=== PATIENT | male | born 1940 | race Caucasian/White ===

== ENCOUNTER 2017-01-09 14:13 | Emergency (ER) | payer OTHER, MEDICAID ==
--- NOTE | 2017-01-09 14:23 | ED Physician Chart ---
Chief Complaint/HPI - Patient Information Date Seen:: 01/09/17 Time Seen:: 14:18 Chief Complaint:: behavioral issues History of Present Illness:: pt has been acting out at [facility]. difficult for staff. outbursts . he is refusing meds and difficult to handle. pt also feels weak lately but denies any fever or uri sx or specific pain. pt here for geripsych evaluation. Allergies:: Allergies Allergy/AdvReac Type Severity Reaction Status Date / Time No Known Allergies Allergy Verified 01/10/16 19:44 Historian:: Patient Review of Systems - Review of Systems General/Constitutional: No fever, No chills, No weight loss, No weakness, No diaphoresis, No edema, No loss of appetite Skin: No skin lesions, No rash, No bruising Head: No headache, No light-headedness Eyes: No loss of vision, No pain, No diplopia ENT: No earache, No nasal drainage, No sore throat, No tinnitus Neck: No neck pain, No swelling, No thyromegaly, No stiffness, No mass noted Cardio Vascular: No chest pain, No palpitations, No PND, No orthopnea, No edema Pulmonary: No SOB, No cough, No sputum, No wheezing GI: No nausea, No vomiting, No diarrhea, No pain, No melena, No hematochezia, No constipation, No hematemesis G/U: No dysuria, No frequency, No hematuria Musculoskeletal: No bone or joint pain, No back pain, No muscle pain Endocrine: No polyuria, No polydipsia Psychiatric: Prior psych history, No depression, No anxiety, No suicidal ideation, Other (aggressive behavior) Hematopoietic: No bruising, No lymphadenopathy Allergic/Immuno: No urticaria, No angioedema Neurological: No syncope, No focal symptoms, No weakness, No paresthesia, No headache, No seizure, No dizziness, No confusion, No vertigo, Other (parkinson tremor) Past Medical History - Past Medical History Past Medical History: Dementia, Other (parkinsons dz,) Social History: Care Facility Psychiatricy History: Dementia, Other Medication: Reviewed Family Medical History - Family Member family History Unknown: Yes Ethnicity: Unknown Living Status: Unknown Hx Family Cancer: (unknown) Hx Family Coronary Artery Disease: (unknown) Hx Family Congestive Heart Failure: (unknown) Hx Family Hypertension: (unknown) Hx Family Stroke: (unknown) Hx Family Diabetes: (unknown) Hx Family Seizures: (unknown) Hx Family Dementia: (unknown) Hx Family AIDS: (unknown) Hx Family COPD: (unknown) Hx Family Hepatitis: (unknown) Hx Family Psychiatric Problems: (unknown) Hx Family Tuberculosis: (unknown) Physical Exam - Physical Examination General/Constitutional: Awake, Well-developed, well-nourished, Alert, No distress, GCS 15, Non-toxic appearing, Ambulatory Other Gen/Cons comments:: thin male alert and in nad. wn/wh. mod ok historian. parkinson tremor Head: Atraumatic Eyes: Lids, conjuctiva normal, PERRL, EOMI Skin: Nl inspection, No rash, No skin lesions, No ecchymosis, Well hydrated, No lymphadenopathy ENMT: External ears, nose nl, Nasal exam nl, Lips, teeth, gums nl Neck: Nontender, Full ROM w/o pain, No JVD, No nuchal rigidity, No bruit, No mass, No stridor Respiratory: Nl effort/Exclusion, Clear to Auscultation, No Wheeze/Rhonchi/Rales Cardio Vascular: RRR, No murmur, gallop, rubs, NL S1 S2 GI: No tenderness/rebounding/guarding, No organomegaly, No hernia, Normal BS's, Nondistended, No mass/bruits, No McBurney tenderness : No CVA tenderness Extremities: No tenderness or effusion, Full ROM, normal strength in all extremities, No edema, Normal digits & nails Neuro/Psych: Alert/oriented, DTR's symmetric, Normal sensory exam, Normal motor strength, Judgement/insight normal, Mood normal, Normal gait, No focal deficits Misc: normal gait, Normal back, No paraspinal tenderness Labs/Radiology/EKG Results - Lab Results Results: Laboratory Tests 01/09/17 01/09/17 14:26 14:26 WBC 6.7 RBC 4.04 Hgb 13.1 Hct 38.9 L MCV 96.3 MCH 32.5 H MCHC Differential 33.8 RDW 12.9 Plt Count 300 MPV 7.5 Neutrophils % 70.3 Lymphocytes % 21.1 Monocytes % 6.9 Eosinophils % 0.6 Basophils % 1.1 Sodium 138 Potassium 3.7 Chloride 105 Carbon Dioxide 30.7 Anion Gap 6.0 L BUN 24 Creatinine 0.9 Est GFR ( Amer) TNP Est GFR (Non-Af Amer) TNP BUN/Creatinine Ratio 26.7 Glucose 134 H Calcium 9.0 Total Bilirubin 0.6 AST 23 ALT 13 Alkaline Phosphatase 46 Total Protein 6.6 Albumin 3.9 L Globulin 2.7 Albumin/Globulin Ratio 1.4 Triglycerides 127 Cholesterol 150 LDL Cholesterol Direct 87 HDL Cholesterol 60 Salicylates < 25.0 L Acetaminophen < 10.0 L Ethyl Alcohol < 10 - EKG Interpretations EKG Time:: 15:55 Rate & Rhythm: nsr 64. st/t waves wnl ED Septic Shock - . Is Septic Shock (SBP<90, OR Lactate>4 mmol\L) present?: No Reassessment (Disposition) - Reassessment Reassessment:: 3;30p pt is medically clear for geripsych x i cannot see ecg has been completed...notified Fátima WHALEN Reassessment Condition:: Unchanged - Diagnosis Diagnosis:: 1 difficult behavior 2 medically cleared for geripsych admit - Patient Disposition Admitted to:: [facility] Condition at Disposition:: Unchanged
[2017-01-09 14:34] LABS: % BASOPHILS 1.1 % (0.0-2.0); % EOSINOPHILS 0.6 % (0.0-5.0); % LYMPHOCYTES 21.1 % (20.0-50.0); % MONOCYTES 6.9 % (2.0-10.0); % NEUTROPHILS 70.3 % (40.0-80.0); HEMATOCRIT 38.9 % (39.0-49.0); HEMOGLOBIN 13.1 gm/dL (12.6-17.4); MEAN CELL VOLUME 96.3 fl (80-99); MEAN CORPUSCULAR HEMOGLOBIN 32.5 pg (27.0-31.0); MEAN CORPUSCULAR HGB CONC 33.8 pg (28.0-36.0); MEAN PLATELET VOLUME 7.5 fl; NEUTROPHILE ABSOLUTE 4.7 Th/cmm (1.8-8.0); PLATELET COUNT 300 Th/cmm (150-400); RED BLOOD COUNT 4.04 Mil/cmm (3.80-5.80); RED CELL DISTRIBUTION WIDTH 12.9 % (11.5-20.0); WHITE BLOOD COUNT 6.7 Th/cmm (4.8-10.8)
[2017-01-09 14:48] LABS: ACETAMINOPHEN < 10.0 ug/mL (10.0-30.0); ALB/GLOB RATIO 1.4 (1.0-1.8); ALKALINE PHOSPHATASE 46 U/L (34-104); BILIRUBIN,TOTAL 0.6 mg/dL (0.3-1.0); BUN - UREA NITROGEN 24 mg/dL (7-25); BUN/CREATININE RATIO 26.7; CARBON DIOXIDE 30.7 mEq/L (21.0-31.0); CHLORIDE 105 mEq/L (98-107); CHOLESTEROL 150 mg/dL (<200); CREATININE - SERUM 0.9 mg/dL (0.7-1.3); GLUCOSE 134 mg/dL (70-105); POTASSIUM SERUM 3.7 mEq/L (3.5-5.1); SGOT 23 U/L (13-39); SGPT/ALT 13 U/L (7-52); SODIUM SERUM 138 mEq/L (136-145); TRIGLYCERIDES 127 mg/dL (<150)
[2017-01-09 19:46] LABS: URINE BILIRUBIN NEGATIVE (NEGATIVE); URINE COLOR YELLOW; URINE GLUCOSE (UA) NEGATIVE (NEGATIVE); URINE KETONE NEGATIVE (NEGATIVE)
[2017-01-09 19:47] LABS: URINE BLOOD NEGATIVE (NEGATIVE); URINE PH 7.5; URINE PROTEIN NEGATIVE (NEGATIVE); URINE UROBILINOGEN 0.2 E.U./dL (0.2 - 1.0)
[2017-01-09 19:48] LABS: AMPHETAMINE URINE NEGATIVE (NEGATIVE); BARBITURATES URINE NEGATIVE (NEGATIVE); METHADONE URINE NEGATIVE (NEGATIVE)
[2017-01-10 02:52] LABS: URINE BACTERIA NONE SEEN /hpf (NONE SEEN); URINE EPITHELIAL CELLS NONE SEEN /lpf (FEW); URINE RBC NONE SEEN /hpf (0-5); URINE WBC NONE SEEN /hpf (0-5)
== END 2017-01-09 21:55 ==
LOC: ER 14:13
DX: R46.89 Other symptoms and signs involving appearance and behavior (principal)
CPT/HCPCS: 36415-UA; 80053-TC; 80061-TC; 80307; 80320-TC; 80329-TC; 81001-TC; 84443-TC; 85025-TC; 86592-TC; 93005

== ENCOUNTER 2017-02-05 18:58 | Emergency (ER) | payer OTHER, MEDICAID ==
[2017-02-05 19:26] LABS: % BASOPHILS 1.2 % (0.0-2.0); % EOSINOPHILS 0.4 % (0.0-5.0); % LYMPHOCYTES 15.5 % (20.0-50.0); % MONOCYTES 9.1 % (2.0-10.0); % NEUTROPHILS 73.8 % (40.0-80.0); HEMATOCRIT 39.3 % (39.0-49.0); HEMOGLOBIN 13.3 gm/dL (12.6-17.4); MEAN CELL VOLUME 96.2 fl (80-99); MEAN CORPUSCULAR HEMOGLOBIN 32.6 pg (27.0-31.0); MEAN CORPUSCULAR HGB CONC 33.9 pg (28.0-36.0); MEAN PLATELET VOLUME 7.6 fl; NEUTROPHILE ABSOLUTE 5.7 Th/cmm (1.8-8.0); PLATELET COUNT 279 Th/cmm (150-400); RED BLOOD COUNT 4.08 Mil/cmm (3.80-5.80); RED CELL DISTRIBUTION WIDTH 12.8 % (11.5-20.0); WHITE BLOOD COUNT 7.7 Th/cmm (4.8-10.8)
--- NOTE | 2017-02-05 19:36 | ED Physician Chart ---
Chief Complaint/HPI - Patient Information Date Seen:: 02/05/17 Time Seen:: 19:25 Chief Complaint:: MENTAL DISORDER History of Present Illness:: THIS IS A 76 YO CONFUSED CHRONICALLY ILL MALE WHO WAS SENT FROM THE SENIOR LIVING FOR EVALUATION AND TREATMENT. Allergies:: Allergies Allergy/AdvReac Type Severity Reaction Status Date / Time No Known Allergies Allergy Verified 01/09/17 14:23 Vitals:: Vital Signs - 8 hr 02/05/17 19:22 Temp 98.6 F HR 65 RR 17 BP 129/66 O2 Sat % 97 Historian:: Patient, Medical Records Review:: Nurse's Note Reviewed, Old Chart Reviewed, Transfer documents Reviewed Review of Systems - Review of Systems General/Constitutional: Other (THIS PATIENT IS TOO CONFUSED TO GIVE A REVIEW OF SYSTEMS) Past Medical History - Past Medical History Obtainable: Yes Past Medical History: HTN, Dyslipidemia, Dementia Family History: None Social History: Non Smoker, No Alcohol, No Drug Use, Care Facility Surgical History: None Psychiatricy History: Depression, Schizophrenia, Bipolar Medication: Reviewed Family Medical History - Family Member family History Unknown: Yes Ethnicity: Unknown Living Status: Unknown Hx Family Cancer: (unknown) Hx Family Coronary Artery Disease: (unknown) Hx Family Congestive Heart Failure: (unknown) Hx Family Hypertension: (unknown) Hx Family Stroke: (unknown) Hx Family Diabetes: (unknown) Hx Family Seizures: (unknown) Hx Family Dementia: (unknown) Hx Family AIDS: (unknown) Hx Family COPD: (unknown) Hx Family Hepatitis: (unknown) Hx Family Psychiatric Problems: (unknown) Hx Family Tuberculosis: (unknown) Physical Exam - Physical Examination General/Constitutional: Awake, Well-developed, well-nourished, Alert, No distress, GCS 15, Non-toxic appearing, Ambulatory Other Gen/Cons comments:: AWAKE BUT CONFUSED Head: Atraumatic Eyes: Lids, conjuctiva normal, PERRL, EOMI Skin: Nl inspection, No rash, No skin lesions, No ecchymosis, Well hydrated, No lymphadenopathy ENMT: External ears, nose nl, Nasal exam nl, Lips, teeth, gums nl Neck: Nontender, Full ROM w/o pain, No JVD, No nuchal rigidity, No bruit, No mass, No stridor Respiratory: Nl effort/Exclusion, Clear to Auscultation, No Wheeze/Rhonchi/Rales Cardio Vascular: RRR, No murmur, gallop, rubs, NL S1 S2 GI: No tenderness/rebounding/guarding, No organomegaly, No hernia, Normal BS's, Nondistended, No mass/bruits, No McBurney tenderness : No CVA tenderness Extremities: No tenderness or effusion, Full ROM, normal strength in all extremities, No edema, Normal digits & nails Neuro/Psych: Alert/oriented, DTR's symmetric, Normal sensory exam, Normal motor strength, Judgement/insight normal, Mood normal, Normal gait, No focal deficits Misc: normal gait, Normal back, No paraspinal tenderness Labs/Radiology/EKG Results - Lab Results Results: Laboratory Tests 02/05/17 19:19 WBC 7.7 RBC 4.08 Hgb 13.3 Hct 39.3 MCV 96.2 MCH 32.6 H MCHC Differential 33.9 RDW 12.8 Plt Count 279 MPV 7.6 Neutrophils % 73.8 Lymphocytes % 15.5 L Monocytes % 9.1 Eosinophils % 0.4 Basophils % 1.2 - EKG Interpretations EKG Time:: 19:31 Rate & Rhythm: RATE =68, SINUS [place]: LEFT AXIS Assessment - Assessment General Assessment: PSYCHOSIS ED Septic Shock - . Is Septic Shock (SBP<90, OR Lactate>4 mmol\L) present?: No - <6hrs of presentation: Vital Signs: Vital Signs - 8 hr 02/05/17 19:22 Temp 98.6 F HR 65 RR 17 BP 129/66 O2 Sat % 97 ED Discharge Plan - Patient Disposition Instructions: Psychosis
[2017-02-05 19:40] LABS: INR 1.07 (0.5-1.4); PROTHROMBIN TIME (TEST) 11.1 SECONDS (9.5-11.5)
[2017-02-05 19:45] LABS: ALKALINE PHOSPHATASE 43 U/L (34-104); ANION GAP 7.9 (7.0-16.0); BILIRUBIN,TOTAL 0.8 mg/dL (0.3-1.0); BUN - UREA NITROGEN 22 mg/dL (7-25); BUN/CREATININE RATIO 24.4; CALCIUM SERUM 9.5 mg/dL (8.6-10.3); CARBON DIOXIDE 26.6 mEq/L (21.0-31.0); CHLORIDE 107 mEq/L (98-107); CREATININE - SERUM 0.9 mg/dL (0.7-1.3); GLUCOSE 144 mg/dL (70-105); POTASSIUM SERUM 3.5 mEq/L (3.5-5.1); SGOT 29 U/L (13-39); SGPT/ALT 17 U/L (7-52); SODIUM SERUM 138 mEq/L (136-145)
[2017-02-05 19:46] LABS: CHOLESTEROL 158 mg/dL (<200); TRIGLYCERIDES 88 mg/dL (<150)
--- NOTE | 2017-02-06 08:20 | Diagnostic Imaging Report ---
CHEST X-RAY: AP view INDICATION: Shortness of breath COMPARISON: None FINDINGS: There is elevation of the right hemidiaphragm There is no focal consolidation or pleural effusions . There is a 1.3 cm round density projecting along the right lower lung zone. Atherosclerotic vascular disease is noted. Heart size is normal. Degenerative changes of the spine are noted. IMPRESSION: No focal consolidation identified. 1.3 cm round density projecting along the right lower lung zone probably representing a calcification. This may represent a granuloma or may be secondary to right fourth rib costochondral junction. Correlation with old exams would also be helpful. Alternatively short-term follow-up CT chest would provide for detail and assessment.
== END 2017-02-05 23:04 ==
LOC: ER 18:58
DX: F29 Unspecified psychosis not due to a substance or known physiological condition (principal); I10 Essential (primary) hypertension; E78.5 Hyperlipidemia, unspecified; F20.9 Schizophrenia, unspecified; F31.9 Bipolar disorder, unspecified
CPT/HCPCS: 36415-UA; 71010-TC; 80053-TC; 80061-TC; 84443-TC; 84484-TC; 85025-TC; 85610-TC; 85730-TC; 86592-TC; 93005

== ENCOUNTER 2017-03-14 14:26 | Inpatient (IN) | payer MEDICARE, MEDICAID ==
--- NOTE | 2017-03-14 14:34 | ED Physician Chart ---
ED Chief Complaint/HPI - Patient Information Date Seen:: 03/14/17 Time Seen:: 14:30 Chief Complaint:: agitation History of Present Illness:: onset x one day of hostile behavior, combativeness, and agitation; no report of LOC, ALOC, AMS, H/As, neck pain, C/P, SOB, Abd. Pain, A/N/V/D/C, fever, chills, SIs, hallucinations, or urinary s/s Allergies:: Allergies Allergy/AdvReac Type Severity Reaction Status Date / Time No Known Allergies Allergy Verified 01/09/17 14:23 Historian:: Patient, EMS Review:: Nurse's Note Reviewed, Old Chart Reviewed, EMS run form Reviewed, Transfer documents Reviewed ED Review of Systems - Review of Systems General/Constitutional: No fever, No chills, No weight loss, Weakness, No diaphoresis, No edema, No loss of appetite Skin: No skin lesions, No rash, No bruising Head: No headache, No light-headedness Eyes: No loss of vision, No pain, No diplopia ENT: No earache, No nasal drainage, No sore throat, No tinnitus Neck: No neck pain, No swelling, No thyromegaly, No stiffness, No mass noted Cardio Vascular: No chest pain, No palpitations, No PND, No orthopnea, No edema Pulmonary: No SOB, No cough, No sputum, No wheezing GI: No nausea, No vomiting, No diarrhea, No pain, No melena, No hematochezia, No constipation, No hematemesis G/U: No dysuria, No frequency, No hematuria Musculoskeletal: No bone or joint pain, No back pain, No muscle pain Endocrine: No polyuria, No polydipsia Psychiatric: Prior psych history, Depression, Anxiety, No suicidal ideation, No homicidal ideation, No auditory hallucination, No visual hallucination Hematopoietic: No bruising, No lymphadenopathy Allergic/Immuno: No urticaria, No angioedema Neurological: No syncope, No focal symptoms, Weakness, No paresthesia, Headache , No seizure, Dizziness, Confusion, Vertigo ED Past Medical History - Past Medical History Obtainable: Yes Past Medical History: HTN, Dyslipidemia (Anemia; BPH), Dementia Family History: Diabetes Melitus, HTN Social History: Non Smoker, No Alcohol, No Drug Use, Single, Care Facility Surgical History: None Psychiatricy History: Depression, Schizophrenia, Bipolar, Dementia Medication: Reviewed Family Medical History - Family Member family History Unknown: Yes Ethnicity: Unknown Living Status: Unknown Hx Family Cancer: (unknown) Hx Family Coronary Artery Disease: (unknown) Hx Family Congestive Heart Failure: (unknown) Hx Family Hypertension: (unknown) Hx Family Stroke: (unknown) Hx Family Diabetes: (unknown) Hx Family Seizures: (unknown) Hx Family Dementia: (unknown) Hx Family AIDS: (unknown) Hx Family COPD: (unknown) Hx Family Hepatitis: (unknown) Hx Family Psychiatric Problems: (unknown) Hx Family Tuberculosis: (unknown) ED Physical Exam - Physical Examination General/Constitutional: Awake, Well-developed, well-nourished, Alert, No distress, GCS 15, Non-toxic appearing, Ambulatory Head: Atraumatic Eyes: Lids, conjuctiva normal, PERRL, EOMI Skin: Nl inspection, No rash, No skin lesions, No ecchymosis, Well hydrated, No lymphadenopathy ENMT: External ears, nose nl, Nasal exam nl, Lips, teeth, gums nl Neck: Nontender, Full ROM w/o pain, No JVD, No nuchal rigidity, No bruit, No mass, No stridor Respiratory: Nl effort/Exclusion, Clear to Auscultation, No Wheeze/Rhonchi/Rales Cardio Vascular: RRR, No murmur, gallop, rubs, NL S1 S2 GI: No tenderness/rebounding/guarding, No organomegaly, No hernia, Normal BS's, Nondistended, No mass/bruits, No McBurney tenderness : No CVA tenderness Extremities: No tenderness or effusion, Full ROM, normal strength in all extremities, No edema, Normal digits & nails Neuro/Psych: DTR's symmetric, Normal sensory exam, Normal motor strength, Judgement/insight normal, Mood normal, Normal gait, No focal deficits Other Neuro/Psych comments:: + Psychomotor Agitation; Confused and Disoriented; no SIs Misc: normal gait, Normal back, No paraspinal tenderness ED Labs/Radiology/EKG Results - Lab Results Comments:: K+: 3.4 - EKG Interpretations EKG Time:: 14:45 Rate & Rhythm: 87; NSR Comments:: LVH; non-specific st-t changes ED Septic Shock - . Is Septic Shock (SBP<90, OR Lactate>4 mmol\L) present?: No ED Reassessment (Disposition) - Reassessment Reassessment Condition:: Improved - Diagnosis Diagnosis:: Agitation; Hypokalemia; Psychomotor Agitation - Aftercare/Follow up Instructions Aftercare/Follow-Up Instructions:: Counseled pt regarding lab results/diagnosis & need follow up, Counseled pt & family regarding lab results/diagnosis & need follow up - Patient Disposition Discharge/Transfer:: Acute Care w/in this hosp Admitted to:: [facility] Condition at Disposition:: Stable, Improved
[2017-03-14 14:57] LABS: % BASOPHILS 1.1 % (0.0-2.0); % EOSINOPHILS 0.7 % (0.0-5.0); % LYMPHOCYTES 24.2 % (20.0-50.0); % MONOCYTES 7.4 % (2.0-10.0); % NEUTROPHILS 66.6 % (40.0-80.0); HEMATOCRIT 43.1 % (41.0-60); HEMOGLOBIN 14.3 gm/dL (12-16); MEAN CELL VOLUME 96.9 fl (80-99); MEAN CORPUSCULAR HEMOGLOBIN 32.1 pg (27.0-31.0); MEAN CORPUSCULAR HGB CONC 33.1 pg (28.0-36.0); MEAN PLATELET VOLUME 7.7 fl; PLATELET COUNT 308 Th/cmm (150-400); RED BLOOD COUNT 4.45 Mil/cmm (3.80-5.80); RED CELL DISTRIBUTION WIDTH 12.4 % (11.5-20.0)
[2017-03-14 15:07] LABS: WHITE BLOOD COUNT 5.9 Th/cmm (4.8-10.8)
[2017-03-14 15:29] LABS: URINE BILIRUBIN NEGATIVE (NEGATIVE); URINE BLOOD NEGATIVE (NEGATIVE); URINE GLUCOSE (UA) NEGATIVE (NEGATIVE); URINE KETONE NEGATIVE (NEGATIVE); URINE PROTEIN NEGATIVE (NEGATIVE); URINE UROBILINOGEN 0.2 E.U./dL (0.2 - 1.0)
[2017-03-14 15:40] LABS: AMPHETAMINE URINE NEGATIVE (NEGATIVE); BARBITURATES URINE NEGATIVE (NEGATIVE); METHADONE URINE NEGATIVE (NEGATIVE)
[2017-03-14 15:41] LABS: URINE COLOR YELLOW
[2017-03-14 15:41] LABS: ALB/GLOB RATIO 1.8 (1.0-1.8); ALKALINE PHOSPHATASE 49 U/L (34-104); ANION GAP 8.8 (7.0-16.0); BILIRUBIN,TOTAL 0.7 mg/dL (0.3-1.0); BUN - UREA NITROGEN 19 mg/dL (7-25); BUN/CREATININE RATIO 23.8; CALCIUM SERUM 9.6 mg/dL (8.6-10.3); CARBON DIOXIDE 30.6 mEq/L (21.0-31.0); CHLORIDE 100 mEq/L (98-107); CHOLESTEROL 175 mg/dL (<200); CREATININE - SERUM 0.8 mg/dL (0.7-1.3); GLUCOSE 96 mg/dL (70-105); POTASSIUM SERUM 3.4 mEq/L (3.5-5.1); SGOT 25 U/L (13-39); SGPT/ALT 17 U/L (7-52); SODIUM SERUM 136 mEq/L (136-145); TRIGLYCERIDES 76 mg/dL (<150)
[2017-03-14 15:42] LABS: URINE BACTERIA NONE SEEN /hpf (NONE SEEN); URINE EPITHELIAL CELLS NONE SEEN /lpf (FEW); URINE RBC NONE SEEN /hpf (0-5); URINE WBC NONE SEEN /hpf (0-5)
[2017-03-14 15:46] LABS: ACETAMINOPHEN < 10.0 ug/mL (10.0-30.0)
[2017-03-14] MEDS ORDERED: Potassium Chloride 20 mEq ER Tab PO ONE (15:58)
[2017-03-14] MEDS ORDERED: Potassium Chloride Elixir 20 mEq /15 mL UDC ONE (16:00)
[2017-03-14] MEDS ORDERED: Potassium Chloride Elixir 20 mEq /15 mL UDC PO ONE (16:01)
[2017-03-14] MEDS ORDERED: Magnesium Hydroxide (MOM) 30 mL UDC PO PRN (17:55)
[2017-03-14] MEDS ORDERED: Maalox 30 mL Cup PO PRN (17:55)
[2017-03-15] MEDS: Multivitamin Tab PO SCH (08:40)
--- NOTE | 2017-03-15 16:26 | Psychosocial Evaluation ---
DATE OF SERVICE: 03/15/2017 PSYCHIATRIC INITIAL EVALUATION MENTAL STATUS EXAM AGE: 76. SEX: Male. PHYSICIAN: Dr. Arita. CHIEF COMPLAINT: Suicidal ideation. HISTORY OF PRESENT ILLNESS: The patient is a 76-year-old male who I evaluated in the [facility] and transferred into the hospital because the patient "suicidal." The patient said that he has been tired of living and he wants to end his life and to kill himself. The patient added that he has been feeling hopeless and helpless. Also, has been frustrated with his physical inabilities and the fact that he has been not able to live at his home. The patient also has been having poor appetite and he lost unknown amount of weight. He also has been slightly suspicious and paranoid and gets angry outbursts. PAST PSYCHIATRIC HISTORY: The patient has history of multiple psychiatric hospitalizations for treatment of his schizoaffective disorder. PAST MEDICAL HISTORY: The patient has no major medical problems. SOCIAL HISTORY: The patient is , but currently he lives in [facility]. The patient does not drink alcohol or use any street drugs or smoke cigarettes. No legal issues and no history of abuse. ALLERGIES: No known allergies. MENTAL STATUS EXAMINATION: The patient appears his stated age. Anxious. Flat affect. In a depressed mood. Seems to be underweight. Thought processes are mainly goal directed. The patient denies auditory or visual hallucinations, but he seems to be suspicious and slightly paranoid. The patient denies homicidal ideations, but admits to suicidal ideations. The patient is alert and oriented to time, place, person, and situation. Intact immediate, recent and remote memories. Fair insight and fair judgment. He seems to be of average intelligence based on his verbal ability. ASSESSMENT: Schizoaffective disorder, bipolar type, depressed episodes. TREATMENT PLAN: We will start the patient on Remeron. We will start individual as well as milieu psychotherapy. Also, we will provide supportive therapy for the patient. ESTIMATED LENGTH OF STAY: 5-7 days. THE PATIENT'S STRENGTHS AND WEAKNESSES: The patient's strength is not clear at this time. Weakness is ineffective coping. AFTER DISCHARGE PLAN: Outpatient treatment and followup will continue as an outpatient. CRITERIA FOR DISCHARGE: The patient will not be suicidal and will stabilize psychotropic medications and will establish outpatient treatment plans. The patient will be discharged to [facility] when medically stable. JOB# [id number]
--- NOTE | 2017-03-15 22:26 | History & Physical ---
ADMIT DATE: HISTORY OF PRESENT ILLNESS: The patient is a 76-year-old male with long history of degenerative joint disease, dementia, ____ admitted to [facility] under Dr. Arita's service for evaluation and treatment. The patient is a poor historian. No fever, no chills, no cough, no shortness of breath, no dysuria, no hematuria. PAST MEDICAL HISTORY: Significant for degenerative joint disease, dementia. PAST SURGICAL HISTORY: No recent surgery. ALLERGIES: None. MEDICATIONS: Follow admission reconciliation. SOCIAL HISTORY: No smoking, no alcohol, no drug. FAMILY HISTORY: Noncontributory. REVIEW OF SYSTEMS: RENAL SYSTEM: No history of chronic renal disorder. CARDIOVASCULAR SYSTEM: No coronary artery disease. ENDOCRINE SYSTEM: No diabetes or thyroid problem. GASTROINTESTINAL SYSTEM: No upper or lower gastrointestinal bleed. NEUROLOGICAL: He has history of dementia. MUSCULOSKELETAL SYSTEM: No history of degenerative joint disease. PHYSICAL EXAMINATION: GENERAL: He is awake, not coherent. VITAL SIGNS: Temperature 97.8, heart rate 59, blood pressure 148/68. HEENT: Normocephalic. Pupils reactive to light and accommodation. Sclerae clear. NECK: Supple. Negative for lymphadenopathy, JVD or bruit. CHEST: Bilateral normal. No rhonchi or wheezing. HEART: S1, S2 normal. No murmur or gallop. ABDOMEN: Soft. Bowel sounds positive. EXTREMITIES: No edema. BACK: Normal. SKIN: Significant for superficial abrasion over the face. NEUROLOGIC: He is awake, alert, not fully oriented. No focal motor or sensory deficits. LABORATORY DATA: White blood cells 5.9, hemoglobin 14.3, hematocrit 43.1, platelets 308,000. Sodium 136, potassium 3.4, BUN 19, creatinine 0.8. ASSESSMENT: 1. Hypertension. 2. Degenerative joint disease. 3. ____ skin abrasion of the face. 4. Dementia. PLAN: The patient admitted to the hospital under Dr. Arita's service. Medical problems to be addressed during this hospitalization is psychosis. Medical problems to be addressed after discharge, hypertension, degenerative joint disease. The patient is medically stable activity. Thank you Dr. Arita for asking me to see your patient. [facility]# [id number]
[2017-03-16] MEDS: Multivitamin Tab PO SCH (09:30)
--- NOTE | 2017-03-16 17:38 | Internal Medicine Prog Note ---
Internal Medicine Subjective - Subjective Patient seen and examined:: with staff (HE IS DOING WELL.TAKING MEDICATION.) Patient is:: awake, non-verbal, in bed Per staff patient has:: no adverse event Internal Medicine Objective - Results Result Diagrams: 03/14/17 14:40 03/14/17 14:40 Recent Labs: Laboratory Last Values WBC 5.9 Th/cmm (4.8-10.8) D 03/14/17 14:40 RBC 4.45 Mil/cmm (3.80-5.80) 03/14/17 14:40 Hgb 14.3 gm/dL (12-16) 03/14/17 14:40 Hct 43.1 % (41.0-60) 03/14/17 14:40 MCV 96.9 fl (80-99) 03/14/17 14:40 MCH 32.1 pg (27.0-31.0) H 03/14/17 14:40 MCHC Differential 33.1 pg (28.0-36.0) 03/14/17 14:40 RDW 12.4 % (11.5-20.0) 03/14/17 14:40 Plt Count 308 Th/cmm (150-400) 03/14/17 14:40 MPV 7.7 fl 03/14/17 14:40 Neutrophils % 66.6 % (40.0-80.0) 03/14/17 14:40 Lymphocytes % 24.2 % (20.0-50.0) 03/14/17 14:40 Monocytes % 7.4 % (2.0-10.0) 03/14/17 14:40 Eosinophils % 0.7 % (0.0-5.0) 03/14/17 14:40 Basophils % 1.1 % (0.0-2.0) 03/14/17 14:40 Sodium 136 mEq/L (136-145) 03/14/17 14:40 Potassium 3.4 mEq/L (3.5-5.1) L 03/14/17 14:40 Chloride 100 mEq/L (98-107) 03/14/17 14:40 Carbon Dioxide 30.6 mEq/L (21.0-31.0) 03/14/17 14:40 Anion Gap 8.8 (7.0-16.0) 03/14/17 14:40 BUN 19 mg/dL (7-25) 03/14/17 14:40 Creatinine 0.8 mg/dL (0.7-1.3) 03/14/17 14:40 Est GFR ( Amer) TNP 03/14/17 14:40 Est GFR (Non-Af Amer) TNP 03/14/17 14:40 BUN/Creatinine Ratio 23.8 03/14/17 14:40 Glucose 96 mg/dL (70-105) 03/14/17 14:40 Calcium 9.6 mg/dL (8.6-10.3) 03/14/17 14:40 Total Bilirubin 0.7 mg/dL (0.3-1.0) 03/14/17 14:40 AST 25 U/L (13-39) 03/14/17 14:40 ALT 17 U/L (7-52) 03/14/17 14:40 Alkaline Phosphatase 49 U/L (34-104) 03/14/17 14:40 Total Protein 7.0 gm/dL (6.0-8.3) 03/14/17 14:40 Albumin 4.5 gm/dL (4.2-5.5) 03/14/17 14:40 Globulin 2.5 gm/dL 03/14/17 14:40 Albumin/Globulin Ratio 1.8 (1.0-1.8) 03/14/17 14:40 Triglycerides 76 mg/dL (<150) 03/14/17 14:40 Cholesterol 175 mg/dL (<200) 03/14/17 14:40 LDL Cholesterol Direct 94 mg/dL (75-193) 03/14/17 14:40 HDL Cholesterol 72 mg/dL (23-92) 03/14/17 14:40 TSH 1.54 uIU/ml (0.34-5.60) 03/14/17 14:40 Urine Source CLEAN C 03/14/17 14:35 Urine Color YELLOW 03/14/17 14:35 Urine Clarity CLEAR (CLEAR) 03/14/17 14:35 Urine pH 6.0 (4.6 - 8.0) 03/14/17 14:35 Ur Specific [place] <= 1.005 (1.005-1.030) 03/14/17 14:35 Urine Protein NEGATIVE mg/dL (NEGATIVE) 03/14/17 14:35 Urine Glucose (UA) NEGATIVE mg/dL (NEGATIVE) 03/14/17 14:35 Urine Ketones NEGATIVE mg/dL (NEGATIVE) 03/14/17 14:35 Urine Blood NEGATIVE (NEGATIVE) 03/14/17 14:35 Urine Nitrate NEGATIVE (NEGATIVE) 03/14/17 14:35 Urine Bilirubin NEGATIVE (NEGATIVE) 03/14/17 14:35 Urine Urobilinogen 0.2 E.U./dL (0.2 - 1.0) 03/14/17 14:35 Ur Leukocyte Esterase NEGATIVE (NEGATIVE) 03/14/17 14:35 Urine RBC NONE SEEN /hpf (0-5) 03/14/17 14:35 Urine WBC NONE SEEN /hpf (0-5) 03/14/17 14:35 Ur Epithelial Cells NONE SEEN /lpf (FEW) 03/14/17 14:35 Urine Bacteria NONE SEEN /hpf (NONE SEEN) 03/14/17 14:35 Salicylates < 25.0 mg/L (30.0-100.0) L 03/14/17 14:40 Urine Opiates Screen NEGATIVE (NEGATIVE) 03/14/17 14:35 Urine Methadone Screen NEGATIVE (NEGATIVE) 03/14/17 14:35 Acetaminophen < 10.0 ug/mL (10.0-30.0) L 03/14/17 14:40 Ur Barbiturates Screen NEGATIVE (NEGATIVE) 03/14/17 14:35 Ur Tricyclics Screen NEGATIVE (NEGATIVE) 03/14/17 14:35 Ur Phencyclidine Scrn NEGATIVE (NEGATIVE) 03/14/17 14:35 Amphetamines Screen NEGATIVE (NEGATIVE) 03/14/17 14:35 U Methamphetamines Scrn NEGATIVE (NEGATIVE) 03/14/17 14:35 U Benzodiazepines Scrn POSITIVE (NEGATIVE) H 03/14/17 14:35 U Cocaine Metab Screen NEGATIVE (NEGATIVE) 03/14/17 14:35 U Cannabinoids Screen NEGATIVE (NEGATIVE) 03/14/17 14:35 Ethyl Alcohol < 10 mg/dL (0-10) 03/14/17 14:40 - Physical Exam Vitals and I&O: Vital Signs Temp 98.2 F 03/16/17 15:27 Pulse 69 03/16/17 15:27 Resp 20 03/16/17 15:27 BP 156/87 03/16/17 15:27 Pulse Ox 98 03/16/17 15:27 Intake & Output 03/15/17 03/16/17 03/16/17 18:59 06:59 18:59 Intake Total 900 120 Balance 900 120 Intake: Oral 900 120 Other: # Voids 3 3 # Bowel Movements 1 Active Medications: Current Medications Acetaminophen (Tylenol) 650 mg PO Q4HR PRN PRN Reason: Mild Pain / Temp above 100 Stop: 05/13/17 17:54 Al Hydrox/Mg Hydrox/Simethicone (Maalox) 30 ml PO Q4HR PRN PRN Reason: GI DISTRESS Stop: 05/13/17 17:54 Amlodipine Besylate (Norvasc) 10 mg PO DAILY BINTA Stop: 05/15/17 20:59 Lorazepam (Ativan) 1 mg PO Q6HR PRN; Protocol PRN Reason: Anxiety Stop: 05/13/17 17:53 Last Admin: 03/16/17 15:39 Dose: 1 mg Magnesium Hydroxide (Milk Of Magnesia) 30 ml PO HS PRN PRN Reason: Constipation Mirtazapine (Remeron) 7.5 mg PO HS BINTA PRN Reason: Protocol Stop: 05/14/17 20:59 Last Admin: 03/15/17 21:09 Dose: 7.5 mg Multivitamins/Vitamin C (Theragran) 1 tab PO DAILY BINTA Stop: 05/14/17 08:59 Last Admin: 03/16/17 09:30 Dose: 1 tab Zolpidem Tartrate (Ambien) 5 mg PO HS PRN PRN Reason: Insomnia Stop: 05/13/17 17:54 Last Admin: 03/15/17 21:09 Dose: 5 mg General: demented HEENT: NC/AT, PERRLA, EOMI, anicteric sclerae, throat clear Neck: Supple, No JVD, No thyromegaly, +2 carotid pulse wo bruit, No LAD Lungs: CTAB Cardiovascular: Normal S1, Normal S2, without murmur Abdomen: non-tender, non-distended Extremities: clear Neurological: no change Internal Medicine Assmt/Plan - Assessment Assessment: 1.DJD. 2.DEMENTIA. - Plan Plan: CONTINUE ON CURRENT MEDICATION AND DIET.
--- NOTE | 2017-03-16 21:07 | Progress Notes ---
DATE: 03/16/2017 SUBJECTIVE: Chart reviewed and the patient interviewed. Also discussed the patient's condition with the staff and reviewed records and labs. The patient is anxious, and he seems to be more agitated today. The patient also is staying by himself in his room tapping with his both fists into his thighs. The patient also is still anxious and seems to be suspicious and paranoid. Also, is still rambling and his thought processes are somehow disorganized. The patient also is still depressed and still talking about his desire to end his life. Also, his appetite is still poor. ASSESSMENT: The patient is still depressed and suicidal and today seems to be slightly psychotic. TREATMENT PLAN: Continue to monitor his behavior and his condition closely. Also, continue Remeron 7.5 mg at bedtime and we will continue to follow up closely. [facility]# [id number]
[2017-03-17] MEDS: Multivitamin Tab PO SCH ×2 (09:08→09:17)
--- NOTE | 2017-03-17 14:53 | Internal Medicine Prog Note ---
Internal Medicine Subjective - Subjective Service Date: 03/17/17 Patient seen and examined:: with staff Patient is:: awake, non-verbal, in bed Per staff patient has:: no adverse event Internal Medicine Objective - Results Result Diagrams: 03/14/17 14:40 03/14/17 14:40 Recent Labs: Laboratory Last Values WBC 5.9 Th/cmm (4.8-10.8) D 03/14/17 14:40 RBC 4.45 Mil/cmm (3.80-5.80) 03/14/17 14:40 Hgb 14.3 gm/dL (12-16) 03/14/17 14:40 Hct 43.1 % (41.0-60) 03/14/17 14:40 MCV 96.9 fl (80-99) 03/14/17 14:40 MCH 32.1 pg (27.0-31.0) H 03/14/17 14:40 MCHC Differential 33.1 pg (28.0-36.0) 03/14/17 14:40 RDW 12.4 % (11.5-20.0) 03/14/17 14:40 Plt Count 308 Th/cmm (150-400) 03/14/17 14:40 MPV 7.7 fl 03/14/17 14:40 Neutrophils % 66.6 % (40.0-80.0) 03/14/17 14:40 Lymphocytes % 24.2 % (20.0-50.0) 03/14/17 14:40 Monocytes % 7.4 % (2.0-10.0) 03/14/17 14:40 Eosinophils % 0.7 % (0.0-5.0) 03/14/17 14:40 Basophils % 1.1 % (0.0-2.0) 03/14/17 14:40 Sodium 136 mEq/L (136-145) 03/14/17 14:40 Potassium 3.4 mEq/L (3.5-5.1) L 03/14/17 14:40 Chloride 100 mEq/L (98-107) 03/14/17 14:40 Carbon Dioxide 30.6 mEq/L (21.0-31.0) 03/14/17 14:40 Anion Gap 8.8 (7.0-16.0) 03/14/17 14:40 BUN 19 mg/dL (7-25) 03/14/17 14:40 Creatinine 0.8 mg/dL (0.7-1.3) 03/14/17 14:40 Est GFR ( Amer) TNP 03/14/17 14:40 Est GFR (Non-Af Amer) TNP 03/14/17 14:40 BUN/Creatinine Ratio 23.8 03/14/17 14:40 Glucose 96 mg/dL (70-105) 03/14/17 14:40 Calcium 9.6 mg/dL (8.6-10.3) 03/14/17 14:40 Total Bilirubin 0.7 mg/dL (0.3-1.0) 03/14/17 14:40 AST 25 U/L (13-39) 03/14/17 14:40 ALT 17 U/L (7-52) 03/14/17 14:40 Alkaline Phosphatase 49 U/L (34-104) 03/14/17 14:40 Total Protein 7.0 gm/dL (6.0-8.3) 03/14/17 14:40 Albumin 4.5 gm/dL (4.2-5.5) 03/14/17 14:40 Globulin 2.5 gm/dL 03/14/17 14:40 Albumin/Globulin Ratio 1.8 (1.0-1.8) 03/14/17 14:40 Triglycerides 76 mg/dL (<150) 03/14/17 14:40 Cholesterol 175 mg/dL (<200) 03/14/17 14:40 LDL Cholesterol Direct 94 mg/dL (75-193) 03/14/17 14:40 HDL Cholesterol 72 mg/dL (23-92) 03/14/17 14:40 TSH 1.54 uIU/ml (0.34-5.60) 03/14/17 14:40 Urine Source CLEAN C 03/14/17 14:35 Urine Color YELLOW 03/14/17 14:35 Urine Clarity CLEAR (CLEAR) 03/14/17 14:35 Urine pH 6.0 (4.6 - 8.0) 03/14/17 14:35 Ur Specific [place] <= 1.005 (1.005-1.030) 03/14/17 14:35 Urine Protein NEGATIVE mg/dL (NEGATIVE) 03/14/17 14:35 Urine Glucose (UA) NEGATIVE mg/dL (NEGATIVE) 03/14/17 14:35 Urine Ketones NEGATIVE mg/dL (NEGATIVE) 03/14/17 14:35 Urine Blood NEGATIVE (NEGATIVE) 03/14/17 14:35 Urine Nitrate NEGATIVE (NEGATIVE) 03/14/17 14:35 Urine Bilirubin NEGATIVE (NEGATIVE) 03/14/17 14:35 Urine Urobilinogen 0.2 E.U./dL (0.2 - 1.0) 03/14/17 14:35 Ur Leukocyte Esterase NEGATIVE (NEGATIVE) 03/14/17 14:35 Urine RBC NONE SEEN /hpf (0-5) 03/14/17 14:35 Urine WBC NONE SEEN /hpf (0-5) 03/14/17 14:35 Ur Epithelial Cells NONE SEEN /lpf (FEW) 03/14/17 14:35 Urine Bacteria NONE SEEN /hpf (NONE SEEN) 03/14/17 14:35 Salicylates < 25.0 mg/L (30.0-100.0) L 03/14/17 14:40 Urine Opiates Screen NEGATIVE (NEGATIVE) 03/14/17 14:35 Urine Methadone Screen NEGATIVE (NEGATIVE) 03/14/17 14:35 Acetaminophen < 10.0 ug/mL (10.0-30.0) L 03/14/17 14:40 Ur Barbiturates Screen NEGATIVE (NEGATIVE) 03/14/17 14:35 Ur Tricyclics Screen NEGATIVE (NEGATIVE) 03/14/17 14:35 Ur Phencyclidine Scrn NEGATIVE (NEGATIVE) 03/14/17 14:35 Amphetamines Screen NEGATIVE (NEGATIVE) 03/14/17 14:35 U Methamphetamines Scrn NEGATIVE (NEGATIVE) 03/14/17 14:35 U Benzodiazepines Scrn POSITIVE (NEGATIVE) H 03/14/17 14:35 U Cocaine Metab Screen NEGATIVE (NEGATIVE) 03/14/17 14:35 U Cannabinoids Screen NEGATIVE (NEGATIVE) 03/14/17 14:35 Ethyl Alcohol < 10 mg/dL (0-10) 03/14/17 14:40 RPR NONREACTIVE (NONREACTIVE) 03/14/17 14:40 - Physical Exam Vitals and I&O: Vital Signs Temp 97.8 F 03/17/17 06:42 Pulse 91 03/17/17 09:19 Resp 19 03/17/17 08:00 BP 130/81 03/17/17 09:19 Pulse Ox 96 03/17/17 06:42 Intake & Output 03/16/17 03/17/17 03/17/17 18:59 06:59 18:59 Intake Total 720 120 Balance 720 120 Intake: Oral 720 120 Other: # Voids 2 3 Active Medications: Current Medications Acetaminophen (Tylenol) 650 mg PO Q4HR PRN PRN Reason: Mild Pain / Temp above 100 Stop: 05/13/17 17:54 Al Hydrox/Mg Hydrox/Simethicone (Maalox) 30 ml PO Q4HR PRN PRN Reason: GI DISTRESS Stop: 05/13/17 17:54 Amlodipine Besylate (Norvasc) 10 mg PO DAILY BINTA Stop: 05/15/17 20:59 Last Admin: 03/17/17 09:19 Dose: 10 mg Lorazepam (Ativan) 1 mg PO Q6HR PRN; Protocol PRN Reason: Anxiety Stop: 05/13/17 17:53 Last Admin: 03/17/17 09:17 Dose: 1 mg Magnesium Hydroxide (Milk Of Magnesia) 30 ml PO HS PRN PRN Reason: Constipation Mirtazapine (Remeron) 7.5 mg PO HS BINTA PRN Reason: Protocol Stop: 05/14/17 20:59 Last Admin: 03/16/17 20:56 Dose: 7.5 mg Multivitamins/Vitamin C (Theragran) 1 tab PO DAILY BINTA Stop: 05/14/17 08:59 Last Admin: 03/17/17 09:17 Dose: 1 tab Zolpidem Tartrate (Ambien) 5 mg PO HS PRN PRN Reason: Insomnia Stop: 05/13/17 17:54 Last Admin: 03/15/17 21:09 Dose: 5 mg General: demented HEENT: NC/AT, PERRLA, EOMI, anicteric sclerae, throat clear Neck: Supple, No JVD, No thyromegaly, +2 carotid pulse wo bruit, No LAD Lungs: CTAB Cardiovascular: Normal S1, Normal S2, without murmur Abdomen: non-tender, non-distended Extremities: clear Neurological: no change Internal Medicine Assmt/Plan - Assessment Assessment: 1.DJD. 2.DEMENTIA. - Plan Plan: CONTINUE ON CURRENT MEDICATION AND DIET.
--- NOTE | 2017-03-17 21:22 | Progress Notes ---
DATE: 03/17/2017 SUBJECTIVE: Chart reviewed and the patient interviewed. Also discussed the patient's condition with the staff and reviewed records and labs. The patient is still severely angry and in irritable mood. The patient also is uncooperative and is disheveled with foul odor. Refusing to take shower and when I asked him to take a shower, "I took one yesterday." He also is still angry and he is still having mood swings and easily agitated and easily irritable. ASSESSMENT: The patient is still depressed and in irritable mood. TREATMENT PLAN: We will continue monitoring his behavior and his condition closely. Also, continue to work on his poor hygiene as well as his ineffective coping. [facility]# [id number]
[2017-03-18] MEDS: Multivitamin Tab PO SCH (08:53)
--- NOTE | 2017-03-18 18:15 | Progress Notes ---
DATE: 03/18/2017 SUBJECTIVE: Chart reviewed and the patient interviewed. Also discussed the patient's condition with the staff and reviewed records and labs. The patient is still extremely angry and is still severely agitated. The patient also is suspicious and is paranoid. The patient also has difficulty following staff directions and still has periods of anger and irritability. The patient also is uncooperative with the staff and he is resisting care. He refused to take bath or shower. He always gives staff hard time in order to follow his basic ADLs and needs. He is disheveled with foul odor. ASSESSMENT: The patient is still psychotic and is still in irritable mood. TREATMENT PLAN: We will continue monitoring his behavior and his condition closely. Also, we will add Seroquel at a dose of 12.5 mg twice a day. Also, continue to work on his ineffective coping and his irritable mood as well as his severe mood swings. [facility]OB# [id number]
--- NOTE | 2017-03-18 19:22 | Internal Medicine Prog Note ---
Internal Medicine Subjective - Subjective Service Date: 03/18/17 Patient seen and examined:: with staff Patient is:: awake, non-verbal, in bed Per staff patient has:: no adverse event Internal Medicine Objective - Results Result Diagrams: 03/14/17 14:40 03/14/17 14:40 Recent Labs: Laboratory Last Values WBC 5.9 Th/cmm (4.8-10.8) D 03/14/17 14:40 RBC 4.45 Mil/cmm (3.80-5.80) 03/14/17 14:40 Hgb 14.3 gm/dL (12-16) 03/14/17 14:40 Hct 43.1 % (41.0-60) 03/14/17 14:40 MCV 96.9 fl (80-99) 03/14/17 14:40 MCH 32.1 pg (27.0-31.0) H 03/14/17 14:40 MCHC Differential 33.1 pg (28.0-36.0) 03/14/17 14:40 RDW 12.4 % (11.5-20.0) 03/14/17 14:40 Plt Count 308 Th/cmm (150-400) 03/14/17 14:40 MPV 7.7 fl 03/14/17 14:40 Neutrophils % 66.6 % (40.0-80.0) 03/14/17 14:40 Lymphocytes % 24.2 % (20.0-50.0) 03/14/17 14:40 Monocytes % 7.4 % (2.0-10.0) 03/14/17 14:40 Eosinophils % 0.7 % (0.0-5.0) 03/14/17 14:40 Basophils % 1.1 % (0.0-2.0) 03/14/17 14:40 Sodium 136 mEq/L (136-145) 03/14/17 14:40 Potassium 3.4 mEq/L (3.5-5.1) L 03/14/17 14:40 Chloride 100 mEq/L (98-107) 03/14/17 14:40 Carbon Dioxide 30.6 mEq/L (21.0-31.0) 03/14/17 14:40 Anion Gap 8.8 (7.0-16.0) 03/14/17 14:40 BUN 19 mg/dL (7-25) 03/14/17 14:40 Creatinine 0.8 mg/dL (0.7-1.3) 03/14/17 14:40 Est GFR ( Amer) TNP 03/14/17 14:40 Est GFR (Non-Af Amer) TNP 03/14/17 14:40 BUN/Creatinine Ratio 23.8 03/14/17 14:40 Glucose 96 mg/dL (70-105) 03/14/17 14:40 Calcium 9.6 mg/dL (8.6-10.3) 03/14/17 14:40 Total Bilirubin 0.7 mg/dL (0.3-1.0) 03/14/17 14:40 AST 25 U/L (13-39) 03/14/17 14:40 ALT 17 U/L (7-52) 03/14/17 14:40 Alkaline Phosphatase 49 U/L (34-104) 03/14/17 14:40 Total Protein 7.0 gm/dL (6.0-8.3) 03/14/17 14:40 Albumin 4.5 gm/dL (4.2-5.5) 03/14/17 14:40 Globulin 2.5 gm/dL 03/14/17 14:40 Albumin/Globulin Ratio 1.8 (1.0-1.8) 03/14/17 14:40 Triglycerides 76 mg/dL (<150) 03/14/17 14:40 Cholesterol 175 mg/dL (<200) 03/14/17 14:40 LDL Cholesterol Direct 94 mg/dL (75-193) 03/14/17 14:40 HDL Cholesterol 72 mg/dL (23-92) 03/14/17 14:40 TSH 1.54 uIU/ml (0.34-5.60) 03/14/17 14:40 Urine Source CLEAN C 03/14/17 14:35 Urine Color YELLOW 03/14/17 14:35 Urine Clarity CLEAR (CLEAR) 03/14/17 14:35 Urine pH 6.0 (4.6 - 8.0) 03/14/17 14:35 Ur Specific [place] <= 1.005 (1.005-1.030) 03/14/17 14:35 Urine Protein NEGATIVE mg/dL (NEGATIVE) 03/14/17 14:35 Urine Glucose (UA) NEGATIVE mg/dL (NEGATIVE) 03/14/17 14:35 Urine Ketones NEGATIVE mg/dL (NEGATIVE) 03/14/17 14:35 Urine Blood NEGATIVE (NEGATIVE) 03/14/17 14:35 Urine Nitrate NEGATIVE (NEGATIVE) 03/14/17 14:35 Urine Bilirubin NEGATIVE (NEGATIVE) 03/14/17 14:35 Urine Urobilinogen 0.2 E.U./dL (0.2 - 1.0) 03/14/17 14:35 Ur Leukocyte Esterase NEGATIVE (NEGATIVE) 03/14/17 14:35 Urine RBC NONE SEEN /hpf (0-5) 03/14/17 14:35 Urine WBC NONE SEEN /hpf (0-5) 03/14/17 14:35 Ur Epithelial Cells NONE SEEN /lpf (FEW) 03/14/17 14:35 Urine Bacteria NONE SEEN /hpf (NONE SEEN) 03/14/17 14:35 Salicylates < 25.0 mg/L (30.0-100.0) L 03/14/17 14:40 Urine Opiates Screen NEGATIVE (NEGATIVE) 03/14/17 14:35 Urine Methadone Screen NEGATIVE (NEGATIVE) 03/14/17 14:35 Acetaminophen < 10.0 ug/mL (10.0-30.0) L 03/14/17 14:40 Ur Barbiturates Screen NEGATIVE (NEGATIVE) 03/14/17 14:35 Ur Tricyclics Screen NEGATIVE (NEGATIVE) 03/14/17 14:35 Ur Phencyclidine Scrn NEGATIVE (NEGATIVE) 03/14/17 14:35 Amphetamines Screen NEGATIVE (NEGATIVE) 03/14/17 14:35 U Methamphetamines Scrn NEGATIVE (NEGATIVE) 03/14/17 14:35 U Benzodiazepines Scrn POSITIVE (NEGATIVE) H 03/14/17 14:35 U Cocaine Metab Screen NEGATIVE (NEGATIVE) 03/14/17 14:35 U Cannabinoids Screen NEGATIVE (NEGATIVE) 03/14/17 14:35 Ethyl Alcohol < 10 mg/dL (0-10) 03/14/17 14:40 RPR NONREACTIVE (NONREACTIVE) 03/14/17 14:40 - Physical Exam Vitals and I&O: Vital Signs Temp 97 F 03/18/17 14:00 Pulse 70 03/18/17 14:00 Resp 18 03/18/17 14:00 BP 115/68 03/18/17 14:00 Pulse Ox 96 03/18/17 14:00 Intake & Output 03/18/17 03/18/17 03/19/17 06:59 18:59 06:59 Intake Total 1800 Balance 1800 Weight (lbs) 58.967 kg Intake: Oral 1800 Other: # Voids 3 4 # Bowel Movements 0 1 Active Medications: Current Medications Acetaminophen (Tylenol) 650 mg PO Q4HR PRN PRN Reason: Mild Pain / Temp above 100 Stop: 05/13/17 17:54 Al Hydrox/Mg Hydrox/Simethicone (Maalox) 30 ml PO Q4HR PRN PRN Reason: GI DISTRESS Stop: 05/13/17 17:54 Amlodipine Besylate (Norvasc) 10 mg PO DAILY BINTA Stop: 05/15/17 20:59 Last Admin: 03/18/17 16:22 Dose: Not Given Lorazepam (Ativan) 1 mg PO Q6HR PRN; Protocol PRN Reason: Anxiety Stop: 05/13/17 17:53 Last Admin: 03/17/17 09:17 Dose: 1 mg Magnesium Hydroxide (Milk Of Magnesia) 30 ml PO HS PRN PRN Reason: Constipation Mirtazapine (Remeron) 7.5 mg PO HS BINTA PRN Reason: Protocol Stop: 05/14/17 20:59 Last Admin: 03/17/17 20:59 Dose: 7.5 mg Multivitamins/Vitamin C (Theragran) 1 tab PO DAILY BINTA Stop: 05/14/17 08:59 Last Admin: 03/18/17 08:53 Dose: 1 tab Quetiapine Fumarate (Seroquel) 12.5 mg PO BID BINTA PRN Reason: Protocol Stop: 05/17/17 16:59 Last Admin: 03/18/17 17:06 Dose: 12.5 mg Zolpidem Tartrate (Ambien) 5 mg PO HS PRN PRN Reason: Insomnia Stop: 05/13/17 17:54 Last Admin: 03/15/17 21:09 Dose: 5 mg General: demented HEENT: NC/AT, PERRLA, EOMI, anicteric sclerae, throat clear Neck: Supple, No JVD, No thyromegaly, +2 carotid pulse wo bruit, No LAD Lungs: CTAB Cardiovascular: Normal S1, Normal S2, without murmur Abdomen: non-tender, non-distended Extremities: clear Neurological: no change Internal Medicine Assmt/Plan - Assessment Assessment: 1.DJD. 2.DEMENTIA. - Plan Plan: CONTINUE ON CURRENT MEDICATION AND DIET.
[2017-03-19] MEDS: Multivitamin Tab PO SCH ×2 (09:14→09:16)
--- NOTE | 2017-03-19 21:01 | Progress Notes ---
DATE: 03/19/2017 SUBJECTIVE: The patient was seen, chart reviewed, and discussed with staff. The patient is currently in the hospital, apparently suicidal, leaving, wanted to kill himself, feeling hopeless, helpless, frustrated, and poor appetite. The patient states that he wants to leave. He has no idea why he is here. He states he wants to leave immediately. He remains suspicious, paranoid, and internally preoccupied. Staff noting he requires a lot of prompting and redirection. Dr. Arita has been seeing the patient over the past few days and is noting continued symptoms, impulsivity, and agitation. Medications were noted. Given recent dose increases of medications, we will continue for now. The patient is not safe for a lower level of care at this time. JOB# [id number]
--- NOTE | 2017-03-19 22:02 | Internal Medicine Prog Note ---
Internal Medicine Subjective - Subjective Service Date: 03/19/17 Patient seen and examined:: without staff Patient is:: awake, non-verbal, in bed Per staff patient has:: no adverse event Internal Medicine Objective - Results Result Diagrams: 03/14/17 14:40 03/14/17 14:40 Recent Labs: Laboratory Last Values WBC 5.9 Th/cmm (4.8-10.8) D 03/14/17 14:40 RBC 4.45 Mil/cmm (3.80-5.80) 03/14/17 14:40 Hgb 14.3 gm/dL (12-16) 03/14/17 14:40 Hct 43.1 % (41.0-60) 03/14/17 14:40 MCV 96.9 fl (80-99) 03/14/17 14:40 MCH 32.1 pg (27.0-31.0) H 03/14/17 14:40 MCHC Differential 33.1 pg (28.0-36.0) 03/14/17 14:40 RDW 12.4 % (11.5-20.0) 03/14/17 14:40 Plt Count 308 Th/cmm (150-400) 03/14/17 14:40 MPV 7.7 fl 03/14/17 14:40 Neutrophils % 66.6 % (40.0-80.0) 03/14/17 14:40 Lymphocytes % 24.2 % (20.0-50.0) 03/14/17 14:40 Monocytes % 7.4 % (2.0-10.0) 03/14/17 14:40 Eosinophils % 0.7 % (0.0-5.0) 03/14/17 14:40 Basophils % 1.1 % (0.0-2.0) 03/14/17 14:40 Sodium 136 mEq/L (136-145) 03/14/17 14:40 Potassium 3.4 mEq/L (3.5-5.1) L 03/14/17 14:40 Chloride 100 mEq/L (98-107) 03/14/17 14:40 Carbon Dioxide 30.6 mEq/L (21.0-31.0) 03/14/17 14:40 Anion Gap 8.8 (7.0-16.0) 03/14/17 14:40 BUN 19 mg/dL (7-25) 03/14/17 14:40 Creatinine 0.8 mg/dL (0.7-1.3) 03/14/17 14:40 Est GFR ( Amer) TNP 03/14/17 14:40 Est GFR (Non-Af Amer) TNP 03/14/17 14:40 BUN/Creatinine Ratio 23.8 03/14/17 14:40 Glucose 96 mg/dL (70-105) 03/14/17 14:40 Calcium 9.6 mg/dL (8.6-10.3) 03/14/17 14:40 Total Bilirubin 0.7 mg/dL (0.3-1.0) 03/14/17 14:40 AST 25 U/L (13-39) 03/14/17 14:40 ALT 17 U/L (7-52) 03/14/17 14:40 Alkaline Phosphatase 49 U/L (34-104) 03/14/17 14:40 Total Protein 7.0 gm/dL (6.0-8.3) 03/14/17 14:40 Albumin 4.5 gm/dL (4.2-5.5) 03/14/17 14:40 Globulin 2.5 gm/dL 03/14/17 14:40 Albumin/Globulin Ratio 1.8 (1.0-1.8) 03/14/17 14:40 Triglycerides 76 mg/dL (<150) 03/14/17 14:40 Cholesterol 175 mg/dL (<200) 03/14/17 14:40 LDL Cholesterol Direct 94 mg/dL (75-193) 03/14/17 14:40 HDL Cholesterol 72 mg/dL (23-92) 03/14/17 14:40 TSH 1.54 uIU/ml (0.34-5.60) 03/14/17 14:40 Urine Source CLEAN C 03/14/17 14:35 Urine Color YELLOW 03/14/17 14:35 Urine Clarity CLEAR (CLEAR) 03/14/17 14:35 Urine pH 6.0 (4.6 - 8.0) 03/14/17 14:35 Ur Specific [place] <= 1.005 (1.005-1.030) 03/14/17 14:35 Urine Protein NEGATIVE mg/dL (NEGATIVE) 03/14/17 14:35 Urine Glucose (UA) NEGATIVE mg/dL (NEGATIVE) 03/14/17 14:35 Urine Ketones NEGATIVE mg/dL (NEGATIVE) 03/14/17 14:35 Urine Blood NEGATIVE (NEGATIVE) 03/14/17 14:35 Urine Nitrate NEGATIVE (NEGATIVE) 03/14/17 14:35 Urine Bilirubin NEGATIVE (NEGATIVE) 03/14/17 14:35 Urine Urobilinogen 0.2 E.U./dL (0.2 - 1.0) 03/14/17 14:35 Ur Leukocyte Esterase NEGATIVE (NEGATIVE) 03/14/17 14:35 Urine RBC NONE SEEN /hpf (0-5) 03/14/17 14:35 Urine WBC NONE SEEN /hpf (0-5) 03/14/17 14:35 Ur Epithelial Cells NONE SEEN /lpf (FEW) 03/14/17 14:35 Urine Bacteria NONE SEEN /hpf (NONE SEEN) 03/14/17 14:35 Salicylates < 25.0 mg/L (30.0-100.0) L 03/14/17 14:40 Urine Opiates Screen NEGATIVE (NEGATIVE) 03/14/17 14:35 Urine Methadone Screen NEGATIVE (NEGATIVE) 03/14/17 14:35 Acetaminophen < 10.0 ug/mL (10.0-30.0) L 03/14/17 14:40 Ur Barbiturates Screen NEGATIVE (NEGATIVE) 03/14/17 14:35 Ur Tricyclics Screen NEGATIVE (NEGATIVE) 03/14/17 14:35 Ur Phencyclidine Scrn NEGATIVE (NEGATIVE) 03/14/17 14:35 Amphetamines Screen NEGATIVE (NEGATIVE) 03/14/17 14:35 U Methamphetamines Scrn NEGATIVE (NEGATIVE) 03/14/17 14:35 U Benzodiazepines Scrn POSITIVE (NEGATIVE) H 03/14/17 14:35 U Cocaine Metab Screen NEGATIVE (NEGATIVE) 03/14/17 14:35 U Cannabinoids Screen NEGATIVE (NEGATIVE) 03/14/17 14:35 Ethyl Alcohol < 10 mg/dL (0-10) 03/14/17 14:40 RPR NONREACTIVE (NONREACTIVE) 03/14/17 14:40 - Physical Exam Vitals and I&O: Vital Signs Temp 98.3 F 03/19/17 20:39 Pulse 62 03/19/17 20:39 Resp 20 03/19/17 20:39 BP 99/46 03/19/17 20:39 Pulse Ox 94 03/19/17 20:39 Intake & Output 03/19/17 03/19/17 03/20/17 06:59 18:59 06:59 Intake Total 240 950 240 Balance 240 950 240 Weight (lbs) 58.967 kg Intake: Oral 240 950 240 Other: # Voids 3 4 1 # Bowel Movements 0 1 Active Medications: Current Medications Acetaminophen (Tylenol) 650 mg PO Q4HR PRN PRN Reason: Mild Pain / Temp above 100 Stop: 05/13/17 17:54 Al Hydrox/Mg Hydrox/Simethicone (Maalox) 30 ml PO Q4HR PRN PRN Reason: GI DISTRESS Stop: 05/13/17 17:54 Amlodipine Besylate (Norvasc) 10 mg PO DAILY BINTA Stop: 05/15/17 20:59 Last Admin: 03/19/17 09:14 Dose: Not Given Lorazepam (Ativan) 1 mg PO Q6HR PRN; Protocol PRN Reason: Anxiety Stop: 05/13/17 17:53 Last Admin: 03/19/17 05:18 Dose: 1 mg Magnesium Hydroxide (Milk Of Magnesia) 30 ml PO HS PRN PRN Reason: Constipation Mirtazapine (Remeron) 7.5 mg PO HS BINTA PRN Reason: Protocol Stop: 05/14/17 20:59 Last Admin: 03/19/17 20:40 Dose: 7.5 mg Multivitamins/Vitamin C (Theragran) 1 tab PO DAILY BINTA Stop: 05/14/17 08:59 Last Admin: 03/19/17 09:16 Dose: Not Given Quetiapine Fumarate (Seroquel) 12.5 mg PO BID BINTA PRN Reason: Protocol Stop: 05/17/17 16:59 Last Admin: 03/19/17 16:40 Dose: 12.5 mg Zolpidem Tartrate (Ambien) 5 mg PO HS PRN PRN Reason: Insomnia Stop: 05/13/17 17:54 Last Admin: 03/19/17 20:41 Dose: 5 mg General: demented HEENT: NC/AT, PERRLA, EOMI, anicteric sclerae, throat clear Neck: Supple, No JVD, No thyromegaly, +2 carotid pulse wo bruit, No LAD Lungs: CTAB Cardiovascular: Normal S1, Normal S2, without murmur Abdomen: non-tender, non-distended Extremities: clear Neurological: no change Internal Medicine Assmt/Plan - Assessment Assessment: 1.DJD. 2.DEMENTIA. - Plan Plan: CONTINUE ON CURRENT MEDICATION AND DIET. Nutritional Asmnt/Malnutr-PDOC - Dietary Evaluation Malnutrition Findings (Please click <Entered> for more info): Nutritional Asmnt/Malnutrition Start: 03/19/17 18: 07 Text: Status: Complete Freq: Document 03/19/17 18:07 GSUN (Rec: 03/19/17 18:15 [email or web address]) Nutritional Asmnt/Malnutrition Patient General Information Nutritional Screening Moderate Risk Screening Diagnosis Schizoaffective disorder, bipolar type, depressed episodes Pertinent Medical Hx/Surgical Hx DJD, dementia, HTN Subjective Information 76 year old male from SNF. Spoek to pt sitting in chair in rec room. Pt was pleasant. Pt reported UBW 190lb 10 years ago, gradually lost weight over the years to CBW around 120lb. Accompanied pt back to room and obtained CBW 120.1lb with shoes included. Teeth intact, no difficulties. Avg PO intake 100% of meals since adm, meeting nutritinoal needs . Briefly discussed weight gain goals, pt agreeable to plan. Current Diet Order/ Nutrition Support [facility] soft chopped, DAGOBERTO Pertinent Medications Maalox, MOM, Remeron, Theragran, Seroquel Pertinent Labs Reviewed. Nutritional Hx/Data Height 1.68 m Height (Calculated Centimeters) 167.6 Current Weight (lbs) 54.476 kg Weight (Calculated Kilograms) 54.5 Weight (Calculated Grams) 80463.4 [place] Body Weight 142 Recent Weight Change No Weight Status Approriate GI Symptoms Usual diet at home [place] Subacute: mech soft, DAGOBERTO Skin Integrity/Comment: Perez 18. Skin intact. Current %PO Good (75-100%) Estimated Nutritional Goals Calories/Kcals/Kg IBW 142lb/64.5kg Kcals Calculated 1613-1935kcal (25-30kcal/kg) Protein Calculated 65-77g (1-1.2g/kg) Fluid: ml 1613-1935ml (1ml/kcal) Nutritional Problem 1. Problem Problem No nutritinoal problem at this time. Intervention/Recommendation Comments 1. Continue with current diet order. Avg PO intake is adequate to promtoe weight gain. 2. Obtained CBW 120.1lb with shoes included via bedscale calibrated. 3. Briefly discussed weight gain goals, pt agreeable to plan. Expected Outcomes/Goals Expected Outcomes/Goals 1. PO intake to meet at least 100% of estimated nutritinoal needs.
--- NOTE | 2017-03-20 11:19 | Internal Medicine Prog Note ---
Internal Medicine Subjective - Subjective Service Date: 03/20/17 Patient seen and examined:: without staff Patient is:: awake, non-verbal, in bed Per staff patient has:: no adverse event Internal Medicine Objective - Results Result Diagrams: 03/14/17 14:40 03/14/17 14:40 Recent Labs: Laboratory Last Values WBC 5.9 Th/cmm (4.8-10.8) D 03/14/17 14:40 RBC 4.45 Mil/cmm (3.80-5.80) 03/14/17 14:40 Hgb 14.3 gm/dL (12-16) 03/14/17 14:40 Hct 43.1 % (41.0-60) 03/14/17 14:40 MCV 96.9 fl (80-99) 03/14/17 14:40 MCH 32.1 pg (27.0-31.0) H 03/14/17 14:40 MCHC Differential 33.1 pg (28.0-36.0) 03/14/17 14:40 RDW 12.4 % (11.5-20.0) 03/14/17 14:40 Plt Count 308 Th/cmm (150-400) 03/14/17 14:40 MPV 7.7 fl 03/14/17 14:40 Neutrophils % 66.6 % (40.0-80.0) 03/14/17 14:40 Lymphocytes % 24.2 % (20.0-50.0) 03/14/17 14:40 Monocytes % 7.4 % (2.0-10.0) 03/14/17 14:40 Eosinophils % 0.7 % (0.0-5.0) 03/14/17 14:40 Basophils % 1.1 % (0.0-2.0) 03/14/17 14:40 Sodium 136 mEq/L (136-145) 03/14/17 14:40 Potassium 3.4 mEq/L (3.5-5.1) L 03/14/17 14:40 Chloride 100 mEq/L (98-107) 03/14/17 14:40 Carbon Dioxide 30.6 mEq/L (21.0-31.0) 03/14/17 14:40 Anion Gap 8.8 (7.0-16.0) 03/14/17 14:40 BUN 19 mg/dL (7-25) 03/14/17 14:40 Creatinine 0.8 mg/dL (0.7-1.3) 03/14/17 14:40 Est GFR ( Amer) TNP 03/14/17 14:40 Est GFR (Non-Af Amer) TNP 03/14/17 14:40 BUN/Creatinine Ratio 23.8 03/14/17 14:40 Glucose 96 mg/dL (70-105) 03/14/17 14:40 Calcium 9.6 mg/dL (8.6-10.3) 03/14/17 14:40 Total Bilirubin 0.7 mg/dL (0.3-1.0) 03/14/17 14:40 AST 25 U/L (13-39) 03/14/17 14:40 ALT 17 U/L (7-52) 03/14/17 14:40 Alkaline Phosphatase 49 U/L (34-104) 03/14/17 14:40 Total Protein 7.0 gm/dL (6.0-8.3) 03/14/17 14:40 Albumin 4.5 gm/dL (4.2-5.5) 03/14/17 14:40 Globulin 2.5 gm/dL 03/14/17 14:40 Albumin/Globulin Ratio 1.8 (1.0-1.8) 03/14/17 14:40 Triglycerides 76 mg/dL (<150) 03/14/17 14:40 Cholesterol 175 mg/dL (<200) 03/14/17 14:40 LDL Cholesterol Direct 94 mg/dL (75-193) 03/14/17 14:40 HDL Cholesterol 72 mg/dL (23-92) 03/14/17 14:40 TSH 1.54 uIU/ml (0.34-5.60) 03/14/17 14:40 Urine Source CLEAN C 03/14/17 14:35 Urine Color YELLOW 03/14/17 14:35 Urine Clarity CLEAR (CLEAR) 03/14/17 14:35 Urine pH 6.0 (4.6 - 8.0) 03/14/17 14:35 Ur Specific [place] <= 1.005 (1.005-1.030) 03/14/17 14:35 Urine Protein NEGATIVE mg/dL (NEGATIVE) 03/14/17 14:35 Urine Glucose (UA) NEGATIVE mg/dL (NEGATIVE) 03/14/17 14:35 Urine Ketones NEGATIVE mg/dL (NEGATIVE) 03/14/17 14:35 Urine Blood NEGATIVE (NEGATIVE) 03/14/17 14:35 Urine Nitrate NEGATIVE (NEGATIVE) 03/14/17 14:35 Urine Bilirubin NEGATIVE (NEGATIVE) 03/14/17 14:35 Urine Urobilinogen 0.2 E.U./dL (0.2 - 1.0) 03/14/17 14:35 Ur Leukocyte Esterase NEGATIVE (NEGATIVE) 03/14/17 14:35 Urine RBC NONE SEEN /hpf (0-5) 03/14/17 14:35 Urine WBC NONE SEEN /hpf (0-5) 03/14/17 14:35 Ur Epithelial Cells NONE SEEN /lpf (FEW) 03/14/17 14:35 Urine Bacteria NONE SEEN /hpf (NONE SEEN) 03/14/17 14:35 Salicylates < 25.0 mg/L (30.0-100.0) L 03/14/17 14:40 Urine Opiates Screen NEGATIVE (NEGATIVE) 03/14/17 14:35 Urine Methadone Screen NEGATIVE (NEGATIVE) 03/14/17 14:35 Acetaminophen < 10.0 ug/mL (10.0-30.0) L 03/14/17 14:40 Ur Barbiturates Screen NEGATIVE (NEGATIVE) 03/14/17 14:35 Ur Tricyclics Screen NEGATIVE (NEGATIVE) 03/14/17 14:35 Ur Phencyclidine Scrn NEGATIVE (NEGATIVE) 03/14/17 14:35 Amphetamines Screen NEGATIVE (NEGATIVE) 03/14/17 14:35 U Methamphetamines Scrn NEGATIVE (NEGATIVE) 03/14/17 14:35 U Benzodiazepines Scrn POSITIVE (NEGATIVE) H 03/14/17 14:35 U Cocaine Metab Screen NEGATIVE (NEGATIVE) 03/14/17 14:35 U Cannabinoids Screen NEGATIVE (NEGATIVE) 03/14/17 14:35 Ethyl Alcohol < 10 mg/dL (0-10) 03/14/17 14:40 RPR NONREACTIVE (NONREACTIVE) 03/14/17 14:40 - Physical Exam Vitals and I&O: Vital Signs Temp 98.1 F 03/20/17 06:17 Pulse 68 03/20/17 06:17 Resp 19 03/20/17 06:17 BP 146/86 03/20/17 06:17 Pulse Ox 97 03/20/17 06:17 Intake & Output 03/19/17 03/20/17 03/20/17 18:59 06:59 18:59 Intake Total 950 360 Balance 950 360 Intake: Oral 950 360 Other: # Voids 4 1 # Bowel Movements 1 0 Active Medications: Current Medications Acetaminophen (Tylenol) 650 mg PO Q4HR PRN PRN Reason: Mild Pain / Temp above 100 Stop: 05/13/17 17:54 Al Hydrox/Mg Hydrox/Simethicone (Maalox) 30 ml PO Q4HR PRN PRN Reason: GI DISTRESS Stop: 05/13/17 17:54 Amlodipine Besylate (Norvasc) 10 mg PO DAILY BINTA Stop: 05/15/17 20:59 Last Admin: 03/19/17 09:14 Dose: Not Given Lorazepam (Ativan) 1 mg PO Q6HR PRN; Protocol PRN Reason: Anxiety Stop: 05/13/17 17:53 Last Admin: 03/20/17 09:37 Dose: 1 mg Magnesium Hydroxide (Milk Of Magnesia) 30 ml PO HS PRN PRN Reason: Constipation Mirtazapine (Remeron) 7.5 mg PO HS BINTA PRN Reason: Protocol Stop: 05/14/17 20:59 Last Admin: 03/19/17 20:40 Dose: 7.5 mg Multivitamins/Vitamin C (Theragran) 1 tab PO DAILY BINTA Stop: 05/14/17 08:59 Last Admin: 03/19/17 09:16 Dose: Not Given Quetiapine Fumarate (Seroquel) 12.5 mg PO BID BINTA PRN Reason: Protocol Stop: 05/17/17 16:59 Last Admin: 03/19/17 16:40 Dose: 12.5 mg Zolpidem Tartrate (Ambien) 5 mg PO HS PRN PRN Reason: Insomnia Stop: 05/13/17 17:54 Last Admin: 03/19/17 20:41 Dose: 5 mg General: demented HEENT: NC/AT, PERRLA, EOMI, anicteric sclerae, throat clear Neck: Supple, No JVD, No thyromegaly, +2 carotid pulse wo bruit, No LAD Lungs: CTAB Cardiovascular: Normal S1, Normal S2, without murmur Abdomen: non-tender, non-distended Extremities: clear Neurological: no change Internal Medicine Assmt/Plan - Assessment Assessment: 1.DJD. 2.DEMENTIA. - Plan Plan: CONTINUE ON CURRENT MEDICATION AND DIET. Nutritional Asmnt/Malnutr-PDOC - Dietary Evaluation Malnutrition Findings (Please click <Entered> for more info): Nutritional Asmnt/Malnutrition Start: 03/19/17 18: 07 Text: Status: Complete Freq: Document 03/19/17 18:07 GSUN (Rec: 03/19/17 18:15 [email or web address]) Nutritional Asmnt/Malnutrition Patient General Information Nutritional Screening Moderate Risk Screening Diagnosis Schizoaffective disorder, bipolar type, depressed episodes Pertinent Medical Hx/Surgical Hx DJD, dementia, HTN Subjective Information 76 year old male from SNF. Spoek to pt sitting in chair in rec room. Pt was pleasant. Pt reported UBW 190lb 10 years ago, gradually lost weight over the years to CBW around 120lb. Accompanied pt back to room and obtained CBW 120.1lb with shoes included. Teeth intact, no difficulties. Avg PO intake 100% of meals since adm, meeting nutritinoal needs . Briefly discussed weight gain goals, pt agreeable to plan. Current Diet Order/ Nutrition Support [facility] soft chopped, DAGOBERTO Pertinent Medications Maalox, MOM, Remeron, Theragran, Seroquel Pertinent Labs Reviewed. Nutritional Hx/Data Height 1.68 m Height (Calculated Centimeters) 167.6 Current Weight (lbs) 54.476 kg Weight (Calculated Kilograms) 54.5 Weight (Calculated Grams) 72206.4 [place] Body Weight 142 Recent Weight Change No Weight Status Approriate GI Symptoms Usual diet at home [place] Subacute: mech soft, DAGOBERTO Skin Integrity/Comment: Perez 18. Skin intact. Current %PO Good (75-100%) Estimated Nutritional Goals Calories/Kcals/Kg IBW 142lb/64.5kg Kcals Calculated 1613-1935kcal (25-30kcal/kg) Protein Calculated 65-77g (1-1.2g/kg) Fluid: ml 1613-1935ml (1ml/kcal) Nutritional Problem 1. Problem Problem No nutritinoal problem at this time. Intervention/Recommendation Comments 1. Continue with current diet order. Avg PO intake is adequate to promtoe weight gain. 2. Obtained CBW 120.1lb with shoes included via bedscale calibrated. 3. Briefly discussed weight gain goals, pt agreeable to plan. Expected Outcomes/Goals Expected Outcomes/Goals 1. PO intake to meet at least 100% of estimated nutritinoal needs.
[2017-03-20] MEDS: Multivitamin Tab PO SCH (16:32)
--- NOTE | 2017-03-20 20:27 | Progress Notes ---
DATE: 03/20/2017 SUBJECTIVE: The patient was seen, chart reviewed, and discussed with staff. The patient is currently in the hospital, apparently was quite suicidal hopeless, helpless, and despairing. The patient remains depressed, internally preoccupied, requiring prompting and redirection and noting to have continued symptoms, impulsivity, agitation, appearing withdrawn, not really talking to me, isolative, still with symptoms. Medications were reviewed. Labs were reviewed. No side effects noted. ASSESSMENT: The patient remains symptomatic, still depressed, continued safety concerns. PLAN: We will continue to monitor, increase Remeron to 15 mg at bedtime. The patient is not safe for a lower level of care. [facility]# [id number]
[2017-03-21] MEDS: Multivitamin Tab PO SCH (09:21)
--- NOTE | 2017-03-21 20:33 | Internal Medicine Prog Note ---
Internal Medicine Subjective - Subjective Service Date: 03/21/17 Patient seen and examined:: without staff Patient is:: awake, non-verbal, in bed Per staff patient has:: no adverse event Internal Medicine Objective - Results Result Diagrams: 03/14/17 14:40 03/14/17 14:40 Recent Labs: Laboratory Last Values WBC 5.9 Th/cmm (4.8-10.8) D 03/14/17 14:40 RBC 4.45 Mil/cmm (3.80-5.80) 03/14/17 14:40 Hgb 14.3 gm/dL (12-16) 03/14/17 14:40 Hct 43.1 % (41.0-60) 03/14/17 14:40 MCV 96.9 fl (80-99) 03/14/17 14:40 MCH 32.1 pg (27.0-31.0) H 03/14/17 14:40 MCHC Differential 33.1 pg (28.0-36.0) 03/14/17 14:40 RDW 12.4 % (11.5-20.0) 03/14/17 14:40 Plt Count 308 Th/cmm (150-400) 03/14/17 14:40 MPV 7.7 fl 03/14/17 14:40 Neutrophils % 66.6 % (40.0-80.0) 03/14/17 14:40 Lymphocytes % 24.2 % (20.0-50.0) 03/14/17 14:40 Monocytes % 7.4 % (2.0-10.0) 03/14/17 14:40 Eosinophils % 0.7 % (0.0-5.0) 03/14/17 14:40 Basophils % 1.1 % (0.0-2.0) 03/14/17 14:40 Sodium 136 mEq/L (136-145) 03/14/17 14:40 Potassium 3.4 mEq/L (3.5-5.1) L 03/14/17 14:40 Chloride 100 mEq/L (98-107) 03/14/17 14:40 Carbon Dioxide 30.6 mEq/L (21.0-31.0) 03/14/17 14:40 Anion Gap 8.8 (7.0-16.0) 03/14/17 14:40 BUN 19 mg/dL (7-25) 03/14/17 14:40 Creatinine 0.8 mg/dL (0.7-1.3) 03/14/17 14:40 Est GFR ( Amer) TNP 03/14/17 14:40 Est GFR (Non-Af Amer) TNP 03/14/17 14:40 BUN/Creatinine Ratio 23.8 03/14/17 14:40 Glucose 96 mg/dL (70-105) 03/14/17 14:40 Calcium 9.6 mg/dL (8.6-10.3) 03/14/17 14:40 Total Bilirubin 0.7 mg/dL (0.3-1.0) 03/14/17 14:40 AST 25 U/L (13-39) 03/14/17 14:40 ALT 17 U/L (7-52) 03/14/17 14:40 Alkaline Phosphatase 49 U/L (34-104) 03/14/17 14:40 Total Protein 7.0 gm/dL (6.0-8.3) 03/14/17 14:40 Albumin 4.5 gm/dL (4.2-5.5) 03/14/17 14:40 Globulin 2.5 gm/dL 03/14/17 14:40 Albumin/Globulin Ratio 1.8 (1.0-1.8) 03/14/17 14:40 Triglycerides 76 mg/dL (<150) 03/14/17 14:40 Cholesterol 175 mg/dL (<200) 03/14/17 14:40 LDL Cholesterol Direct 94 mg/dL (75-193) 03/14/17 14:40 HDL Cholesterol 72 mg/dL (23-92) 03/14/17 14:40 TSH 1.54 uIU/ml (0.34-5.60) 03/14/17 14:40 Urine Source CLEAN C 03/14/17 14:35 Urine Color YELLOW 03/14/17 14:35 Urine Clarity CLEAR (CLEAR) 03/14/17 14:35 Urine pH 6.0 (4.6 - 8.0) 03/14/17 14:35 Ur Specific [place] <= 1.005 (1.005-1.030) 03/14/17 14:35 Urine Protein NEGATIVE mg/dL (NEGATIVE) 03/14/17 14:35 Urine Glucose (UA) NEGATIVE mg/dL (NEGATIVE) 03/14/17 14:35 Urine Ketones NEGATIVE mg/dL (NEGATIVE) 03/14/17 14:35 Urine Blood NEGATIVE (NEGATIVE) 03/14/17 14:35 Urine Nitrate NEGATIVE (NEGATIVE) 03/14/17 14:35 Urine Bilirubin NEGATIVE (NEGATIVE) 03/14/17 14:35 Urine Urobilinogen 0.2 E.U./dL (0.2 - 1.0) 03/14/17 14:35 Ur Leukocyte Esterase NEGATIVE (NEGATIVE) 03/14/17 14:35 Urine RBC NONE SEEN /hpf (0-5) 03/14/17 14:35 Urine WBC NONE SEEN /hpf (0-5) 03/14/17 14:35 Ur Epithelial Cells NONE SEEN /lpf (FEW) 03/14/17 14:35 Urine Bacteria NONE SEEN /hpf (NONE SEEN) 03/14/17 14:35 Salicylates < 25.0 mg/L (30.0-100.0) L 03/14/17 14:40 Urine Opiates Screen NEGATIVE (NEGATIVE) 03/14/17 14:35 Urine Methadone Screen NEGATIVE (NEGATIVE) 03/14/17 14:35 Acetaminophen < 10.0 ug/mL (10.0-30.0) L 03/14/17 14:40 Ur Barbiturates Screen NEGATIVE (NEGATIVE) 03/14/17 14:35 Ur Tricyclics Screen NEGATIVE (NEGATIVE) 03/14/17 14:35 Ur Phencyclidine Scrn NEGATIVE (NEGATIVE) 03/14/17 14:35 Amphetamines Screen NEGATIVE (NEGATIVE) 03/14/17 14:35 U Methamphetamines Scrn NEGATIVE (NEGATIVE) 03/14/17 14:35 U Benzodiazepines Scrn POSITIVE (NEGATIVE) H 03/14/17 14:35 U Cocaine Metab Screen NEGATIVE (NEGATIVE) 03/14/17 14:35 U Cannabinoids Screen NEGATIVE (NEGATIVE) 03/14/17 14:35 Ethyl Alcohol < 10 mg/dL (0-10) 03/14/17 14:40 RPR NONREACTIVE (NONREACTIVE) 03/14/17 14:40 - Physical Exam Vitals and I&O: Vital Signs Temp 97.7 F 03/21/17 20:00 Pulse 62 03/21/17 20:00 Resp 20 03/21/17 20:00 BP 117/58 03/21/17 20:00 Pulse Ox 97 03/21/17 20:00 Intake & Output 03/21/17 03/21/17 03/22/17 06:59 18:59 06:59 Intake Total 240 1200 Balance 240 1200 Weight (lbs) 58.967 kg Intake: Oral 240 1200 Other: # Voids 3 4 # Bowel Movements 0 0 Active Medications: Current Medications Acetaminophen (Tylenol) 650 mg PO Q4HR PRN PRN Reason: Mild Pain / Temp above 100 Stop: 05/13/17 17:54 Al Hydrox/Mg Hydrox/Simethicone (Maalox) 30 ml PO Q4HR PRN PRN Reason: GI DISTRESS Stop: 05/13/17 17:54 Amlodipine Besylate (Norvasc) 10 mg PO DAILY BINTA Stop: 05/15/17 20:59 Last Admin: 03/21/17 09:20 Dose: 10 mg Lorazepam (Ativan) 1 mg PO Q6HR PRN; Protocol PRN Reason: Anxiety Stop: 05/13/17 17:53 Last Admin: 03/21/17 18:06 Dose: 1 mg Magnesium Hydroxide (Milk Of Magnesia) 30 ml PO HS PRN PRN Reason: Constipation Mirtazapine (Remeron) 15 mg PO HS BINTA PRN Reason: Protocol Stop: 05/19/17 16:09 Last Admin: 03/20/17 20:15 Dose: 15 mg Multivitamins/Vitamin C (Theragran) 1 tab PO DAILY BINTA Stop: 05/14/17 08:59 Last Admin: 03/21/17 09:21 Dose: 1 tab Quetiapine Fumarate (Seroquel) 12.5 mg PO BID BINTA PRN Reason: Protocol Stop: 05/17/17 16:59 Last Admin: 03/21/17 17:24 Dose: 12.5 mg Zolpidem Tartrate (Ambien) 5 mg PO HS PRN PRN Reason: Insomnia Stop: 05/13/17 17:54 Last Admin: 03/20/17 20:15 Dose: 5 mg General: demented HEENT: NC/AT, PERRLA, EOMI, anicteric sclerae, throat clear Neck: Supple, No JVD, No thyromegaly, +2 carotid pulse wo bruit, No LAD Lungs: CTAB Cardiovascular: Normal S1, Normal S2, without murmur Abdomen: non-tender, non-distended Extremities: clear Neurological: no change Internal Medicine Assmt/Plan - Assessment Assessment: 1.DJD. 2.DEMENTIA. - Plan Plan: CONTINUE ON CURRENT MEDICATION AND DIET. Nutritional Asmnt/Malnutr-PDOC - Dietary Evaluation Malnutrition Findings (Please click <Entered> for more info): Nutritional Asmnt/Malnutrition Start: 03/19/17 18: 07 Text: Status: Complete Freq: Document 03/19/17 18:07 GSUN (Rec: 03/19/17 18:15 [email or web address] [email or web address]) Nutritional Asmnt/Malnutrition Patient General Information Nutritional Screening Moderate Risk Screening Diagnosis Schizoaffective disorder, bipolar type, depressed episodes Pertinent Medical Hx/Surgical Hx DJD, dementia, HTN Subjective Information 76 year old male from SNF. Spoek to pt sitting in chair in rec room. Pt was pleasant. Pt reported UBW 190lb 10 years ago, gradually lost weight over the years to CBW around 120lb. Accompanied pt back to room and obtained CBW 120.1lb with shoes included. Teeth intact, no difficulties. Avg PO intake 100% of meals since adm, meeting nutritinoal needs . Briefly discussed weight gain goals, pt agreeable to plan. Current Diet Order/ Nutrition Support [facility] soft chopped, DAGOBERTO Pertinent Medications Maalox, MOM, Remeron, Theragran, Seroquel Pertinent Labs Reviewed. Nutritional Hx/Data Height 1.68 m Height (Calculated Centimeters) 167.6 Current Weight (lbs) 54.476 kg Weight (Calculated Kilograms) 54.5 Weight (Calculated Grams) 62749.4 [place] Body Weight 142 Recent Weight Change No Weight Status Approriate GI Symptoms Usual diet at home [place] [facility]: mech soft, DAGOBERTO Skin Integrity/Comment: Perez 18. Skin intact. Current %PO Good (75-100%) Estimated Nutritional Goals Calories/Kcals/Kg IBW 142lb/64.5kg Kcals Calculated 1613-1935kcal (25-30kcal/kg) Protein Calculated 65-77g (1-1.2g/kg) Fluid: ml 1613-1935ml (1ml/kcal) Nutritional Problem 1. Problem Problem No nutritinoal problem at this time. Intervention/Recommendation Comments 1. Continue with current diet order. Avg PO intake is adequate to promtoe weight gain. 2. Obtained CBW 120.1lb with shoes included via bedscale calibrated. 3. Briefly discussed weight gain goals, pt agreeable to plan. Expected Outcomes/Goals Expected Outcomes/Goals 1. PO intake to meet at least 100% of estimated nutritinoal needs.
--- NOTE | 2017-03-22 02:58 | Progress Notes ---
DATE: 03/21/2017 SUBJECTIVE: Chart reviewed and the patient interviewed. Also discussed the patient's condition with the staff and reviewed records and labs. The patient continued to be confused and agitated. The patient also is still having episodes of yelling and screaming and talking to himself. Also, still talking about his desire to end his life and to kill himself with no specific plan. Also, personal hygiene is still poor and he is still disheveled . The patient needs lots of redirections. Otherwise, the patient is compliant with taking his medications with no side effects of medications. ASSESSMENT: The patient is still psychotic and still suicidal. TREATMENT PLAN: Continue monitoring his behavior and his condition closely. Also, continue adjusting psychotropic medications and working on discharge plans. JOB# [id number]
[2017-03-22] MEDS: Multivitamin Tab PO SCH (08:14)
[2017-03-22] MEDS ORDERED: Haloperidol Lactate 5 mg/mL 1mL Vial ONE (11:20)
[2017-03-22] MEDS ORDERED: Haloperidol Lactate 5 mg/mL 1mL Vial IM ONE (11:21)
--- NOTE | 2017-03-22 16:09 | Internal Medicine Prog Note ---
Internal Medicine Subjective - Subjective Service Date: 03/22/17 Patient seen and examined:: without staff Patient is:: awake, non-verbal, in bed Per staff patient has:: no adverse event Internal Medicine Objective - Results Result Diagrams: 03/14/17 14:40 03/14/17 14:40 Recent Labs: Laboratory Last Values WBC 5.9 Th/cmm (4.8-10.8) D 03/14/17 14:40 RBC 4.45 Mil/cmm (3.80-5.80) 03/14/17 14:40 Hgb 14.3 gm/dL (12-16) 03/14/17 14:40 Hct 43.1 % (41.0-60) 03/14/17 14:40 MCV 96.9 fl (80-99) 03/14/17 14:40 MCH 32.1 pg (27.0-31.0) H 03/14/17 14:40 MCHC Differential 33.1 pg (28.0-36.0) 03/14/17 14:40 RDW 12.4 % (11.5-20.0) 03/14/17 14:40 Plt Count 308 Th/cmm (150-400) 03/14/17 14:40 MPV 7.7 fl 03/14/17 14:40 Neutrophils % 66.6 % (40.0-80.0) 03/14/17 14:40 Lymphocytes % 24.2 % (20.0-50.0) 03/14/17 14:40 Monocytes % 7.4 % (2.0-10.0) 03/14/17 14:40 Eosinophils % 0.7 % (0.0-5.0) 03/14/17 14:40 Basophils % 1.1 % (0.0-2.0) 03/14/17 14:40 Sodium 136 mEq/L (136-145) 03/14/17 14:40 Potassium 3.4 mEq/L (3.5-5.1) L 03/14/17 14:40 Chloride 100 mEq/L (98-107) 03/14/17 14:40 Carbon Dioxide 30.6 mEq/L (21.0-31.0) 03/14/17 14:40 Anion Gap 8.8 (7.0-16.0) 03/14/17 14:40 BUN 19 mg/dL (7-25) 03/14/17 14:40 Creatinine 0.8 mg/dL (0.7-1.3) 03/14/17 14:40 Est GFR ( Amer) TNP 03/14/17 14:40 Est GFR (Non-Af Amer) TNP 03/14/17 14:40 BUN/Creatinine Ratio 23.8 03/14/17 14:40 Glucose 96 mg/dL (70-105) 03/14/17 14:40 Calcium 9.6 mg/dL (8.6-10.3) 03/14/17 14:40 Total Bilirubin 0.7 mg/dL (0.3-1.0) 03/14/17 14:40 AST 25 U/L (13-39) 03/14/17 14:40 ALT 17 U/L (7-52) 03/14/17 14:40 Alkaline Phosphatase 49 U/L (34-104) 03/14/17 14:40 Total Protein 7.0 gm/dL (6.0-8.3) 03/14/17 14:40 Albumin 4.5 gm/dL (4.2-5.5) 03/14/17 14:40 Globulin 2.5 gm/dL 03/14/17 14:40 Albumin/Globulin Ratio 1.8 (1.0-1.8) 03/14/17 14:40 Triglycerides 76 mg/dL (<150) 03/14/17 14:40 Cholesterol 175 mg/dL (<200) 03/14/17 14:40 LDL Cholesterol Direct 94 mg/dL (75-193) 03/14/17 14:40 HDL Cholesterol 72 mg/dL (23-92) 03/14/17 14:40 TSH 1.54 uIU/ml (0.34-5.60) 03/14/17 14:40 Urine Source CLEAN C 03/14/17 14:35 Urine Color YELLOW 03/14/17 14:35 Urine Clarity CLEAR (CLEAR) 03/14/17 14:35 Urine pH 6.0 (4.6 - 8.0) 03/14/17 14:35 Ur Specific [place] <= 1.005 (1.005-1.030) 03/14/17 14:35 Urine Protein NEGATIVE mg/dL (NEGATIVE) 03/14/17 14:35 Urine Glucose (UA) NEGATIVE mg/dL (NEGATIVE) 03/14/17 14:35 Urine Ketones NEGATIVE mg/dL (NEGATIVE) 03/14/17 14:35 Urine Blood NEGATIVE (NEGATIVE) 03/14/17 14:35 Urine Nitrate NEGATIVE (NEGATIVE) 03/14/17 14:35 Urine Bilirubin NEGATIVE (NEGATIVE) 03/14/17 14:35 Urine Urobilinogen 0.2 E.U./dL (0.2 - 1.0) 03/14/17 14:35 Ur Leukocyte Esterase NEGATIVE (NEGATIVE) 03/14/17 14:35 Urine RBC NONE SEEN /hpf (0-5) 03/14/17 14:35 Urine WBC NONE SEEN /hpf (0-5) 03/14/17 14:35 Ur Epithelial Cells NONE SEEN /lpf (FEW) 03/14/17 14:35 Urine Bacteria NONE SEEN /hpf (NONE SEEN) 03/14/17 14:35 Salicylates < 25.0 mg/L (30.0-100.0) L 03/14/17 14:40 Urine Opiates Screen NEGATIVE (NEGATIVE) 03/14/17 14:35 Urine Methadone Screen NEGATIVE (NEGATIVE) 03/14/17 14:35 Acetaminophen < 10.0 ug/mL (10.0-30.0) L 03/14/17 14:40 Ur Barbiturates Screen NEGATIVE (NEGATIVE) 03/14/17 14:35 Ur Tricyclics Screen NEGATIVE (NEGATIVE) 03/14/17 14:35 Ur Phencyclidine Scrn NEGATIVE (NEGATIVE) 03/14/17 14:35 Amphetamines Screen NEGATIVE (NEGATIVE) 03/14/17 14:35 U Methamphetamines Scrn NEGATIVE (NEGATIVE) 03/14/17 14:35 U Benzodiazepines Scrn POSITIVE (NEGATIVE) H 03/14/17 14:35 U Cocaine Metab Screen NEGATIVE (NEGATIVE) 03/14/17 14:35 U Cannabinoids Screen NEGATIVE (NEGATIVE) 03/14/17 14:35 Ethyl Alcohol < 10 mg/dL (0-10) 03/14/17 14:40 RPR NONREACTIVE (NONREACTIVE) 03/14/17 14:40 - Physical Exam Vitals and I&O: Vital Signs Temp 98.3 F 03/22/17 06:29 Pulse 63 03/22/17 08:14 Resp 20 03/22/17 08:00 BP 126/72 03/22/17 08:14 Pulse Ox 96 03/22/17 06:29 Intake & Output 03/21/17 03/22/17 03/22/17 18:59 06:59 18:59 Intake Total 1320 Balance 1320 Intake: Oral 1320 Other: # Voids 3 # Bowel Movements 0 Active Medications: Current Medications Acetaminophen (Tylenol) 650 mg PO Q4HR PRN PRN Reason: Mild Pain / Temp above 100 Stop: 05/13/17 17:54 Al Hydrox/Mg Hydrox/Simethicone (Maalox) 30 ml PO Q4HR PRN PRN Reason: GI DISTRESS Stop: 05/13/17 17:54 Amlodipine Besylate (Norvasc) 10 mg PO DAILY BINTA Stop: 05/15/17 20:59 Last Admin: 03/22/17 08:14 Dose: 10 mg Lorazepam (Ativan) 1 mg PO Q6HR PRN; Protocol PRN Reason: Anxiety Stop: 05/13/17 17:53 Last Admin: 03/22/17 09:49 Dose: 1 mg Magnesium Hydroxide (Milk Of Magnesia) 30 ml PO HS PRN PRN Reason: Constipation Mirtazapine (Remeron) 15 mg PO HS BINTA PRN Reason: Protocol Stop: 05/19/17 16:09 Last Admin: 03/21/17 20:36 Dose: 15 mg Multivitamins/Vitamin C (Theragran) 1 tab PO DAILY BINTA Stop: 05/14/17 08:59 Last Admin: 03/22/17 08:14 Dose: 1 tab Quetiapine Fumarate (Seroquel) 25 mg PO BID BINTA PRN Reason: Protocol Stop: 05/17/17 08:59 Last Admin: 03/22/17 11:22 Dose: Not Given Zolpidem Tartrate (Ambien) 5 mg PO HS PRN PRN Reason: Insomnia Stop: 05/13/17 17:54 Last Admin: 03/21/17 22:15 Dose: 5 mg General: demented HEENT: NC/AT, PERRLA, EOMI, anicteric sclerae, throat clear Neck: Supple, No JVD, No thyromegaly, +2 carotid pulse wo bruit, No LAD Lungs: CTAB Cardiovascular: Normal S1, Normal S2, without murmur Abdomen: non-tender, non-distended Extremities: clear Neurological: no change Internal Medicine Assmt/Plan - Assessment Assessment: 1.DJD. 2.DEMENTIA. - Plan Plan: CONTINUE ON CURRENT MEDICATION AND DIET. Nutritional Asmnt/Malnutr-PDOC - Dietary Evaluation Malnutrition Findings (Please click <Entered> for more info): Nutritional Asmnt/Malnutrition Start: 03/19/17 18: 07 Text: Status: Complete Freq: Document 03/19/17 18:07 GSUN (Rec: 03/19/17 18:15 [email or web address] [email or web address]) Nutritional Asmnt/Malnutrition Patient General Information Nutritional Screening Moderate Risk Screening Diagnosis Schizoaffective disorder, bipolar type, depressed episodes Pertinent Medical Hx/Surgical Hx DJD, dementia, HTN Subjective Information 76 year old male from SNF. Spoek to pt sitting in chair in rec room. Pt was pleasant. Pt reported UBW 190lb 10 years ago, gradually lost weight over the years to CBW around 120lb. Accompanied pt back to room and obtained CBW 120.1lb with shoes included. Teeth intact, no difficulties. Avg PO intake 100% of meals since adm, meeting nutritinoal needs . Briefly discussed weight gain goals, pt agreeable to plan. Current Diet Order/ Nutrition Support [facility] soft chopped, DAGOBERTO Pertinent Medications Maalox, MOM, Remeron, Theragran, Seroquel Pertinent Labs Reviewed. Nutritional Hx/Data Height 1.68 m Height (Calculated Centimeters) 167.6 Current Weight (lbs) 54.476 kg Weight (Calculated Kilograms) 54.5 Weight (Calculated Grams) 46973.4 [place] Body Weight 142 Recent Weight Change No Weight Status Approriate GI Symptoms Usual diet at home [place] [facility]: mech soft, DAGOBERTO Skin Integrity/Comment: Perez 18. Skin intact. Current %PO Good (75-100%) Estimated Nutritional Goals Calories/Kcals/Kg IBW 142lb/64.5kg Kcals Calculated 1613-1935kcal (25-30kcal/kg) Protein Calculated 65-77g (1-1.2g/kg) Fluid: ml 1613-1935ml (1ml/kcal) Nutritional Problem 1. Problem Problem No nutritinoal problem at this time. Intervention/Recommendation Comments 1. Continue with current diet order. Avg PO intake is adequate to promtoe weight gain. 2. Obtained CBW 120.1lb with shoes included via bedscale calibrated. 3. Briefly discussed weight gain goals, pt agreeable to plan. Expected Outcomes/Goals Expected Outcomes/Goals 1. PO intake to meet at least 100% of estimated nutritinoal needs.
--- NOTE | 2017-03-23 00:44 | Progress Notes ---
DATE: 03/22/2017 SUBJECTIVE: Chart reviewed and the patient interviewed. Also discussed the patient's condition with the staff and reviewed records and labs. The patient is still agitated and he is still in angry and in irritable mood. The patient also is still having severe mood swings and he still has severe paranoia and irritability. He also is still suspicious and paranoid. Also, appetite is poor. On the other hand, personal hygiene is slightly improved. ASSESSMENT: The patient is still paranoid and is still in angry mood and is still depressed. TREATMENT PLAN: We will continue monitoring his behavior and his condition closely. Also, continue to work on his ineffective coping and continue to follow up. JOB# [id number]
[2017-03-23] MEDS: Multivitamin Tab PO SCH ×2 (08:54→09:00)
--- NOTE | 2017-03-23 13:50 | Discharge Summary ---
DATE OF DISCHARGE: 03/23/2017 FINAL DIAGNOSIS/PRIMARY DIAGNOSIS: Schizoaffective disorder, bipolar type, depressed episodes. REASON FOR HOSPITALIZATION: The patient was admitted to the hospital because of increased depression and irritability and the patient was having thoughts of suicide and wanted to kill himself. HOSPITAL COURSE: The patient continued to be in a depressed mood and anxious. The patient also was feeling hopeless and helpless. The patient also was easily agitated and refusing to bathe or shower. The patient started on Remeron and the dose adjusted to 15 mg at bedtime. Also, because of his agitation, the patient was given Seroquel dose of 12.5 mg twice a day and that increased to 25 mg twice a day. Gradually, the patient's affect was brighter. The patient was less agitated and less irritable. Also, was easier to redirect him. The patient was not suicidal or homicidal, and the patient was discharged from the hospital. Physical exam of the patient showed no major medical issues and the patient had no major medical problems while in the hospital. Blood workup was basically within normal. AFTER-DISCHARGE PLANS: The patient will return to [facility] with plans to follow him up there. JOB# [id number]
== END 2017-03-23 13:30 | disposition home or self-care (01) | DRG 885 ==
LOC: ER 14:26 → GERO 16:30
PROVIDERS: ADMIT Psychiatry & Neurology Psychiatry; ATTEND Psychiatry & Neurology Psychiatry
DX: F25.0 Schizoaffective disorder, bipolar type (principal); F03.90 Unspecified dementia, unspecified severity, without behavioral disturbance, psychotic disturbance, mood disturbance, and anxiety; I10 Essential (primary) hypertension; E78.5 Hyperlipidemia, unspecified; N40.0 Benign prostatic hyperplasia without lower urinary tract symptoms; E87.6 Hypokalemia; M19.90 Unspecified osteoarthritis, unspecified site; S00.81XA Abrasion of other part of head, initial encounter; F32.9 Major depressive disorder, single episode, unspecified; Z83.3 Family history of diabetes mellitus; Z82.49 Family history of ischemic heart disease and other diseases of the circulatory system
CPT/HCPCS: 36415-UA; 80053-TC; 80061-TC; 80307; 80320-TC; 80329-TC; 81001-TC; 84443-TC; 85025-TC; 86592-TC; 90899; 93005; G0410; J1200; J1630; J2060; Z7610

== ENCOUNTER 2017-08-16 12:55 | Inpatient (IN) | payer MEDICARE, MEDICAID ==
[2017-08-16 13:22] LABS: URINE MICROSCOPIC INDICATED? YES; URINE SOURCE CLEAN C
[2017-08-16 13:29] LABS: % BASOPHILS 0.4 % (0.0-2.0); % EOSINOPHILS 1.9 % (0.0-5.0); % LYMPHOCYTES 21.9 % (20.0-50.0); % NEUTROPHILS 66.8 % (40.0-80.0); EOSINOPHILE ABSOLUTE 0.1 Th/cmm (0.1-0.4); HEMATOCRIT 40.8 % (41.0-60); HEMOGLOBIN 13.3 gm/dL (12-16); LYMPHOCYTE ABSOLUTE 1.6 Th/cmm (1.5-3.0); MEAN CELL VOLUME 98.6 fl (80-99); MEAN CORPUSCULAR HEMOGLOBIN 32.1 pg (27.0-31.0); MEAN CORPUSCULAR HGB CONC 32.5 pg (28.0-36.0); MEAN PLATELET VOLUME 7.5 fl; MONOCYTE ABSOLUTE 0.7 Th/cmm (0.3-1.0); NEUTROPHILE ABSOLUTE 4.9 Th/cmm (1.8-8.0); PLATELET COUNT 365 Th/cmm (150-400); RED BLOOD COUNT 4.14 Mil/cmm (3.80-5.80); RED CELL DISTRIBUTION WIDTH 12.6 % (11.5-20.0)
[2017-08-16 13:31] LABS: URINE BILIRUBIN NEGATIVE (NEGATIVE); URINE BLOOD NEGATIVE (NEGATIVE); URINE GLUCOSE (UA) NEGATIVE (NEGATIVE); URINE KETONE NEGATIVE (NEGATIVE); URINE LEUKOCYTE ESTERASE NEGATIVE (NEGATIVE); URINE NITRATE NEGATIVE (NEGATIVE); URINE PROTEIN NEGATIVE (NEGATIVE); URINE UROBILINOGEN 0.2 E.U./dL (0.2 - 1.0)
[2017-08-16 13:31] LABS: WHITE BLOOD COUNT 7.3 Th/cmm (4.8-10.8)
--- NOTE | 2017-08-16 13:31 | ED Physician Chart ---
ED Chief Complaint/HPI - Patient Information Date Seen:: 08/16/17 Time Seen:: 12:40 Chief Complaint:: Agitation History of Present Illness:: onset x 3 days of agitation and aggressive/hostile behavior; no report of SIs, trauma, H/As, neck pain, C/P, SOB, Abd. Pain, A/N/V/D/C, fever, chills, or urinary s/s Allergies:: Allergies Allergy/AdvReac Type Severity Reaction Status Date / Time No Known Allergies Allergy Verified 01/09/17 14:23 Historian:: Patient, EMS Review:: Nurse's Note Reviewed, Old Chart Reviewed, EMS run form Reviewed ED Review of Systems - Review of Systems General/Constitutional: No fever, No chills, No weight loss, No weakness, No diaphoresis, No edema, No loss of appetite Skin: No skin lesions, No rash, No bruising Head: No headache, No light-headedness Eyes: No loss of vision, No pain, No diplopia ENT: No earache, No nasal drainage, No sore throat, No tinnitus Neck: No neck pain, No swelling, No thyromegaly, No stiffness, No mass noted Cardio Vascular: No chest pain, No palpitations, No PND, No orthopnea, No edema Pulmonary: No SOB, No cough, No sputum, No wheezing GI: No nausea, No vomiting, No diarrhea, No pain, No melena, No hematochezia, No constipation, No hematemesis G/U: No dysuria, No frequency, No hematuria, No nacturia Musculoskeletal: No bone or joint pain, No back pain, No muscle pain Endocrine: No polyuria, No polydipsia Psychiatric: Prior psych history, Depression, Anxiety, No suicidal ideation, No homicidal ideation, Auditory hallucination, No visual hallucination Hematopoietic: No bruising, No lymphadenopathy Allergic/Immuno: No urticaria, No angioedema Neurological: No syncope, No focal symptoms, No weakness, No paresthesia, No headache, No seizure, No dizziness, Confusion, No vertigo ED Past Medical History - Past Medical History Obtainable: Yes Past Medical History: HTN, PUD/GERD, Arthritis, Dementia, Other (Parkinson's Disease) Family History: Diabetes Melitus, HTN Social History: Non Smoker, No Alcohol, No Drug Use, Single, Care Facility Surgical History: None Psychiatricy History: Depression, Schizophrenia, Bipolar, Dementia Medication: Reviewed Family Medical History - Family Member Mother History Unknown: Yes Ethnicity: Non- Living Status: family History Unknown: Yes Ethnicity: Unknown Living Status: Unknown Hx Family Cancer: (unknown) Hx Family Coronary Artery Disease: (unknown) Hx Family Congestive Heart Failure: (unknown) Hx Family Hypertension: (unknown) Hx Family Stroke: (unknown) Hx Family Diabetes: (unknown) Hx Family Seizures: (unknown) Hx Family Dementia: (unknown) Hx Family AIDS: (unknown) Hx Family COPD: (unknown) Hx Family Hepatitis: (unknown) Hx Family Psychiatric Problems: (unknown) Hx Family Tuberculosis: (unknown) ED Physical Exam - Physical Examination General/Constitutional: Awake, Well-developed, well-nourished, Alert, No distress, GCS 15, Non-toxic appearing, Ambulatory Head: Atraumatic Eyes: Lids, conjuctiva normal, PERRL, EOMI Skin: Nl inspection, No rash, No skin lesions, No ecchymosis, Well hydrated, No lymphadenopathy ENMT: External ears, nose nl, TM canals nl, Nasal exam nl, Lips, teeth, gums nl , Oropharynx nl, Tonsils nl Neck: Nontender, Full ROM w/o pain, No JVD, No nuchal rigidity, No bruit, No mass, No stridor Respiratory: Nl effort/Exclusion, Clear to Auscultation, No Wheeze/Rhonchi/Rales Cardio Vascular: RRR, No murmur, gallop, rubs, NL S1 S2, Carotid/Femoral/Distal pulses equal bilaterally GI: No tenderness/rebounding/guarding, No organomegaly, No hernia, Normal BS's, Nondistended, No mass/bruits, No McBurney tenderness : No CVA tenderness Extremities: No tenderness or effusion, Full ROM, normal strength in all extremities, No edema, Normal digits & nails Neuro/Psych: Alert/oriented, DTR's symmetric, Normal sensory exam, Normal motor strength, Mood normal, Normal gait, No focal deficits Other Neuro/Psych comments:: + Psychomotor Agitation; Mood/Affect: Labile; no SIs; Poor Judgement Misc: Normal back, No paraspinal tenderness ED Labs/Radiology/EKG Results - EKG Interpretations EKG Time:: 13:01 Rate & Rhythm: 81; NSR Comments:: non-specific st-t changes ED Septic Shock - . Is Septic Shock (SBP<90, OR Lactate>4 mmol\L) present?: No ED Reassessment (Disposition) - Reassessment Reassessment Condition:: Improved - Diagnosis Diagnosis:: Agitation; Depression; Psychosis; Bipolar Disorder - Aftercare/Follow up Instructions Aftercare/Follow-Up Instructions:: Counseled pt regarding lab results/diagnosis & need follow up, Counseled pt & family regarding lab results/diagnosis & need follow up - Patient Disposition Discharge/Transfer:: Acute Care w/in this hosp Accepting Physician:: Dr. Avery Time Called:: 1330 Time Responded:: 13:30 Admitted to:: [facility] Spoke to:: Dr. Avery Admitting Medical Physician:: Dr. Avery Admitting Psych Physician:: Dr. Arita Condition at Disposition:: Stable, Improved
[2017-08-16 13:39] LABS: URINE CLARITY CLEAR (CLEAR); URINE COLOR YELLOW
[2017-08-16 13:39] LABS: ACETAMINOPHEN < 10.0 ug/mL (10.0-30.0); ALB/GLOB RATIO 1.3 (1.0-1.8); ALBUMIN 4.2 gm/dL (4.2-5.5); ALKALINE PHOSPHATASE 54 U/L (34-104); ANION GAP 9.2 (7.0-16.0); BILIRUBIN,TOTAL 0.4 mg/dL (0.3-1.0); BUN - UREA NITROGEN 26 mg/dL (7-25); CALCIUM SERUM 9.7 mg/dL (8.6-10.3); CARBON DIOXIDE 28.9 mEq/L (21.0-31.0); CHLORIDE 100 mEq/L (98-107); CHOLESTEROL 193 mg/dL (<200); CREATININE - SERUM 0.8 mg/dL (0.7-1.3); GLUCOSE 114 mg/dL (70-105); HDL -HIGH DENSITY LIPOPROTEIN 75 mg/dL (23-92); POTASSIUM SERUM 4.1 mEq/L (3.5-5.1); SGOT 29 U/L (13-39); SGPT/ALT 24 U/L (7-52); SODIUM SERUM 134 mEq/L (136-145); TOTAL PROTEIN,SERUM 7.4 gm/dL (6.0-8.3); TRIGLYCERIDES 57 mg/dL (<150)
[2017-08-16 13:40] LABS: URINE BACTERIA RARE /hpf (NONE SEEN); URINE EPITHELIAL CELLS RARE /lpf (FEW); URINE RBC NONE SEEN /hpf (0-5); URINE WBC 0-2 /hpf (0-5)
[2017-08-16 13:50] LABS: SALICYLATES (ASPIRIN) < 25.0 mg/L (30.0-100.0)
[2017-08-16 14:35] LABS: AMPHETAMINE URINE NEGATIVE (NEGATIVE); BARBITURATES URINE NEGATIVE (NEGATIVE); BENZODIAZEPINES QUAL URINE NEGATIVE (NEGATIVE); CANNABINOID THC NEGATIVE (NEGATIVE); COCAINE METABOLITE QUAL URINE NEGATIVE (NEGATIVE); METHADONE URINE NEGATIVE (NEGATIVE); METHAMPHETAMINES QUAL URINE NEGATIVE (NEGATIVE); OPIATES (MORPHINE) QUAL. URINE NEGATIVE (NEGATIVE); PHENCYCLIDINE (PCP) URINE NEGATIVE (NEGATIVE); TRICYCLICS (TCA) QUAL. URINE POSITIVE (NEGATIVE)
[2017-08-16] MEDS ORDERED: Maalox 30 mL Cup PO PRN (14:47)
[2017-08-16] MEDS ORDERED: Magnesium Hydroxide (MOM) 30 mL UDC PO PRN (14:47)
[2017-08-16 16:49] LABS: A1C % 5.5 % (4.0-6.0)
--- NOTE | 2017-08-17 08:46 | Psychosocial Evaluation ---
DATE OF SERVICE: 08/16/2017 AGE: 77. SEX: Male. PHYSICIAN: Dr. Arita. CHIEF COMPLAINT: Aggressive behavior. HISTORY OF PRESENT ILLNESS: The patient is a 77-year-old male who is well known to me from treatment for years for schizoaffective disorder. The patient has been living in [facility] and he became agitated and has been disruptive. Also, has been sexually inappropriate and has been trying to hit staff for helping him and sexually inappropriate and approaches female and masturbating in public. He also has been at times confused and angry. Chart reviewed and the patient interviewed and discussed the patient's condition with the staff and reviewed records and labs. The patient has been extremely irritable and agitated. Also, has been in angry mood. Also, has been doing the same thing on the unit and masturbating and asking a female staff inappropriate questions. He also asking the staff that he is going to rent a place in order to bring his to live with him and this is in the hospital and he thinks that the hospital had place and rooms for rent. He also has been confused. PAST PSYCHIATRIC HISTORY: The patient has history of multiple psychiatric hospitalizations for treatment of schizoaffective disorder. PAST MEDICAL HISTORY: The patient has no major medical problems at this time. CHEMICAL DEPENDENCY HISTORY: The patient denies. FAMILY PSYCHIATRIC AND CHEMICAL DEPENDENCY HISTORY: The patient denies SOCIAL HISTORY: The patient is , but he is from his at this time because of living in a nursing facility. He denies alcohol or street drug use. No legal issues or abuse issues. ALLERGIES: No known allergies. MENTAL STATUS EXAMINATION: The patient appears slightly older than stated age. Anxious. Sad affect. Irritable moods. Demanding. Thought processes are circumstantial with flight of ideas. The patient denies auditory or visual hallucinations, but actively responding to stimuli. The patient denies any thoughts of suicide or homicide. The patient is alert and oriented to time, place, person and situation. Impaired immediate memory, but intact, recent and remote memories. Poor insight and he does not think he needs to be in the hospital. Poor judgment and he is masturbating in public and hitting others. Seems to be of average intelligence based on his verbal ability. ASSESSMENT: PRIMARY DIAGNOSIS: Schizoaffective disorder, bipolar type, severe, with psychotic features. TREATMENT PLAN: We will continue to monitor his behavior and his condition closely. We will start individual as well as milieu psychotherapy. We will increase Seroquel and adjust the dose. ESTIMATED LENGTH OF STAY: 5-7 days. THE PATIENT'S STRENGTHS AND WEAKNESSES: The patient's strengths is not clear at this time. Weaknesses is ineffective coping. AFTER DISCHARGE PLAN: Outpatient treatment and followup will continue as an outpatient. The patient also will need placement and most probably the patient will go to [place] after his discharge. CRITERIA FOR DISCHARGE: The patient will not be psychotic or suicidal and will stabilize psychotropic medications and will establish outpatient treatment plans. JOB# [id number]
[2017-08-17] MEDS: Multivitamin Tab PO SCH (09:08)
--- NOTE | 2017-08-17 13:21 | History and Physical ---
History of Present Illness - HPI Chief Complaint: onset x 3 days of agitation and aggressive/hostile behavior HPI: This is a 77 year old male who has a 3 day history of aggressive behavior towards nursing staff patient is now admitted to the geropsych unit. Vital Signs: Last Vital Signs Temp 98.4 F 08/17/17 06:19 Pulse 69 08/17/17 09:07 Resp 20 08/17/17 06:19 BP 148/77 08/17/17 09:07 Pulse Ox 97 08/17/17 06:19 Past Medical History Other History: HTN, PUD/GERD, Arthritis, Dementia, Other (Parkinson's Disease) Family Medical History - Family Member Mother History Unknown: Yes Ethnicity: Non- Living Status: family History Unknown: Yes Ethnicity: Unknown Living Status: Unknown Hx Family Cancer: (unknown) Hx Family Coronary Artery Disease: (unknown) Hx Family Congestive Heart Failure: (unknown) Hx Family Hypertension: (unknown) Hx Family Stroke: (unknown) Hx Family Diabetes: (unknown) Hx Family Seizures: (unknown) Hx Family Dementia: (unknown) Hx Family AIDS: (unknown) Hx Family COPD: (unknown) Hx Family Hepatitis: (unknown) Hx Family Psychiatric Problems: (unknown) Hx Family Tuberculosis: (unknown) Social History Smoke: No Alcohol: None Drugs: None Lives: [facility] - Medications Home Medications: Home Medication Medication Instructions Recorded Type Lorazepam [Ativan] 1 mg PO Q6HR PRN #0 tab 01/27/16 Rx Acetaminophen [Tylenol] 650 mg PO Q4HR PRN tab 03/23/17 Rx Al Hyd/Mg Hyd/Simethicone [Maalox] 30 ml PO Q4HR PRN [facility] 03/23/17 Rx Magnesium Hydroxide [Milk of 30 ml PO HS PRN [facility] 03/23/17 Rx Magnesia] Mirtazapine [Remeron] 15 mg PO HS tab 03/23/17 Rx Multivitamin [Theragran] 1 tab PO DAILY tab 03/23/17 Rx QUEtiapine Fumarate [SEROquel] 25 mg PO BID tab 03/23/17 Rx Zolpidem Tartrate [Ambien] 5 mg PO HS PRN tab 03/23/17 Rx amLODIPine Besylate [Norvasc*] 10 mg PO DAILY tab 03/23/17 Rx Docusate Sodium [Colace] 100 mg PO BID 08/16/17 History - Allergies Allergies/Adverse Reactions: Allergies Allergy/AdvReac Type Severity Reaction Status Date / Time No Known Allergies Allergy Verified 01/09/17 14:23 Review of Systems - Review of Systems Constitutional: Report: No Significant Eyes: Report: No Significant ENT: Report: No Significant Respiratory: Report: No Significant Cardiovascular: Report: No Significant Gastrointestinal: Report: No Significant Musculoskeletal: Report: No Significant Skin: Report: No Significant Neurological: Report: No Significant Physical Exam - Physical Exam HEENT: Report: Ears Nose Throat within normal limits Neck: Report: Within normal limits Cardiovascular Systems: Report: +s1/s2 noted, Regular, Rate and Rhythm Respiratory: Report: Breath Sounds are within normal limits Back: Report: Inspection of back is within normal limits. Extremities: Report: Non-tender to palpation. Skin: Report: Color of skin is within normal limits Neuro/Psych: Report: Mood affect is within normal limits - Assessment Assessment: HTN PUD/GERD Arthritis Dementia Parkinson's Disease - Plan Plan: CONTINUE CURRENT ORDERS
[2017-08-18] MEDS: Multivitamin Tab PO SCH (09:41)
--- NOTE | 2017-08-18 18:30 | Progress Notes ---
DATE: 08/18/2017 SUBJECTIVE: The patient was seen in his room, lying in the bed. The patient appears to be irritated and guarded. Otherwise, appears to be in no acute distress. OBJECTIVE: VITAL SIGNS: Temperature 97, heart rate 72, blood pressure ____/73, respirations 20, and 95% on room air. HEENT: Head is atraumatic and normocephalic. Eyes: Bilateral conjunctivae are clear. Bilateral pupils equal, round, and reactive. NECK: Supple. No JVD. CARDIOVASCULAR: S1 and S2, without murmur. PULMONARY: Clear to auscultation. GASTROINTESTINAL: Soft and nontender without guarding. Positive bowel sounds. MUSCULOSKELETAL: No clubbing. No cyanosis noted. ASSESSMENT: 1. Schizoaffective disorder. 2. Osteoarthritis. 3. Hypertension. 4. Insomnia. 5. Gastroesophageal reflux disease. PLAN: We will continue to give the patient inpatient Psychiatric Unit. We will follow with the psychiatrist to monitor the patient's condition and behavior. Treatment plans were discussed with the patient's nurse. Treatment plans were discussed with Dr. Avery. JOB# [id number]
--- NOTE | 2017-08-18 21:43 | Progress Notes ---
DATE: The patient was seen and evaluated. The patient's chart reviewed. This is Dr. Harper covering for Dr. Arita. IDENTIFYING DATA: This is a 77-year-old male with a history of schizoaffective disorder, was brought in here from [facility], who had become extremely agitated and very disruptive. Today on [id number] evaluation, the patient has demonstrated very poor impulse control, very disorganized, does not know exactly where he is, disengaged in the interview and avoidance. ASSESSMENT AND PLAN: A 77-year-old male, who continues to be very psychologic and terminal, distraught. We will continue with primary psychiatrist's treatment plan and goals, which include mirtazapine 15 mg p.o. at bedtime and quetiapine at 50 mg p.o. b.i.d. to target the patient's residual disorganized and impulsive behaviors that results in aggressive behavior towards others. [facility]# [id number]
--- NOTE | 2017-08-19 08:50 | General Progress Note ---
Subjective - Review of Systems Events since last encounter: patient is irritable confused Objective - Results Result Diagrams: 08/16/17 13:15 08/16/17 13:15 Recent Labs: Laboratory Last Values WBC 7.3 Th/cmm (4.8-10.8) D 08/16/17 13:15 RBC 4.14 Mil/cmm (3.80-5.80) 08/16/17 13:15 Hgb 13.3 gm/dL (12-16) 08/16/17 13:15 Hct 40.8 % (41.0-60) L 08/16/17 13:15 MCV 98.6 fl (80-99) 08/16/17 13:15 MCH 32.1 pg (27.0-31.0) H 08/16/17 13:15 MCHC Differential 32.5 pg (28.0-36.0) 08/16/17 13:15 RDW 12.6 % (11.5-20.0) 08/16/17 13:15 Plt Count 365 Th/cmm (150-400) 08/16/17 13:15 MPV 7.5 fl 08/16/17 13:15 Neutrophils % 66.8 % (40.0-80.0) 08/16/17 13:15 Lymphocytes % 21.9 % (20.0-50.0) 08/16/17 13:15 Monocytes % 9.0 % (2.0-10.0) 08/16/17 13:15 Eosinophils % 1.9 % (0.0-5.0) 08/16/17 13:15 Basophils % 0.4 % (0.0-2.0) 08/16/17 13:15 Sodium 134 mEq/L (136-145) L 08/16/17 13:15 Potassium 4.1 mEq/L (3.5-5.1) 08/16/17 13:15 Chloride 100 mEq/L (98-107) 08/16/17 13:15 Carbon Dioxide 28.9 mEq/L (21.0-31.0) 08/16/17 13:15 Anion Gap 9.2 (7.0-16.0) 08/16/17 13:15 BUN 26 mg/dL (7-25) H 08/16/17 13:15 Creatinine 0.8 mg/dL (0.7-1.3) 08/16/17 13:15 Est GFR ( Amer) TNP 08/16/17 13:15 Est GFR (Non-Af Amer) TNP 08/16/17 13:15 BUN/Creatinine Ratio 32.5 08/16/17 13:15 Glucose 114 mg/dL (70-105) H 08/16/17 13:15 Hemoglobin A1c % 5.5 % (4.0-6.0) 08/16/17 13:15 Calcium 9.7 mg/dL (8.6-10.3) 08/16/17 13:15 Total Bilirubin 0.4 mg/dL (0.3-1.0) 08/16/17 13:15 AST 29 U/L (13-39) 08/16/17 13:15 ALT 24 U/L (7-52) 08/16/17 13:15 Alkaline Phosphatase 54 U/L (34-104) 08/16/17 13:15 Total Protein 7.4 gm/dL (6.0-8.3) 08/16/17 13:15 Albumin 4.2 gm/dL (4.2-5.5) 08/16/17 13:15 Globulin 3.2 gm/dL 08/16/17 13:15 Albumin/Globulin Ratio 1.3 (1.0-1.8) 08/16/17 13:15 Triglycerides 57 mg/dL (<150) 08/16/17 13:15 Cholesterol 193 mg/dL (<200) 08/16/17 13:15 LDL Cholesterol Direct 109 mg/dL (75-193) 08/16/17 13:15 HDL Cholesterol 75 mg/dL (23-92) 08/16/17 13:15 TSH 2.40 uIU/ml (0.34-5.60) 08/16/17 13:15 Urine Source CLEAN C 08/16/17 13:05 Urine Color YELLOW 08/16/17 13:05 Urine Clarity CLEAR (CLEAR) 08/16/17 13:05 Urine pH 7.0 (4.6 - 8.0) 08/16/17 13:05 Ur Specific [place] 1.015 (1.005-1.030) 08/16/17 13:05 Urine Protein NEGATIVE mg/dL (NEGATIVE) 08/16/17 13:05 Urine Glucose (UA) NEGATIVE mg/dL (NEGATIVE) 08/16/17 13:05 Urine Ketones NEGATIVE mg/dL (NEGATIVE) 08/16/17 13:05 Urine Blood NEGATIVE (NEGATIVE) 08/16/17 13:05 Urine Nitrate NEGATIVE (NEGATIVE) 08/16/17 13:05 Urine Bilirubin NEGATIVE (NEGATIVE) 08/16/17 13:05 Urine Urobilinogen 0.2 E.U./dL (0.2 - 1.0) 08/16/17 13:05 Ur Leukocyte Esterase NEGATIVE (NEGATIVE) 08/16/17 13:05 Urine RBC NONE SEEN /hpf (0-5) 08/16/17 13:05 Urine WBC 0-2 /hpf (0-5) 08/16/17 13:05 Ur Epithelial Cells RARE /lpf (FEW) 08/16/17 13:05 Urine Bacteria RARE /hpf (NONE SEEN) 08/16/17 13:05 Salicylates < 25.0 mg/L (30.0-100.0) L 08/16/17 13:15 Urine Opiates Screen NEGATIVE (NEGATIVE) 08/16/17 13:05 Urine Methadone Screen NEGATIVE (NEGATIVE) 08/16/17 13:05 Acetaminophen < 10.0 ug/mL (10.0-30.0) L 08/16/17 13:15 Ur Barbiturates Screen NEGATIVE (NEGATIVE) 08/16/17 13:05 Ur Tricyclics Screen POSITIVE (NEGATIVE) H 08/16/17 13:05 Ur Phencyclidine Scrn NEGATIVE (NEGATIVE) 08/16/17 13:05 Amphetamines Screen NEGATIVE (NEGATIVE) 08/16/17 13:05 U Methamphetamines Scrn NEGATIVE (NEGATIVE) 08/16/17 13:05 U Benzodiazepines Scrn NEGATIVE (NEGATIVE) 08/16/17 13:05 U Cocaine Metab Screen NEGATIVE (NEGATIVE) 08/16/17 13:05 U Cannabinoids Screen NEGATIVE (NEGATIVE) 08/16/17 13:05 Ethyl Alcohol < 10 mg/dL (0-10) 08/16/17 13:15 RPR NONREACTIVE (NONREACTIVE) 08/16/17 13:15 - Physical Exam Vitals and I&O: Vital Signs Temp 98.7 F 08/18/17 16:57 Pulse 78 08/18/17 16:57 Resp 20 08/18/17 16:57 BP 116/61 08/18/17 16:57 Pulse Ox 98 08/18/17 16:57 Intake & Output 08/18/17 08/19/17 08/19/17 18:59 06:59 18:59 Intake Total 1200 Balance 1200 Intake: Oral 1200 Other: # Voids 3 # Bowel Movements 1 Active Medications: Current Medications Acetaminophen (Tylenol) 650 mg PO Q4HR PRN PRN Reason: Mild Pain / Temp above 100 Stop: 10/15/17 14:46 Al Hydrox/Mg Hydrox/Simethicone (Maalox) 30 ml PO Q4HR PRN PRN Reason: GI DISTRESS Stop: 10/15/17 14:46 Amlodipine Besylate (Norvasc) 10 mg PO DAILY BINTA Stop: 10/16/17 08:59 Last Admin: 08/18/17 09:41 Dose: 10 mg Lorazepam (Ativan) 1 mg PO Q6HR PRN; Protocol PRN Reason: Anxiety Stop: 10/15/17 14:42 Last Admin: 08/19/17 02:28 Dose: 1 mg Magnesium Hydroxide (Milk Of Magnesia) 30 ml PO HS PRN PRN Reason: Constipation Stop: 10/15/17 14:46 Mirtazapine (Remeron) 15 mg PO HS BINTA PRN Reason: Protocol Stop: 10/15/17 20:59 Last Admin: 08/18/17 21:12 Dose: 15 mg Multivitamins/Vitamin C (Theragran) 1 tab PO DAILY BINTA Stop: 10/16/17 08:59 Last Admin: 08/18/17 09:41 Dose: 1 tab Quetiapine Fumarate (Seroquel) 50 mg PO BID BINTA PRN Reason: Protocol Stop: 10/16/17 06:59 Last Admin: 08/18/17 16:54 Dose: 50 mg Zolpidem Tartrate (Ambien) 5 mg PO HS PRN PRN Reason: Insomnia Stop: 10/15/17 14:42 Last Admin: 08/18/17 21:12 Dose: 5 mg
[2017-08-19] MEDS: Multivitamin Tab PO SCH (09:37)
--- NOTE | 2017-08-19 19:52 | Progress Notes ---
DATE: SUBJECTIVE: The patient was seen and evaluated. The patient's chart reviewed. This is Dr. Harper covering for Dr. Arita. Overnight nursing staff reported that the patient continues to be observed to be talking to himself as he paces in the hallway at times, easily agitated when upon approach. Today on [id number] evaluation, the patient is in his room. Upon approach observed to be easily irritable and avoidant in regards to the interview. When attempting to validate his emotions, he becomes more irritable to the point who are you. When attempted to discuss and the psychiatrist becomes more agitated. MENTAL STATUS EXAMINATION: Disorganized, distraught, overwhelmed, derailed thought processes. ASSESSMENT AND PLAN: A 77-year-old male who is experiencing behavior disturbances from dementia and psychosis. We will continue with the current medication regimen mirtazapine 15 at bedtime, Seroquel 50 p.o. b.i.d. to target the patient's residual voices and aggressive behavior. JOB# [id number]
[2017-08-20] MEDS: Multivitamin Tab PO SCH (08:36)
--- NOTE | 2017-08-20 12:42 | Internal Medicine Prog Note ---
Internal Medicine Subjective - Subjective Service Date: 08/20/17 Patient seen and examined:: with staff Patient is:: awake Per staff patient has:: tolerating meds Internal Medicine Objective - Results Result Diagrams: 08/16/17 13:15 08/16/17 13:15 Recent Labs: Laboratory Last Values WBC 7.3 Th/cmm (4.8-10.8) D 08/16/17 13:15 RBC 4.14 Mil/cmm (3.80-5.80) 08/16/17 13:15 Hgb 13.3 gm/dL (12-16) 08/16/17 13:15 Hct 40.8 % (41.0-60) L 08/16/17 13:15 MCV 98.6 fl (80-99) 08/16/17 13:15 MCH 32.1 pg (27.0-31.0) H 08/16/17 13:15 MCHC Differential 32.5 pg (28.0-36.0) 08/16/17 13:15 RDW 12.6 % (11.5-20.0) 08/16/17 13:15 Plt Count 365 Th/cmm (150-400) 08/16/17 13:15 MPV 7.5 fl 08/16/17 13:15 Neutrophils % 66.8 % (40.0-80.0) 08/16/17 13:15 Lymphocytes % 21.9 % (20.0-50.0) 08/16/17 13:15 Monocytes % 9.0 % (2.0-10.0) 08/16/17 13:15 Eosinophils % 1.9 % (0.0-5.0) 08/16/17 13:15 Basophils % 0.4 % (0.0-2.0) 08/16/17 13:15 Sodium 134 mEq/L (136-145) L 08/16/17 13:15 Potassium 4.1 mEq/L (3.5-5.1) 08/16/17 13:15 Chloride 100 mEq/L (98-107) 08/16/17 13:15 Carbon Dioxide 28.9 mEq/L (21.0-31.0) 08/16/17 13:15 Anion Gap 9.2 (7.0-16.0) 08/16/17 13:15 BUN 26 mg/dL (7-25) H 08/16/17 13:15 Creatinine 0.8 mg/dL (0.7-1.3) 08/16/17 13:15 Est GFR ( Amer) TNP 08/16/17 13:15 Est GFR (Non-Af Amer) TNP 08/16/17 13:15 BUN/Creatinine Ratio 32.5 08/16/17 13:15 Glucose 114 mg/dL (70-105) H 08/16/17 13:15 Hemoglobin A1c % 5.5 % (4.0-6.0) 08/16/17 13:15 Calcium 9.7 mg/dL (8.6-10.3) 08/16/17 13:15 Total Bilirubin 0.4 mg/dL (0.3-1.0) 08/16/17 13:15 AST 29 U/L (13-39) 08/16/17 13:15 ALT 24 U/L (7-52) 08/16/17 13:15 Alkaline Phosphatase 54 U/L (34-104) 08/16/17 13:15 Total Protein 7.4 gm/dL (6.0-8.3) 08/16/17 13:15 Albumin 4.2 gm/dL (4.2-5.5) 08/16/17 13:15 Globulin 3.2 gm/dL 08/16/17 13:15 Albumin/Globulin Ratio 1.3 (1.0-1.8) 08/16/17 13:15 Triglycerides 57 mg/dL (<150) 08/16/17 13:15 Cholesterol 193 mg/dL (<200) 08/16/17 13:15 LDL Cholesterol Direct 109 mg/dL (75-193) 08/16/17 13:15 HDL Cholesterol 75 mg/dL (23-92) 08/16/17 13:15 TSH 2.40 uIU/ml (0.34-5.60) 08/16/17 13:15 Urine Source CLEAN C 08/16/17 13:05 Urine Color YELLOW 08/16/17 13:05 Urine Clarity CLEAR (CLEAR) 08/16/17 13:05 Urine pH 7.0 (4.6 - 8.0) 08/16/17 13:05 Ur Specific [place] 1.015 (1.005-1.030) 08/16/17 13:05 Urine Protein NEGATIVE mg/dL (NEGATIVE) 08/16/17 13:05 Urine Glucose (UA) NEGATIVE mg/dL (NEGATIVE) 08/16/17 13:05 Urine Ketones NEGATIVE mg/dL (NEGATIVE) 08/16/17 13:05 Urine Blood NEGATIVE (NEGATIVE) 08/16/17 13:05 Urine Nitrate NEGATIVE (NEGATIVE) 08/16/17 13:05 Urine Bilirubin NEGATIVE (NEGATIVE) 08/16/17 13:05 Urine Urobilinogen 0.2 E.U./dL (0.2 - 1.0) 08/16/17 13:05 Ur Leukocyte Esterase NEGATIVE (NEGATIVE) 08/16/17 13:05 Urine RBC NONE SEEN /hpf (0-5) 08/16/17 13:05 Urine WBC 0-2 /hpf (0-5) 08/16/17 13:05 Ur Epithelial Cells RARE /lpf (FEW) 08/16/17 13:05 Urine Bacteria RARE /hpf (NONE SEEN) 08/16/17 13:05 Salicylates < 25.0 mg/L (30.0-100.0) L 08/16/17 13:15 Urine Opiates Screen NEGATIVE (NEGATIVE) 08/16/17 13:05 Urine Methadone Screen NEGATIVE (NEGATIVE) 08/16/17 13:05 Acetaminophen < 10.0 ug/mL (10.0-30.0) L 08/16/17 13:15 Ur Barbiturates Screen NEGATIVE (NEGATIVE) 08/16/17 13:05 Ur Tricyclics Screen POSITIVE (NEGATIVE) H 08/16/17 13:05 Ur Phencyclidine Scrn NEGATIVE (NEGATIVE) 08/16/17 13:05 Amphetamines Screen NEGATIVE (NEGATIVE) 08/16/17 13:05 U Methamphetamines Scrn NEGATIVE (NEGATIVE) 08/16/17 13:05 U Benzodiazepines Scrn NEGATIVE (NEGATIVE) 08/16/17 13:05 U Cocaine Metab Screen NEGATIVE (NEGATIVE) 08/16/17 13:05 U Cannabinoids Screen NEGATIVE (NEGATIVE) 08/16/17 13:05 Ethyl Alcohol < 10 mg/dL (0-10) 08/16/17 13:15 RPR NONREACTIVE (NONREACTIVE) 08/16/17 13:15 - Physical Exam Vitals and I&O: Vital Signs Temp 97.1 F 08/19/17 18:46 Pulse 75 08/20/17 08:37 Resp 18 08/19/17 18:46 BP 146/73 08/20/17 08:37 Pulse Ox 96 08/19/17 18:46 Active Medications: Current Medications Acetaminophen (Tylenol) 650 mg PO Q4HR PRN PRN Reason: Mild Pain / Temp above 100 Stop: 10/15/17 14:46 Al Hydrox/Mg Hydrox/Simethicone (Maalox) 30 ml PO Q4HR PRN PRN Reason: GI DISTRESS Stop: 10/15/17 14:46 Amlodipine Besylate (Norvasc) 10 mg PO DAILY BINTA Stop: 10/16/17 08:59 Last Admin: 08/20/17 08:37 Dose: 10 mg Lorazepam (Ativan) 1 mg PO Q6HR PRN; Protocol PRN Reason: Anxiety Stop: 10/15/17 14:42 Last Admin: 08/20/17 08:36 Dose: 1 mg Magnesium Hydroxide (Milk Of Magnesia) 30 ml PO HS PRN PRN Reason: Constipation Stop: 10/15/17 14:46 Mirtazapine (Remeron) 15 mg PO HS BINTA PRN Reason: Protocol Stop: 10/15/17 20:59 Last Admin: 08/19/17 21:03 Dose: 15 mg Multivitamins/Vitamin C (Theragran) 1 tab PO DAILY BINTA Stop: 10/16/17 08:59 Last Admin: 08/20/17 08:36 Dose: 1 tab Quetiapine Fumarate (Seroquel) 50 mg PO BID BINTA PRN Reason: Protocol Stop: 10/16/17 06:59 Last Admin: 08/20/17 08:36 Dose: 50 mg Zolpidem Tartrate (Ambien) 5 mg PO HS PRN PRN Reason: Insomnia Stop: 10/15/17 14:42 Last Admin: 08/19/17 21:03 Dose: 5 mg General: alert HEENT: NC/AT Neck: Supple Lungs: CTAB Cardiovascular: RRR, Normal S1, Normal S2, without murmur Abdomen: soft, non-tender, positive bowel sound Internal Medicine Assmt/Plan - Assessment Assessment: HTN PUD/GERD Arthritis Dementia Parkinson's Disease - Plan Plan: CONTINUE CURRENT ORDERS
--- NOTE | 2017-08-20 23:30 | Progress Notes ---
DATE: 08/20/[address] Arita. Case was discussed with staff of the patient and reviewed records. This is a 77-year-old male who was admitted on 08/16/2017 because of agitation, irritability with poor impulse control, disorganized, unable to participate in meaningful conversation or make safe plan for self-care. He is compliant with the medication with no side effects, no sedation, no nausea, no extrapyramidal symptoms. He is on Remeron 15 mg at bedtime as well as Seroquel 50 mg twice a day and the patient is in a wheelchair. He talks to himself, unpredictable, impulsive, needing redirection. Seroquel dose was increased on 08/17/2017 to 50 mg twice a day and we will give more time for the medication to adjust because of his age and will continue outpatient group therapy, milieu therapy, adjust the medication as needed. JOB# [id number]
[2017-08-21] MEDS: Multivitamin Tab PO SCH (08:14)
--- NOTE | 2017-08-21 15:15 | Internal Medicine Prog Note ---
Internal Medicine Subjective - Subjective Service Date: 08/21/17 Patient is:: awake Per staff patient has:: tolerating meds Internal Medicine Objective - Results Result Diagrams: 08/16/17 13:15 08/16/17 13:15 Recent Labs: Laboratory Last Values WBC 7.3 Th/cmm (4.8-10.8) D 08/16/17 13:15 RBC 4.14 Mil/cmm (3.80-5.80) 08/16/17 13:15 Hgb 13.3 gm/dL (12-16) 08/16/17 13:15 Hct 40.8 % (41.0-60) L 08/16/17 13:15 MCV 98.6 fl (80-99) 08/16/17 13:15 MCH 32.1 pg (27.0-31.0) H 08/16/17 13:15 MCHC Differential 32.5 pg (28.0-36.0) 08/16/17 13:15 RDW 12.6 % (11.5-20.0) 08/16/17 13:15 Plt Count 365 Th/cmm (150-400) 08/16/17 13:15 MPV 7.5 fl 08/16/17 13:15 Neutrophils % 66.8 % (40.0-80.0) 08/16/17 13:15 Lymphocytes % 21.9 % (20.0-50.0) 08/16/17 13:15 Monocytes % 9.0 % (2.0-10.0) 08/16/17 13:15 Eosinophils % 1.9 % (0.0-5.0) 08/16/17 13:15 Basophils % 0.4 % (0.0-2.0) 08/16/17 13:15 Sodium 134 mEq/L (136-145) L 08/16/17 13:15 Potassium 4.1 mEq/L (3.5-5.1) 08/16/17 13:15 Chloride 100 mEq/L (98-107) 08/16/17 13:15 Carbon Dioxide 28.9 mEq/L (21.0-31.0) 08/16/17 13:15 Anion Gap 9.2 (7.0-16.0) 08/16/17 13:15 BUN 26 mg/dL (7-25) H 08/16/17 13:15 Creatinine 0.8 mg/dL (0.7-1.3) 08/16/17 13:15 Est GFR ( Amer) TNP 08/16/17 13:15 Est GFR (Non-Af Amer) TNP 08/16/17 13:15 BUN/Creatinine Ratio 32.5 08/16/17 13:15 Glucose 114 mg/dL (70-105) H 08/16/17 13:15 Hemoglobin A1c % 5.5 % (4.0-6.0) 08/16/17 13:15 Calcium 9.7 mg/dL (8.6-10.3) 08/16/17 13:15 Total Bilirubin 0.4 mg/dL (0.3-1.0) 08/16/17 13:15 AST 29 U/L (13-39) 08/16/17 13:15 ALT 24 U/L (7-52) 08/16/17 13:15 Alkaline Phosphatase 54 U/L (34-104) 08/16/17 13:15 Total Protein 7.4 gm/dL (6.0-8.3) 08/16/17 13:15 Albumin 4.2 gm/dL (4.2-5.5) 08/16/17 13:15 Globulin 3.2 gm/dL 08/16/17 13:15 Albumin/Globulin Ratio 1.3 (1.0-1.8) 08/16/17 13:15 Triglycerides 57 mg/dL (<150) 08/16/17 13:15 Cholesterol 193 mg/dL (<200) 08/16/17 13:15 LDL Cholesterol Direct 109 mg/dL (75-193) 08/16/17 13:15 HDL Cholesterol 75 mg/dL (23-92) 08/16/17 13:15 TSH 2.40 uIU/ml (0.34-5.60) 08/16/17 13:15 Urine Source CLEAN C 08/16/17 13:05 Urine Color YELLOW 08/16/17 13:05 Urine Clarity CLEAR (CLEAR) 08/16/17 13:05 Urine pH 7.0 (4.6 - 8.0) 08/16/17 13:05 Ur Specific [place] 1.015 (1.005-1.030) 08/16/17 13:05 Urine Protein NEGATIVE mg/dL (NEGATIVE) 08/16/17 13:05 Urine Glucose (UA) NEGATIVE mg/dL (NEGATIVE) 08/16/17 13:05 Urine Ketones NEGATIVE mg/dL (NEGATIVE) 08/16/17 13:05 Urine Blood NEGATIVE (NEGATIVE) 08/16/17 13:05 Urine Nitrate NEGATIVE (NEGATIVE) 08/16/17 13:05 Urine Bilirubin NEGATIVE (NEGATIVE) 08/16/17 13:05 Urine Urobilinogen 0.2 E.U./dL (0.2 - 1.0) 08/16/17 13:05 Ur Leukocyte Esterase NEGATIVE (NEGATIVE) 08/16/17 13:05 Urine RBC NONE SEEN /hpf (0-5) 08/16/17 13:05 Urine WBC 0-2 /hpf (0-5) 08/16/17 13:05 Ur Epithelial Cells RARE /lpf (FEW) 08/16/17 13:05 Urine Bacteria RARE /hpf (NONE SEEN) 08/16/17 13:05 Salicylates < 25.0 mg/L (30.0-100.0) L 08/16/17 13:15 Urine Opiates Screen NEGATIVE (NEGATIVE) 08/16/17 13:05 Urine Methadone Screen NEGATIVE (NEGATIVE) 08/16/17 13:05 Acetaminophen < 10.0 ug/mL (10.0-30.0) L 08/16/17 13:15 Ur Barbiturates Screen NEGATIVE (NEGATIVE) 08/16/17 13:05 Ur Tricyclics Screen POSITIVE (NEGATIVE) H 08/16/17 13:05 Ur Phencyclidine Scrn NEGATIVE (NEGATIVE) 08/16/17 13:05 Amphetamines Screen NEGATIVE (NEGATIVE) 08/16/17 13:05 U Methamphetamines Scrn NEGATIVE (NEGATIVE) 08/16/17 13:05 U Benzodiazepines Scrn NEGATIVE (NEGATIVE) 08/16/17 13:05 U Cocaine Metab Screen NEGATIVE (NEGATIVE) 08/16/17 13:05 U Cannabinoids Screen NEGATIVE (NEGATIVE) 08/16/17 13:05 Ethyl Alcohol < 10 mg/dL (0-10) 08/16/17 13:15 RPR NONREACTIVE (NONREACTIVE) 08/16/17 13:15 - Physical Exam Vitals and I&O: Vital Signs Temp 0 F 08/21/17 06:54 Pulse 99 08/21/17 08:14 Resp 20 08/20/17 20:34 BP 153/71 08/21/17 08:14 Pulse Ox 97 08/20/17 20:34 Intake & Output 08/20/17 08/21/17 08/21/17 18:59 06:59 18:59 Intake Total 850 240 Balance 850 240 Intake: Oral 850 240 Other: # Voids 4 3 # Bowel Movements 1 0 Active Medications: Current Medications Acetaminophen (Tylenol) 650 mg PO Q4HR PRN PRN Reason: Mild Pain / Temp above 100 Stop: 10/15/17 14:46 Al Hydrox/Mg Hydrox/Simethicone (Maalox) 30 ml PO Q4HR PRN PRN Reason: GI DISTRESS Stop: 10/15/17 14:46 Amlodipine Besylate (Norvasc) 10 mg PO DAILY BINTA Stop: 10/16/17 08:59 Last Admin: 08/21/17 08:14 Dose: 10 mg Benztropine Mesylate (Cogentin) 0.5 mg PO BID PRN PRN Reason: eps Stop: 10/20/17 16:59 Lorazepam (Ativan) 1 mg PO Q6HR PRN; Protocol PRN Reason: Anxiety Stop: 10/15/17 14:42 Last Admin: 08/21/17 08:14 Dose: 1 mg Magnesium Hydroxide (Milk Of Magnesia) 30 ml PO HS PRN PRN Reason: Constipation Stop: 10/15/17 14:46 Mirtazapine (Remeron) 15 mg PO HS BINTA PRN Reason: Protocol Stop: 10/15/17 20:59 Last Admin: 08/20/17 21:06 Dose: 15 mg Multivitamins/Vitamin C (Theragran) 1 tab PO DAILY BINTA Stop: 10/16/17 08:59 Last Admin: 08/21/17 08:14 Dose: 1 tab Quetiapine Fumarate (Seroquel) 50 mg PO BID BINTA PRN Reason: Protocol Stop: 10/16/17 06:59 Last Admin: 08/21/17 08:14 Dose: 50 mg Zolpidem Tartrate (Ambien) 5 mg PO HS PRN PRN Reason: Insomnia Stop: 10/15/17 14:42 Last Admin: 08/20/17 21:06 Dose: 5 mg General: alert HEENT: NC/AT Neck: Supple Lungs: CTAB Cardiovascular: RRR, Normal S1, Normal S2, without murmur Abdomen: soft, non-tender, positive bowel sound Internal Medicine Assmt/Plan - Assessment Assessment: HTN PUD/GERD Arthritis Dementia Parkinson's Disease - Plan Plan: CONTINUE CURRENT ORDERS
--- NOTE | 2017-08-21 22:06 | Progress Notes ---
DATE: 08/21/2017 Case was discussed with staff of patient, reviewed records. The patient continues to be talking to himself. Continues to be unpredictable, impulsive, needing redirection. Continues to have poor insight. He has been having EPS and I added Cogentin 0.5 mg twice a day. He is on Seroquel 50 mg twice a day. We will continue to work with the patient in group therapy, milieu therapy, adjust medication as needed. JOB# [id number]
[2017-08-22] MEDS: Multivitamin Tab PO SCH (09:05)
--- NOTE | 2017-08-22 14:00 | Internal Medicine Prog Note ---
Internal Medicine Subjective - Subjective Service Date: 08/22/17 Patient is:: awake Per staff patient has:: tolerating meds Internal Medicine Objective - Results Result Diagrams: 08/16/17 13:15 08/16/17 13:15 Recent Labs: Laboratory Last Values WBC 7.3 Th/cmm (4.8-10.8) D 08/16/17 13:15 RBC 4.14 Mil/cmm (3.80-5.80) 08/16/17 13:15 Hgb 13.3 gm/dL (12-16) 08/16/17 13:15 Hct 40.8 % (41.0-60) L 08/16/17 13:15 MCV 98.6 fl (80-99) 08/16/17 13:15 MCH 32.1 pg (27.0-31.0) H 08/16/17 13:15 MCHC Differential 32.5 pg (28.0-36.0) 08/16/17 13:15 RDW 12.6 % (11.5-20.0) 08/16/17 13:15 Plt Count 365 Th/cmm (150-400) 08/16/17 13:15 MPV 7.5 fl 08/16/17 13:15 Neutrophils % 66.8 % (40.0-80.0) 08/16/17 13:15 Lymphocytes % 21.9 % (20.0-50.0) 08/16/17 13:15 Monocytes % 9.0 % (2.0-10.0) 08/16/17 13:15 Eosinophils % 1.9 % (0.0-5.0) 08/16/17 13:15 Basophils % 0.4 % (0.0-2.0) 08/16/17 13:15 Sodium 134 mEq/L (136-145) L 08/16/17 13:15 Potassium 4.1 mEq/L (3.5-5.1) 08/16/17 13:15 Chloride 100 mEq/L (98-107) 08/16/17 13:15 Carbon Dioxide 28.9 mEq/L (21.0-31.0) 08/16/17 13:15 Anion Gap 9.2 (7.0-16.0) 08/16/17 13:15 BUN 26 mg/dL (7-25) H 08/16/17 13:15 Creatinine 0.8 mg/dL (0.7-1.3) 08/16/17 13:15 Est GFR ( Amer) TNP 08/16/17 13:15 Est GFR (Non-Af Amer) TNP 08/16/17 13:15 BUN/Creatinine Ratio 32.5 08/16/17 13:15 Glucose 114 mg/dL (70-105) H 08/16/17 13:15 Hemoglobin A1c % 5.5 % (4.0-6.0) 08/16/17 13:15 Calcium 9.7 mg/dL (8.6-10.3) 08/16/17 13:15 Total Bilirubin 0.4 mg/dL (0.3-1.0) 08/16/17 13:15 AST 29 U/L (13-39) 08/16/17 13:15 ALT 24 U/L (7-52) 08/16/17 13:15 Alkaline Phosphatase 54 U/L (34-104) 08/16/17 13:15 Total Protein 7.4 gm/dL (6.0-8.3) 08/16/17 13:15 Albumin 4.2 gm/dL (4.2-5.5) 08/16/17 13:15 Globulin 3.2 gm/dL 08/16/17 13:15 Albumin/Globulin Ratio 1.3 (1.0-1.8) 08/16/17 13:15 Triglycerides 57 mg/dL (<150) 08/16/17 13:15 Cholesterol 193 mg/dL (<200) 08/16/17 13:15 LDL Cholesterol Direct 109 mg/dL (75-193) 08/16/17 13:15 HDL Cholesterol 75 mg/dL (23-92) 08/16/17 13:15 TSH 2.40 uIU/ml (0.34-5.60) 08/16/17 13:15 Urine Source CLEAN C 08/16/17 13:05 Urine Color YELLOW 08/16/17 13:05 Urine Clarity CLEAR (CLEAR) 08/16/17 13:05 Urine pH 7.0 (4.6 - 8.0) 08/16/17 13:05 Ur Specific [place] 1.015 (1.005-1.030) 08/16/17 13:05 Urine Protein NEGATIVE mg/dL (NEGATIVE) 08/16/17 13:05 Urine Glucose (UA) NEGATIVE mg/dL (NEGATIVE) 08/16/17 13:05 Urine Ketones NEGATIVE mg/dL (NEGATIVE) 08/16/17 13:05 Urine Blood NEGATIVE (NEGATIVE) 08/16/17 13:05 Urine Nitrate NEGATIVE (NEGATIVE) 08/16/17 13:05 Urine Bilirubin NEGATIVE (NEGATIVE) 08/16/17 13:05 Urine Urobilinogen 0.2 E.U./dL (0.2 - 1.0) 08/16/17 13:05 Ur Leukocyte Esterase NEGATIVE (NEGATIVE) 08/16/17 13:05 Urine RBC NONE SEEN /hpf (0-5) 08/16/17 13:05 Urine WBC 0-2 /hpf (0-5) 08/16/17 13:05 Ur Epithelial Cells RARE /lpf (FEW) 08/16/17 13:05 Urine Bacteria RARE /hpf (NONE SEEN) 08/16/17 13:05 Salicylates < 25.0 mg/L (30.0-100.0) L 08/16/17 13:15 Urine Opiates Screen NEGATIVE (NEGATIVE) 08/16/17 13:05 Urine Methadone Screen NEGATIVE (NEGATIVE) 08/16/17 13:05 Acetaminophen < 10.0 ug/mL (10.0-30.0) L 08/16/17 13:15 Ur Barbiturates Screen NEGATIVE (NEGATIVE) 08/16/17 13:05 Ur Tricyclics Screen POSITIVE (NEGATIVE) H 08/16/17 13:05 Ur Phencyclidine Scrn NEGATIVE (NEGATIVE) 08/16/17 13:05 Amphetamines Screen NEGATIVE (NEGATIVE) 08/16/17 13:05 U Methamphetamines Scrn NEGATIVE (NEGATIVE) 08/16/17 13:05 U Benzodiazepines Scrn NEGATIVE (NEGATIVE) 08/16/17 13:05 U Cocaine Metab Screen NEGATIVE (NEGATIVE) 08/16/17 13:05 U Cannabinoids Screen NEGATIVE (NEGATIVE) 08/16/17 13:05 Ethyl Alcohol < 10 mg/dL (0-10) 08/16/17 13:15 RPR NONREACTIVE (NONREACTIVE) 08/16/17 13:15 - Physical Exam Vitals and I&O: Vital Signs Temp 97.6 F 08/22/17 06:26 Pulse 84 08/22/17 09:05 Resp 19 08/22/17 06:26 BP 140/77 08/22/17 09:05 Pulse Ox 98 08/22/17 06:26 Intake & Output 08/21/17 08/22/17 08/22/17 18:59 06:59 18:59 Intake Total 940 Balance 940 Intake: Oral 940 Other: # Voids 1 # Bowel Movements 0 Active Medications: Current Medications Acetaminophen (Tylenol) 650 mg PO Q4HR PRN PRN Reason: Mild Pain / Temp above 100 Stop: 10/15/17 14:46 Al Hydrox/Mg Hydrox/Simethicone (Maalox) 30 ml PO Q4HR PRN PRN Reason: GI DISTRESS Stop: 10/15/17 14:46 Amlodipine Besylate (Norvasc) 10 mg PO DAILY BINTA Stop: 10/16/17 08:59 Last Admin: 08/22/17 09:05 Dose: 10 mg Benztropine Mesylate (Cogentin) 0.5 mg PO BID PRN PRN Reason: eps Stop: 10/20/17 16:59 Last Admin: 08/21/17 16:12 Dose: 0.5 mg Lorazepam (Ativan) 1 mg PO Q6HR PRN; Protocol PRN Reason: Anxiety Stop: 10/15/17 14:42 Last Admin: 08/22/17 09:05 Dose: 1 mg Magnesium Hydroxide (Milk Of Magnesia) 30 ml PO HS PRN PRN Reason: Constipation Stop: 10/15/17 14:46 Mirtazapine (Remeron) 15 mg PO HS BINTA PRN Reason: Protocol Stop: 10/15/17 20:59 Last Admin: 08/21/17 20:23 Dose: 15 mg Multivitamins/Vitamin C (Theragran) 1 tab PO DAILY BINTA Stop: 10/16/17 08:59 Last Admin: 08/22/17 09:05 Dose: 1 tab Quetiapine Fumarate (Seroquel) 100 mg PO BID BINTA PRN Reason: Protocol Stop: 10/21/17 08:59 Zolpidem Tartrate (Ambien) 5 mg PO HS PRN PRN Reason: Insomnia Stop: 10/15/17 14:42 Last Admin: 08/21/17 20:24 Dose: 5 mg General: alert HEENT: NC/AT Neck: Supple Lungs: CTAB Cardiovascular: RRR, Normal S1, Normal S2, without murmur Abdomen: soft, non-tender, positive bowel sound Internal Medicine Assmt/Plan - Assessment Assessment: HTN PUD/GERD Arthritis Dementia Parkinson's Disease - Plan Plan: CONTINUE CURRENT ORDERS
--- NOTE | 2017-08-22 22:01 | Progress Notes ---
DATE: 08/22/2017 SUBJECTIVE: Chart reviewed and the patient interviewed. Also, discussed the patient's condition with the staff and reviewed records and labs. The patient is still anxious and is still in irritable mood. The patient also is still confused and delusional. He also had episodes of agitation, but Ativan has been helping to calm him down. Otherwise, the patient is compliant with taking his medications with no side effect of medications. ASSESSMENT: The patient is still psychotic, but seems to be showing some improvement and compliant with medications. TREATMENT PLAN: Continue monitoring his behavior and his medications closely. Also, working on discharge plans. It seemed that the patient will not be able to return to the same place where he came from and [facility] JOB# [id number]
[2017-08-23] MEDS: Multivitamin Tab PO SCH (08:11)
--- NOTE | 2017-08-23 10:55 | Discharge Summary ---
DATE OF DISCHARGE: 08/23/2017 DATE OF ADMISSION: 08/16/2017 DATE OF DISCHARGE: 08/23/2017 PATIENT'S AGE: 77. SEX: Male. PHYSICIAN: Brenna Arita M.D., M.P.H. FINAL DIAGNOSES: PRIMARY DIAGNOSES: Schizoaffective disorder, bipolar type, severe, with psychotic features. REASON FOR HOSPITALIZATION: The patient was admitted to the hospital from the [facility] because of increased agitation and paranoia and uncooperative with the staff. He also was resisting care and also was sexually inappropriate with female staff there. HOSPITAL COURSE: The patient continued to be agitated and in irritable mood. The patient also was paranoid and suspicious. He also was still resisting care and at times was having sexual inappropriate behavior. Gradually, the patient's affect was brighter. The patient was not as agitated. Also it was easier to redirect him. Placement was an issue because [place] did not want the patient back, but they want him to go to [place] which is assisted facility. The patient was discharged there. PHYSICAL EXAMINATION OF THE PATIENT: Shows no major medical problems. Labs was basically within normal. AFTER DISCHARGE PLANS: The patient discharged from the hospital and went to [facility]. Outpatient treatment and followup will continue in [place]. EXPECTED OUTCOME AFTER DISCHARGE: Fair if the patient continues to take his psychotropic medications and follow up with discharge plans. [facility]# [id number]
--- NOTE | 2017-08-23 18:57 | Internal Medicine Prog Note ---
Internal Medicine Subjective - Subjective Patient is:: awake Per staff patient has:: tolerating meds Internal Medicine Objective - Results Result Diagrams: 08/16/17 13:15 08/16/17 13:15 Recent Labs: Laboratory Last Values WBC 7.3 Th/cmm (4.8-10.8) D 08/16/17 13:15 RBC 4.14 Mil/cmm (3.80-5.80) 08/16/17 13:15 Hgb 13.3 gm/dL (12-16) 08/16/17 13:15 Hct 40.8 % (41.0-60) L 08/16/17 13:15 MCV 98.6 fl (80-99) 08/16/17 13:15 MCH 32.1 pg (27.0-31.0) H 08/16/17 13:15 MCHC Differential 32.5 pg (28.0-36.0) 08/16/17 13:15 RDW 12.6 % (11.5-20.0) 08/16/17 13:15 Plt Count 365 Th/cmm (150-400) 08/16/17 13:15 MPV 7.5 fl 08/16/17 13:15 Neutrophils % 66.8 % (40.0-80.0) 08/16/17 13:15 Lymphocytes % 21.9 % (20.0-50.0) 08/16/17 13:15 Monocytes % 9.0 % (2.0-10.0) 08/16/17 13:15 Eosinophils % 1.9 % (0.0-5.0) 08/16/17 13:15 Basophils % 0.4 % (0.0-2.0) 08/16/17 13:15 Sodium 134 mEq/L (136-145) L 08/16/17 13:15 Potassium 4.1 mEq/L (3.5-5.1) 08/16/17 13:15 Chloride 100 mEq/L (98-107) 08/16/17 13:15 Carbon Dioxide 28.9 mEq/L (21.0-31.0) 08/16/17 13:15 Anion Gap 9.2 (7.0-16.0) 08/16/17 13:15 BUN 26 mg/dL (7-25) H 08/16/17 13:15 Creatinine 0.8 mg/dL (0.7-1.3) 08/16/17 13:15 Est GFR ( Amer) TNP 08/16/17 13:15 Est GFR (Non-Af Amer) TNP 08/16/17 13:15 BUN/Creatinine Ratio 32.5 08/16/17 13:15 Glucose 114 mg/dL (70-105) H 08/16/17 13:15 Hemoglobin A1c % 5.5 % (4.0-6.0) 08/16/17 13:15 Calcium 9.7 mg/dL (8.6-10.3) 08/16/17 13:15 Total Bilirubin 0.4 mg/dL (0.3-1.0) 08/16/17 13:15 AST 29 U/L (13-39) 08/16/17 13:15 ALT 24 U/L (7-52) 08/16/17 13:15 Alkaline Phosphatase 54 U/L (34-104) 08/16/17 13:15 Total Protein 7.4 gm/dL (6.0-8.3) 08/16/17 13:15 Albumin 4.2 gm/dL (4.2-5.5) 08/16/17 13:15 Globulin 3.2 gm/dL 08/16/17 13:15 Albumin/Globulin Ratio 1.3 (1.0-1.8) 08/16/17 13:15 Triglycerides 57 mg/dL (<150) 08/16/17 13:15 Cholesterol 193 mg/dL (<200) 08/16/17 13:15 LDL Cholesterol Direct 109 mg/dL (75-193) 08/16/17 13:15 HDL Cholesterol 75 mg/dL (23-92) 08/16/17 13:15 TSH 2.40 uIU/ml (0.34-5.60) 08/16/17 13:15 Urine Source CLEAN C 08/16/17 13:05 Urine Color YELLOW 08/16/17 13:05 Urine Clarity CLEAR (CLEAR) 08/16/17 13:05 Urine pH 7.0 (4.6 - 8.0) 08/16/17 13:05 Ur Specific [place] 1.015 (1.005-1.030) 08/16/17 13:05 Urine Protein NEGATIVE mg/dL (NEGATIVE) 08/16/17 13:05 Urine Glucose (UA) NEGATIVE mg/dL (NEGATIVE) 08/16/17 13:05 Urine Ketones NEGATIVE mg/dL (NEGATIVE) 08/16/17 13:05 Urine Blood NEGATIVE (NEGATIVE) 08/16/17 13:05 Urine Nitrate NEGATIVE (NEGATIVE) 08/16/17 13:05 Urine Bilirubin NEGATIVE (NEGATIVE) 08/16/17 13:05 Urine Urobilinogen 0.2 E.U./dL (0.2 - 1.0) 08/16/17 13:05 Ur Leukocyte Esterase NEGATIVE (NEGATIVE) 08/16/17 13:05 Urine RBC NONE SEEN /hpf (0-5) 08/16/17 13:05 Urine WBC 0-2 /hpf (0-5) 08/16/17 13:05 Ur Epithelial Cells RARE /lpf (FEW) 08/16/17 13:05 Urine Bacteria RARE /hpf (NONE SEEN) 08/16/17 13:05 Salicylates < 25.0 mg/L (30.0-100.0) L 08/16/17 13:15 Urine Opiates Screen NEGATIVE (NEGATIVE) 08/16/17 13:05 Urine Methadone Screen NEGATIVE (NEGATIVE) 08/16/17 13:05 Acetaminophen < 10.0 ug/mL (10.0-30.0) L 08/16/17 13:15 Ur Barbiturates Screen NEGATIVE (NEGATIVE) 08/16/17 13:05 Ur Tricyclics Screen POSITIVE (NEGATIVE) H 08/16/17 13:05 Ur Phencyclidine Scrn NEGATIVE (NEGATIVE) 08/16/17 13:05 Amphetamines Screen NEGATIVE (NEGATIVE) 08/16/17 13:05 U Methamphetamines Scrn NEGATIVE (NEGATIVE) 08/16/17 13:05 U Benzodiazepines Scrn NEGATIVE (NEGATIVE) 08/16/17 13:05 U Cocaine Metab Screen NEGATIVE (NEGATIVE) 08/16/17 13:05 U Cannabinoids Screen NEGATIVE (NEGATIVE) 08/16/17 13:05 Ethyl Alcohol < 10 mg/dL (0-10) 08/16/17 13:15 RPR NONREACTIVE (NONREACTIVE) 08/16/17 13:15 - Physical Exam Vitals and I&O: Vital Signs Temp 97.6 F 08/23/17 15:20 Pulse 88 08/23/17 15:20 Resp 18 08/23/17 15:20 BP 154/64 08/23/17 15:20 Pulse Ox 97 08/23/17 15:20 Intake & Output 08/22/17 08/23/17 08/23/17 18:59 06:59 18:59 Intake Total 700 120 700 Balance 700 120 700 Intake: Oral 700 120 700 Other: # Voids 3 3 3 # Bowel Movements 1 1 1 Active Medications: Current Medications Acetaminophen (Tylenol) 650 mg PO Q4HR PRN PRN Reason: Mild Pain / Temp above 100 Stop: 10/15/17 14:46 Al Hydrox/Mg Hydrox/Simethicone (Maalox) 30 ml PO Q4HR PRN PRN Reason: GI DISTRESS Stop: 10/15/17 14:46 Amlodipine Besylate (Norvasc) 10 mg PO DAILY BINTA Stop: 10/16/17 08:59 Last Admin: 08/23/17 08:12 Dose: 10 mg Benztropine Mesylate (Cogentin) 0.5 mg PO BID PRN PRN Reason: eps Stop: 10/20/17 16:59 Last Admin: 08/21/17 16:12 Dose: 0.5 mg Lorazepam (Ativan) 1 mg PO Q6HR PRN; Protocol PRN Reason: Anxiety Stop: 10/15/17 14:42 Last Admin: 08/22/17 20:42 Dose: 1 mg Magnesium Hydroxide (Milk Of Magnesia) 30 ml PO HS PRN PRN Reason: Constipation Stop: 10/15/17 14:46 Mirtazapine (Remeron) 15 mg PO HS BINTA PRN Reason: Protocol Stop: 10/15/17 20:59 Last Admin: 08/22/17 20:43 Dose: 15 mg Multivitamins/Vitamin C (Theragran) 1 tab PO DAILY BINTA Stop: 10/16/17 08:59 Last Admin: 08/23/17 08:11 Dose: 1 tab Quetiapine Fumarate (Seroquel) 100 mg PO BID BINTA PRN Reason: Protocol Stop: 10/21/17 08:59 Last Admin: 08/23/17 17:20 Dose: 100 mg Zolpidem Tartrate (Ambien) 5 mg PO HS PRN PRN Reason: Insomnia Stop: 10/15/17 14:42 Last Admin: 08/22/17 20:42 Dose: 5 mg General: alert HEENT: NC/AT Neck: Supple Lungs: CTAB Cardiovascular: RRR, Normal S1, Normal S2, without murmur Abdomen: soft, non-tender, positive bowel sound Nutritional Asmnt/Malnutr-PDOC - Dietary Evaluation Malnutrition Findings (Please click <Entered> for more info): Nutritional Asmnt/Malnutrition Start: 08/22/17 15: 07 Text: Status: Complete Freq: Document 08/22/17 15:07 VANNA (Rec: 08/22/17 15:20 [id number] Nutritional Asmnt/Malnutrition Patient General Information Nutritional Screening Moderate Risk Diagnosis bipolar disorder, agitation Pertinent Medical Hx/Surgical Hx HTN, PUD/GERD, arthritis, dementia, parkinson disease Subjective Information Per records, PO intake 25-100% , avg 50%, 0% x 3 on 08/21. Spoke with RN, RN reported pt usually eats well, refused meal yesterday d/t mental status. Pt got better today. RN stated will report any nutrition related problem. Current Diet Order/ Nutrition Support [facility] soft ground DAGOBERTO Pertinent Medications remeron, theragran, seroquel Pertinent Labs 08/16 Na 134, K 4.1, Cl 100, BUN 26, Cr 0.8, Glucose 114, A1c 5.5 Nutritional Hx/Data Height 1.68 m Height (Calculated Centimeters) 167.6 Current Weight (lbs) 54.431 kg Weight (Calculated Kilograms) 54.4 Weight (Calculated Grams) 65616.1 [place] Body Weight 142 Body Mass Index (BMI) 19.3 GI Symptoms GI Symptoms None Last BM 08/20 Difficult in: None Skin Integrity/Comment: intact Estimated Nutritional Goals BEE in Kcals: Using Current wt Calories/Kcals/Kg 25-30 Kcals Calculated 8571-6051 Protein: Using Current wt Protein g/k-1.2 Protein Calculated 55-66 Fluid: ml 1375-1650ml (1ml/kcal) Nutritional Problem No current Nutrition Prob Problem N/A Malnutrition Alert Protein-Calorie Malnutrition N/A Is there a minimum of two criteria No selected? Query Text:Check all the applicable criteria. A minimum of two criteria are recommended for diagnosis of either severe or non-severe malnutrition. Intervention/Recommendation Comments 1. Continue with current diet as ordered. Assist with meals as needed. 2. Monitor PO intake, wt, labs and skin integrity 3. F/U as low risk in 7 days, 3/7 Expected Outcomes/Goals Expected Outcomes/Goals 1. PO intake to meet at least 75% of nutritional needs. 2. Wt stability, skin to remain intact, labs to approach WNL.
[2017-08-24] MEDS: Multivitamin Tab PO SCH (08:29)
--- NOTE | 2017-08-24 22:21 | Progress Notes ---
DATE: 08/24/2017 Case was discussed with staff of the patient and reviewed records. The patient apparently was discharged yesterday by Dr. Arita; however, apparently no place was willing to take him. He is still here. He is doing well, sleeping well and eating well. No suicidal ideation, no homicidal ideation, no paranoia. Still, however, placement is an issue for him now. We will continue the patient in group therapy, milieu therapy and adjust medications as needed. JOB# [id number]
== END 2017-08-24 14:30 | DRG 885 ==
LOC: ER 12:55 → GERO2 13:41 → GERO 08-17 13:52
PROVIDERS: ADMIT Psychiatry & Neurology Psychiatry; ATTEND Psychiatry & Neurology Psychiatry
DX: F25.0 Schizoaffective disorder, bipolar type (principal); F02.81 Dementia in other diseases classified elsewhere, unspecified severity, with behavioral disturbance; G20 Parkinson's disease; F29 Unspecified psychosis not due to a substance or known physiological condition; I10 Essential (primary) hypertension; Z66 Do not resuscitate; K27.9 Peptic ulcer, site unspecified, unspecified as acute or chronic, without hemorrhage or perforation; K21.9 Gastro-esophageal reflux disease without esophagitis; M19.90 Unspecified osteoarthritis, unspecified site; Z83.3 Family history of diabetes mellitus; Z82.49 Family history of ischemic heart disease and other diseases of the circulatory system
CPT/HCPCS: 36415-UA; 80053-TC; 80061-TC; 80307; 80320-TC; 80329-TC; 81001-TC; 83036-90; 84443-TC; 85025-TC; 86592-TC; 90899; 93005; G0410; Z7610

== ENCOUNTER 2018-02-15 11:34 | Inpatient (IN) | payer MEDICARE, MEDICAID ==
[2018-02-15 12:17] LABS: % BASOPHILS 0.7 % (0.0-2.0); % EOSINOPHILS 2.7 % (0.0-5.0); % LYMPHOCYTES 18.9 % (20.0-50.0); % MONOCYTES 9.4 % (2.0-10.0); % NEUTROPHILS 68.3 % (40.0-80.0); EOSINOPHILE ABSOLUTE 0.2 Th/cmm (0.1-0.4); HEMATOCRIT 38.5 % (41.0-60); HEMOGLOBIN 12.8 gm/dL (12-16); LYMPHOCYTE ABSOLUTE 1.2 Th/cmm (1.5-3.0); MEAN CELL VOLUME 95.2 fl (80-99); MEAN CORPUSCULAR HEMOGLOBIN 31.7 pg (27.0-31.0); MEAN CORPUSCULAR HGB CONC 33.3 pg (28.0-36.0); MEAN PLATELET VOLUME 7.1 fl; MONOCYTE ABSOLUTE 0.6 Th/cmm (0.3-1.0); NEUTROPHILE ABSOLUTE 4.6 Th/cmm (1.8-8.0); PLATELET COUNT 309 Th/cmm (150-400); RED BLOOD COUNT 4.05 Mil/cmm (3.80-5.80); RED CELL DISTRIBUTION WIDTH 12.5 % (11.5-20.0); WHITE BLOOD COUNT 6.6 Th/cmm (4.8-10.8)
[2018-02-15 12:34] LABS: ALB/GLOB RATIO 1.6 (1.0-1.8); ALBUMIN 4.2 gm/dL (4.2-5.5); ALKALINE PHOSPHATASE 55 U/L (34-104); ANION GAP 11.3 (7.0-16.0); BILIRUBIN,TOTAL 0.3 mg/dL (0.3-1.0); BUN - UREA NITROGEN 20 mg/dL (7-25); CALCIUM SERUM 9.4 mg/dL (8.6-10.3); CARBON DIOXIDE 25.7 mEq/L (21.0-31.0); CHLORIDE 102 mEq/L (98-107); CREATININE - SERUM 0.9 mg/dL (0.7-1.3); GLUCOSE 135 mg/dL (70-105); PHOSPHOROUS 3.3 mg/dL (2.5-5.0); SGOT 24 U/L (13-39); SGPT/ALT 18 U/L (7-52); SODIUM SERUM 135 mEq/L (136-145); TOTAL PROTEIN,SERUM 6.9 gm/dL (6.0-8.3)
[2018-02-15 13:31] LABS: URINE SOURCE CLEAN C
[2018-02-15 13:33] LABS: URINE BILIRUBIN NEGATIVE (NEGATIVE); URINE BLOOD NEGATIVE (NEGATIVE); URINE GLUCOSE (UA) NEGATIVE (NEGATIVE); URINE KETONE NEGATIVE (NEGATIVE); URINE LEUKOCYTE ESTERASE NEGATIVE (NEGATIVE); URINE NITRATE NEGATIVE (NEGATIVE); URINE PH 6.5 (4.6 - 8.0); URINE PROTEIN NEGATIVE (NEGATIVE); URINE UROBILINOGEN 0.2 E.U./dL (0.2 - 1.0)
[2018-02-15 13:37] LABS: URINE CLARITY CLEAR (CLEAR); URINE COLOR YELLOW; URINE MICROSCOPIC INDICATED? NO
[2018-02-15 14:02] LABS: AMPHETAMINE URINE NEGATIVE (NEGATIVE); BARBITURATES URINE NEGATIVE (NEGATIVE); COCAINE METABOLITE QUAL URINE NEGATIVE (NEGATIVE); METHAMPHETAMINES QUAL URINE NEGATIVE (NEGATIVE); PHENCYCLIDINE (PCP) URINE NEGATIVE (NEGATIVE)
[2018-02-15 14:03] LABS: BENZODIAZEPINES QUAL URINE NEGATIVE (NEGATIVE); CANNABINOID THC NEGATIVE (NEGATIVE); METHADONE URINE NEGATIVE (NEGATIVE); OPIATES (MORPHINE) QUAL. URINE NEGATIVE (NEGATIVE); TRICYCLICS (TCA) QUAL. URINE POSITIVE (NEGATIVE)
--- NOTE | 2018-02-15 14:34 | ED Physician Chart ---
ED Chief Complaint/HPI - Patient Information Date Seen:: 02/15/18 Time Seen:: 11:51 Chief Complaint:: agitation and restlessness History of Present Illness:: agitation and restlessness Allergies:: Allergies Allergy/AdvReac Type Severity Reaction Status Date / Time No Known Allergies Allergy Verified 01/09/17 14:23 Vitals:: Vital Signs - 8 hr 02/15/18 11:51 Temp 98.7 F HR 98 RR 16 BP 135/73 O2 Sat % 95 Historian:: Medical Records Review:: Nurse's Note Reviewed, Transfer documents Reviewed ED Review of Systems - Review of Systems General/Constitutional: No fever, No chills, No weight loss, No weakness, No diaphoresis, No edema, No loss of appetite Skin: No skin lesions, No rash, No bruising Head: No headache, No light-headedness Eyes: No loss of vision, No pain, No diplopia ENT: No earache, No nasal drainage, No sore throat, No tinnitus Neck: No neck pain, No swelling, No thyromegaly, No stiffness, No mass noted Cardio Vascular: No chest pain, No palpitations, No PND, No orthopnea, No edema Pulmonary: No SOB, No cough, No sputum, No wheezing GI: No nausea, No vomiting, No diarrhea, No pain, No melena, No hematochezia, No constipation, No hematemesis G/U: No dysuria, No frequency, No hematuria Musculoskeletal: No bone or joint pain, No back pain, No muscle pain Endocrine: No polyuria, No polydipsia Psychiatric: Prior psych history, Depression, No suicidal ideation, No homicidal ideation, Other (agitation) Hematopoietic: No bruising, No lymphadenopathy Allergic/Immuno: No urticaria, No angioedema Neurological: No syncope, No focal symptoms, No weakness, No paresthesia, No headache, No seizure, No dizziness, No confusion, No vertigo ED Past Medical History - Past Medical History Obtainable: No Past Medical History: Dyslipidemia, Dementia Psychiatricy History: Depression, Schizophrenia, Bipolar, Dementia Family Medical History - Family Member Mother History Unknown: Yes Ethnicity: Non- Living Status: family History Unknown: Yes Ethnicity: Unknown Living Status: Unknown Hx Family Cancer: (unknown) Hx Family Coronary Artery Disease: (unknown) Hx Family Congestive Heart Failure: (unknown) Hx Family Hypertension: (unknown) Hx Family Stroke: (unknown) Hx Family Diabetes: (unknown) Hx Family Seizures: (unknown) Hx Family Dementia: (unknown) Hx Family AIDS: (unknown) Hx Family COPD: (unknown) Hx Family Hepatitis: (unknown) Hx Family Psychiatric Problems: (unknown) Hx Family Tuberculosis: (unknown) ED Physical Exam - Physical Examination General/Constitutional: Awake, Well-developed, well-nourished, Alert, No distress, Ambulatory Head: Atraumatic Eyes: Lids, conjuctiva normal, PERRL, EOMI Skin: Nl inspection, No skin lesions, No ecchymosis, Well hydrated, No lymphadenopathy Other Skin comments:: bilateral forearms and legs with a macular rash consistent with contact dermatitis (not itchy according to the patient). Neck: Nontender, Full ROM w/o pain, No JVD, No nuchal rigidity, No bruit, No mass, No stridor Other Neck comments:: kyphosis Respiratory: Nl effort/Exclusion, Clear to Auscultation, No Wheeze/Rhonchi/Rales Cardio Vascular: RRR, No murmur, gallop, rubs, NL S1 S2 GI: No tenderness/rebounding/guarding, No organomegaly, No hernia, Normal BS's, Nondistended, No mass/bruits, No McBurney tenderness : No CVA tenderness Extremities: No tenderness or effusion, Full ROM, normal strength in all extremities, No edema, Normal digits & nails Neuro/Psych: Mood normal Misc: Normal back, No paraspinal tenderness ED Labs/Radiology/EKG Results - Lab Results Results: Laboratory Tests 02/15/18 02/15/18 02/15/18 12:08 12:08 13:29 WBC 6.6 RBC 4.05 Hgb 12.8 Hct 38.5 L MCV 95.2 MCH 31.7 H MCHC Differential 33.3 RDW 12.5 Plt Count 309 MPV 7.1 Neutrophils % 68.3 Lymphocytes % 18.9 L Monocytes % 9.4 Eosinophils % 2.7 Basophils % 0.7 Sodium 135 L Potassium 4.0 Chloride 102 Carbon Dioxide 25.7 Anion Gap 11.3 BUN 20 Creatinine 0.9 Est GFR ( Amer) TNP Est GFR (Non-Af Amer) TNP BUN/Creatinine Ratio 22.2 Glucose 135 H Calcium 9.4 Phosphorus 3.3 Magnesium 2.0 Total Bilirubin 0.3 AST 24 ALT 18 Alkaline Phosphatase 55 Total Protein 6.9 Albumin 4.2 Globulin 2.7 Albumin/Globulin Ratio 1.6 Urine Source CLEAN C Urine Color YELLOW Urine Clarity CLEAR Urine pH 6.5 Ur Specific [place] <= 1.005 Urine Protein NEGATIVE Urine Glucose (UA) NEGATIVE Urine Ketones NEGATIVE Urine Blood NEGATIVE Urine Nitrate NEGATIVE Urine Bilirubin NEGATIVE Urine Urobilinogen 0.2 Ur Leukocyte Esterase NEGATIVE Urine Opiates Screen Urine Methadone Screen Ur Barbiturates Screen Ur Tricyclics Screen Ur Phencyclidine Scrn Amphetamines Screen U Methamphetamines Scrn U Benzodiazepines Scrn U Cocaine Metab Screen U Cannabinoids Screen 02/15/18 13:29 WBC RBC Hgb Hct MCV MCH MCHC Differential RDW Plt Count MPV Neutrophils % Lymphocytes % Monocytes % Eosinophils % Basophils % Sodium Potassium Chloride Carbon Dioxide Anion Gap BUN Creatinine Est GFR ( Amer) Est GFR (Non-Af Amer) BUN/Creatinine Ratio Glucose Calcium Phosphorus Magnesium Total Bilirubin AST ALT Alkaline Phosphatase Total Protein Albumin Globulin Albumin/Globulin Ratio Urine Source Urine Color Urine Clarity Urine pH Ur Specific [place] Urine Protein Urine Glucose (UA) Urine Ketones Urine Blood Urine Nitrate Urine Bilirubin Urine Urobilinogen Ur Leukocyte Esterase Urine Opiates Screen NEGATIVE Urine Methadone Screen NEGATIVE Ur Barbiturates Screen NEGATIVE Ur Tricyclics Screen POSITIVE H Ur Phencyclidine Scrn NEGATIVE Amphetamines Screen NEGATIVE U Methamphetamines Scrn NEGATIVE U Benzodiazepines Scrn NEGATIVE U Cocaine Metab Screen NEGATIVE U Cannabinoids Screen NEGATIVE ED Assessment - Assessment General Assessment: patient resting comfortably. has eaten lunch. ED Septic Shock - . Is Septic Shock (SBP<90, OR Lactate>4 mmol\L) present?: No - <6hrs of presentation: Vital Signs: Vital Signs - 8 hr 02/15/18 11:51 Temp 98.7 F HR 98 RR 16 BP 135/73 O2 Sat % 95 ED Reassessment (Disposition) - Reassessment Reassessment Condition:: Improved - Diagnosis Diagnosis:: Agitation and restlessness Dementia without behavioral disturbance Paranoid Personality Disorder Bipolar Major depressive disorder Schizophrenia Major Depressive Disorder Parkinson's GERD Hyperlipidemia Benign Prostatic Hyperplasia Gastroesophageal reflux - Patient Disposition Discharge/Transfer:: Acute Care w/in this hosp Admitted to:: [facility] Condition at Disposition:: Stable, Improved
[2018-02-15 14:57] VITALS: BP 129/78
[2018-02-15] MEDS ORDERED: Maalox 30 mL Cup PO PRN (14:57)
[2018-02-15] MEDS ORDERED: Magnesium Hydroxide (MOM) 30 mL UDC PO PRN (14:57)
[2018-02-16] MEDS: Multivitamin Tab PO SCH (08:41)
--- NOTE | 2018-02-16 18:52 | History & Physical ---
ADMIT DATE: 02/16/2018 DATE OF SERVICE: 02/16/2018 CHIEF COMPLAINT: Agitation. HISTORY OF PRESENT ILLNESS: A 77-year-old male, longterm resident, admitted to the Geripsych Unit due to agitation. PAST MEDICAL HISTORY: Dyslipidemia, dementia, schizophrenia. FAMILY HISTORY: Noncontributory. SOCIAL HISTORY: The patient is a longterm resident ____ nursing care. REVIEW OF SYSTEMS: Unable to obtain, the patient is confused. PHYSICAL EXAMINATION: GENERAL: Elderly male, awake, alert with confusion. VITAL SIGNS: Temperature 97.5, heart rate ____, blood pressure ____, O2 95%. HEENT: Head normocephalic, atraumatic. NECK: Supple, no mass. LUNGS: Clear bilaterally. ABDOMEN: Soft, nontender. LABORATORY DATA: WBC 6.6, H and H 12.8 and 38.5, platelet of 309. Sodium 135, potassium 4.0, chloride 102, BUN 20, creatinine 0.9. ASSESSMENT: Hyponatremia, dementia, and agitation. PLAN: Fall precautions will be initiated. The patient to continue longterm medications. We will continue to follow this patient. JOB# [id number]
--- NOTE | 2018-02-16 20:24 | Psychiatric Evaluation ---
DATE OF SERVICE: 02/16/2018 JUSTIFICATION FOR HOSPITALIZATION: The patient is currently in the hospital due to agitation and restlessness. CHIEF COMPLAINT: "I don't know why I am here." HISTORY OF PRESENT ILLNESS: A 77-year-old male, states he is here because he is on vacation. Noted history of dementia. 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 Denying overt depression. PAST PSYCHIATRIC HISTORY: Admissions in the hospital in the past. FAMILY HISTORY: Noncontributory. SOCIAL HISTORY: Living in [facility]. States he lives in both and that he was born in [facility] and that he lives with his . He has been for 10 years and that he lives with his 2 children. Denying any drugs, alcohol or tobacco. MEDICATIONS: Noted. MENTAL STATUS EXAMINATION: Stated age, unkempt, fair eye contact. Mood "okay." Affect flat. Thought processes were confused. No overt SI or HI. The patient delusional, believing he is a professional gambler. Insight and judgment diminished. PROVISIONAL DIAGNOSES: Dementia with behaviors; psychosis, unspecified. Under medical please see full H and P. ESTIMATED LENGTH OF STAY: 5-6 days. ASSESSMENT: The patient delusional, psychotic, bizarre and agitated and not safe for a lower level of care. PLAN: We will continue to monitor, continue Aricept, titrate dosing of antipsychotic medications. CONDITIONS FOR DISCHARGE: Improved mood, improved affect, cessation of any SI, better control of his delusions and agitation. JOB# [id number]
--- NOTE | 2018-02-17 08:24 | Progress Notes ---
DATE: 02/17/2018 SUBJECTIVE: The patient in the hospital, confused, delusional, states he works and needs to get back to work. Some yelling noted mostly isolative, withdrawn, not really following directions, somewhat resistive to care. Slept for about 4-5 hours. 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 ASSESSMENT: The patient is confused, coming in because of aggressive behaviors, increased agitation, remains impulsive, unpredictable, believes he needs to get back to work. PLAN: We will continue to monitor. Continue Seroquel, Aricept, and Remeron. JOB# [id number]
[2018-02-17] MEDS: Multivitamin Tab PO SCH (08:45)
--- NOTE | 2018-02-17 13:12 | General Progress Note ---
Subjective - Review of Systems Events since last encounter: patient is insolative withdrawn confused denies pain Objective - Results Result Diagrams: 02/15/18 12:08 02/15/18 12:08 Recent Labs: Laboratory Last Values WBC 6.6 Th/cmm (4.8-10.8) 02/15/18 12:08 RBC 4.05 Mil/cmm (3.80-5.80) 02/15/18 12:08 Hgb 12.8 gm/dL (12-16) 02/15/18 12:08 Hct 38.5 % (41.0-60) L 02/15/18 12:08 MCV 95.2 fl (80-99) 02/15/18 12:08 MCH 31.7 pg (27.0-31.0) H 02/15/18 12:08 MCHC Differential 33.3 pg (28.0-36.0) 02/15/18 12:08 RDW 12.5 % (11.5-20.0) 02/15/18 12:08 Plt Count 309 Th/cmm (150-400) 02/15/18 12:08 MPV 7.1 fl 02/15/18 12:08 Neutrophils % 68.3 % (40.0-80.0) 02/15/18 12:08 Lymphocytes % 18.9 % (20.0-50.0) L 02/15/18 12:08 Monocytes % 9.4 % (2.0-10.0) 02/15/18 12:08 Eosinophils % 2.7 % (0.0-5.0) 02/15/18 12:08 Basophils % 0.7 % (0.0-2.0) 02/15/18 12:08 Sodium 135 mEq/L (136-145) L 02/15/18 12:08 Potassium 4.0 mEq/L (3.5-5.1) 02/15/18 12:08 Chloride 102 mEq/L (98-107) 02/15/18 12:08 Carbon Dioxide 25.7 mEq/L (21.0-31.0) 02/15/18 12:08 Anion Gap 11.3 (7.0-16.0) 02/15/18 12:08 BUN 20 mg/dL (7-25) 02/15/18 12:08 Creatinine 0.9 mg/dL (0.7-1.3) 02/15/18 12:08 Est GFR ( Amer) TNP 02/15/18 12:08 Est GFR (Non-Af Amer) TNP 02/15/18 12:08 BUN/Creatinine Ratio 22.2 02/15/18 12:08 Glucose 135 mg/dL (70-105) H 02/15/18 12:08 Calcium 9.4 mg/dL (8.6-10.3) 02/15/18 12:08 Phosphorus 3.3 mg/dL (2.5-5.0) 02/15/18 12:08 Magnesium 2.0 mg/dL (1.9-2.7) 02/15/18 12:08 Total Bilirubin 0.3 mg/dL (0.3-1.0) 02/15/18 12:08 AST 24 U/L (13-39) 02/15/18 12:08 ALT 18 U/L (7-52) 02/15/18 12:08 Alkaline Phosphatase 55 U/L (34-104) 02/15/18 12:08 Total Protein 6.9 gm/dL (6.0-8.3) 02/15/18 12:08 Albumin 4.2 gm/dL (4.2-5.5) 02/15/18 12:08 Globulin 2.7 gm/dL 02/15/18 12:08 Albumin/Globulin Ratio 1.6 (1.0-1.8) 02/15/18 12:08 Urine Source CLEAN C 02/15/18 13:29 Urine Color YELLOW 02/15/18 13:29 Urine Clarity CLEAR (CLEAR) 02/15/18 13:29 Urine pH 6.5 (4.6 - 8.0) 02/15/18 13:29 Ur Specific [place] <= 1.005 (1.005-1.030) 02/15/18 13:29 Urine Protein NEGATIVE mg/dL (NEGATIVE) 02/15/18 13:29 Urine Glucose (UA) NEGATIVE mg/dL (NEGATIVE) 02/15/18 13:29 Urine Ketones NEGATIVE mg/dL (NEGATIVE) 02/15/18 13:29 Urine Blood NEGATIVE (NEGATIVE) 02/15/18 13:29 Urine Nitrate NEGATIVE (NEGATIVE) 02/15/18 13:29 Urine Bilirubin NEGATIVE (NEGATIVE) 02/15/18 13:29 Urine Urobilinogen 0.2 E.U./dL (0.2 - 1.0) 02/15/18 13:29 Ur Leukocyte Esterase NEGATIVE (NEGATIVE) 02/15/18 13:29 Urine Opiates Screen NEGATIVE (NEGATIVE) 02/15/18 13:29 Urine Methadone Screen NEGATIVE (NEGATIVE) 02/15/18 13:29 Ur Barbiturates Screen NEGATIVE (NEGATIVE) 02/15/18 13:29 Ur Tricyclics Screen POSITIVE (NEGATIVE) H 02/15/18 13:29 Ur Phencyclidine Scrn NEGATIVE (NEGATIVE) 02/15/18 13:29 Amphetamines Screen NEGATIVE (NEGATIVE) 02/15/18 13:29 U Methamphetamines Scrn NEGATIVE (NEGATIVE) 02/15/18 13:29 U Benzodiazepines Scrn NEGATIVE (NEGATIVE) 02/15/18 13:29 U Cocaine Metab Screen NEGATIVE (NEGATIVE) 02/15/18 13:29 U Cannabinoids Screen NEGATIVE (NEGATIVE) 02/15/18 13:29 - Physical Exam Vitals and I&O: Vital Signs Temp 97.7 F 02/17/18 04:30 Pulse 80 02/17/18 08:45 Resp 19 02/17/18 04:30 BP 133/95 02/17/18 08:45 Pulse Ox 94 02/17/18 04:30 Intake & Output 02/16/18 02/17/18 02/17/18 18:59 06:59 18:59 Intake Total 1800 480 Balance 1800 480 Intake: Oral 1800 480 Other: # Voids 4 2 # Bowel Movements 0 Active Medications: Current Medications Acetaminophen (Tylenol) 650 mg PO Q4HR PRN PRN Reason: Mild Pain / Temp above 100 Stop: 04/16/18 14:56 Al Hydrox/Mg Hydrox/Simethicone (Maalox) 30 ml PO Q4HR PRN PRN Reason: GI DISTRESS Stop: 04/16/18 14:56 Amlodipine Besylate (Norvasc) 10 mg PO DAILY [facility] Stop: 04/17/18 08:59 Last Admin: 02/17/18 08:45 Dose: 10 mg Benztropine Mesylate (Cogentin) 0.5 mg PO BID PRN PRN Reason: eps Stop: 04/16/18 19:17 Docusate Sodium (Colace) 100 mg PO BID [facility] Stop: 04/17/18 08:59 Last Admin: 02/17/18 08:45 Dose: 100 mg Donepezil HCl (Aricept) 10 mg PO DAILY [facility] Stop: 04/17/18 08:59 Last Admin: 02/17/18 08:45 Dose: 10 mg Lorazepam (Ativan) 0.5 mg PO Q4HR PRN; Protocol PRN Reason: Agitation Stop: 03/17/18 14:56 Magnesium Hydroxide (Milk Of Magnesia) 30 ml PO HS PRN PRN Reason: Constipation Mirtazapine (Remeron) 15 mg PO HS [facility]; Protocol Stop: 04/16/18 20:59 Last Admin: 02/16/18 20:19 Dose: 15 mg Multivitamins/Vitamin C (Theragran) 1 tab PO DAILY [facility] Stop: 04/17/18 08:59 Last Admin: 02/17/18 08:45 Dose: 1 tab Quetiapine Fumarate (Seroquel) 100 mg PO BID [facility]; Protocol Stop: 04/17/18 08:59 Last Admin: 02/17/18 08:45 Dose: 100 mg Zolpidem Tartrate (Ambien) 5 mg PO HS PRN PRN Reason: Insomnia Stop: 04/16/18 14:56 General: No acute distress HEENT: Atraumatic Neck: Supple Cardiovascular: Regular rate, Normal S1, Normal S2 Lungs: Clear to auscultation Assessment/Plan - Plan Plan: as per psych
[2018-02-18] MEDS: Multivitamin Tab PO SCH (08:34)
--- NOTE | 2018-02-18 16:45 | Internal Medicine Prog Note ---
Internal Medicine Objective - Results Result Diagrams: 02/15/18 12:08 02/15/18 12:08 Recent Labs: Laboratory Last Values WBC 6.6 Th/cmm (4.8-10.8) 02/15/18 12:08 RBC 4.05 Mil/cmm (3.80-5.80) 02/15/18 12:08 Hgb 12.8 gm/dL (12-16) 02/15/18 12:08 Hct 38.5 % (41.0-60) L 02/15/18 12:08 MCV 95.2 fl (80-99) 02/15/18 12:08 MCH 31.7 pg (27.0-31.0) H 02/15/18 12:08 MCHC Differential 33.3 pg (28.0-36.0) 02/15/18 12:08 RDW 12.5 % (11.5-20.0) 02/15/18 12:08 Plt Count 309 Th/cmm (150-400) 02/15/18 12:08 MPV 7.1 fl 02/15/18 12:08 Neutrophils % 68.3 % (40.0-80.0) 02/15/18 12:08 Lymphocytes % 18.9 % (20.0-50.0) L 02/15/18 12:08 Monocytes % 9.4 % (2.0-10.0) 02/15/18 12:08 Eosinophils % 2.7 % (0.0-5.0) 02/15/18 12:08 Basophils % 0.7 % (0.0-2.0) 02/15/18 12:08 Sodium 135 mEq/L (136-145) L 02/15/18 12:08 Potassium 4.0 mEq/L (3.5-5.1) 02/15/18 12:08 Chloride 102 mEq/L (98-107) 02/15/18 12:08 Carbon Dioxide 25.7 mEq/L (21.0-31.0) 02/15/18 12:08 Anion Gap 11.3 (7.0-16.0) 02/15/18 12:08 BUN 20 mg/dL (7-25) 02/15/18 12:08 Creatinine 0.9 mg/dL (0.7-1.3) 02/15/18 12:08 Est GFR ( Amer) TNP 02/15/18 12:08 Est GFR (Non-Af Amer) TNP 02/15/18 12:08 BUN/Creatinine Ratio 22.2 02/15/18 12:08 Glucose 135 mg/dL (70-105) H 02/15/18 12:08 Calcium 9.4 mg/dL (8.6-10.3) 02/15/18 12:08 Phosphorus 3.3 mg/dL (2.5-5.0) 02/15/18 12:08 Magnesium 2.0 mg/dL (1.9-2.7) 02/15/18 12:08 Total Bilirubin 0.3 mg/dL (0.3-1.0) 02/15/18 12:08 AST 24 U/L (13-39) 02/15/18 12:08 ALT 18 U/L (7-52) 02/15/18 12:08 Alkaline Phosphatase 55 U/L (34-104) 02/15/18 12:08 Total Protein 6.9 gm/dL (6.0-8.3) 02/15/18 12:08 Albumin 4.2 gm/dL (4.2-5.5) 02/15/18 12:08 Globulin 2.7 gm/dL 02/15/18 12:08 Albumin/Globulin Ratio 1.6 (1.0-1.8) 02/15/18 12:08 Urine Source CLEAN C 02/15/18 13:29 Urine Color YELLOW 02/15/18 13:29 Urine Clarity CLEAR (CLEAR) 02/15/18 13:29 Urine pH 6.5 (4.6 - 8.0) 02/15/18 13:29 Ur Specific [place] <= 1.005 (1.005-1.030) 02/15/18 13:29 Urine Protein NEGATIVE mg/dL (NEGATIVE) 02/15/18 13:29 Urine Glucose (UA) NEGATIVE mg/dL (NEGATIVE) 02/15/18 13:29 Urine Ketones NEGATIVE mg/dL (NEGATIVE) 02/15/18 13:29 Urine Blood NEGATIVE (NEGATIVE) 02/15/18 13:29 Urine Nitrate NEGATIVE (NEGATIVE) 02/15/18 13:29 Urine Bilirubin NEGATIVE (NEGATIVE) 02/15/18 13:29 Urine Urobilinogen 0.2 E.U./dL (0.2 - 1.0) 02/15/18 13:29 Ur Leukocyte Esterase NEGATIVE (NEGATIVE) 02/15/18 13:29 Urine Opiates Screen NEGATIVE (NEGATIVE) 02/15/18 13:29 Urine Methadone Screen NEGATIVE (NEGATIVE) 02/15/18 13:29 Ur Barbiturates Screen NEGATIVE (NEGATIVE) 02/15/18 13:29 Ur Tricyclics Screen POSITIVE (NEGATIVE) H 02/15/18 13:29 Ur Phencyclidine Scrn NEGATIVE (NEGATIVE) 02/15/18 13:29 Amphetamines Screen NEGATIVE (NEGATIVE) 02/15/18 13:29 U Methamphetamines Scrn NEGATIVE (NEGATIVE) 02/15/18 13:29 U Benzodiazepines Scrn NEGATIVE (NEGATIVE) 02/15/18 13:29 U Cocaine Metab Screen NEGATIVE (NEGATIVE) 02/15/18 13:29 U Cannabinoids Screen NEGATIVE (NEGATIVE) 02/15/18 13:29 - Physical Exam Vitals and I&O: Vital Signs Temp 97.5 F 02/18/18 14:03 Pulse 83 02/18/18 14:03 Resp 18 02/18/18 14:03 BP 134/73 02/18/18 14:03 Pulse Ox 96 02/18/18 14:03 Intake & Output 02/17/18 02/18/18 02/18/18 18:59 06:59 18:59 Intake Total 1600 480 Balance 1600 480 Intake: Oral 1600 480 Other: # Voids 4 2 # Bowel Movements 1 Active Medications: Current Medications Acetaminophen (Tylenol) 650 mg PO Q4HR PRN PRN Reason: Mild Pain / Temp above 100 Stop: 04/16/18 14:56 Al Hydrox/Mg Hydrox/Simethicone (Maalox) 30 ml PO Q4HR PRN PRN Reason: GI DISTRESS Stop: 04/16/18 14:56 Amlodipine Besylate (Norvasc) 10 mg PO DAILY [facility] Stop: 04/17/18 08:59 Last Admin: 02/18/18 08:34 Dose: Not Given Benztropine Mesylate (Cogentin) 0.5 mg PO BID PRN PRN Reason: eps Stop: 04/16/18 19:17 Docusate Sodium (Colace) 100 mg PO BID [facility] Stop: 04/17/18 08:59 Last Admin: 02/18/18 16:22 Dose: Not Given Donepezil HCl (Aricept) 10 mg PO DAILY [facility] Stop: 04/17/18 08:59 Last Admin: 02/18/18 08:34 Dose: 10 mg Lorazepam (Ativan) 0.5 mg PO Q4HR PRN; Protocol PRN Reason: Agitation Stop: 03/17/18 14:56 Magnesium Hydroxide (Milk Of Magnesia) 30 ml PO HS PRN PRN Reason: Constipation Mirtazapine (Remeron) 15 mg PO HS [facility]; Protocol Stop: 04/16/18 20:59 Last Admin: 02/17/18 20:58 Dose: 15 mg Multivitamins/Vitamin C (Theragran) 1 tab PO DAILY [facility] Stop: 04/17/18 08:59 Last Admin: 02/18/18 08:34 Dose: 1 tab Quetiapine Fumarate (Seroquel) 100 mg PO BID [facility]; Protocol Stop: 04/17/18 08:59 Last Admin: 02/18/18 16:23 Dose: 100 mg Zolpidem Tartrate (Ambien) 5 mg PO HS PRN PRN Reason: Insomnia Stop: 04/16/18 14:56 Internal Medicine Assmt/Plan - Plan Plan: as per psych
[2018-02-19] MEDS: Multivitamin Tab PO SCH (09:29)
--- NOTE | 2018-02-19 23:59 | Progress Notes ---
DATE: 02/18/2018 SUBJECTIVE: Chart reviewed and the patient interviewed. Also discussed the patient's condition with the staff and reviewed records and labs. The patient is still extremely agitated and angry. The patient also is easily irritable. Also, is still upset, was being in the hospital and also talking about his not visiting him. The patient also is still slightly confused and forgetful. Otherwise, the patient is compliant with taking his medications with no side effects of medications. ASSESSMENT: The patient is still agitated and psychotic. TREATMENT PLAN: Continue to monitor behavior and condition and continue to work on behavioral modification and adjusting psychotropic medications. JOB# [id number]
[2018-02-20] MEDS: Multivitamin Tab PO SCH (09:41)
--- NOTE | 2018-02-20 21:16 | General Progress Note ---
Subjective - Review of Systems Service Date: 02/20/18 Subjective: awake comfortable cooperative Objective - Results Result Diagrams: 02/15/18 12:08 02/15/18 12:08 Recent Labs: Laboratory Last Values WBC 6.6 Th/cmm (4.8-10.8) 02/15/18 12:08 RBC 4.05 Mil/cmm (3.80-5.80) 02/15/18 12:08 Hgb 12.8 gm/dL (12-16) 02/15/18 12:08 Hct 38.5 % (41.0-60) L 02/15/18 12:08 MCV 95.2 fl (80-99) 02/15/18 12:08 MCH 31.7 pg (27.0-31.0) H 02/15/18 12:08 MCHC Differential 33.3 pg (28.0-36.0) 02/15/18 12:08 RDW 12.5 % (11.5-20.0) 02/15/18 12:08 Plt Count 309 Th/cmm (150-400) 02/15/18 12:08 MPV 7.1 fl 02/15/18 12:08 Neutrophils % 68.3 % (40.0-80.0) 02/15/18 12:08 Lymphocytes % 18.9 % (20.0-50.0) L 02/15/18 12:08 Monocytes % 9.4 % (2.0-10.0) 02/15/18 12:08 Eosinophils % 2.7 % (0.0-5.0) 02/15/18 12:08 Basophils % 0.7 % (0.0-2.0) 02/15/18 12:08 Sodium 135 mEq/L (136-145) L 02/15/18 12:08 Potassium 4.0 mEq/L (3.5-5.1) 02/15/18 12:08 Chloride 102 mEq/L (98-107) 02/15/18 12:08 Carbon Dioxide 25.7 mEq/L (21.0-31.0) 02/15/18 12:08 Anion Gap 11.3 (7.0-16.0) 02/15/18 12:08 BUN 20 mg/dL (7-25) 02/15/18 12:08 Creatinine 0.9 mg/dL (0.7-1.3) 02/15/18 12:08 Est GFR ( Amer) TNP 02/15/18 12:08 Est GFR (Non-Af Amer) TNP 02/15/18 12:08 BUN/Creatinine Ratio 22.2 02/15/18 12:08 Glucose 135 mg/dL (70-105) H 02/15/18 12:08 Calcium 9.4 mg/dL (8.6-10.3) 02/15/18 12:08 Phosphorus 3.3 mg/dL (2.5-5.0) 02/15/18 12:08 Magnesium 2.0 mg/dL (1.9-2.7) 02/15/18 12:08 Total Bilirubin 0.3 mg/dL (0.3-1.0) 02/15/18 12:08 AST 24 U/L (13-39) 02/15/18 12:08 ALT 18 U/L (7-52) 02/15/18 12:08 Alkaline Phosphatase 55 U/L (34-104) 02/15/18 12:08 Total Protein 6.9 gm/dL (6.0-8.3) 02/15/18 12:08 Albumin 4.2 gm/dL (4.2-5.5) 02/15/18 12:08 Globulin 2.7 gm/dL 02/15/18 12:08 Albumin/Globulin Ratio 1.6 (1.0-1.8) 02/15/18 12:08 Urine Source CLEAN C 02/15/18 13:29 Urine Color YELLOW 02/15/18 13:29 Urine Clarity CLEAR (CLEAR) 02/15/18 13:29 Urine pH 6.5 (4.6 - 8.0) 02/15/18 13:29 Ur Specific [place] <= 1.005 (1.005-1.030) 02/15/18 13:29 Urine Protein NEGATIVE mg/dL (NEGATIVE) 02/15/18 13:29 Urine Glucose (UA) NEGATIVE mg/dL (NEGATIVE) 02/15/18 13:29 Urine Ketones NEGATIVE mg/dL (NEGATIVE) 02/15/18 13:29 Urine Blood NEGATIVE (NEGATIVE) 02/15/18 13:29 Urine Nitrate NEGATIVE (NEGATIVE) 02/15/18 13:29 Urine Bilirubin NEGATIVE (NEGATIVE) 02/15/18 13:29 Urine Urobilinogen 0.2 E.U./dL (0.2 - 1.0) 02/15/18 13:29 Ur Leukocyte Esterase NEGATIVE (NEGATIVE) 02/15/18 13:29 Urine Opiates Screen NEGATIVE (NEGATIVE) 02/15/18 13:29 Urine Methadone Screen NEGATIVE (NEGATIVE) 02/15/18 13:29 Ur Barbiturates Screen NEGATIVE (NEGATIVE) 02/15/18 13:29 Ur Tricyclics Screen POSITIVE (NEGATIVE) H 02/15/18 13:29 Ur Phencyclidine Scrn NEGATIVE (NEGATIVE) 02/15/18 13:29 Amphetamines Screen NEGATIVE (NEGATIVE) 02/15/18 13:29 U Methamphetamines Scrn NEGATIVE (NEGATIVE) 02/15/18 13:29 U Benzodiazepines Scrn NEGATIVE (NEGATIVE) 02/15/18 13:29 U Cocaine Metab Screen NEGATIVE (NEGATIVE) 02/15/18 13:29 U Cannabinoids Screen NEGATIVE (NEGATIVE) 02/15/18 13:29 - Physical Exam Vitals and I&O: Vital Signs Temp 98.2 F 02/20/18 16:43 Pulse 80 02/20/18 16:43 Resp 20 02/20/18 16:43 BP 131/79 02/20/18 16:43 Pulse Ox 98 02/20/18 16:43 Intake & Output 02/20/18 02/20/18 02/21/18 06:59 18:59 06:59 Intake Total 240 Balance 240 Intake: Oral 240 Other: # Voids 2 Active Medications: Current Medications Acetaminophen (Tylenol) 650 mg PO Q4HR PRN PRN Reason: Mild Pain / Temp above 100 Stop: 04/16/18 14:56 Al Hydrox/Mg Hydrox/Simethicone (Maalox) 30 ml PO Q4HR PRN PRN Reason: GI DISTRESS Stop: 04/16/18 14:56 Amlodipine Besylate (Norvasc) 10 mg PO DAILY [facility] Stop: 04/17/18 08:59 Last Admin: 02/20/18 09:41 Dose: 10 mg Benztropine Mesylate (Cogentin) 0.5 mg PO BID PRN PRN Reason: eps Stop: 04/16/18 19:17 Docusate Sodium (Colace) 100 mg PO BID [facility] Stop: 04/17/18 08:59 Last Admin: 02/20/18 09:41 Dose: Not Given Donepezil HCl (Aricept) 10 mg PO DAILY [facility] Stop: 04/17/18 08:59 Last Admin: 02/20/18 09:42 Dose: 10 mg Lorazepam (Ativan) 0.5 mg PO Q4HR PRN; Protocol PRN Reason: Agitation Stop: 03/17/18 14:56 Last Admin: 02/19/18 09:29 Dose: 0.5 mg Magnesium Hydroxide (Milk Of Magnesia) 30 ml PO HS PRN PRN Reason: Constipation Mirtazapine (Remeron) 15 mg PO HS [facility]; Protocol Stop: 04/16/18 20:59 Last Admin: 02/20/18 21:09 Dose: 15 mg Multivitamins/Vitamin C (Theragran) 1 tab PO DAILY [facility] Stop: 04/17/18 08:59 Last Admin: 02/20/18 09:41 Dose: 1 tab Quetiapine Fumarate (Seroquel) 100 mg PO BID [facility]; Protocol Stop: 04/17/18 08:59 Last Admin: 02/20/18 16:34 Dose: 100 mg Zolpidem Tartrate (Ambien) 5 mg PO HS PRN PRN Reason: Insomnia Stop: 04/16/18 14:56 Last Admin: 02/18/18 22:25 Dose: 5 mg General: No acute distress HEENT: Atraumatic Neck: Supple Cardiovascular: Regular rate, Normal S1, Normal S2 Lungs: Clear to auscultation Assessment/Plan - Plan Plan: as per psych
--- NOTE | 2018-02-20 23:46 | Progress Notes ---
DATE: 02/20/2018 SUBJECTIVE: The patient in the hospital, agitated, restless, not knowing why he is here, believes he is on medication. Noted to be somewhat demented, confused, disoriented, oriented to name and place. Some episodes of confusion, disorientation, noted to be calmer, seems to be calming down. Dr. Arita seeing the patient over the last couple of days, noted to be easily irritable, upset, ruminative on , forgetful. Medications were noted. ASSESSMENT: The patient is still agitated, unruly, upset at times, confused. PLAN: We will continue to monitor and adjust and titrate medications. Medications were reviewed including dosages and frequencies. [facility]# [id number]
[2018-02-21] MEDS: Multivitamin Tab PO SCH (08:50)
--- NOTE | 2018-02-21 11:14 | General Progress Note ---
Subjective - Review of Systems Events since last encounter: in no distress awake alert Subjective: awake comfortable cooperative Objective - Results Result Diagrams: 02/15/18 12:08 02/15/18 12:08 Recent Labs: Laboratory Last Values WBC 6.6 Th/cmm (4.8-10.8) 02/15/18 12:08 RBC 4.05 Mil/cmm (3.80-5.80) 02/15/18 12:08 Hgb 12.8 gm/dL (12-16) 02/15/18 12:08 Hct 38.5 % (41.0-60) L 02/15/18 12:08 MCV 95.2 fl (80-99) 02/15/18 12:08 MCH 31.7 pg (27.0-31.0) H 02/15/18 12:08 MCHC Differential 33.3 pg (28.0-36.0) 02/15/18 12:08 RDW 12.5 % (11.5-20.0) 02/15/18 12:08 Plt Count 309 Th/cmm (150-400) 02/15/18 12:08 MPV 7.1 fl 02/15/18 12:08 Neutrophils % 68.3 % (40.0-80.0) 02/15/18 12:08 Lymphocytes % 18.9 % (20.0-50.0) L 02/15/18 12:08 Monocytes % 9.4 % (2.0-10.0) 02/15/18 12:08 Eosinophils % 2.7 % (0.0-5.0) 02/15/18 12:08 Basophils % 0.7 % (0.0-2.0) 02/15/18 12:08 Sodium 135 mEq/L (136-145) L 02/15/18 12:08 Potassium 4.0 mEq/L (3.5-5.1) 02/15/18 12:08 Chloride 102 mEq/L (98-107) 02/15/18 12:08 Carbon Dioxide 25.7 mEq/L (21.0-31.0) 02/15/18 12:08 Anion Gap 11.3 (7.0-16.0) 02/15/18 12:08 BUN 20 mg/dL (7-25) 02/15/18 12:08 Creatinine 0.9 mg/dL (0.7-1.3) 02/15/18 12:08 Est GFR ( Amer) TNP 02/15/18 12:08 Est GFR (Non-Af Amer) TNP 02/15/18 12:08 BUN/Creatinine Ratio 22.2 02/15/18 12:08 Glucose 135 mg/dL (70-105) H 02/15/18 12:08 Calcium 9.4 mg/dL (8.6-10.3) 02/15/18 12:08 Phosphorus 3.3 mg/dL (2.5-5.0) 02/15/18 12:08 Magnesium 2.0 mg/dL (1.9-2.7) 02/15/18 12:08 Total Bilirubin 0.3 mg/dL (0.3-1.0) 02/15/18 12:08 AST 24 U/L (13-39) 02/15/18 12:08 ALT 18 U/L (7-52) 02/15/18 12:08 Alkaline Phosphatase 55 U/L (34-104) 02/15/18 12:08 Total Protein 6.9 gm/dL (6.0-8.3) 02/15/18 12:08 Albumin 4.2 gm/dL (4.2-5.5) 02/15/18 12:08 Globulin 2.7 gm/dL 02/15/18 12:08 Albumin/Globulin Ratio 1.6 (1.0-1.8) 02/15/18 12:08 Urine Source CLEAN C 02/15/18 13:29 Urine Color YELLOW 02/15/18 13:29 Urine Clarity CLEAR (CLEAR) 02/15/18 13:29 Urine pH 6.5 (4.6 - 8.0) 02/15/18 13:29 Ur Specific [place] <= 1.005 (1.005-1.030) 02/15/18 13:29 Urine Protein NEGATIVE mg/dL (NEGATIVE) 02/15/18 13:29 Urine Glucose (UA) NEGATIVE mg/dL (NEGATIVE) 02/15/18 13:29 Urine Ketones NEGATIVE mg/dL (NEGATIVE) 02/15/18 13:29 Urine Blood NEGATIVE (NEGATIVE) 02/15/18 13:29 Urine Nitrate NEGATIVE (NEGATIVE) 02/15/18 13:29 Urine Bilirubin NEGATIVE (NEGATIVE) 02/15/18 13:29 Urine Urobilinogen 0.2 E.U./dL (0.2 - 1.0) 02/15/18 13:29 Ur Leukocyte Esterase NEGATIVE (NEGATIVE) 02/15/18 13:29 Urine Opiates Screen NEGATIVE (NEGATIVE) 02/15/18 13:29 Urine Methadone Screen NEGATIVE (NEGATIVE) 02/15/18 13:29 Ur Barbiturates Screen NEGATIVE (NEGATIVE) 02/15/18 13:29 Ur Tricyclics Screen POSITIVE (NEGATIVE) H 02/15/18 13:29 Ur Phencyclidine Scrn NEGATIVE (NEGATIVE) 02/15/18 13:29 Amphetamines Screen NEGATIVE (NEGATIVE) 02/15/18 13:29 U Methamphetamines Scrn NEGATIVE (NEGATIVE) 02/15/18 13:29 U Benzodiazepines Scrn NEGATIVE (NEGATIVE) 02/15/18 13:29 U Cocaine Metab Screen NEGATIVE (NEGATIVE) 02/15/18 13:29 U Cannabinoids Screen NEGATIVE (NEGATIVE) 02/15/18 13:29 - Physical Exam Vitals and I&O: Vital Signs Temp 98.2 F 02/20/18 16:43 Pulse 67 02/21/18 08:50 Resp 20 02/20/18 16:43 BP 151/81 02/21/18 08:50 Pulse Ox 98 02/20/18 16:43 Active Medications: Current Medications Acetaminophen (Tylenol) 650 mg PO Q4HR PRN PRN Reason: Mild Pain / Temp above 100 Stop: 04/16/18 14:56 Al Hydrox/Mg Hydrox/Simethicone (Maalox) 30 ml PO Q4HR PRN PRN Reason: GI DISTRESS Stop: 04/16/18 14:56 Amlodipine Besylate (Norvasc) 10 mg PO DAILY BINTA Stop: 04/17/18 08:59 Last Admin: 02/21/18 08:50 Dose: 10 mg Benztropine Mesylate (Cogentin) 0.5 mg PO BID PRN PRN Reason: eps Stop: 04/16/18 19:17 Docusate Sodium (Colace) 100 mg PO BID BINTA Stop: 04/17/18 08:59 Last Admin: 02/21/18 08:49 Dose: Not Given Donepezil HCl (Aricept) 10 mg PO DAILY BINTA Stop: 04/17/18 08:59 Last Admin: 02/21/18 08:50 Dose: 10 mg Lorazepam (Ativan) 0.5 mg PO Q4HR PRN; Protocol PRN Reason: Agitation Stop: 03/17/18 14:56 Last Admin: 02/19/18 09:29 Dose: 0.5 mg Magnesium Hydroxide (Milk Of Magnesia) 30 ml PO HS PRN PRN Reason: Constipation Mirtazapine (Remeron) 15 mg PO HS BINTA; Protocol Stop: 04/16/18 20:59 Last Admin: 02/20/18 21:09 Dose: 15 mg Multivitamins/Vitamin C (Theragran) 1 tab PO DAILY BINTA Stop: 04/17/18 08:59 Last Admin: 02/21/18 08:50 Dose: 1 tab Quetiapine Fumarate (Seroquel) 100 mg PO BID [facility]; Protocol Stop: 04/17/18 08:59 Last Admin: 02/21/18 08:50 Dose: 100 mg Zolpidem Tartrate (Ambien) 5 mg PO HS PRN PRN Reason: Insomnia Stop: 04/16/18 14:56 Last Admin: 02/18/18 22:25 Dose: 5 mg General: No acute distress HEENT: Atraumatic Neck: Supple Cardiovascular: Regular rate, Normal S1, Normal S2 Lungs: Clear to auscultation Assessment/Plan - Plan Plan: as per psych
--- NOTE | 2018-02-21 23:17 | Progress Notes ---
DATE: 02/21/2018 SUBJECTIVE: A 77-year-old male with history of dementia, yelling, screaming, very upset, trying to kick his roommate out of the room, staff getting involved, trying to calm him down, remains impulsive, unpredictable. He knows his name. He knows where he is, but he really does not know why he is here. Slept for about 7-8 hours, still remains unruly, angry, upset. Medications were noted. ASSESSMENT: The patient is unruly, upset, confused, agitated this morning. Staff trying to calm him down. PLAN: We will continue to monitor. The patient may need emergency medications. [facility]# [id number]
[2018-02-22] MEDS: Multivitamin Tab PO SCH (08:33)
--- NOTE | 2018-02-22 12:07 | Internal Medicine Prog Note ---
Internal Medicine Subjective - Subjective Service Date: 02/22/18 Patient seen and examined:: with staff Patient is:: awake Per staff patient has:: tolerating meds Internal Medicine Objective - Results Result Diagrams: 02/15/18 12:08 02/15/18 12:08 Recent Labs: Laboratory Last Values WBC 6.6 Th/cmm (4.8-10.8) 02/15/18 12:08 RBC 4.05 Mil/cmm (3.80-5.80) 02/15/18 12:08 Hgb 12.8 gm/dL (12-16) 02/15/18 12:08 Hct 38.5 % (41.0-60) L 02/15/18 12:08 MCV 95.2 fl (80-99) 02/15/18 12:08 MCH 31.7 pg (27.0-31.0) H 02/15/18 12:08 MCHC Differential 33.3 pg (28.0-36.0) 02/15/18 12:08 RDW 12.5 % (11.5-20.0) 02/15/18 12:08 Plt Count 309 Th/cmm (150-400) 02/15/18 12:08 MPV 7.1 fl 02/15/18 12:08 Neutrophils % 68.3 % (40.0-80.0) 02/15/18 12:08 Lymphocytes % 18.9 % (20.0-50.0) L 02/15/18 12:08 Monocytes % 9.4 % (2.0-10.0) 02/15/18 12:08 Eosinophils % 2.7 % (0.0-5.0) 02/15/18 12:08 Basophils % 0.7 % (0.0-2.0) 02/15/18 12:08 Sodium 135 mEq/L (136-145) L 02/15/18 12:08 Potassium 4.0 mEq/L (3.5-5.1) 02/15/18 12:08 Chloride 102 mEq/L (98-107) 02/15/18 12:08 Carbon Dioxide 25.7 mEq/L (21.0-31.0) 02/15/18 12:08 Anion Gap 11.3 (7.0-16.0) 02/15/18 12:08 BUN 20 mg/dL (7-25) 02/15/18 12:08 Creatinine 0.9 mg/dL (0.7-1.3) 02/15/18 12:08 Est GFR ( Amer) TNP 02/15/18 12:08 Est GFR (Non-Af Amer) TNP 02/15/18 12:08 BUN/Creatinine Ratio 22.2 02/15/18 12:08 Glucose 135 mg/dL (70-105) H 02/15/18 12:08 Calcium 9.4 mg/dL (8.6-10.3) 02/15/18 12:08 Phosphorus 3.3 mg/dL (2.5-5.0) 02/15/18 12:08 Magnesium 2.0 mg/dL (1.9-2.7) 02/15/18 12:08 Total Bilirubin 0.3 mg/dL (0.3-1.0) 02/15/18 12:08 AST 24 U/L (13-39) 02/15/18 12:08 ALT 18 U/L (7-52) 02/15/18 12:08 Alkaline Phosphatase 55 U/L (34-104) 02/15/18 12:08 Total Protein 6.9 gm/dL (6.0-8.3) 02/15/18 12:08 Albumin 4.2 gm/dL (4.2-5.5) 02/15/18 12:08 Globulin 2.7 gm/dL 02/15/18 12:08 Albumin/Globulin Ratio 1.6 (1.0-1.8) 02/15/18 12:08 Urine Source CLEAN C 02/15/18 13:29 Urine Color YELLOW 02/15/18 13:29 Urine Clarity CLEAR (CLEAR) 02/15/18 13:29 Urine pH 6.5 (4.6 - 8.0) 02/15/18 13:29 Ur Specific [place] <= 1.005 (1.005-1.030) 02/15/18 13:29 Urine Protein NEGATIVE mg/dL (NEGATIVE) 02/15/18 13:29 Urine Glucose (UA) NEGATIVE mg/dL (NEGATIVE) 02/15/18 13:29 Urine Ketones NEGATIVE mg/dL (NEGATIVE) 02/15/18 13:29 Urine Blood NEGATIVE (NEGATIVE) 02/15/18 13:29 Urine Nitrate NEGATIVE (NEGATIVE) 02/15/18 13:29 Urine Bilirubin NEGATIVE (NEGATIVE) 02/15/18 13:29 Urine Urobilinogen 0.2 E.U./dL (0.2 - 1.0) 02/15/18 13:29 Ur Leukocyte Esterase NEGATIVE (NEGATIVE) 02/15/18 13:29 Urine Opiates Screen NEGATIVE (NEGATIVE) 02/15/18 13:29 Urine Methadone Screen NEGATIVE (NEGATIVE) 02/15/18 13:29 Ur Barbiturates Screen NEGATIVE (NEGATIVE) 02/15/18 13:29 Ur Tricyclics Screen POSITIVE (NEGATIVE) H 02/15/18 13:29 Ur Phencyclidine Scrn NEGATIVE (NEGATIVE) 02/15/18 13:29 Amphetamines Screen NEGATIVE (NEGATIVE) 02/15/18 13:29 U Methamphetamines Scrn NEGATIVE (NEGATIVE) 02/15/18 13:29 U Benzodiazepines Scrn NEGATIVE (NEGATIVE) 02/15/18 13:29 U Cocaine Metab Screen NEGATIVE (NEGATIVE) 02/15/18 13:29 U Cannabinoids Screen NEGATIVE (NEGATIVE) 02/15/18 13:29 - Physical Exam Vitals and I&O: Vital Signs Temp 98.6 F 02/22/18 04:21 Pulse 77 02/22/18 08:32 Resp 19 02/22/18 04:21 BP 145/78 02/22/18 08:32 Pulse Ox 94 02/22/18 04:21 Intake & Output 02/21/18 02/22/18 02/22/18 18:59 06:59 18:59 Intake Total 489 Balance 489 Intake: Oral 489 Other: # Voids 1 2 # Bowel Movements 1 Active Medications: Current Medications Acetaminophen (Tylenol) 650 mg PO Q4HR PRN PRN Reason: Mild Pain / Temp above 100 Stop: 04/16/18 14:56 Al Hydrox/Mg Hydrox/Simethicone (Maalox) 30 ml PO Q4HR PRN PRN Reason: GI DISTRESS Stop: 04/16/18 14:56 Amlodipine Besylate (Norvasc) 10 mg PO DAILY [facility] Stop: 04/17/18 08:59 Last Admin: 02/22/18 08:32 Dose: 10 mg Benztropine Mesylate (Cogentin) 0.5 mg PO BID PRN PRN Reason: eps Stop: 10/23/18 19:17 Docusate Sodium (Colace) 100 mg PO BID [facility] Stop: 04/17/18 08:59 Last Admin: 02/22/18 08:42 Dose: Not Given Donepezil HCl (Aricept) 10 mg PO DAILY [facility] Stop: 04/17/18 08:59 Last Admin: 02/22/18 08:33 Dose: 10 mg Lorazepam (Ativan) 0.5 mg PO Q4HR PRN; Protocol PRN Reason: Agitation Stop: 03/17/18 14:56 Last Admin: 02/22/18 08:39 Dose: 0.5 mg Magnesium Hydroxide (Milk Of Magnesia) 30 ml PO HS PRN PRN Reason: Constipation Mirtazapine (Remeron) 15 mg PO HS [facility]; Protocol Stop: 04/16/18 20:59 Last Admin: 02/21/18 21:33 Dose: 15 mg Multivitamins/Vitamin C (Theragran) 1 tab PO DAILY [facility] Stop: 04/17/18 08:59 Last Admin: 02/22/18 08:33 Dose: 1 tab Quetiapine Fumarate (Seroquel) 100 mg PO BID [facility]; Protocol Stop: 04/17/18 08:59 Last Admin: 02/22/18 08:31 Dose: 100 mg Zolpidem Tartrate (Ambien) 5 mg PO HS PRN PRN Reason: Insomnia Stop: 04/16/18 14:56 Last Admin: 02/18/18 22:25 Dose: 5 mg General: alert HEENT: NC/AT, PERRLA Neck: Supple Lungs: CTAB Cardiovascular: RRR, Normal S1, Normal S2, without murmur Abdomen: soft, non-tender, non-distended, positive bowel sound Neurological: alert Internal Medicine Assmt/Plan - Assessment Assessment: hyponatremia dementia agitation - Plan Plan: cpm Nutritional Asmnt/Malnutr-PDOC - Dietary Evaluation Malnutrition Findings (Please click <Entered> for more info): Nutritional Asmnt/Malnutrition Start: 02/21/18 15: 40 Text: Status: Active Freq: Protocol: Document 02/21/18 15:40 LCREINAG (Rec: 02/21/18 15:43 [email or web address]) Nutritional Asmnt/Malnutrition Patient General Information Nutritional Screening Low Risk Diagnosis agitation Pertinent Medical Hx/Surgical Hx dyslipidemia, dementia, schizophrenia Subjective Information Per EMR, PO intake 100% of meals. Current Diet Order/ Nutrition Support regular Pertinent Medications colace, remeron, theragran, seroquel Pertinent Labs 02/15 Na 135, glucose 135 Nutritional Hx/Data Height 5 ft Height (Calculated Centimeters) 152.4 Current Weight (lbs) 118 lb Weight (Calculated Kilograms) 53.5 Weight (Calculated Grams) 90401.9 [place] Body Weight 106 Body Mass Index (BMI) 23.0 Weight Status Approriate GI Symptoms GI Symptoms None Difficult in: None Skin Integrity/Comment: GENERALIZED DERMATITIS Current %PO Good (75-100%) Estimated Nutritional Goals BEE in Kcals: Using Current wt Calories/Kcals/Kg 25-30 Kcals Calculated 0801-3722 Protein: Using Current wt Protein g/k Protein Calculated 54 Fluid: ml 1350-1620ml (1ml/kcal) Nutritional Problem No current Nutrition Prob Problem N/A
--- NOTE | 2018-02-22 23:10 | Progress Notes ---
DATE: 02/22/2018 SUBJECTIVE: The patient slept for about 7 hours last night, woke up screaming, very upset, demanding to leave, saying that the President's is coming to visit him. 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 Lives with family. MEDICATIONS: Noted. ASSESSMENT: The patient remains delusional, symptomatic, still impulsive and unpredictable, acting out behaviors. PLAN: We will continue to monitor given ongoing symptoms, he is not safe for discharge. We will titrate and adjust medications. JOB# [id number]
[2018-02-23] MEDS: Multivitamin Tab PO SCH (08:19)
--- NOTE | 2018-02-23 19:18 | Progress Notes ---
DATE: 02/23/2018 SUBJECTIVE: The patient was seen yesterday, remains unruly, trying to leave the unit, requiring a higher level of redirection. The patient believing the President's is coming to see him and that he is a professional bowler. The patient believes he is leaving today, has nowhere to go, believes he has 39 billion dollars own at the facility, noted to be suspicious, bizarre, confused, delusional, destructive. The patient is taking medications. ASSESSMENT: The patient unruly delusional, grandiose. PLAN: We will continue to monitor. We will be increasing his dose of Seroquel today to target ongoing psychosis and delusional symptoms. We will continue to monitor and follow up. Medications were noted. JOB# [id number]
--- NOTE | 2018-02-23 20:49 | Progress Notes ---
DATE: 02/23/2018 SUBJECTIVE: The patient was seen by the dining area. The patient appears to be guarded with episodes of agitation and behavioral outbursts. Otherwise, the patient appears to be in no acute distress. OBJECTIVE: VITAL SIGNS: Temperature 97.7, heart rate 70, blood pressure 130/73, respirations 19, 98% on room air. HEENT: Head is atraumatic and normocephalic. Eyes: Bilateral conjunctivae are clear. Bilateral pupils are equally round and reactive. NECK: Supple. No JVD. CARDIOVASCULAR: S1 and S2 without murmur. PULMONARY: Clear to auscultation. GASTROINTESTINAL: Soft and nontender without guarding. Positive bowel sounds. MUSCULOSKELETAL: No clubbing. No cyanosis noted. ASSESSMENT: 1. Dementia. 2. Osteoarthritis. 3. Hypertension. PLAN: We will keep the patient inpatient psychiatric unit. We will follow up with psychiatrist to monitor the patient's condition and behavior. Treatment plans were discussed with the patient's nurse. Treatment plans were discussed with Dr. Avery. JOB# [id number]
--- NOTE | 2018-02-24 09:23 | General Progress Note ---
Subjective - Review of Systems Events since last encounter: patient is awake but guarded denies pain Subjective: awake comfortable cooperative Objective - Results Result Diagrams: 02/15/18 12:08 02/15/18 12:08 Recent Labs: Laboratory Last Values WBC 6.6 Th/cmm (4.8-10.8) 02/15/18 12:08 RBC 4.05 Mil/cmm (3.80-5.80) 02/15/18 12:08 Hgb 12.8 gm/dL (12-16) 02/15/18 12:08 Hct 38.5 % (41.0-60) L 02/15/18 12:08 MCV 95.2 fl (80-99) 02/15/18 12:08 MCH 31.7 pg (27.0-31.0) H 02/15/18 12:08 MCHC Differential 33.3 pg (28.0-36.0) 02/15/18 12:08 RDW 12.5 % (11.5-20.0) 02/15/18 12:08 Plt Count 309 Th/cmm (150-400) 02/15/18 12:08 MPV 7.1 fl 02/15/18 12:08 Neutrophils % 68.3 % (40.0-80.0) 02/15/18 12:08 Lymphocytes % 18.9 % (20.0-50.0) L 02/15/18 12:08 Monocytes % 9.4 % (2.0-10.0) 02/15/18 12:08 Eosinophils % 2.7 % (0.0-5.0) 02/15/18 12:08 Basophils % 0.7 % (0.0-2.0) 02/15/18 12:08 Sodium 135 mEq/L (136-145) L 02/15/18 12:08 Potassium 4.0 mEq/L (3.5-5.1) 02/15/18 12:08 Chloride 102 mEq/L (98-107) 02/15/18 12:08 Carbon Dioxide 25.7 mEq/L (21.0-31.0) 02/15/18 12:08 Anion Gap 11.3 (7.0-16.0) 02/15/18 12:08 BUN 20 mg/dL (7-25) 02/15/18 12:08 Creatinine 0.9 mg/dL (0.7-1.3) 02/15/18 12:08 Est GFR ( Amer) TNP 02/15/18 12:08 Est GFR (Non-Af Amer) TNP 02/15/18 12:08 BUN/Creatinine Ratio 22.2 02/15/18 12:08 Glucose 135 mg/dL (70-105) H 02/15/18 12:08 Calcium 9.4 mg/dL (8.6-10.3) 02/15/18 12:08 Phosphorus 3.3 mg/dL (2.5-5.0) 02/15/18 12:08 Magnesium 2.0 mg/dL (1.9-2.7) 02/15/18 12:08 Total Bilirubin 0.3 mg/dL (0.3-1.0) 02/15/18 12:08 AST 24 U/L (13-39) 02/15/18 12:08 ALT 18 U/L (7-52) 02/15/18 12:08 Alkaline Phosphatase 55 U/L (34-104) 02/15/18 12:08 Total Protein 6.9 gm/dL (6.0-8.3) 02/15/18 12:08 Albumin 4.2 gm/dL (4.2-5.5) 02/15/18 12:08 Globulin 2.7 gm/dL 02/15/18 12:08 Albumin/Globulin Ratio 1.6 (1.0-1.8) 02/15/18 12:08 Urine Source CLEAN C 02/15/18 13:29 Urine Color YELLOW 02/15/18 13:29 Urine Clarity CLEAR (CLEAR) 02/15/18 13:29 Urine pH 6.5 (4.6 - 8.0) 02/15/18 13:29 Ur Specific [place] <= 1.005 (1.005-1.030) 02/15/18 13:29 Urine Protein NEGATIVE mg/dL (NEGATIVE) 02/15/18 13:29 Urine Glucose (UA) NEGATIVE mg/dL (NEGATIVE) 02/15/18 13:29 Urine Ketones NEGATIVE mg/dL (NEGATIVE) 02/15/18 13:29 Urine Blood NEGATIVE (NEGATIVE) 02/15/18 13:29 Urine Nitrate NEGATIVE (NEGATIVE) 02/15/18 13:29 Urine Bilirubin NEGATIVE (NEGATIVE) 02/15/18 13:29 Urine Urobilinogen 0.2 E.U./dL (0.2 - 1.0) 02/15/18 13:29 Ur Leukocyte Esterase NEGATIVE (NEGATIVE) 02/15/18 13:29 Urine Opiates Screen NEGATIVE (NEGATIVE) 02/15/18 13:29 Urine Methadone Screen NEGATIVE (NEGATIVE) 02/15/18 13:29 Ur Barbiturates Screen NEGATIVE (NEGATIVE) 02/15/18 13:29 Ur Tricyclics Screen POSITIVE (NEGATIVE) H 02/15/18 13:29 Ur Phencyclidine Scrn NEGATIVE (NEGATIVE) 02/15/18 13:29 Amphetamines Screen NEGATIVE (NEGATIVE) 02/15/18 13:29 U Methamphetamines Scrn NEGATIVE (NEGATIVE) 02/15/18 13:29 U Benzodiazepines Scrn NEGATIVE (NEGATIVE) 02/15/18 13:29 U Cocaine Metab Screen NEGATIVE (NEGATIVE) 02/15/18 13:29 U Cannabinoids Screen NEGATIVE (NEGATIVE) 02/15/18 13:29 - Physical Exam Vitals and I&O: Vital Signs Temp 97.9 F 02/24/18 06:53 Pulse 64 02/24/18 06:53 Resp 19 02/24/18 06:53 BP 137/75 02/24/18 06:53 Pulse Ox 97 02/24/18 06:53 Intake & Output 02/23/18 02/24/18 02/24/18 18:59 06:59 18:59 Intake Total 500 Balance 500 Intake: Oral 500 Other: # Voids 6 # Bowel Movements 0 Active Medications: Current Medications Acetaminophen (Tylenol) 650 mg PO Q4HR PRN PRN Reason: Mild Pain / Temp above 100 Stop: 04/16/18 14:56 Al Hydrox/Mg Hydrox/Simethicone (Maalox) 30 ml PO Q4HR PRN PRN Reason: GI DISTRESS Stop: 04/16/18 14:56 Amlodipine Besylate (Norvasc) 10 mg PO DAILY [facility] Stop: 04/17/18 08:59 Last Admin: 02/23/18 08:18 Dose: 10 mg Benztropine Mesylate (Cogentin) 0.5 mg PO BID PRN PRN Reason: eps Stop: 04/16/18 19:17 Docusate Sodium (Colace) 100 mg PO BID [facility] Stop: 04/17/18 08:59 Last Admin: 02/23/18 16:18 Dose: 100 mg Donepezil HCl (Aricept) 10 mg PO DAILY [facility] Stop: 04/17/18 08:59 Last Admin: 02/23/18 08:19 Dose: 10 mg Lorazepam (Ativan) 0.5 mg PO Q4HR PRN; Protocol PRN Reason: Agitation Stop: 03/17/18 14:56 Last Admin: 02/23/18 21:36 Dose: 0.5 mg Magnesium Hydroxide (Milk Of Magnesia) 30 ml PO HS PRN PRN Reason: Constipation Mirtazapine (Remeron) 15 mg PO HS [facility]; Protocol Stop: 04/16/18 20:59 Last Admin: 02/23/18 20:56 Dose: 15 mg Multivitamins/Vitamin C (Theragran) 1 tab PO DAILY [facility] Stop: 04/17/18 08:59 Last Admin: 02/23/18 08:19 Dose: 1 tab Quetiapine Fumarate 100 mg/ (Quetiapine Fumarate 25 mg) 125 mg PO BID [facility] Stop: 04/24/18 08:59 Last Admin: 02/23/18 16:18 Dose: 125 mg Zolpidem Tartrate (Ambien) 5 mg PO HS PRN PRN Reason: Insomnia Stop: 04/16/18 14:56 Last Admin: 02/18/18 22:25 Dose: 5 mg General: No acute distress HEENT: Atraumatic Neck: Supple Cardiovascular: Regular rate, Normal S1, Normal S2 Lungs: Clear to auscultation Assessment/Plan - Problem List Patient Problems: All Active Problems Dementia (Acute) F03.90 Hypertension (Acute) I10 - Plan Plan: as per psych Nutritional Asmnt/Malnutr-PDOC - Dietary Evaluation Malnutrition Findings (Please click <Entered> for more info): Nutritional Asmnt/Malnutrition Start: 02/21/18 15: 40 Text: Status: Complete Freq: Protocol: Document 02/21/18 15:40 LCREINAG (Rec: 02/21/18 15:43 LCREINAG [email or web address]) Nutritional Asmnt/Malnutrition Patient General Information Nutritional Screening Low Risk Diagnosis agitation Pertinent Medical Hx/Surgical Hx dyslipidemia, dementia, schizophrenia Subjective Information Pt seen eating in the hallway, alert and confused. Per EMR, PO intake 100% of meals. Current Diet Order/ Nutrition Support regular Pertinent Medications colace, remeron, theragran, seroquel Pertinent Labs 02/15 Na 135, glucose 135 Nutritional Hx/Data Height 1.52 m Height (Calculated Centimeters) 152.4 Current Weight (lbs) 53.524 kg Weight (Calculated Kilograms) 53.5 Weight (Calculated Grams) 14356.9 [place] Body Weight 106 Body Mass Index (BMI) 23.0 Weight Status Approriate GI Symptoms GI Symptoms None Difficult in: None Skin Integrity/Comment: GENERALIZED DERMATITIS Current %PO Good (75-100%) Estimated Nutritional Goals BEE in Kcals: Using Current wt Calories/Kcals/Kg 25-30 Kcals Calculated 5780-2511 Protein: Using Current wt Protein g/k Protein Calculated 54 Fluid: ml 1350-1620ml (1ml/kcal) Nutritional Problem No current Nutrition Prob Problem N/A Intervention/Recommendation Comments 1. Continue with current diet as ordered. Monitor glucose level. Recommend checking A1c level. 2. Monitor PO intake, wt, labs and skin integrity 3. F/U as low risk in 7 days, 03/01 Expected Outcomes/Goals Expected Outcomes/Goals 1. PO intake to meet at least 75% of nutritional needs. 2. Wt stability, skin to remain intact, labs to approach WNL.
[2018-02-24] MEDS: Multivitamin Tab PO SCH (09:32)
--- NOTE | 2018-02-24 19:46 | Progress Notes ---
DATE: 02/24/2018 SUBJECTIVE: The patient in the hospital, remains confused, disoriented, unable to care for his basic needs. The patient is still convinced he could leave, convinced he can take care of himself, still talking about being a professional bowler. The patient demanding to leave the hospital. He has nowhere to go and ____ very forgetful, poorly oriented. Medications were noted. ASSESSMENT: The patient sometimes trying to leave the unit, confused, forgetful, delusional. PLAN: We will continue to monitor, titrate and adjust medications. Given patient's ongoing symptoms, he is not safe for discharge at this time. JOB# [id number]
[2018-02-25] MEDS: Multivitamin Tab PO SCH (09:08)
--- NOTE | 2018-02-25 10:22 | General Progress Note ---
Subjective - Review of Systems Events since last encounter: patient is confused delusional , denies discomfort Subjective: awake comfortable cooperative Objective - Results Result Diagrams: 02/15/18 12:08 02/15/18 12:08 Recent Labs: Laboratory Last Values WBC 6.6 Th/cmm (4.8-10.8) 02/15/18 12:08 RBC 4.05 Mil/cmm (3.80-5.80) 02/15/18 12:08 Hgb 12.8 gm/dL (12-16) 02/15/18 12:08 Hct 38.5 % (41.0-60) L 02/15/18 12:08 MCV 95.2 fl (80-99) 02/15/18 12:08 MCH 31.7 pg (27.0-31.0) H 02/15/18 12:08 MCHC Differential 33.3 pg (28.0-36.0) 02/15/18 12:08 RDW 12.5 % (11.5-20.0) 02/15/18 12:08 Plt Count 309 Th/cmm (150-400) 02/15/18 12:08 MPV 7.1 fl 02/15/18 12:08 Neutrophils % 68.3 % (40.0-80.0) 02/15/18 12:08 Lymphocytes % 18.9 % (20.0-50.0) L 02/15/18 12:08 Monocytes % 9.4 % (2.0-10.0) 02/15/18 12:08 Eosinophils % 2.7 % (0.0-5.0) 02/15/18 12:08 Basophils % 0.7 % (0.0-2.0) 02/15/18 12:08 Sodium 135 mEq/L (136-145) L 02/15/18 12:08 Potassium 4.0 mEq/L (3.5-5.1) 02/15/18 12:08 Chloride 102 mEq/L (98-107) 02/15/18 12:08 Carbon Dioxide 25.7 mEq/L (21.0-31.0) 02/15/18 12:08 Anion Gap 11.3 (7.0-16.0) 02/15/18 12:08 BUN 20 mg/dL (7-25) 02/15/18 12:08 Creatinine 0.9 mg/dL (0.7-1.3) 02/15/18 12:08 Est GFR ( Amer) TNP 02/15/18 12:08 Est GFR (Non-Af Amer) TNP 02/15/18 12:08 BUN/Creatinine Ratio 22.2 02/15/18 12:08 Glucose 135 mg/dL (70-105) H 02/15/18 12:08 Calcium 9.4 mg/dL (8.6-10.3) 02/15/18 12:08 Phosphorus 3.3 mg/dL (2.5-5.0) 02/15/18 12:08 Magnesium 2.0 mg/dL (1.9-2.7) 02/15/18 12:08 Total Bilirubin 0.3 mg/dL (0.3-1.0) 02/15/18 12:08 AST 24 U/L (13-39) 02/15/18 12:08 ALT 18 U/L (7-52) 02/15/18 12:08 Alkaline Phosphatase 55 U/L (34-104) 02/15/18 12:08 Total Protein 6.9 gm/dL (6.0-8.3) 02/15/18 12:08 Albumin 4.2 gm/dL (4.2-5.5) 02/15/18 12:08 Globulin 2.7 gm/dL 02/15/18 12:08 Albumin/Globulin Ratio 1.6 (1.0-1.8) 02/15/18 12:08 Urine Source CLEAN C 02/15/18 13:29 Urine Color YELLOW 02/15/18 13:29 Urine Clarity CLEAR (CLEAR) 02/15/18 13:29 Urine pH 6.5 (4.6 - 8.0) 02/15/18 13:29 Ur Specific [place] <= 1.005 (1.005-1.030) 02/15/18 13:29 Urine Protein NEGATIVE mg/dL (NEGATIVE) 02/15/18 13:29 Urine Glucose (UA) NEGATIVE mg/dL (NEGATIVE) 02/15/18 13:29 Urine Ketones NEGATIVE mg/dL (NEGATIVE) 02/15/18 13:29 Urine Blood NEGATIVE (NEGATIVE) 02/15/18 13:29 Urine Nitrate NEGATIVE (NEGATIVE) 02/15/18 13:29 Urine Bilirubin NEGATIVE (NEGATIVE) 02/15/18 13:29 Urine Urobilinogen 0.2 E.U./dL (0.2 - 1.0) 02/15/18 13:29 Ur Leukocyte Esterase NEGATIVE (NEGATIVE) 02/15/18 13:29 Urine Opiates Screen NEGATIVE (NEGATIVE) 02/15/18 13:29 Urine Methadone Screen NEGATIVE (NEGATIVE) 02/15/18 13:29 Ur Barbiturates Screen NEGATIVE (NEGATIVE) 02/15/18 13:29 Ur Tricyclics Screen POSITIVE (NEGATIVE) H 02/15/18 13:29 Ur Phencyclidine Scrn NEGATIVE (NEGATIVE) 02/15/18 13:29 Amphetamines Screen NEGATIVE (NEGATIVE) 02/15/18 13:29 U Methamphetamines Scrn NEGATIVE (NEGATIVE) 02/15/18 13:29 U Benzodiazepines Scrn NEGATIVE (NEGATIVE) 02/15/18 13:29 U Cocaine Metab Screen NEGATIVE (NEGATIVE) 02/15/18 13:29 U Cannabinoids Screen NEGATIVE (NEGATIVE) 02/15/18 13:29 - Physical Exam Vitals and I&O: Vital Signs Temp 98.1 F 02/25/18 05:52 Pulse 66 02/25/18 09:09 Resp 18 02/25/18 05:52 BP 130/73 02/25/18 09:09 Pulse Ox 96 02/25/18 05:52 Intake & Output 02/24/18 02/25/18 02/25/18 18:59 06:59 18:59 Intake Total 1600 240 Balance 1600 240 Intake: Oral 1600 240 Other: # Voids 4 2 # Bowel Movements 0 Active Medications: Current Medications Acetaminophen (Tylenol) 650 mg PO Q4HR PRN PRN Reason: Mild Pain / Temp above 100 Stop: 04/16/18 14:56 Al Hydrox/Mg Hydrox/Simethicone (Maalox) 30 ml PO Q4HR PRN PRN Reason: GI DISTRESS Stop: 04/16/18 14:56 Amlodipine Besylate (Norvasc) 10 mg PO DAILY [facility] Stop: 04/17/18 08:59 Last Admin: 02/25/18 09:09 Dose: 10 mg Benztropine Mesylate (Cogentin) 0.5 mg PO BID PRN PRN Reason: eps Stop: 04/16/18 19:17 Docusate Sodium (Colace) 100 mg PO BID [facility] Stop: 04/17/18 08:59 Last Admin: 02/25/18 09:08 Dose: 100 mg Donepezil HCl (Aricept) 10 mg PO DAILY [facility] Stop: 04/17/18 08:59 Last Admin: 02/25/18 09:08 Dose: 10 mg Lorazepam (Ativan) 0.5 mg PO Q4HR PRN; Protocol PRN Reason: Agitation Stop: 03/17/18 14:56 Last Admin: 02/23/18 21:36 Dose: 0.5 mg Magnesium Hydroxide (Milk Of Magnesia) 30 ml PO HS PRN PRN Reason: Constipation Mirtazapine (Remeron) 15 mg PO HS [facility]; Protocol Stop: 04/16/18 20:59 Last Admin: 02/24/18 20:49 Dose: 15 mg Multivitamins/Vitamin C (Theragran) 1 tab PO DAILY [facility] Stop: 04/17/18 08:59 Last Admin: 02/25/18 09:08 Dose: 1 tab Quetiapine Fumarate 100 mg/ (Quetiapine Fumarate 25 mg) 125 mg PO BID [facility] Stop: 04/24/18 08:59 Last Admin: 02/25/18 09:08 Dose: 125 mg Zolpidem Tartrate (Ambien) 5 mg PO HS PRN PRN Reason: Insomnia Stop: 04/16/18 14:56 Last Admin: 02/18/18 22:25 Dose: 5 mg General: No acute distress HEENT: Atraumatic Neck: Supple Cardiovascular: Regular rate, Normal S1, Normal S2 Lungs: Clear to auscultation Assessment/Plan - Problem List Patient Problems: All Active Problems Dementia (Acute) F03.90 Hypertension (Acute) I10 - Plan Plan: as per psych Nutritional Asmnt/Malnutr-PDOC - Dietary Evaluation Malnutrition Findings (Please click <Entered> for more info): Nutritional Asmnt/Malnutrition Start: 02/21/18 15: 40 Text: Status: Complete Freq: Protocol: Document 02/21/18 15:40 LCHENG (Rec: 02/21/18 15:43 [email or web address] [id number]) Nutritional Asmnt/Malnutrition Patient General Information Nutritional Screening Low Risk Diagnosis agitation Pertinent Medical Hx/Surgical Hx dyslipidemia, dementia, schizophrenia Subjective Information Pt seen eating in the hallway, alert and confused. Per EMR, PO intake 100% of meals. Current Diet Order/ Nutrition Support regular Pertinent Medications colace, remeron, theragran, seroquel Pertinent Labs 02/15 Na 135, glucose 135 Nutritional Hx/Data Height 1.52 m Height (Calculated Centimeters) 152.4 Current Weight (lbs) 53.524 kg Weight (Calculated Kilograms) 53.5 Weight (Calculated Grams) 59842.9 [place] Body Weight 106 Body Mass Index (BMI) 23.0 Weight Status Approriate GI Symptoms GI Symptoms None Difficult in: None Skin Integrity/Comment: GENERALIZED DERMATITIS Current %PO Good (75-100%) Estimated Nutritional Goals BEE in Kcals: Using Current wt Calories/Kcals/Kg 25-30 Kcals Calculated 8335-2728 Protein: Using Current wt Protein g/k Protein Calculated 54 Fluid: ml 1350-1620ml (1ml/kcal) Nutritional Problem No current Nutrition Prob Problem N/A Intervention/Recommendation Comments 1. Continue with current diet as ordered. Monitor glucose level. Recommend checking A1c level. 2. Monitor PO intake, wt, labs and skin integrity 3. F/U as low risk in 7 days, 03/01 Expected Outcomes/Goals Expected Outcomes/Goals 1. PO intake to meet at least 75% of nutritional needs. 2. Wt stability, skin to remain intact, labs to approach WNL.
--- NOTE | 2018-02-25 18:25 | Progress Notes ---
DATE: 02/25/2018 SUBJECTIVE: The patient in the hospital, confused, agitated at times, impulsive, unpredictable, delusional. 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 Noted to be irritable at times, getting into fights with roommates, some agitative behaviors, trying to kick the roommate out of the room at times. The patient not wanting help, labile, irritable, confused, delusional, and grandiose. ASSESSMENT: The patient remains symptomatic, ongoing psychotic symptoms, unruly at times. PLAN: We will continue to monitor, titrate and adjust medications. JOB# [id number]
[2018-02-26] MEDS: Multivitamin Tab PO SCH (09:44)
--- NOTE | 2018-02-26 17:00 | Progress Notes ---
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 The patient waiting for a ride to come pick him up, delusional, believing he has a "high position," very confused, sometimes does not want to take medications and at times, takes the medications, fully oriented, ongoing psychotic symptoms. ASSESSMENT: The patient remains psychotic, still highly delusional, ongoing behavioral disturbances, at times agitated, unruly, trying to leave. PLAN: We will continue to monitor. I will increase his dosing of the Seroquel. Given his ongoing symptoms, he is not safe for discharge. JOB# [id number]
[2018-02-27] MEDS: Multivitamin Tab PO SCH (08:18)
--- NOTE | 2018-02-27 15:32 | General Progress Note ---
Subjective - Review of Systems Events since last encounter: patient psychotic delusional Subjective: awake comfortable cooperative Objective - Results Result Diagrams: 02/15/18 12:08 02/15/18 12:08 Recent Labs: Laboratory Last Values WBC 6.6 Th/cmm (4.8-10.8) 02/15/18 12:08 RBC 4.05 Mil/cmm (3.80-5.80) 02/15/18 12:08 Hgb 12.8 gm/dL (12-16) 02/15/18 12:08 Hct 38.5 % (41.0-60) L 02/15/18 12:08 MCV 95.2 fl (80-99) 02/15/18 12:08 MCH 31.7 pg (27.0-31.0) H 02/15/18 12:08 MCHC Differential 33.3 pg (28.0-36.0) 02/15/18 12:08 RDW 12.5 % (11.5-20.0) 02/15/18 12:08 Plt Count 309 Th/cmm (150-400) 02/15/18 12:08 MPV 7.1 fl 02/15/18 12:08 Neutrophils % 68.3 % (40.0-80.0) 02/15/18 12:08 Lymphocytes % 18.9 % (20.0-50.0) L 02/15/18 12:08 Monocytes % 9.4 % (2.0-10.0) 02/15/18 12:08 Eosinophils % 2.7 % (0.0-5.0) 02/15/18 12:08 Basophils % 0.7 % (0.0-2.0) 02/15/18 12:08 Sodium 135 mEq/L (136-145) L 02/15/18 12:08 Potassium 4.0 mEq/L (3.5-5.1) 02/15/18 12:08 Chloride 102 mEq/L (98-107) 02/15/18 12:08 Carbon Dioxide 25.7 mEq/L (21.0-31.0) 02/15/18 12:08 Anion Gap 11.3 (7.0-16.0) 02/15/18 12:08 BUN 20 mg/dL (7-25) 02/15/18 12:08 Creatinine 0.9 mg/dL (0.7-1.3) 02/15/18 12:08 Est GFR ( Amer) TNP 02/15/18 12:08 Est GFR (Non-Af Amer) TNP 02/15/18 12:08 BUN/Creatinine Ratio 22.2 02/15/18 12:08 Glucose 135 mg/dL (70-105) H 02/15/18 12:08 Calcium 9.4 mg/dL (8.6-10.3) 02/15/18 12:08 Phosphorus 3.3 mg/dL (2.5-5.0) 02/15/18 12:08 Magnesium 2.0 mg/dL (1.9-2.7) 02/15/18 12:08 Total Bilirubin 0.3 mg/dL (0.3-1.0) 02/15/18 12:08 AST 24 U/L (13-39) 02/15/18 12:08 ALT 18 U/L (7-52) 02/15/18 12:08 Alkaline Phosphatase 55 U/L (34-104) 02/15/18 12:08 Total Protein 6.9 gm/dL (6.0-8.3) 02/15/18 12:08 Albumin 4.2 gm/dL (4.2-5.5) 02/15/18 12:08 Globulin 2.7 gm/dL 02/15/18 12:08 Albumin/Globulin Ratio 1.6 (1.0-1.8) 02/15/18 12:08 Urine Source CLEAN C 02/15/18 13:29 Urine Color YELLOW 02/15/18 13:29 Urine Clarity CLEAR (CLEAR) 02/15/18 13:29 Urine pH 6.5 (4.6 - 8.0) 02/15/18 13:29 Ur Specific [place] <= 1.005 (1.005-1.030) 02/15/18 13:29 Urine Protein NEGATIVE mg/dL (NEGATIVE) 02/15/18 13:29 Urine Glucose (UA) NEGATIVE mg/dL (NEGATIVE) 02/15/18 13:29 Urine Ketones NEGATIVE mg/dL (NEGATIVE) 02/15/18 13:29 Urine Blood NEGATIVE (NEGATIVE) 02/15/18 13:29 Urine Nitrate NEGATIVE (NEGATIVE) 02/15/18 13:29 Urine Bilirubin NEGATIVE (NEGATIVE) 02/15/18 13:29 Urine Urobilinogen 0.2 E.U./dL (0.2 - 1.0) 02/15/18 13:29 Ur Leukocyte Esterase NEGATIVE (NEGATIVE) 02/15/18 13:29 Urine Opiates Screen NEGATIVE (NEGATIVE) 02/15/18 13:29 Urine Methadone Screen NEGATIVE (NEGATIVE) 02/15/18 13:29 Ur Barbiturates Screen NEGATIVE (NEGATIVE) 02/15/18 13:29 Ur Tricyclics Screen POSITIVE (NEGATIVE) H 02/15/18 13:29 Ur Phencyclidine Scrn NEGATIVE (NEGATIVE) 02/15/18 13:29 Amphetamines Screen NEGATIVE (NEGATIVE) 02/15/18 13:29 U Methamphetamines Scrn NEGATIVE (NEGATIVE) 02/15/18 13:29 U Benzodiazepines Scrn NEGATIVE (NEGATIVE) 02/15/18 13:29 U Cocaine Metab Screen NEGATIVE (NEGATIVE) 02/15/18 13:29 U Cannabinoids Screen NEGATIVE (NEGATIVE) 02/15/18 13:29 - Physical Exam Vitals and I&O: Vital Signs Temp 98 F 02/27/18 15:00 Pulse 104 02/27/18 15:00 Resp 18 02/27/18 15:00 BP 146/78 02/27/18 15:00 Pulse Ox 97 02/27/18 15:00 Intake & Output 02/26/18 02/27/18 02/27/18 18:59 06:59 18:59 Intake Total 1500 240 Balance 1500 240 Weight (lbs) 53.524 kg Intake: Oral 1500 240 Other: # Voids 3 3 # Bowel Movements 0 0 Weight Source Bedscale Active Medications: Current Medications Acetaminophen (Tylenol) 650 mg PO Q4HR PRN PRN Reason: Mild Pain / Temp above 100 Stop: 04/16/18 14:56 Al Hydrox/Mg Hydrox/Simethicone (Maalox) 30 ml PO Q4HR PRN PRN Reason: GI DISTRESS Stop: 04/16/18 14:56 Amlodipine Besylate (Norvasc) 10 mg PO DAILY BINTA Stop: 04/17/18 08:59 Last Admin: 02/27/18 08:17 Dose: 10 mg Benztropine Mesylate (Cogentin) 0.5 mg PO BID PRN PRN Reason: eps Stop: 04/16/18 19:17 Docusate Sodium (Colace) 100 mg PO BID BINTA Stop: 04/17/18 08:59 Last Admin: 02/27/18 08:18 Dose: Not Given Donepezil HCl (Aricept) 10 mg PO DAILY BINTA Stop: 04/17/18 08:59 Last Admin: 02/27/18 08:18 Dose: 10 mg Lorazepam (Ativan) 0.5 mg PO Q4HR PRN; Protocol PRN Reason: Agitation Stop: 03/17/18 14:56 Last Admin: 02/27/18 04:06 Dose: 0.5 mg Magnesium Hydroxide (Milk Of Magnesia) 30 ml PO HS PRN PRN Reason: Constipation Mirtazapine (Remeron) 15 mg PO HS BINTA; Protocol Stop: 04/16/18 20:59 Last Admin: 02/26/18 20:56 Dose: 15 mg Multivitamins/Vitamin C (Theragran) 1 tab PO DAILY BINTA Stop: 04/17/18 08:59 Last Admin: 02/27/18 08:18 Dose: 1 tab Quetiapine Fumarate 100 mg/ (Quetiapine Fumarate 50 mg) 150 mg PO BID BINTA Stop: 04/27/18 16:59 Last Admin: 02/27/18 08:19 Dose: 150 mg Zolpidem Tartrate (Ambien) 5 mg PO HS PRN PRN Reason: Insomnia Stop: 04/16/18 14:56 Last Admin: 02/18/18 22:25 Dose: 5 mg General: No acute distress HEENT: Atraumatic Neck: Supple Cardiovascular: Regular rate, Normal S1, Normal S2 Lungs: Clear to auscultation Assessment/Plan - Problem List Patient Problems: All Active Problems Dementia (Acute) F03.90 Hypertension (Acute) I10 - Plan Plan: as per psych Nutritional Asmnt/Malnutr-PDOC - Dietary Evaluation Malnutrition Findings (Please click <Entered> for more info): Nutritional Asmnt/Malnutrition Start: 02/21/18 15: 40 Text: Status: Complete Freq: Protocol: Document 02/21/18 15:40 MANSI (Rec: 02/21/18 15:43 [email or web address]) Nutritional Asmnt/Malnutrition Patient General Information Nutritional Screening Low Risk Diagnosis agitation Pertinent Medical Hx/Surgical Hx dyslipidemia, dementia, schizophrenia Subjective Information Pt seen eating in the hallway, alert and confused. Per EMR, PO intake 100% of meals. Current Diet Order/ Nutrition Support regular Pertinent Medications colace, remeron, theragran, seroquel Pertinent Labs 02/15 Na 135, glucose 135 Nutritional Hx/Data Height 1.52 m Height (Calculated Centimeters) 152.4 Current Weight (lbs) 53.524 kg Weight (Calculated Kilograms) 53.5 Weight (Calculated Grams) 78892.9 [place] Body Weight 106 Body Mass Index (BMI) 23.0 Weight Status Approriate GI Symptoms GI Symptoms None Difficult in: None Skin Integrity/Comment: GENERALIZED DERMATITIS Current %PO Good (75-100%) Estimated Nutritional Goals BEE in Kcals: Using Current wt Calories/Kcals/Kg 25-30 Kcals Calculated 5036-5931 Protein: Using Current wt Protein g/k Protein Calculated 54 Fluid: ml 1350-1620ml (1ml/kcal) Nutritional Problem No current Nutrition Prob Problem N/A Intervention/Recommendation Comments 1. Continue with current diet as ordered. Monitor glucose level. Recommend checking A1c level. 2. Monitor PO intake, wt, labs and skin integrity 3. F/U as low risk in 7 days, 03/01 Expected Outcomes/Goals Expected Outcomes/Goals 1. PO intake to meet at least 75% of nutritional needs. 2. Wt stability, skin to remain intact, labs to approach WNL.
--- NOTE | 2018-02-27 16:47 | Progress Notes ---
DATE: 02/27/2018 SUBJECTIVE: The patient remains symptomatic with shouting, yelling at roommate, very upset, aggressive, angry. The patient required emergency Ativan because he was irritable, agitated. The patient is easily irritable, sometimes resistant to care, fixated on leaving, delusional, grandiose. ASSESSMENT: The patient is angry, upset, required p.r.n. medications over the past 24 hours, seems to be calmer with Seroquel. We will continue to monitor and followup. JOB# [id number]
[2018-02-28] MEDS: Multivitamin Tab PO SCH (09:30)
--- NOTE | 2018-02-28 10:10 | Progress Notes ---
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 The patient is a poor historian, mostly confused, would like to leave the hospital. ASSESSMENT: The patient remains symptomatic, ongoing psychotic symptoms, delusions, disruptive behaviors. Medications were noted. PLAN: I will be increasing his Seroquel dosing today. JOB# [id number]
--- NOTE | 2018-02-28 11:26 | General Progress Note ---
Subjective - Review of Systems Events since last encounter: patient still psychotic Subjective: awake comfortable cooperative Objective - Results Result Diagrams: 02/15/18 12:08 02/15/18 12:08 Recent Labs: Laboratory Last Values WBC 6.6 Th/cmm (4.8-10.8) 02/15/18 12:08 RBC 4.05 Mil/cmm (3.80-5.80) 02/15/18 12:08 Hgb 12.8 gm/dL (12-16) 02/15/18 12:08 Hct 38.5 % (41.0-60) L 02/15/18 12:08 MCV 95.2 fl (80-99) 02/15/18 12:08 MCH 31.7 pg (27.0-31.0) H 02/15/18 12:08 MCHC Differential 33.3 pg (28.0-36.0) 02/15/18 12:08 RDW 12.5 % (11.5-20.0) 02/15/18 12:08 Plt Count 309 Th/cmm (150-400) 02/15/18 12:08 MPV 7.1 fl 02/15/18 12:08 Neutrophils % 68.3 % (40.0-80.0) 02/15/18 12:08 Lymphocytes % 18.9 % (20.0-50.0) L 02/15/18 12:08 Monocytes % 9.4 % (2.0-10.0) 02/15/18 12:08 Eosinophils % 2.7 % (0.0-5.0) 02/15/18 12:08 Basophils % 0.7 % (0.0-2.0) 02/15/18 12:08 Sodium 135 mEq/L (136-145) L 02/15/18 12:08 Potassium 4.0 mEq/L (3.5-5.1) 02/15/18 12:08 Chloride 102 mEq/L (98-107) 02/15/18 12:08 Carbon Dioxide 25.7 mEq/L (21.0-31.0) 02/15/18 12:08 Anion Gap 11.3 (7.0-16.0) 02/15/18 12:08 BUN 20 mg/dL (7-25) 02/15/18 12:08 Creatinine 0.9 mg/dL (0.7-1.3) 02/15/18 12:08 Est GFR ( Amer) TNP 02/15/18 12:08 Est GFR (Non-Af Amer) TNP 02/15/18 12:08 BUN/Creatinine Ratio 22.2 02/15/18 12:08 Glucose 135 mg/dL (70-105) H 02/15/18 12:08 Calcium 9.4 mg/dL (8.6-10.3) 02/15/18 12:08 Phosphorus 3.3 mg/dL (2.5-5.0) 02/15/18 12:08 Magnesium 2.0 mg/dL (1.9-2.7) 02/15/18 12:08 Total Bilirubin 0.3 mg/dL (0.3-1.0) 02/15/18 12:08 AST 24 U/L (13-39) 02/15/18 12:08 ALT 18 U/L (7-52) 02/15/18 12:08 Alkaline Phosphatase 55 U/L (34-104) 02/15/18 12:08 Total Protein 6.9 gm/dL (6.0-8.3) 02/15/18 12:08 Albumin 4.2 gm/dL (4.2-5.5) 02/15/18 12:08 Globulin 2.7 gm/dL 02/15/18 12:08 Albumin/Globulin Ratio 1.6 (1.0-1.8) 02/15/18 12:08 Urine Source CLEAN C 02/15/18 13:29 Urine Color YELLOW 02/15/18 13:29 Urine Clarity CLEAR (CLEAR) 02/15/18 13:29 Urine pH 6.5 (4.6 - 8.0) 02/15/18 13:29 Ur Specific [place] <= 1.005 (1.005-1.030) 02/15/18 13:29 Urine Protein NEGATIVE mg/dL (NEGATIVE) 02/15/18 13:29 Urine Glucose (UA) NEGATIVE mg/dL (NEGATIVE) 02/15/18 13:29 Urine Ketones NEGATIVE mg/dL (NEGATIVE) 02/15/18 13:29 Urine Blood NEGATIVE (NEGATIVE) 02/15/18 13:29 Urine Nitrate NEGATIVE (NEGATIVE) 02/15/18 13:29 Urine Bilirubin NEGATIVE (NEGATIVE) 02/15/18 13:29 Urine Urobilinogen 0.2 E.U./dL (0.2 - 1.0) 02/15/18 13:29 Ur Leukocyte Esterase NEGATIVE (NEGATIVE) 02/15/18 13:29 Urine Opiates Screen NEGATIVE (NEGATIVE) 02/15/18 13:29 Urine Methadone Screen NEGATIVE (NEGATIVE) 02/15/18 13:29 Ur Barbiturates Screen NEGATIVE (NEGATIVE) 02/15/18 13:29 Ur Tricyclics Screen POSITIVE (NEGATIVE) H 02/15/18 13:29 Ur Phencyclidine Scrn NEGATIVE (NEGATIVE) 02/15/18 13:29 Amphetamines Screen NEGATIVE (NEGATIVE) 02/15/18 13:29 U Methamphetamines Scrn NEGATIVE (NEGATIVE) 02/15/18 13:29 U Benzodiazepines Scrn NEGATIVE (NEGATIVE) 02/15/18 13:29 U Cocaine Metab Screen NEGATIVE (NEGATIVE) 02/15/18 13:29 U Cannabinoids Screen NEGATIVE (NEGATIVE) 02/15/18 13:29 - Physical Exam Vitals and I&O: Vital Signs Temp 98.1 F 02/28/18 06:39 Pulse 87 02/28/18 09:28 Resp 20 02/28/18 08:00 BP 160/76 02/28/18 09:28 Pulse Ox 98 02/28/18 08:00 Intake & Output 02/27/18 02/28/18 02/28/18 18:59 06:59 18:59 Intake Total 1600 240 Balance 1600 240 Intake: Oral 1600 240 Other: # Voids 3 7 # Bowel Movements 0 1 Active Medications: Current Medications Acetaminophen (Tylenol) 650 mg PO Q4HR PRN PRN Reason: Mild Pain / Temp above 100 Stop: 04/16/18 14:56 Al Hydrox/Mg Hydrox/Simethicone (Maalox) 30 ml PO Q4HR PRN PRN Reason: GI DISTRESS Stop: 04/16/18 14:56 Amlodipine Besylate (Norvasc) 10 mg PO DAILY BINTA Stop: 04/17/18 08:59 Last Admin: 02/28/18 09:28 Dose: 10 mg Benztropine Mesylate (Cogentin) 0.5 mg PO BID PRN PRN Reason: eps Stop: 04/16/18 19:17 Docusate Sodium (Colace) 100 mg PO BID [facility] Stop: 04/17/18 08:59 Last Admin: 02/28/18 09:28 Dose: Not Given Donepezil HCl (Aricept) 10 mg PO DAILY [facility] Stop: 04/17/18 08:59 Last Admin: 02/28/18 09:30 Dose: 10 mg Lorazepam (Ativan) 0.5 mg PO Q4HR PRN; Protocol PRN Reason: Agitation Stop: 03/17/18 14:56 Last Admin: 02/27/18 04:06 Dose: 0.5 mg Magnesium Hydroxide (Milk Of Magnesia) 30 ml PO HS PRN PRN Reason: Constipation Mirtazapine (Remeron) 15 mg PO HS BINTA; Protocol Stop: 04/16/18 20:59 Last Admin: 02/27/18 20:54 Dose: 15 mg Multivitamins/Vitamin C (Theragran) 1 tab PO DAILY [facility] Stop: 04/17/18 08:59 Last Admin: 02/28/18 09:30 Dose: 1 tab Quetiapine Fumarate (Seroquel) 175 mg PO BID [facility] Stop: 04/29/18 08:59 Zolpidem Tartrate (Ambien) 5 mg PO HS PRN PRN Reason: Insomnia Stop: 04/16/18 14:56 Last Admin: 02/18/18 22:25 Dose: 5 mg General: No acute distress HEENT: Atraumatic Neck: Supple Cardiovascular: Regular rate, Normal S1, Normal S2 Lungs: Clear to auscultation Assessment/Plan - Problem List Patient Problems: All Active Problems Dementia (Acute) F03.90 Hypertension (Acute) I10 - Plan Plan: as per psych Nutritional Asmnt/Malnutr-PDOC - Dietary Evaluation Malnutrition Findings (Please click <Entered> for more info): Nutritional Asmnt/Malnutrition Start: 02/21/18 15: 40 Text: Status: Complete Freq: Protocol: Document 02/21/18 15:40 LCHENG (Rec: 02/21/18 15:43 [email or web address]) Nutritional Asmnt/Malnutrition Patient General Information Nutritional Screening Low Risk Diagnosis agitation Pertinent Medical Hx/Surgical Hx dyslipidemia, dementia, schizophrenia Subjective Information Pt seen eating in the hallway, alert and confused. Per EMR, PO intake 100% of meals. Current Diet Order/ Nutrition Support regular Pertinent Medications colace, remeron, theragran, seroquel Pertinent Labs 02/15 Na 135, glucose 135 Nutritional Hx/Data Height 1.52 m Height (Calculated Centimeters) 152.4 Current Weight (lbs) 53.524 kg Weight (Calculated Kilograms) 53.5 Weight (Calculated Grams) 26802.9 [place] Body Weight 106 Body Mass Index (BMI) 23.0 Weight Status Approriate GI Symptoms GI Symptoms None Difficult in: None Skin Integrity/Comment: GENERALIZED DERMATITIS Current %PO Good (75-100%) Estimated Nutritional Goals BEE in Kcals: Using Current wt Calories/Kcals/Kg 25-30 Kcals Calculated 2928-7151 Protein: Using Current wt Protein g/k Protein Calculated 54 Fluid: ml 1350-1620ml (1ml/kcal) Nutritional Problem No current Nutrition Prob Problem N/A Intervention/Recommendation Comments 1. Continue with current diet as ordered. Monitor glucose level. Recommend checking A1c level. 2. Monitor PO intake, wt, labs and skin integrity 3. F/U as low risk in 7 days, 03/01 Expected Outcomes/Goals Expected Outcomes/Goals 1. PO intake to meet at least 75% of nutritional needs. 2. Wt stability, skin to remain intact, labs to approach WNL.
[2018-03-01 07:54] LABS: CHOLESTEROL 195 mg/dL (<200); HDL -HIGH DENSITY LIPOPROTEIN 76 mg/dL (23-92); TRIGLYCERIDES 42 mg/dL (<150)
[2018-03-01] MEDS: Multivitamin Tab PO SCH (08:17)
--- NOTE | 2018-03-01 15:36 | Progress Notes ---
DATE: 03/01/2018 SUBJECTIVE: The patient remains mostly withdrawn, keeping to himself, still grandiose, believes that he owns the hospital, that he can do whatever he wanted, that he does not follow the rules. 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 Medications were reviewed and noted. ASSESSMENT: The patient is confused, disoriented, remains agitated at times, grandiose. PLAN: We will continue to monitor, titrate, and adjust medications. We are trying to also confirm a safe disposition plan. JOB# [id number]
--- NOTE | 2018-03-01 16:01 | Internal Medicine Prog Note ---
Internal Medicine Subjective - Subjective Service Date: 03/01/18 Patient is:: awake Per staff patient has:: tolerating meds Internal Medicine Objective - Results Result Diagrams: 02/15/18 12:08 02/15/18 12:08 Recent Labs: Laboratory Last Values WBC 6.6 Th/cmm (4.8-10.8) 02/15/18 12:08 RBC 4.05 Mil/cmm (3.80-5.80) 02/15/18 12:08 Hgb 12.8 gm/dL (12-16) 02/15/18 12:08 Hct 38.5 % (41.0-60) L 02/15/18 12:08 MCV 95.2 fl (80-99) 02/15/18 12:08 MCH 31.7 pg (27.0-31.0) H 02/15/18 12:08 MCHC Differential 33.3 pg (28.0-36.0) 02/15/18 12:08 RDW 12.5 % (11.5-20.0) 02/15/18 12:08 Plt Count 309 Th/cmm (150-400) 02/15/18 12:08 MPV 7.1 fl 02/15/18 12:08 Neutrophils % 68.3 % (40.0-80.0) 02/15/18 12:08 Lymphocytes % 18.9 % (20.0-50.0) L 02/15/18 12:08 Monocytes % 9.4 % (2.0-10.0) 02/15/18 12:08 Eosinophils % 2.7 % (0.0-5.0) 02/15/18 12:08 Basophils % 0.7 % (0.0-2.0) 02/15/18 12:08 Sodium 135 mEq/L (136-145) L 02/15/18 12:08 Potassium 4.0 mEq/L (3.5-5.1) 02/15/18 12:08 Chloride 102 mEq/L (98-107) 02/15/18 12:08 Carbon Dioxide 25.7 mEq/L (21.0-31.0) 02/15/18 12:08 Anion Gap 11.3 (7.0-16.0) 02/15/18 12:08 BUN 20 mg/dL (7-25) 02/15/18 12:08 Creatinine 0.9 mg/dL (0.7-1.3) 02/15/18 12:08 Est GFR ( Amer) TNP 02/15/18 12:08 Est GFR (Non-Af Amer) TNP 02/15/18 12:08 BUN/Creatinine Ratio 22.2 02/15/18 12:08 Glucose 135 mg/dL (70-105) H 02/15/18 12:08 Calcium 9.4 mg/dL (8.6-10.3) 02/15/18 12:08 Phosphorus 3.3 mg/dL (2.5-5.0) 02/15/18 12:08 Magnesium 2.0 mg/dL (1.9-2.7) 02/15/18 12:08 Total Bilirubin 0.3 mg/dL (0.3-1.0) 02/15/18 12:08 AST 24 U/L (13-39) 02/15/18 12:08 ALT 18 U/L (7-52) 02/15/18 12:08 Alkaline Phosphatase 55 U/L (34-104) 02/15/18 12:08 Total Protein 6.9 gm/dL (6.0-8.3) 02/15/18 12:08 Albumin 4.2 gm/dL (4.2-5.5) 02/15/18 12:08 Globulin 2.7 gm/dL 02/15/18 12:08 Albumin/Globulin Ratio 1.6 (1.0-1.8) 02/15/18 12:08 Triglycerides 42 mg/dL (<150) 03/01/18 06:36 Cholesterol 195 mg/dL (<200) 03/01/18 06:36 LDL Cholesterol Direct 103 mg/dL (75-193) 03/01/18 06:36 HDL Cholesterol 76 mg/dL (23-92) 03/01/18 06:36 Urine Source CLEAN C 02/15/18 13:29 Urine Color YELLOW 02/15/18 13:29 Urine Clarity CLEAR (CLEAR) 02/15/18 13:29 Urine pH 6.5 (4.6 - 8.0) 02/15/18 13:29 Ur Specific [place] <= 1.005 (1.005-1.030) 02/15/18 13:29 Urine Protein NEGATIVE mg/dL (NEGATIVE) 02/15/18 13:29 Urine Glucose (UA) NEGATIVE mg/dL (NEGATIVE) 02/15/18 13:29 Urine Ketones NEGATIVE mg/dL (NEGATIVE) 02/15/18 13:29 Urine Blood NEGATIVE (NEGATIVE) 02/15/18 13:29 Urine Nitrate NEGATIVE (NEGATIVE) 02/15/18 13:29 Urine Bilirubin NEGATIVE (NEGATIVE) 02/15/18 13:29 Urine Urobilinogen 0.2 E.U./dL (0.2 - 1.0) 02/15/18 13:29 Ur Leukocyte Esterase NEGATIVE (NEGATIVE) 02/15/18 13:29 Urine Opiates Screen NEGATIVE (NEGATIVE) 02/15/18 13:29 Urine Methadone Screen NEGATIVE (NEGATIVE) 02/15/18 13:29 Ur Barbiturates Screen NEGATIVE (NEGATIVE) 02/15/18 13:29 Ur Tricyclics Screen POSITIVE (NEGATIVE) H 02/15/18 13:29 Ur Phencyclidine Scrn NEGATIVE (NEGATIVE) 02/15/18 13:29 Amphetamines Screen NEGATIVE (NEGATIVE) 02/15/18 13:29 U Methamphetamines Scrn NEGATIVE (NEGATIVE) 02/15/18 13:29 U Benzodiazepines Scrn NEGATIVE (NEGATIVE) 02/15/18 13:29 U Cocaine Metab Screen NEGATIVE (NEGATIVE) 02/15/18 13:29 U Cannabinoids Screen NEGATIVE (NEGATIVE) 02/15/18 13:29 - Physical Exam Vitals and I&O: Vital Signs Temp 97.9 F 03/01/18 14:00 Pulse 95 03/01/18 14:00 Resp 19 03/01/18 14:00 BP 137/80 03/01/18 14:00 Pulse Ox 86 03/01/18 14:00 Intake & Output 02/28/18 03/01/18 03/01/18 18:59 06:59 18:59 Intake Total 1500 240 Balance 1500 240 Intake: Oral 1500 240 Other: # Voids 3 6 # Bowel Movements 0 0 Active Medications: Current Medications Acetaminophen (Tylenol) 650 mg PO Q4HR PRN PRN Reason: Mild Pain / Temp above 100 Stop: 04/16/18 14:56 Al Hydrox/Mg Hydrox/Simethicone (Maalox) 30 ml PO Q4HR PRN PRN Reason: GI DISTRESS Stop: 04/16/18 14:56 Amlodipine Besylate (Norvasc) 10 mg PO DAILY BINTA Stop: 04/17/18 08:59 Last Admin: 03/01/18 08:18 Dose: 10 mg Benztropine Mesylate (Cogentin) 0.5 mg PO BID PRN PRN Reason: eps Stop: 04/16/18 19:17 Docusate Sodium (Colace) 100 mg PO BID BINTA Stop: 04/17/18 08:59 Last Admin: 03/01/18 08:17 Dose: 100 mg Donepezil HCl (Aricept) 10 mg PO DAILY BINTA Stop: 04/17/18 08:59 Last Admin: 03/01/18 08:17 Dose: 10 mg Lorazepam (Ativan) 0.5 mg PO Q4HR PRN; Protocol PRN Reason: Agitation Stop: 03/17/18 14:56 Last Admin: 02/27/18 04:06 Dose: 0.5 mg Magnesium Hydroxide (Milk Of Magnesia) 30 ml PO HS PRN PRN Reason: Constipation Mirtazapine (Remeron) 15 mg PO HS BINTA; Protocol Stop: 04/16/18 20:59 Last Admin: 02/28/18 20:57 Dose: 15 mg Multivitamins/Vitamin C (Theragran) 1 tab PO DAILY BINTA Stop: 04/17/18 08:59 Last Admin: 03/01/18 08:17 Dose: 1 tab Quetiapine Fumarate (Seroquel) 175 mg PO BID [facility] Stop: 04/29/18 08:59 Zolpidem Tartrate (Ambien) 5 mg PO HS PRN PRN Reason: Insomnia Stop: 04/16/18 14:56 Last Admin: 02/28/18 20:57 Dose: 5 mg General: alert HEENT: NC/AT, PERRLA Neck: Supple Lungs: CTAB Cardiovascular: RRR, Normal S1, Normal S2, without murmur Abdomen: soft, non-tender, non-distended, positive bowel sound Neurological: alert Internal Medicine Assmt/Plan - Assessment Assessment: hyponatremia dementia agitation - Plan Plan: cpm Nutritional Asmnt/Malnutr-PDOC - Dietary Evaluation Malnutrition Findings (Please click <Entered> for more info): Nutritional Asmnt/Malnutrition Start: 02/21/18 15: 40 Text: Status: Complete Freq: Protocol: Document 02/21/18 15:40 LCHENG (Rec: 02/21/18 15:43 [email or web address] [email or web address]) Nutritional Asmnt/Malnutrition Patient General Information Nutritional Screening Low Risk Diagnosis agitation Pertinent Medical Hx/Surgical Hx dyslipidemia, dementia, schizophrenia Subjective Information Pt seen eating in the hallway, alert and confused. Per EMR, PO intake 100% of meals. Current Diet Order/ Nutrition Support regular Pertinent Medications colace, remeron, theragran, seroquel Pertinent Labs 02/15 Na 135, glucose 135 Nutritional Hx/Data Height 5 ft Height (Calculated Centimeters) 152.4 Current Weight (lbs) 118 lb Weight (Calculated Kilograms) 53.5 Weight (Calculated Grams) 54112.9 [place] Body Weight 106 Body Mass Index (BMI) 23.0 Weight Status Approriate GI Symptoms GI Symptoms None Difficult in: None Skin Integrity/Comment: GENERALIZED DERMATITIS Current %PO Good (75-100%) Estimated Nutritional Goals BEE in Kcals: Using Current wt Calories/Kcals/Kg 25-30 Kcals Calculated 0037-3584 Protein: Using Current wt Protein g/k Protein Calculated 54 Fluid: ml 1350-1620ml (1ml/kcal) Nutritional Problem No current Nutrition Prob Problem N/A Intervention/Recommendation Comments 1. Continue with current diet as ordered. Monitor glucose level. Recommend checking A1c level. 2. Monitor PO intake, wt, labs and skin integrity 3. F/U as low risk in 7 days, 03/01 Expected Outcomes/Goals Expected Outcomes/Goals 1. PO intake to meet at least 75% of nutritional needs. 2. Wt stability, skin to remain intact, labs to approach WNL.
--- NOTE | 2018-03-01 16:44 | Discharge Summary ---
DATE OF DISCHARGE: 03/01/2018 JUSTIFICATION FOR HOSPITALIZATION: Agitation, restless behaviors. 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 Denying overt depression, but a poor historian. PAST PSYCHIATRIC HISTORY: Admissions in the past. FAMILY HISTORY: Noncontributory. SOCIAL HISTORY: Living in [facility]. MEDICATIONS: Noted. MENTAL STATUS EXAMINATION: Please see full psych eval for details. PROVISIONAL DIAGNOSIS: Dementia with behavioral disturbances; psychosis, unspecified; rule out schizophrenia. Under medical, please see full H and P. HOSPITAL COURSE: After initial assessment, the patient was started on medications to address dementia and psychosis. Seroquel was titrated and initiated. Over the course of the hospitalization, he started to improve, mood improved, affect improved, some unruly behaviors noted, some verbal escalation with a roommate; however, once that roommate left would escalate and probe other patients. The patient began to improve. No longer symptomatic mostly keeping to himself, approaching his baseline ongoing delusions that he own the hospital and was a professional gambler, but no agitation, no dangerousness noted and he was discharged with normalization of sleep and appetite. CONDITION UPON DISCHARGE: Improved, allowing ADLs. Mood "fine." Affect flat. Thought processes remain confused. No SI, no HI, no intent, no plan. No auditory or visual the hallucinations, but he remained delusional, grandiose. Insight and judgment fair because he is taking his medications. Better impulse control. PROVISIONAL DIAGNOSES: Dementia; dementia with behaviors; psychosis, unspecified; rule out schizophrenia. Under medical, please see full H and P. PROGNOSIS: The patient follows up with outpatient mental health services and remains compliant with treatment. Prognosis will improve, otherwise guarded. JOB# [id number]
[2018-03-02] MEDS: Multivitamin Tab PO SCH (09:55)
--- NOTE | 2018-03-02 12:40 | Progress Notes ---
DATE: 03/02/2018 SUBJECTIVE: The patient was seen in room. The patient is asleep, but easily arousable. The patient is a poor historian due to medical admission. The patient appears to be guarded, but otherwise the patient is in no acute distress. OBJECTIVE: VITAL SIGNS: Temperature is 99, heart rate 78, blood pressure 145/76, respiration 19, 96% on room air. HEENT: Head is atraumatic and normocephalic. Eyes, bilateral conjunctivae are clear. Bilateral pupils equal, round, reactive. NECK: Supple. No JVD. CARDIOVASCULAR: S1 and S2, without murmur. PULMONARY: Clear to auscultation. GASTROINTESTINAL: Soft and nontender without guarding. Positive bowel sounds. MUSCULOSKELETAL: No clubbing. No cyanosis noted. ASSESSMENT: 1. Dementia. 2. Osteoarthritis. 3. Hypertension. PLAN: The patient is pending for discharge. She will follow up with the case management for placement. The patient to follow up with outpatient psychiatric management. Treatment plans were discussed with the patient's nurse. Treatment plans were discussed with Dr. Avery. JOB# [id number]
--- NOTE | 2018-03-03 02:10 | Progress Notes ---
DATE: 03/02/2018 SUBJECTIVE: The patient was seen and evaluated. The patient's chart reviewed. Dr. Harper covering for Dr. Pierre/Dr. Arita. Overnight, the patient was going to be discharged. Discharge was rescinded secondary to lack of facility. Today on [id number], the patient denies any side effect or complication of medications. MENTAL STATUS EXAMINATION: Stable. ASSESSMENT AND PLAN: The patient is a 77-year-old male, psychiatrically stabilized. Due to the patient's severe dementia with psychotic behaviors outside of semi-structured environment, he is unable to formulate a safe plan. We will continue to monitor and evaluating. We continue working very closely with the case resource manager for safe dispo . JOB# [id number]
[2018-03-03] MEDS: Multivitamin Tab PO SCH (09:25)
--- NOTE | 2018-03-03 11:20 | General Progress Note ---
Subjective - Review of Systems Events since last encounter: patient stable doing better Subjective: awake comfortable cooperative Objective - Results Result Diagrams: 02/15/18 12:08 02/15/18 12:08 Recent Labs: Laboratory Last Values WBC 6.6 Th/cmm (4.8-10.8) 02/15/18 12:08 RBC 4.05 Mil/cmm (3.80-5.80) 02/15/18 12:08 Hgb 12.8 gm/dL (12-16) 02/15/18 12:08 Hct 38.5 % (41.0-60) L 02/15/18 12:08 MCV 95.2 fl (80-99) 02/15/18 12:08 MCH 31.7 pg (27.0-31.0) H 02/15/18 12:08 MCHC Differential 33.3 pg (28.0-36.0) 02/15/18 12:08 RDW 12.5 % (11.5-20.0) 02/15/18 12:08 Plt Count 309 Th/cmm (150-400) 02/15/18 12:08 MPV 7.1 fl 02/15/18 12:08 Neutrophils % 68.3 % (40.0-80.0) 02/15/18 12:08 Lymphocytes % 18.9 % (20.0-50.0) L 02/15/18 12:08 Monocytes % 9.4 % (2.0-10.0) 02/15/18 12:08 Eosinophils % 2.7 % (0.0-5.0) 02/15/18 12:08 Basophils % 0.7 % (0.0-2.0) 02/15/18 12:08 Sodium 135 mEq/L (136-145) L 02/15/18 12:08 Potassium 4.0 mEq/L (3.5-5.1) 02/15/18 12:08 Chloride 102 mEq/L (98-107) 02/15/18 12:08 Carbon Dioxide 25.7 mEq/L (21.0-31.0) 02/15/18 12:08 Anion Gap 11.3 (7.0-16.0) 02/15/18 12:08 BUN 20 mg/dL (7-25) 02/15/18 12:08 Creatinine 0.9 mg/dL (0.7-1.3) 02/15/18 12:08 Est GFR ( Amer) TNP 02/15/18 12:08 Est GFR (Non-Af Amer) TNP 02/15/18 12:08 BUN/Creatinine Ratio 22.2 02/15/18 12:08 Glucose 135 mg/dL (70-105) H 02/15/18 12:08 Calcium 9.4 mg/dL (8.6-10.3) 02/15/18 12:08 Phosphorus 3.3 mg/dL (2.5-5.0) 02/15/18 12:08 Magnesium 2.0 mg/dL (1.9-2.7) 02/15/18 12:08 Total Bilirubin 0.3 mg/dL (0.3-1.0) 02/15/18 12:08 AST 24 U/L (13-39) 02/15/18 12:08 ALT 18 U/L (7-52) 02/15/18 12:08 Alkaline Phosphatase 55 U/L (34-104) 02/15/18 12:08 Total Protein 6.9 gm/dL (6.0-8.3) 02/15/18 12:08 Albumin 4.2 gm/dL (4.2-5.5) 02/15/18 12:08 Globulin 2.7 gm/dL 02/15/18 12:08 Albumin/Globulin Ratio 1.6 (1.0-1.8) 02/15/18 12:08 Triglycerides 42 mg/dL (<150) 03/01/18 06:36 Cholesterol 195 mg/dL (<200) 03/01/18 06:36 LDL Cholesterol Direct 103 mg/dL (75-193) 03/01/18 06:36 HDL Cholesterol 76 mg/dL (23-92) 03/01/18 06:36 Urine Source CLEAN C 02/15/18 13:29 Urine Color YELLOW 02/15/18 13:29 Urine Clarity CLEAR (CLEAR) 02/15/18 13:29 Urine pH 6.5 (4.6 - 8.0) 02/15/18 13:29 Ur Specific [place] <= 1.005 (1.005-1.030) 02/15/18 13:29 Urine Protein NEGATIVE mg/dL (NEGATIVE) 02/15/18 13:29 Urine Glucose (UA) NEGATIVE mg/dL (NEGATIVE) 02/15/18 13:29 Urine Ketones NEGATIVE mg/dL (NEGATIVE) 02/15/18 13:29 Urine Blood NEGATIVE (NEGATIVE) 02/15/18 13:29 Urine Nitrate NEGATIVE (NEGATIVE) 02/15/18 13:29 Urine Bilirubin NEGATIVE (NEGATIVE) 02/15/18 13:29 Urine Urobilinogen 0.2 E.U./dL (0.2 - 1.0) 02/15/18 13:29 Ur Leukocyte Esterase NEGATIVE (NEGATIVE) 02/15/18 13:29 Urine Opiates Screen NEGATIVE (NEGATIVE) 02/15/18 13:29 Urine Methadone Screen NEGATIVE (NEGATIVE) 02/15/18 13:29 Ur Barbiturates Screen NEGATIVE (NEGATIVE) 02/15/18 13:29 Ur Tricyclics Screen POSITIVE (NEGATIVE) H 02/15/18 13:29 Ur Phencyclidine Scrn NEGATIVE (NEGATIVE) 02/15/18 13:29 Amphetamines Screen NEGATIVE (NEGATIVE) 02/15/18 13:29 U Methamphetamines Scrn NEGATIVE (NEGATIVE) 02/15/18 13:29 U Benzodiazepines Scrn NEGATIVE (NEGATIVE) 02/15/18 13:29 U Cocaine Metab Screen NEGATIVE (NEGATIVE) 02/15/18 13:29 U Cannabinoids Screen NEGATIVE (NEGATIVE) 02/15/18 13:29 - Physical Exam Vitals and I&O: Vital Signs Temp 98.8 F 03/03/18 06:14 Pulse 88 03/03/18 09:27 Resp 19 03/03/18 06:14 BP 144/80 03/03/18 09:27 Pulse Ox 98 03/03/18 06:14 Intake & Output 03/02/18 03/03/18 03/03/18 18:59 06:59 18:59 Intake Total 500 Balance 500 Intake: Oral 500 Other: # Voids 6 # Bowel Movements 1 Active Medications: Current Medications Acetaminophen (Tylenol) 650 mg PO Q4HR PRN PRN Reason: Mild Pain / Temp above 100 Stop: 04/16/18 14:56 Al Hydrox/Mg Hydrox/Simethicone (Maalox) 30 ml PO Q4HR PRN PRN Reason: GI DISTRESS Stop: 04/16/18 14:56 Amlodipine Besylate (Norvasc) 10 mg PO DAILY BINTA Stop: 04/17/18 08:59 Last Admin: 03/03/18 09:27 Dose: 10 mg Benztropine Mesylate (Cogentin) 0.5 mg PO BID PRN PRN Reason: eps Stop: 04/16/18 19:17 Docusate Sodium (Colace) 100 mg PO BID BINTA Stop: 04/17/18 08:59 Last Admin: 03/03/18 09:25 Dose: Not Given Donepezil HCl (Aricept) 10 mg PO DAILY BINTA Stop: 04/17/18 08:59 Last Admin: 03/03/18 09:25 Dose: 10 mg Lorazepam (Ativan) 0.5 mg PO Q6HR PRN; Protocol PRN Reason: Agitation Stop: 05/01/18 00:01 Last Admin: 03/02/18 00:55 Dose: 0.5 mg Magnesium Hydroxide (Milk Of Magnesia) 30 ml PO HS PRN PRN Reason: Constipation Mirtazapine (Remeron) 15 mg PO HS BINTA; Protocol Stop: 04/16/18 20:59 Last Admin: 03/02/18 21:33 Dose: 15 mg Multivitamins/Vitamin C (Theragran) 1 tab PO DAILY BINTA Stop: 04/17/18 08:59 Last Admin: 03/03/18 09:25 Dose: 1 tab Quetiapine Fumarate (Seroquel) 175 mg PO BID BINTA Stop: 04/29/18 08:59 Last Admin: 03/03/18 09:25 Dose: 175 mg Zolpidem Tartrate (Ambien) 5 mg PO HS PRN PRN Reason: Insomnia Stop: 05/01/18 00:02 Last Admin: 03/02/18 21:34 Dose: 5 mg General: No acute distress HEENT: Atraumatic Neck: Supple Cardiovascular: Regular rate, Normal S1, Normal S2 Lungs: Clear to auscultation Assessment/Plan - Problem List Patient Problems: All Active Problems Dementia (Acute) F03.90 Hypertension (Acute) I10 - Plan Plan: as per psych Nutritional Asmnt/Malnutr-PDOC - Dietary Evaluation Malnutrition Findings (Please click <Entered> for more info): Nutritional Asmnt/Malnutrition Start: 02/21/18 15: 40 Text: Status: Complete Freq: Protocol: Document 02/21/18 15:40 LCHENG (Rec: 02/21/18 15:43 [facility] [email or web address]) Nutritional Asmnt/Malnutrition Patient General Information Nutritional Screening Low Risk Diagnosis agitation Pertinent Medical Hx/Surgical Hx dyslipidemia, dementia, schizophrenia Subjective Information Pt seen eating in the hallway, alert and confused. Per EMR, PO intake 100% of meals. Current Diet Order/ Nutrition Support regular Pertinent Medications colace, remeron, theragran, seroquel Pertinent Labs 02/15 Na 135, glucose 135 Nutritional Hx/Data Height 1.52 m Height (Calculated Centimeters) 152.4 Current Weight (lbs) 53.524 kg Weight (Calculated Kilograms) 53.5 Weight (Calculated Grams) 62201.9 [place] Body Weight 106 Body Mass Index (BMI) 23.0 Weight Status Approriate GI Symptoms GI Symptoms None Difficult in: None Skin Integrity/Comment: GENERALIZED DERMATITIS Current %PO Good (75-100%) Estimated Nutritional Goals BEE in Kcals: Using Current wt Calories/Kcals/Kg 25-30 Kcals Calculated 0819-8664 Protein: Using Current wt Protein g/k Protein Calculated 54 Fluid: ml 1350-1620ml (1ml/kcal) Nutritional Problem No current Nutrition Prob Problem N/A Intervention/Recommendation Comments 1. Continue with current diet as ordered. Monitor glucose level. Recommend checking A1c level. 2. Monitor PO intake, wt, labs and skin integrity 3. F/U as low risk in 7 days, 03/01 Expected Outcomes/Goals Expected Outcomes/Goals 1. PO intake to meet at least 75% of nutritional needs. 2. Wt stability, skin to remain intact, labs to approach WNL.
--- NOTE | 2018-03-03 22:18 | Progress Notes ---
DATE: 03/03/2018 SUBJECTIVE: Covering for Dr. Pierre. Today, on [id number] evaluation, the patient denies any ____ medication. He reports he feels ready to go to his next step. He denies any complications. MENTAL STATUS EXAMINATION: Stable from yesterday. ASSESSMENT AND PLAN: A 77-year-old male who seems to be psychiatrically stabilized with dementia and psychotic behavioral disturbances that have been ameliorated with the current medication regimen including weight loss with mental employment case manager for a safe disposition. JOB# [id number]
[2018-03-04] MEDS: Multivitamin Tab PO SCH (08:27)
--- NOTE | 2018-03-04 15:20 | General Progress Note ---
Subjective - Review of Systems Events since last encounter: patient stable in no distress Subjective: awake comfortable cooperative Objective - Results Result Diagrams: 02/15/18 12:08 02/15/18 12:08 Recent Labs: Laboratory Last Values WBC 6.6 Th/cmm (4.8-10.8) 02/15/18 12:08 RBC 4.05 Mil/cmm (3.80-5.80) 02/15/18 12:08 Hgb 12.8 gm/dL (12-16) 02/15/18 12:08 Hct 38.5 % (41.0-60) L 02/15/18 12:08 MCV 95.2 fl (80-99) 02/15/18 12:08 MCH 31.7 pg (27.0-31.0) H 02/15/18 12:08 MCHC Differential 33.3 pg (28.0-36.0) 02/15/18 12:08 RDW 12.5 % (11.5-20.0) 02/15/18 12:08 Plt Count 309 Th/cmm (150-400) 02/15/18 12:08 MPV 7.1 fl 02/15/18 12:08 Neutrophils % 68.3 % (40.0-80.0) 02/15/18 12:08 Lymphocytes % 18.9 % (20.0-50.0) L 02/15/18 12:08 Monocytes % 9.4 % (2.0-10.0) 02/15/18 12:08 Eosinophils % 2.7 % (0.0-5.0) 02/15/18 12:08 Basophils % 0.7 % (0.0-2.0) 02/15/18 12:08 Sodium 135 mEq/L (136-145) L 02/15/18 12:08 Potassium 4.0 mEq/L (3.5-5.1) 02/15/18 12:08 Chloride 102 mEq/L (98-107) 02/15/18 12:08 Carbon Dioxide 25.7 mEq/L (21.0-31.0) 02/15/18 12:08 Anion Gap 11.3 (7.0-16.0) 02/15/18 12:08 BUN 20 mg/dL (7-25) 02/15/18 12:08 Creatinine 0.9 mg/dL (0.7-1.3) 02/15/18 12:08 Est GFR ( Amer) TNP 02/15/18 12:08 Est GFR (Non-Af Amer) TNP 02/15/18 12:08 BUN/Creatinine Ratio 22.2 02/15/18 12:08 Glucose 135 mg/dL (70-105) H 02/15/18 12:08 Calcium 9.4 mg/dL (8.6-10.3) 02/15/18 12:08 Phosphorus 3.3 mg/dL (2.5-5.0) 02/15/18 12:08 Magnesium 2.0 mg/dL (1.9-2.7) 02/15/18 12:08 Total Bilirubin 0.3 mg/dL (0.3-1.0) 02/15/18 12:08 AST 24 U/L (13-39) 02/15/18 12:08 ALT 18 U/L (7-52) 02/15/18 12:08 Alkaline Phosphatase 55 U/L (34-104) 02/15/18 12:08 Total Protein 6.9 gm/dL (6.0-8.3) 02/15/18 12:08 Albumin 4.2 gm/dL (4.2-5.5) 02/15/18 12:08 Globulin 2.7 gm/dL 02/15/18 12:08 Albumin/Globulin Ratio 1.6 (1.0-1.8) 02/15/18 12:08 Triglycerides 42 mg/dL (<150) 03/01/18 06:36 Cholesterol 195 mg/dL (<200) 03/01/18 06:36 LDL Cholesterol Direct 103 mg/dL (75-193) 03/01/18 06:36 HDL Cholesterol 76 mg/dL (23-92) 03/01/18 06:36 Urine Source CLEAN C 02/15/18 13:29 Urine Color YELLOW 02/15/18 13:29 Urine Clarity CLEAR (CLEAR) 02/15/18 13:29 Urine pH 6.5 (4.6 - 8.0) 02/15/18 13:29 Ur Specific [place] <= 1.005 (1.005-1.030) 02/15/18 13:29 Urine Protein NEGATIVE mg/dL (NEGATIVE) 02/15/18 13:29 Urine Glucose (UA) NEGATIVE mg/dL (NEGATIVE) 02/15/18 13:29 Urine Ketones NEGATIVE mg/dL (NEGATIVE) 02/15/18 13:29 Urine Blood NEGATIVE (NEGATIVE) 02/15/18 13:29 Urine Nitrate NEGATIVE (NEGATIVE) 02/15/18 13:29 Urine Bilirubin NEGATIVE (NEGATIVE) 02/15/18 13:29 Urine Urobilinogen 0.2 E.U./dL (0.2 - 1.0) 02/15/18 13:29 Ur Leukocyte Esterase NEGATIVE (NEGATIVE) 02/15/18 13:29 Urine Opiates Screen NEGATIVE (NEGATIVE) 02/15/18 13:29 Urine Methadone Screen NEGATIVE (NEGATIVE) 02/15/18 13:29 Ur Barbiturates Screen NEGATIVE (NEGATIVE) 02/15/18 13:29 Ur Tricyclics Screen POSITIVE (NEGATIVE) H 02/15/18 13:29 Ur Phencyclidine Scrn NEGATIVE (NEGATIVE) 02/15/18 13:29 Amphetamines Screen NEGATIVE (NEGATIVE) 02/15/18 13:29 U Methamphetamines Scrn NEGATIVE (NEGATIVE) 02/15/18 13:29 U Benzodiazepines Scrn NEGATIVE (NEGATIVE) 02/15/18 13:29 U Cocaine Metab Screen NEGATIVE (NEGATIVE) 02/15/18 13:29 U Cannabinoids Screen NEGATIVE (NEGATIVE) 02/15/18 13:29 - Physical Exam Vitals and I&O: Vital Signs Temp 99.0 F 03/04/18 14:00 Pulse 64 03/04/18 14:00 Resp 19 03/04/18 14:00 BP 132/58 03/04/18 14:00 Pulse Ox 93 03/04/18 14:00 Intake & Output 03/03/18 03/04/18 03/04/18 18:59 06:59 18:59 Intake Total 480 Balance 480 Intake: Oral 480 Other: # Voids 2 Active Medications: Current Medications Acetaminophen (Tylenol) 650 mg PO Q4HR PRN PRN Reason: Mild Pain / Temp above 100 Stop: 04/16/18 14:56 Al Hydrox/Mg Hydrox/Simethicone (Maalox) 30 ml PO Q4HR PRN PRN Reason: GI DISTRESS Stop: 04/16/18 14:56 Amlodipine Besylate (Norvasc) 10 mg PO DAILY [facility] Stop: 04/17/18 08:59 Last Admin: 03/04/18 08:28 Dose: 10 mg Benztropine Mesylate (Cogentin) 0.5 mg PO BID PRN PRN Reason: eps Stop: 04/16/18 19:17 Docusate Sodium (Colace) 100 mg PO BID [facility] Stop: 04/17/18 08:59 Last Admin: 03/04/18 08:27 Dose: 100 mg Donepezil HCl (Aricept) 10 mg PO DAILY [facility] Stop: 04/17/18 08:59 Last Admin: 03/04/18 08:27 Dose: 10 mg Lorazepam (Ativan) 0.5 mg PO Q6HR PRN; Protocol PRN Reason: Agitation Stop: 05/01/18 00:01 Last Admin: 03/04/18 08:35 Dose: 0.5 mg Magnesium Hydroxide (Milk Of Magnesia) 30 ml PO HS PRN PRN Reason: Constipation Mirtazapine (Remeron) 15 mg PO HS [facility]; Protocol Stop: 04/16/18 20:59 Last Admin: 03/03/18 21:06 Dose: 15 mg Multivitamins/Vitamin C (Theragran) 1 tab PO DAILY [facility] Stop: 04/17/18 08:59 Last Admin: 03/04/18 08:27 Dose: 1 tab Quetiapine Fumarate (Seroquel) 175 mg PO BID [facility] Stop: 04/29/18 08:59 Last Admin: 03/04/18 08:27 Dose: 175 mg Zolpidem Tartrate (Ambien) 5 mg PO HS PRN PRN Reason: Insomnia Stop: 05/01/18 00:02 Last Admin: 03/03/18 21:15 Dose: 5 mg General: No acute distress HEENT: Atraumatic Neck: Supple Cardiovascular: Regular rate, Normal S1, Normal S2 Lungs: Clear to auscultation Assessment/Plan - Problem List Patient Problems: All Active Problems Dementia (Acute) F03.90 Hypertension (Acute) I10 - Plan Plan: as per psych Nutritional Asmnt/Malnutr-PDOC - Dietary Evaluation Malnutrition Findings (Please click <Entered> for more info): Nutritional Asmnt/Malnutrition Start: 02/21/18 15: 40 Text: Status: Complete Freq: Protocol: Document 02/21/18 15:40 VANNA (Rec: 02/21/18 15:43 REINA [email or web address]) Nutritional Asmnt/Malnutrition Patient General Information Nutritional Screening Low Risk Diagnosis agitation Pertinent Medical Hx/Surgical Hx dyslipidemia, dementia, schizophrenia Subjective Information Pt seen eating in the hallway, alert and confused. Per EMR, PO intake 100% of meals. Current Diet Order/ Nutrition Support regular Pertinent Medications colace, remeron, theragran, seroquel Pertinent Labs 02/15 Na 135, glucose 135 Nutritional Hx/Data Height 1.52 m Height (Calculated Centimeters) 152.4 Current Weight (lbs) 53.524 kg Weight (Calculated Kilograms) 53.5 Weight (Calculated Grams) 97029.9 [place] Body Weight 106 Body Mass Index (BMI) 23.0 Weight Status Approriate GI Symptoms GI Symptoms None Difficult in: None Skin Integrity/Comment: GENERALIZED DERMATITIS Current %PO Good (75-100%) Estimated Nutritional Goals BEE in Kcals: Using Current wt Calories/Kcals/Kg 25-30 Kcals Calculated 1219-5570 Protein: Using Current wt Protein g/k Protein Calculated 54 Fluid: ml 1350-1620ml (1ml/kcal) Nutritional Problem No current Nutrition Prob Problem N/A Intervention/Recommendation Comments 1. Continue with current diet as ordered. Monitor glucose level. Recommend checking A1c level. 2. Monitor PO intake, wt, labs and skin integrity 3. F/U as low risk in 7 days, 03/01 Expected Outcomes/Goals Expected Outcomes/Goals 1. PO intake to meet at least 75% of nutritional needs. 2. Wt stability, skin to remain intact, labs to approach WNL.
--- NOTE | 2018-03-04 19:13 | Discharge Summary ---
DATE OF DISCHARGE: 03/04/2018 JUSTIFICATION FOR HOSPITALIZATION: Agitation and restlessness. HISTORY OF PRESENT ILLNESS: A 77-year-old male who states he is here because he is on vacation, noted history of dementia. 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 HOSPITAL COURSE: Please note this discharge summary was completed a few days prior. There were some delays in his discharge currently at baseline. No SI, no HI, no intent, no plan. No psychotic symptoms. There are psychotic symptoms ongoing specifically his delusions and grandiosities, but he is not combative or agitated. No evidence of dangerousness taking his medication, sleeping well, eating well. PLAN: We will discharge today. No inpatient criteria. [facility]# [id number]
== END 2018-03-04 15:40 | DRG 885 ==
LOC: ER 11:34 → GERO2 14:05
PROVIDERS: ADMIT Psychiatry & Neurology Psychiatry; ATTEND Psychiatry & Neurology Psychiatry
DX: F20.9 Schizophrenia, unspecified (principal); F02.81 Dementia in other diseases classified elsewhere, unspecified severity, with behavioral disturbance; E87.1 Hypo-osmolality and hyponatremia; E78.5 Hyperlipidemia, unspecified; F03.90 Unspecified dementia, unspecified severity, without behavioral disturbance, psychotic disturbance, mood disturbance, and anxiety; F31.9 Bipolar disorder, unspecified; G20 Parkinson's disease; K21.9 Gastro-esophageal reflux disease without esophagitis; N40.0 Benign prostatic hyperplasia without lower urinary tract symptoms; F60.0 Paranoid personality disorder; F29 Unspecified psychosis not due to a substance or known physiological condition; M19.90 Unspecified osteoarthritis, unspecified site; I10 Essential (primary) hypertension
CPT/HCPCS: 36415-UA; 80053-TC; 80061-TC; 80307; 81003-TC; 83036-90; 83735-TC; 84100-TC; 85025-TC; 90899; 93005; G0410; Z7610

== ENCOUNTER 2018-07-22 18:38 | Inpatient (IN) | payer MEDICARE, MEDICAID ==
[2018-07-22 19:44] LABS: URINE SOURCE CLEAN C
[2018-07-22 19:45] LABS: URINE BILIRUBIN NEGATIVE (NEGATIVE); URINE BLOOD SMALL (NEGATIVE); URINE GLUCOSE (UA) NEGATIVE (NEGATIVE); URINE KETONE NEGATIVE (NEGATIVE); URINE LEUKOCYTE ESTERASE LARGE (NEGATIVE); URINE MICROSCOPIC INDICATED? YES; URINE NITRATE NEGATIVE (NEGATIVE); URINE PROTEIN NEGATIVE (NEGATIVE); URINE UROBILINOGEN 0.2 E.U./dL (0.2 - 1.0)
[2018-07-22 19:53] LABS: URINE CLARITY HAZY (CLEAR); URINE COLOR YELLOW
[2018-07-22 19:54] LABS: URINE BACTERIA FEW /hpf (NONE SEEN); URINE EPITHELIAL CELLS NONE SEEN /lpf (FEW); URINE RBC 0-2 /hpf (0-5)
[2018-07-22 20:15] LABS: % BASOPHILS 1.3 % (0.0-2.0); % EOSINOPHILS 3.7 % (0.0-5.0); % LYMPHOCYTES 21.2 % (20.0-50.0); % MONOCYTES 12.6 % (2.0-10.0); % NEUTROPHILS 61.2 % (40.0-80.0); BASOPHILE ABSOLUTE 0.1 Th/cumm (0-0.2); EOSINOPHILE ABSOLUTE 0.2 Th/cmm (0.1-0.4); HEMATOCRIT 38.9 % (41.0-60); HEMOGLOBIN 12.8 gm/dL (12-16); LYMPHOCYTE ABSOLUTE 1.4 Th/cmm (1.5-3.0); MEAN CELL VOLUME 91.8 fl (80-99); MEAN CORPUSCULAR HEMOGLOBIN 30.2 pg (27.0-31.0); MEAN PLATELET VOLUME 6.5 fl; MONOCYTE ABSOLUTE 0.8 Th/cmm (0.3-1.0); NEUTROPHILE ABSOLUTE 4.1 Th/cmm (1.8-8.0); PLATELET COUNT 420 Th/cmm (150-400); RED BLOOD COUNT 4.24 Mil/cmm (3.80-5.80); RED CELL DISTRIBUTION WIDTH 12.9 % (11.5-20.0); WHITE BLOOD COUNT 6.6 Th/cmm (4.8-10.8)
--- NOTE | 2018-07-22 20:18 | ED Physician Chart ---
ED Chief Complaint/HPI - Patient Information Date Seen:: 07/22/18 Time Seen:: 20:14 Chief Complaint:: psych agitation History of Present Illness:: 78 yr old male from [facility] for agitation Allergies:: Allergies Allergy/AdvReac Type Severity Reaction Status Date / Time No Known Allergies Allergy Verified 01/09/17 14:23 Vitals:: Vital Signs - 8 hr 07/22/18 19:03 Temp 97.4 F HR 77 RR 18 BP 124/75 O2 Sat % 94 ED Review of Systems - Review of Systems General/Constitutional: No fever, No chills, No weight loss, No weakness, No diaphoresis, No edema, No loss of appetite Skin: No skin lesions, No rash, No bruising Head: No headache, No light-headedness Eyes: No loss of vision, No pain, No diplopia ENT: No earache, No nasal drainage, No sore throat, No tinnitus Neck: No neck pain, No swelling, No thyromegaly, No stiffness, No mass noted Cardio Vascular: No chest pain, No palpitations, No PND, No orthopnea, No edema Pulmonary: No SOB, No cough, No sputum, No wheezing GI: No nausea, No vomiting, No diarrhea, No pain, No melena, No hematochezia, No constipation, No hematemesis G/U: No dysuria, No frequency, No hematuria Musculoskeletal: No bone or joint pain, No back pain, No muscle pain Endocrine: No polyuria, No polydipsia Psychiatric: No prior psych history, No depression, No anxiety, No suicidal ideation Hematopoietic: No bruising, No lymphadenopathy Allergic/Immuno: No urticaria, No angioedema Neurological: No syncope, No focal symptoms, No weakness, No paresthesia, No headache, No seizure, No dizziness, No confusion, No vertigo Family Medical History - Family Member Mother History Unknown: Yes Ethnicity: Non- Living Status: family History Unknown: Yes Ethnicity: Unknown Living Status: Unknown Hx Family Cancer: (unknown) Hx Family Coronary Artery Disease: (unknown) Hx Family Congestive Heart Failure: (unknown) Hx Family Hypertension: (unknown) Hx Family Stroke: (unknown) Hx Family Diabetes: (unknown) Hx Family Seizures: (unknown) Hx Family Dementia: (unknown) Hx Family AIDS: (unknown) Hx Family COPD: (unknown) Hx Family Hepatitis: (unknown) Hx Family Psychiatric Problems: (unknown) Hx Family Tuberculosis: (unknown) ED Physical Exam - Physical Examination General/Constitutional: Awake, Well-developed, well-nourished, Alert, No distress, GCS 15, Non-toxic appearing, Ambulatory Head: Atraumatic Eyes: Lids, conjuctiva normal, PERRL, EOMI Skin: Nl inspection, No rash, No skin lesions, No ecchymosis, Well hydrated, No lymphadenopathy ENMT: External ears, nose nl, Nasal exam nl, Lips, teeth, gums nl Neck: Nontender, Full ROM w/o pain, No JVD, No nuchal rigidity, No bruit, No mass, No stridor Respiratory: Nl effort/Exclusion, Clear to Auscultation, No Wheeze/Rhonchi/Rales Cardio Vascular: RRR, No murmur, gallop, rubs, NL S1 S2 GI: No tenderness/rebounding/guarding, No organomegaly, No hernia, Normal BS's, Nondistended, No mass/bruits, No McBurney tenderness : No CVA tenderness Extremities: No tenderness or effusion, Full ROM, normal strength in all extremities, No edema, Normal digits & nails Neuro/Psych: Alert/oriented, DTR's symmetric, Normal sensory exam, Normal motor strength, Judgement/insight normal, Mood normal, Normal gait, No focal deficits Misc: Normal back, No paraspinal tenderness ED Labs/Radiology/EKG Results - Lab Results Results: Laboratory Tests 07/22/18 19:30 Urine Source CLEAN C Urine Color YELLOW Urine Clarity HAZY Urine pH 7.0 Ur Specific [place] 1.010 Urine Protein NEGATIVE Urine Glucose (UA) NEGATIVE Urine Ketones NEGATIVE Urine Blood SMALL H Urine Nitrate NEGATIVE Urine Bilirubin NEGATIVE Urine Urobilinogen 0.2 Ur Leukocyte Esterase LARGE H Urine RBC 0-2 H Urine WBC 6-10 Ur Epithelial Cells NONE SEEN Urine Bacteria FEW ED Assessment - Assessment General Assessment: agitation ED Septic Shock - . Is Septic Shock (SBP<90, OR Lactate>4 mmol\L) present?: No - <6hrs of presentation: Vital Signs: Vital Signs - 8 hr 07/22/18 19:03 Temp 97.4 F HR 77 RR 18 BP 124/75 O2 Sat % 94 ED Reassessment (Disposition) - Reassessment Reassessment:: agitation - Diagnosis Diagnosis:: agitation - Patient Disposition Discharge/Transfer:: Acute Care w/in this hosp Admitted to:: Med/Surg Condition at Disposition:: Stable
[2018-07-22 20:34] LABS: ALB/GLOB RATIO 1.4 (1.0-1.8); ALBUMIN 4.1 gm/dL (4.2-5.5); ALKALINE PHOSPHATASE 91 U/L (34-104); ANION GAP 14.4 (7.0-16.0); BILIRUBIN,TOTAL 0.4 mg/dL (0.3-1.0); BUN - UREA NITROGEN 16 mg/dL (7-25); CALCIUM SERUM 9.2 mg/dL (8.6-10.3); CARBON DIOXIDE 26.4 mEq/L (21.0-31.0); CHLORIDE 98 mEq/L (98-107); CREATININE - SERUM 1.1 mg/dL (0.7-1.3); GLUCOSE 106 mg/dL (70-105); POTASSIUM SERUM 3.8 mEq/L (3.5-5.1); SGOT 24 U/L (13-39); SGPT/ALT 17 U/L (7-52); SODIUM SERUM 135 mEq/L (136-145); TOTAL PROTEIN,SERUM 7.1 gm/dL (6.0-8.3)
[2018-07-22 23:06] VITALS: BP 150/77
[2018-07-22] MEDS ORDERED: Magnesium Hydroxide (MOM) 30 mL UDC PO PRN (23:26)
[2018-07-22] MEDS ORDERED: Acetaminophen 500 MG TAB PO PRN (23:26)
[2018-07-22 23:48] LABS: CHOLESTEROL 167 mg/dL (<200); HDL -HIGH DENSITY LIPOPROTEIN 62 mg/dL (23-92); TRIGLYCERIDES 134 mg/dL (<150)
[2018-07-23] MEDS: Multivitamin w/ Minerals Tab PO SCH (08:25)
[2018-07-23] MEDS ORDERED: Maalox 30 mL Cup PO PRN (09:25)
--- NOTE | 2018-07-23 16:00 | History & Physical ---
ADMIT DATE: 07/23/2018 CHIEF COMPLAINT: Agitation. HISTORY OF PRESENT ILLNESS: This is a 78-year-old male who is a snf resident admitted to the Geropsych Unit due to 1-day history of agitation. PAST MEDICAL HISTORY: Hypertension and psychosis. PAST SURGICAL HISTORY: Unknown. ALLERGIES: No drug allergies. HOME MEDICATIONS: Amlodipine, Aricept, magnesium hydroxide 30 mL p.o. at bedtime p.r.n., Remeron and multivitamin. SOCIAL HISTORY: The patient is a snf resident, requiring 24-hour nursing care. FAMILY HISTORY: Noncontributory. REVIEW OF SYSTEMS: Unable to obtain, patient is confused. PHYSICAL EXAMINATION: GENERAL: Elderly male, awake, confused, in no apparent distress. VITAL SIGNS: Temperature 99.6, heart rate 62, blood pressure 120/65, respirations 19 and O2 96%. HEENT: Head; normocephalic, atraumatic. NECK: Supple. No mass. LUNGS: Clear bilaterally. HEART: Regular rate and rhythm. ABDOMEN: Soft, nontender. LABORATORY DATA: WBC 6.6, H and H 12.8 and 38.9 and platelet of 420. Sodium 135, potassium 3.8, chloride 98, BUN 16 and creatinine 1.1. The patient had a urinalysis done, which is positive for UTI. ASSESSMENT: Agitation, hypertension, dementia and acute urinary tract infection. PLAN: Will add Levaquin to treat the patient's UTI. Continue SNF medications. Fall precautions be initiated. Continue to monitor this patient. [facility]# [id number]
[2018-07-23] MEDS: Non-Formulary Item 1 EA (Valbenazine Tosylate [Ingrezza] 40 MG) PO SCH (20:39)
[2018-07-24] MEDS: Multivitamin w/ Minerals Tab PO SCH (08:42)
--- NOTE | 2018-07-24 14:30 | Psychiatric Evaluation ---
DATE OF SERVICE: 07/23/2018 HISTORY OF PRESENT ILLNESS: A 78-year-old male coming in from a shelter for agitation and escalation of behaviors, aggressive behaviors. The patient is a poor historian, states he is here because he has friends here, and wanted to see his friends. The patient has been to this particular hospital in the past. The patient notes his mood is "fine." Alert and oriented to name, place, not situation. He knows the month. He knows the date. The patient noted to be irritable, easily agitated, periods of forgetfulness, mostly withdrawn. Per previous documentation, the patient was here in 2018. History of dementia. PAST PSYCHIATRIC HISTORY: Dementia hospitalizations in the past. FAMILY HISTORY: Noncontributory. SOCIAL HISTORY: The patient coming in from care home facility, needing a higher level of shelter care. The patient was born in [facility]. States he has 2 children. MENTAL STATUS EXAMINATION: Stated age, little eye contact. Mood "fine." I am here to see my friends. Confused in regards to why he is here, he knows the year, the month, the date, he is not quite sure what city he is in, poor insight, poor judgment. No overt SI or HI, but he was pretty combative and agitated. No overt psychotic symptoms at this time. PROVISIONAL DIAGNOSES: Dementia with behaviors. Mood unspecified. Psychosis unspecified. Anxiety unspecified. Medical: Please see full H and P. ESTIMATED LENGTH OF STAY: 5-6 days. ASSESSMENT: The patient is currently in the hospital, agitated, upset, and aggressive. PLAN: We will continue to monitor, continue Aricept. Consider the addition of Namenda. Given his ongoing symptoms, he is not safe for a lower level of care. TREATMENT PLAN: Includes group as well as milieu therapy. [facility]# [id number]
--- NOTE | 2018-07-24 20:31 | Internal Medicine Prog Note ---
Internal Medicine Subjective - Subjective Service Date: 07/24/18 Patient seen and examined:: with staff Patient is:: awake, verbal Per staff patient has:: tolerating meds Internal Medicine Objective - Results Result Diagrams: 07/22/18 19:50 07/22/18 19:50 Recent Labs: Laboratory Last Values WBC 6.6 Th/cmm (4.8-10.8) 07/22/18 19:50 RBC 4.24 Mil/cmm (3.80-5.80) 07/22/18 19:50 Hgb 12.8 gm/dL (12-16) 07/22/18 19:50 Hct 38.9 % (41.0-60) L 07/22/18 19:50 MCV 91.8 fl (80-99) 07/22/18 19:50 MCH 30.2 pg (27.0-31.0) 07/22/18 19:50 MCHC Differential 33.0 pg (28.0-36.0) 07/22/18 19:50 RDW 12.9 % (11.5-20.0) 07/22/18 19:50 Plt Count 420 Th/cmm (150-400) H 07/22/18 19:50 MPV 6.5 fl 07/22/18 19:50 Neutrophils % 61.2 % (40.0-80.0) 07/22/18 19:50 Lymphocytes % 21.2 % (20.0-50.0) 07/22/18 19:50 Monocytes % 12.6 % (2.0-10.0) H 07/22/18 19:50 Eosinophils % 3.7 % (0.0-5.0) 07/22/18 19:50 Basophils % 1.3 % (0.0-2.0) 07/22/18 19:50 Sodium 135 mEq/L (136-145) L 07/22/18 19:50 Potassium 3.8 mEq/L (3.5-5.1) 07/22/18 19:50 Chloride 98 mEq/L (98-107) 07/22/18 19:50 Carbon Dioxide 26.4 mEq/L (21.0-31.0) 07/22/18 19:50 Anion Gap 14.4 (7.0-16.0) 07/22/18 19:50 BUN 16 mg/dL (7-25) 07/22/18 19:50 Creatinine 1.1 mg/dL (0.7-1.3) 07/22/18 19:50 Est GFR ( Amer) TNP 07/22/18 19:50 Est GFR (Non-Af Amer) TNP 07/22/18 19:50 BUN/Creatinine Ratio 14.5 07/22/18 19:50 Glucose 106 mg/dL (70-105) H 07/22/18 19:50 Calcium 9.2 mg/dL (8.6-10.3) 07/22/18 19:50 Total Bilirubin 0.4 mg/dL (0.3-1.0) 07/22/18 19:50 AST 24 U/L (13-39) 07/22/18 19:50 ALT 17 U/L (7-52) 07/22/18 19:50 Alkaline Phosphatase 91 U/L (34-104) 07/22/18 19:50 Total Protein 7.1 gm/dL (6.0-8.3) 07/22/18 19:50 Albumin 4.1 gm/dL (4.2-5.5) L 07/22/18 19:50 Globulin 3.0 gm/dL 07/22/18 19:50 Albumin/Globulin Ratio 1.4 (1.0-1.8) 07/22/18 19:50 Triglycerides 134 mg/dL (<150) 07/22/18 19:50 Cholesterol 167 mg/dL (<200) 07/22/18 19:50 LDL Cholesterol Direct 105 mg/dL (75-193) 07/22/18 19:50 HDL Cholesterol 62 mg/dL (23-92) 07/22/18 19:50 Urine Source CLEAN C 07/22/18 19:30 Urine Color YELLOW 07/22/18 19:30 Urine Clarity HAZY (CLEAR) 07/22/18 19:30 Urine pH 7.0 (4.6 - 8.0) 07/22/18 19:30 Ur Specific [place] 1.010 (1.005-1.030) 07/22/18 19:30 Urine Protein NEGATIVE mg/dL (NEGATIVE) 07/22/18 19:30 Urine Glucose (UA) NEGATIVE mg/dL (NEGATIVE) 07/22/18 19:30 Urine Ketones NEGATIVE mg/dL (NEGATIVE) 07/22/18 19:30 Urine Blood SMALL (NEGATIVE) H 07/22/18 19:30 Urine Nitrate NEGATIVE (NEGATIVE) 07/22/18 19:30 Urine Bilirubin NEGATIVE (NEGATIVE) 07/22/18 19:30 Urine Urobilinogen 0.2 E.U./dL (0.2 - 1.0) 07/22/18 19:30 Ur Leukocyte Esterase LARGE (NEGATIVE) H 07/22/18 19:30 Urine RBC 0-2 /hpf (0-5) H 07/22/18 19:30 Urine WBC 6-10 /hpf (0-5) 07/22/18 19:30 Ur Epithelial Cells NONE SEEN /lpf (FEW) 07/22/18 19:30 Urine Bacteria FEW /hpf (NONE SEEN) 07/22/18 19:30 - Physical Exam Vitals and I&O: Vital Signs Temp 98.9 F 07/24/18 14:40 Pulse 74 07/24/18 14:40 Resp 19 07/24/18 14:40 BP 136/74 07/24/18 14:40 Pulse Ox 97 07/24/18 14:40 Intake & Output 07/24/18 07/24/18 07/25/18 06:59 18:59 06:59 Intake Total 240 Balance 240 Intake: Oral 240 Other: # Voids 2 # Bowel Movements 1 Active Medications: Current Medications Acetaminophen (Tylenol) 650 mg PO Q4HR PRN PRN Reason: Mild Pain / Temp above 101 Stop: 09/20/18 23:25 Acetaminophen (Tylenol Extra Strength) 500 mg PO Q4HR PRN PRN Reason: MOD/SEVERE PAIN Stop: 09/20/18 23:25 Al Hydrox/Mg Hydrox/Simethicone (Maalox) 30 ml PO Q4H PRN PRN Reason: GI DISTRESS Stop: 09/21/18 09:24 Amlodipine Besylate (Norvasc) 10 mg PO DAILY [facility] Stop: 09/21/18 08:59 Last Admin: 07/24/18 08:41 Dose: 10 mg Docusate Sodium (Colace) 100 mg PO BID [facility] Stop: 09/21/18 08:59 Last Admin: 07/24/18 17:38 Dose: Not Given Donepezil HCl (Aricept) 10 mg PO DAILY [facility] Stop: 09/21/18 08:59 Last Admin: 07/24/18 08:41 Dose: 10 mg Levofloxacin (Levaquin) 500 mg PO DAILY [facility] Stop: 09/22/18 08:59 Last Admin: 07/24/18 08:42 Dose: 500 mg Lorazepam (Ativan) 0.5 mg PO Q4HR PRN; Protocol PRN Reason: Anxiety Stop: 08/21/18 23:26 Magnesium Hydroxide (Milk Of Magnesia) 30 ml PO HS PRN PRN Reason: Constipation Stop: 09/20/18 23:25 Memantine (Namenda) 5 mg PO DAILY [facility] Stop: 09/22/18 08:59 Last Admin: 07/24/18 08:42 Dose: 5 mg Mirtazapine (Remeron) 15 mg PO HS [facility]; Protocol Stop: 09/21/18 20:59 Last Admin: 07/23/18 20:38 Dose: 15 mg Miscellaneous (Valbenazine Tosylate [Ingrezza]) 40 mg PO HS [facility] Stop: 09/21/18 20:59 Last Admin: 07/23/18 20:39 Dose: Not Given Quetiapine Fumarate (Seroquel) 175 mg PO BID [facility]; Protocol Stop: 09/21/18 08:59 Zolpidem Tartrate (Ambien) 5 mg PO HS PRN PRN Reason: Insomnia Stop: 09/20/18 23:26 General: alert HEENT: NC/AT Neck: Supple Cardiovascular: RRR, Normal S1, Normal S2 Abdomen: soft, non-tender Extremities: excoriation Internal Medicine Assmt/Plan - Assessment Assessment: Agitation, hypertension, dementia and acute urinary tract infection. - Plan Plan: cont po levaquin fall precautions cpm
[2018-07-24] MEDS: Non-Formulary Item 1 EA (Valbenazine Tosylate [Ingrezza] 40 MG) PO SCH (21:21)
[2018-07-25] MEDS: QUEtiapine Fumarate 100 MG, QUEtiapine Fumarate 75 MG PO SCH ×2 (08:42→17:11)
[2018-07-25] MEDS: Multivitamin w/ Minerals Tab PO SCH (08:43)
--- NOTE | 2018-07-25 15:52 | Progress Notes ---
DATE: 07/24/2018 SUBJECTIVE: The patient remains confused, disoriented, poor impulse control, difficult with redirection. He states that he has no idea why he is here, but "I can leave at any time." The patient mostly withdrawn, isolative, poor orientation, he is following unit rules and directions. He is labile, easily irritated, preoccupied, sometimes noted to be mumbling to self. ASSESSMENT: The patient remains symptomatic, impulsive. Concerns for acting out behaviors. PLAN: We will continue to monitor. We will titrate and adjust medications. Given ongoing symptoms, he is not safe for discharge. Recent dose initiation on Namenda. JOB# [id number]
--- NOTE | 2018-07-25 18:43 | Internal Medicine Prog Note ---
Internal Medicine Subjective - Subjective Service Date: 07/25/18 Patient is:: awake, verbal Per staff patient has:: tolerating meds Internal Medicine Objective - Results Result Diagrams: 07/22/18 19:50 07/22/18 19:50 Recent Labs: Laboratory Last Values WBC 6.6 Th/cmm (4.8-10.8) 07/22/18 19:50 RBC 4.24 Mil/cmm (3.80-5.80) 07/22/18 19:50 Hgb 12.8 gm/dL (12-16) 07/22/18 19:50 Hct 38.9 % (41.0-60) L 07/22/18 19:50 MCV 91.8 fl (80-99) 07/22/18 19:50 MCH 30.2 pg (27.0-31.0) 07/22/18 19:50 MCHC Differential 33.0 pg (28.0-36.0) 07/22/18 19:50 RDW 12.9 % (11.5-20.0) 07/22/18 19:50 Plt Count 420 Th/cmm (150-400) H 07/22/18 19:50 MPV 6.5 fl 07/22/18 19:50 Neutrophils % 61.2 % (40.0-80.0) 07/22/18 19:50 Lymphocytes % 21.2 % (20.0-50.0) 07/22/18 19:50 Monocytes % 12.6 % (2.0-10.0) H 07/22/18 19:50 Eosinophils % 3.7 % (0.0-5.0) 07/22/18 19:50 Basophils % 1.3 % (0.0-2.0) 07/22/18 19:50 Sodium 135 mEq/L (136-145) L 07/22/18 19:50 Potassium 3.8 mEq/L (3.5-5.1) 07/22/18 19:50 Chloride 98 mEq/L (98-107) 07/22/18 19:50 Carbon Dioxide 26.4 mEq/L (21.0-31.0) 07/22/18 19:50 Anion Gap 14.4 (7.0-16.0) 07/22/18 19:50 BUN 16 mg/dL (7-25) 07/22/18 19:50 Creatinine 1.1 mg/dL (0.7-1.3) 07/22/18 19:50 Est GFR ( Amer) TNP 07/22/18 19:50 Est GFR (Non-Af Amer) TNP 07/22/18 19:50 BUN/Creatinine Ratio 14.5 07/22/18 19:50 Glucose 106 mg/dL (70-105) H 07/22/18 19:50 Calcium 9.2 mg/dL (8.6-10.3) 07/22/18 19:50 Total Bilirubin 0.4 mg/dL (0.3-1.0) 07/22/18 19:50 AST 24 U/L (13-39) 07/22/18 19:50 ALT 17 U/L (7-52) 07/22/18 19:50 Alkaline Phosphatase 91 U/L (34-104) 07/22/18 19:50 Total Protein 7.1 gm/dL (6.0-8.3) 07/22/18 19:50 Albumin 4.1 gm/dL (4.2-5.5) L 07/22/18 19:50 Globulin 3.0 gm/dL 07/22/18 19:50 Albumin/Globulin Ratio 1.4 (1.0-1.8) 07/22/18 19:50 Triglycerides 134 mg/dL (<150) 07/22/18 19:50 Cholesterol 167 mg/dL (<200) 07/22/18 19:50 LDL Cholesterol Direct 105 mg/dL (75-193) 07/22/18 19:50 HDL Cholesterol 62 mg/dL (23-92) 07/22/18 19:50 Urine Source CLEAN C 07/22/18 19:30 Urine Color YELLOW 07/22/18 19:30 Urine Clarity HAZY (CLEAR) 07/22/18 19:30 Urine pH 7.0 (4.6 - 8.0) 07/22/18 19:30 Ur Specific [place] 1.010 (1.005-1.030) 07/22/18 19:30 Urine Protein NEGATIVE mg/dL (NEGATIVE) 07/22/18 19:30 Urine Glucose (UA) NEGATIVE mg/dL (NEGATIVE) 07/22/18 19:30 Urine Ketones NEGATIVE mg/dL (NEGATIVE) 07/22/18 19:30 Urine Blood SMALL (NEGATIVE) H 07/22/18 19:30 Urine Nitrate NEGATIVE (NEGATIVE) 07/22/18 19:30 Urine Bilirubin NEGATIVE (NEGATIVE) 07/22/18 19:30 Urine Urobilinogen 0.2 E.U./dL (0.2 - 1.0) 07/22/18 19:30 Ur Leukocyte Esterase LARGE (NEGATIVE) H 07/22/18 19:30 Urine RBC 0-2 /hpf (0-5) H 07/22/18 19:30 Urine WBC 6-10 /hpf (0-5) 07/22/18 19:30 Ur Epithelial Cells NONE SEEN /lpf (FEW) 07/22/18 19:30 Urine Bacteria FEW /hpf (NONE SEEN) 07/22/18 19:30 - Physical Exam Vitals and I&O: Vital Signs Temp 98.3 F 07/25/18 14:19 Pulse 69 07/25/18 14:19 Resp 20 07/25/18 14:19 BP 127/65 07/25/18 14:19 Pulse Ox 98 07/25/18 14:19 Intake & Output 07/24/18 07/25/18 07/25/18 18:59 06:59 18:59 Intake Total 240 Balance 240 Intake: Oral 240 Other: # Voids 2 4 # Bowel Movements 1 0 Active Medications: Current Medications Acetaminophen (Tylenol) 650 mg PO Q4HR PRN PRN Reason: Mild Pain / Temp above 101 Stop: 09/20/18 23:25 Acetaminophen (Tylenol Extra Strength) 500 mg PO Q4HR PRN PRN Reason: MOD/SEVERE PAIN Stop: 09/20/18 23:25 Al Hydrox/Mg Hydrox/Simethicone (Maalox) 30 ml PO Q4H PRN PRN Reason: GI DISTRESS Stop: 09/21/18 09:24 Amlodipine Besylate (Norvasc) 10 mg PO DAILY [facility] Stop: 09/21/18 08:59 Last Admin: 07/25/18 08:43 Dose: 10 mg Docusate Sodium (Colace) 100 mg PO BID [facility] Stop: 09/21/18 08:59 Last Admin: 07/25/18 17:11 Dose: Not Given Donepezil HCl (Aricept) 10 mg PO DAILY [facility] Stop: 09/21/18 08:59 Last Admin: 07/25/18 08:44 Dose: 10 mg Levofloxacin (Levaquin) 500 mg PO DAILY [facility] Stop: 09/22/18 08:59 Last Admin: 07/25/18 08:45 Dose: 500 mg Lorazepam (Ativan) 0.5 mg PO Q4HR PRN; Protocol PRN Reason: Anxiety Stop: 08/21/18 23:26 Last Admin: 07/25/18 08:45 Dose: 0.5 mg Magnesium Hydroxide (Milk Of Magnesia) 30 ml PO HS PRN PRN Reason: Constipation Stop: 09/20/18 23:25 Memantine (Namenda) 5 mg PO DAILY [facility] Stop: 09/22/18 08:59 Last Admin: 07/25/18 08:44 Dose: 5 mg Mirtazapine (Remeron) 15 mg PO HS [facility]; Protocol Stop: 09/21/18 20:59 Last Admin: 07/24/18 21:21 Dose: 15 mg Miscellaneous (Valbenazine Tosylate [Ingrezza]) 40 mg PO HS [facility] Stop: 09/21/18 20:59 Last Admin: 07/24/18 21:21 Dose: Not Given Quetiapine Fumarate 100 mg/ (Quetiapine Fumarate 75 mg) 175 mg PO BID [facility] Stop: 09/23/18 08:59 Last Admin: 07/25/18 17:11 Dose: 175 mg Zolpidem Tartrate (Ambien) 5 mg PO HS PRN PRN Reason: Insomnia Stop: 09/20/18 23:26 General: alert HEENT: NC/AT Neck: Supple Cardiovascular: RRR, Normal S1, Normal S2 Abdomen: soft, non-tender Extremities: excoriation Internal Medicine Assmt/Plan - Assessment Assessment: Agitation, hypertension, dementia and acute urinary tract infection. - Plan Plan: cont po levaquin fall precautions cpm
--- NOTE | 2018-07-25 18:43 | Progress Notes ---
DATE: 07/25/2018 SUBJECTIVE: The patient is currently in the hospital, AO to name. He knows he is in the hospital. He is not quite sure about the year, the month, remains anxious, easily irritable, labile. Stating that he can leave at anytime. States he is here to visit his friends. Does not really know why he is here. Apparently, he has been agitated, aggressive, combative, still remains impulsive, unpredictable. The patient is coming in from [facility]. Medications were noted. ASSESSMENT: The patient remains impulsive, unpredictable, ongoing safety concerns. PLAN: We will continue to monitor. Continue Namenda dosing, recent initiation of Namenda. I will continue Aricept. JOB# [id number]
[2018-07-25] MEDS: Non-Formulary Item 1 EA (Valbenazine Tosylate [Ingrezza] 40 MG) PO SCH (20:21)
[2018-07-26] MEDS: Multivitamin w/ Minerals Tab PO SCH (08:28)
[2018-07-26] MEDS: QUEtiapine Fumarate 100 MG, QUEtiapine Fumarate 75 MG PO SCH ×2 (08:29→16:41)
--- NOTE | 2018-07-27 01:03 | Progress Notes ---
DATE: 07/26/2018 Case was discussed with staff of the patient, reviewed records. Covering for Dr. Pierre. A 78-year-old male who came on 07/22/2018 from the nursing facility because of agitation and aggressive behavior. He was a poor historian. The patient is demented with multiple hospitalizations, unable to make safe plan for self-care or participate in a meaningful conversation. He is unpredictable and impulsive, needing redirection, still oriented to name only. Continues to have poor insight. He remains not ready to go to a lesser level of care because of his impulsivity and aggressive behavior. No side effects with the medication, no sedation, no nausea. He is on Namenda, Aricept, Remeron 15 mg at bedtime, and Seroquel 175 mg twice a day with no side effects, no sedation or nausea, no extrapyramidal symptoms. We will continue outpatient group, milieu therapy, and adjust medications as needed. JOB# [id number]
[2018-07-27] MEDS: QUEtiapine Fumarate 100 MG, QUEtiapine Fumarate 75 MG PO SCH ×2 (08:59→16:33)
[2018-07-27] MEDS: Multivitamin w/ Minerals Tab PO SCH (08:59)
--- NOTE | 2018-07-27 11:06 | Internal Medicine Prog Note ---
Internal Medicine Subjective - Subjective Service Date: 07/27/18 Patient is:: awake, verbal Per staff patient has:: tolerating meds Internal Medicine Objective - Results Result Diagrams: 07/22/18 19:50 07/22/18 19:50 Recent Labs: Laboratory Last Values WBC 6.6 Th/cmm (4.8-10.8) 07/22/18 19:50 RBC 4.24 Mil/cmm (3.80-5.80) 07/22/18 19:50 Hgb 12.8 gm/dL (12-16) 07/22/18 19:50 Hct 38.9 % (41.0-60) L 07/22/18 19:50 MCV 91.8 fl (80-99) 07/22/18 19:50 MCH 30.2 pg (27.0-31.0) 07/22/18 19:50 MCHC Differential 33.0 pg (28.0-36.0) 07/22/18 19:50 RDW 12.9 % (11.5-20.0) 07/22/18 19:50 Plt Count 420 Th/cmm (150-400) H 07/22/18 19:50 MPV 6.5 fl 07/22/18 19:50 Neutrophils % 61.2 % (40.0-80.0) 07/22/18 19:50 Lymphocytes % 21.2 % (20.0-50.0) 07/22/18 19:50 Monocytes % 12.6 % (2.0-10.0) H 07/22/18 19:50 Eosinophils % 3.7 % (0.0-5.0) 07/22/18 19:50 Basophils % 1.3 % (0.0-2.0) 07/22/18 19:50 Sodium 135 mEq/L (136-145) L 07/22/18 19:50 Potassium 3.8 mEq/L (3.5-5.1) 07/22/18 19:50 Chloride 98 mEq/L (98-107) 07/22/18 19:50 Carbon Dioxide 26.4 mEq/L (21.0-31.0) 07/22/18 19:50 Anion Gap 14.4 (7.0-16.0) 07/22/18 19:50 BUN 16 mg/dL (7-25) 07/22/18 19:50 Creatinine 1.1 mg/dL (0.7-1.3) 07/22/18 19:50 Est GFR ( Amer) TNP 07/22/18 19:50 Est GFR (Non-Af Amer) TNP 07/22/18 19:50 BUN/Creatinine Ratio 14.5 07/22/18 19:50 Glucose 106 mg/dL (70-105) H 07/22/18 19:50 Calcium 9.2 mg/dL (8.6-10.3) 07/22/18 19:50 Total Bilirubin 0.4 mg/dL (0.3-1.0) 07/22/18 19:50 AST 24 U/L (13-39) 07/22/18 19:50 ALT 17 U/L (7-52) 07/22/18 19:50 Alkaline Phosphatase 91 U/L (34-104) 07/22/18 19:50 Total Protein 7.1 gm/dL (6.0-8.3) 07/22/18 19:50 Albumin 4.1 gm/dL (4.2-5.5) L 07/22/18 19:50 Globulin 3.0 gm/dL 07/22/18 19:50 Albumin/Globulin Ratio 1.4 (1.0-1.8) 07/22/18 19:50 Triglycerides 134 mg/dL (<150) 07/22/18 19:50 Cholesterol 167 mg/dL (<200) 07/22/18 19:50 LDL Cholesterol Direct 105 mg/dL (75-193) 07/22/18 19:50 HDL Cholesterol 62 mg/dL (23-92) 07/22/18 19:50 Urine Source CLEAN C 07/22/18 19:30 Urine Color YELLOW 07/22/18 19:30 Urine Clarity HAZY (CLEAR) 07/22/18 19:30 Urine pH 7.0 (4.6 - 8.0) 07/22/18 19:30 Ur Specific [place] 1.010 (1.005-1.030) 07/22/18 19:30 Urine Protein NEGATIVE mg/dL (NEGATIVE) 07/22/18 19:30 Urine Glucose (UA) NEGATIVE mg/dL (NEGATIVE) 07/22/18 19:30 Urine Ketones NEGATIVE mg/dL (NEGATIVE) 07/22/18 19:30 Urine Blood SMALL (NEGATIVE) H 07/22/18 19:30 Urine Nitrate NEGATIVE (NEGATIVE) 07/22/18 19:30 Urine Bilirubin NEGATIVE (NEGATIVE) 07/22/18 19:30 Urine Urobilinogen 0.2 E.U./dL (0.2 - 1.0) 07/22/18 19:30 Ur Leukocyte Esterase LARGE (NEGATIVE) H 07/22/18 19:30 Urine RBC 0-2 /hpf (0-5) H 07/22/18 19:30 Urine WBC 6-10 /hpf (0-5) 07/22/18 19:30 Ur Epithelial Cells NONE SEEN /lpf (FEW) 07/22/18 19:30 Urine Bacteria FEW /hpf (NONE SEEN) 07/22/18 19:30 - Physical Exam Vitals and I&O: Vital Signs Temp 98.9 F 07/27/18 05:48 Pulse 56 07/27/18 08:59 Resp 20 07/27/18 05:48 BP 121/57 07/27/18 08:59 Pulse Ox 97 07/27/18 05:48 Intake & Output 07/26/18 07/27/18 07/27/18 18:59 06:59 18:59 Intake Total 1200 850 Balance 1200 850 Intake: Oral 1200 850 Other: # Voids 6 # Bowel Movements 1 Active Medications: Current Medications Acetaminophen (Tylenol) 650 mg PO Q4HR PRN PRN Reason: Mild Pain / Temp above 101 Stop: 09/20/18 23:25 Acetaminophen (Tylenol Extra Strength) 500 mg PO Q4HR PRN PRN Reason: MOD/SEVERE PAIN Stop: 09/20/18 23:25 Al Hydrox/Mg Hydrox/Simethicone (Maalox) 30 ml PO Q4H PRN PRN Reason: GI DISTRESS Stop: 09/21/18 09:24 Amlodipine Besylate (Norvasc) 10 mg PO DAILY [facility] Stop: 09/21/18 08:59 Last Admin: 07/27/18 08:59 Dose: 10 mg Docusate Sodium (Colace) 100 mg PO BID [facility] Stop: 09/21/18 08:59 Last Admin: 07/27/18 09:09 Dose: Not Given Donepezil HCl (Aricept) 10 mg PO DAILY [facility] Stop: 09/21/18 08:59 Last Admin: 07/27/18 08:59 Dose: 10 mg Levofloxacin (Levaquin) 500 mg PO DAILY [facility] Stop: 09/22/18 08:59 Last Admin: 07/27/18 08:59 Dose: 500 mg Lorazepam (Ativan) 0.5 mg PO Q4HR PRN; Protocol PRN Reason: Anxiety Stop: 08/21/18 23:26 Last Admin: 07/26/18 02:10 Dose: 0.5 mg Magnesium Hydroxide (Milk Of Magnesia) 30 ml PO HS PRN PRN Reason: Constipation Stop: 09/20/18 23:25 Memantine (Namenda) 5 mg PO DAILY [facility] Stop: 09/22/18 08:59 Last Admin: 07/27/18 08:59 Dose: 5 mg Mirtazapine (Remeron) 15 mg PO HS [facility]; Protocol Stop: 09/21/18 20:59 Last Admin: 07/26/18 21:03 Dose: 15 mg Quetiapine Fumarate 100 mg/ (Quetiapine Fumarate 75 mg) 175 mg PO BID [facility] Stop: 09/23/18 08:59 Last Admin: 07/27/18 08:59 Dose: 175 mg Zolpidem Tartrate (Ambien) 5 mg PO HS PRN PRN Reason: Insomnia Stop: 09/20/18 23:26 Last Admin: 07/26/18 21:06 Dose: 5 mg General: alert HEENT: NC/AT Neck: Supple Cardiovascular: RRR, Normal S1, Normal S2 Abdomen: soft, non-tender Extremities: excoriation Internal Medicine Assmt/Plan - Assessment Assessment: Agitation, hypertension, dementia and acute urinary tract infection. - Plan Plan: cont po levaquin fall precautions cpm
--- NOTE | 2018-07-28 07:45 | Progress Notes ---
DATE: 07/27/2018 SUBJECTIVE: Chart reviewed and the patient interviewed. Also discussed the patient's condition with the staff and reviewed records and labs. The patient is still forgetful and is still guarded and withdrawn. The patient still wants to go back to [facility] where he lives. The patient also is still cooperative, but he needs lots of redirections. Other times, he wants to be left alone. ASSESSMENT: The patient is still psychotic and confused. TREATMENT PLAN: Continue monitoring his behavior and his condition closely. Also, we will continue Seroquel 100 and 75 mg twice a day and Remeron 15 mg at bedtime and Aricept 10 mg every day and we will continue to follow up closely. JOB# [id number]
[2018-07-28] MEDS: Multivitamin w/ Minerals Tab PO SCH (09:22)
[2018-07-28] MEDS: QUEtiapine Fumarate 100 MG, QUEtiapine Fumarate 75 MG PO SCH ×2 (09:22→16:09)
--- NOTE | 2018-07-28 12:49 | Internal Medicine Prog Note ---
Internal Medicine Subjective - Subjective Service Date: 07/28/18 Patient is:: awake, verbal Per staff patient has:: tolerating meds Internal Medicine Objective - Results Result Diagrams: 07/22/18 19:50 07/22/18 19:50 Recent Labs: Laboratory Last Values WBC 6.6 Th/cmm (4.8-10.8) 07/22/18 19:50 RBC 4.24 Mil/cmm (3.80-5.80) 07/22/18 19:50 Hgb 12.8 gm/dL (12-16) 07/22/18 19:50 Hct 38.9 % (41.0-60) L 07/22/18 19:50 MCV 91.8 fl (80-99) 07/22/18 19:50 MCH 30.2 pg (27.0-31.0) 07/22/18 19:50 MCHC Differential 33.0 pg (28.0-36.0) 07/22/18 19:50 RDW 12.9 % (11.5-20.0) 07/22/18 19:50 Plt Count 420 Th/cmm (150-400) H 07/22/18 19:50 MPV 6.5 fl 07/22/18 19:50 Neutrophils % 61.2 % (40.0-80.0) 07/22/18 19:50 Lymphocytes % 21.2 % (20.0-50.0) 07/22/18 19:50 Monocytes % 12.6 % (2.0-10.0) H 07/22/18 19:50 Eosinophils % 3.7 % (0.0-5.0) 07/22/18 19:50 Basophils % 1.3 % (0.0-2.0) 07/22/18 19:50 Sodium 135 mEq/L (136-145) L 07/22/18 19:50 Potassium 3.8 mEq/L (3.5-5.1) 07/22/18 19:50 Chloride 98 mEq/L (98-107) 07/22/18 19:50 Carbon Dioxide 26.4 mEq/L (21.0-31.0) 07/22/18 19:50 Anion Gap 14.4 (7.0-16.0) 07/22/18 19:50 BUN 16 mg/dL (7-25) 07/22/18 19:50 Creatinine 1.1 mg/dL (0.7-1.3) 07/22/18 19:50 Est GFR ( Amer) TNP 07/22/18 19:50 Est GFR (Non-Af Amer) TNP 07/22/18 19:50 BUN/Creatinine Ratio 14.5 07/22/18 19:50 Glucose 106 mg/dL (70-105) H 07/22/18 19:50 Calcium 9.2 mg/dL (8.6-10.3) 07/22/18 19:50 Total Bilirubin 0.4 mg/dL (0.3-1.0) 07/22/18 19:50 AST 24 U/L (13-39) 07/22/18 19:50 ALT 17 U/L (7-52) 07/22/18 19:50 Alkaline Phosphatase 91 U/L (34-104) 07/22/18 19:50 Total Protein 7.1 gm/dL (6.0-8.3) 07/22/18 19:50 Albumin 4.1 gm/dL (4.2-5.5) L 07/22/18 19:50 Globulin 3.0 gm/dL 07/22/18 19:50 Albumin/Globulin Ratio 1.4 (1.0-1.8) 07/22/18 19:50 Triglycerides 134 mg/dL (<150) 07/22/18 19:50 Cholesterol 167 mg/dL (<200) 07/22/18 19:50 LDL Cholesterol Direct 105 mg/dL (75-193) 07/22/18 19:50 HDL Cholesterol 62 mg/dL (23-92) 07/22/18 19:50 Urine Source CLEAN C 07/22/18 19:30 Urine Color YELLOW 07/22/18 19:30 Urine Clarity HAZY (CLEAR) 07/22/18 19:30 Urine pH 7.0 (4.6 - 8.0) 07/22/18 19:30 Ur Specific [place] 1.010 (1.005-1.030) 07/22/18 19:30 Urine Protein NEGATIVE mg/dL (NEGATIVE) 07/22/18 19:30 Urine Glucose (UA) NEGATIVE mg/dL (NEGATIVE) 07/22/18 19:30 Urine Ketones NEGATIVE mg/dL (NEGATIVE) 07/22/18 19:30 Urine Blood SMALL (NEGATIVE) H 07/22/18 19:30 Urine Nitrate NEGATIVE (NEGATIVE) 07/22/18 19:30 Urine Bilirubin NEGATIVE (NEGATIVE) 07/22/18 19:30 Urine Urobilinogen 0.2 E.U./dL (0.2 - 1.0) 07/22/18 19:30 Ur Leukocyte Esterase LARGE (NEGATIVE) H 07/22/18 19:30 Urine RBC 0-2 /hpf (0-5) H 07/22/18 19:30 Urine WBC 6-10 /hpf (0-5) 07/22/18 19:30 Ur Epithelial Cells NONE SEEN /lpf (FEW) 07/22/18 19:30 Urine Bacteria FEW /hpf (NONE SEEN) 07/22/18 19:30 - Physical Exam Vitals and I&O: Vital Signs Temp 97.4 F 07/28/18 06:22 Pulse 76 07/28/18 09:23 Resp 20 07/28/18 06:22 BP 122/75 07/28/18 09:23 Pulse Ox 96 07/28/18 06:22 Intake & Output 07/27/18 07/28/18 07/28/18 18:59 06:59 18:59 Intake Total 1200 480 Balance 1200 480 Intake: Oral 1200 480 Other: # Voids 1 # Bowel Movements 1 1 Active Medications: Current Medications Acetaminophen (Tylenol) 650 mg PO Q4HR PRN PRN Reason: Mild Pain / Temp above 101 Stop: 09/20/18 23:25 Acetaminophen (Tylenol Extra Strength) 500 mg PO Q4HR PRN PRN Reason: MOD/SEVERE PAIN Stop: 09/20/18 23:25 Al Hydrox/Mg Hydrox/Simethicone (Maalox) 30 ml PO Q4H PRN PRN Reason: GI DISTRESS Stop: 09/21/18 09:24 Amlodipine Besylate (Norvasc) 10 mg PO DAILY [facility] Stop: 09/21/18 08:59 Last Admin: 07/28/18 09:23 Dose: 10 mg Docusate Sodium (Colace) 100 mg PO BID [facility] Stop: 09/21/18 08:59 Last Admin: 07/28/18 09:24 Dose: 100 mg Donepezil HCl (Aricept) 10 mg PO DAILY [facility] Stop: 09/21/18 08:59 Last Admin: 07/28/18 09:23 Dose: 10 mg Levofloxacin (Levaquin) 500 mg PO DAILY [facility] Stop: 09/22/18 08:59 Last Admin: 07/28/18 09:23 Dose: 500 mg Lorazepam (Ativan) 0.5 mg PO Q4HR PRN; Protocol PRN Reason: Anxiety Stop: 08/21/18 23:26 Last Admin: 07/28/18 09:23 Dose: 0.5 mg Magnesium Hydroxide (Milk Of Magnesia) 30 ml PO HS PRN PRN Reason: Constipation Stop: 09/20/18 23:25 Memantine (Namenda) 5 mg PO DAILY [facility] Stop: 09/22/18 08:59 Last Admin: 07/28/18 09:24 Dose: 5 mg Mirtazapine (Remeron) 15 mg PO HS [facility]; Protocol Stop: 09/21/18 20:59 Last Admin: 07/27/18 20:17 Dose: 15 mg Quetiapine Fumarate 100 mg/ (Quetiapine Fumarate 75 mg) 175 mg PO BID [facility] Stop: 09/23/18 08:59 Last Admin: 07/28/18 09:22 Dose: 175 mg Zolpidem Tartrate (Ambien) 5 mg PO HS PRN PRN Reason: Insomnia Stop: 09/20/18 23:26 Last Admin: 07/27/18 20:17 Dose: 5 mg General: alert HEENT: NC/AT Neck: Supple Cardiovascular: RRR, Normal S1, Normal S2 Abdomen: soft, non-tender Extremities: excoriation Internal Medicine Assmt/Plan - Assessment Assessment: Agitation, hypertension, dementia and acute urinary tract infection. - Plan Plan: cont po levaquin fall precautions cpm Nutritional Asmnt/Malnutr-PDOC - Dietary Evaluation Malnutrition Findings (Please click <Entered> for more info): Nutritional Asmnt/Malnutrition Start: 07/24/18 11: 48 Text: Status: Complete Freq: Protocol: Document 07/27/18 11:31 MMRASHAD (Rec: 07/27/18 11:44 [email or web address] CHAMBERS- [id number]) Nutritional Asmnt/Malnutrition Patient General Information Nutritional Screening Low Risk Diagnosis Psychosis Pertinent Medical Hx/Surgical Hx Hypertension, psychosis Subjective Information Patient was admitted from [facility]. Tolerating current diet order without difficulty. Current Diet Order/ Nutrition Support Regular (low fat milk every meal) Patient / S.O Not Indicated Pertinent Medications maalox, colace, MOM Pertinent Labs WNL Nutritional Hx/Data Height 5 ft 1 in Height (Calculated Centimeters) 154.9 Current Weight (lbs) 135 lb Weight (Calculated Kilograms) 61.2 Weight (Calculated Grams) 47928.0 [place] Body Weight 112 % [place] Body Weight 120 Body Mass Index (BMI) 25.4 Recent Weight Change No Weight Status Overweight GI Symptoms GI Symptoms None Last BM 2 x 1 Difficult in: None Food Allergies No Cultural/Ethnic/Church Belief none indicated Usual diet at home unknown Skin Integrity/Comment: yamilex 20, intact Current %PO Good (75-100%) Estimated Nutritional Goals BEE in Kcals: Using Current wt Calories/Kcals/Kg 25-30 kcal/kg using CBW 61.3 Kcals Calculated ~2371-7361 kcal/day Protein: Using Current wt Protein g/kgm/kg Protein Calculated ~60gm/day Fluid: ml ~6100-4396 ml/day Nutritional Problem 1. Problem Problem No nutrition diagnosis at this time Intervention/Recommendation Comments Continue current diet order as tolerated by patient. Expected Outcomes/Goals Expected Outcomes/Goals Weight stable, nutrition related labs WNL, oral intake >75% of meals. F/U LR 08/03
--- NOTE | 2018-07-28 21:47 | Progress Notes ---
DATE: 07/28/2018 SUBJECTIVE: Chart reviewed and the patient interviewed. Also discussed the patient's condition with the staff and reviewed records and labs. The patient is still forgetful and is still delusional. The patient also still keep asking for more food. On the other hand, the patient is calm and cooperative and he is staying by himself on his chair with minimal interaction with others. The patient denies any side effect of medications. ASSESSMENT: The patient seems to be calmer and less agitated. TREATMENT PLAN: Continue monitoring his behavior and continue working on his impulse control and his agitation and continue to follow up. JOB# [id number]
[2018-07-29] MEDS: QUEtiapine Fumarate 100 MG, QUEtiapine Fumarate 75 MG PO SCH ×2 (09:28→17:20)
[2018-07-29] MEDS: Multivitamin w/ Minerals Tab PO SCH (09:29)
--- NOTE | 2018-07-29 13:21 | Internal Medicine Prog Note ---
Internal Medicine Subjective - Subjective Service Date: 07/29/18 Patient is:: awake, verbal Per staff patient has:: tolerating meds Internal Medicine Objective - Results Result Diagrams: 07/22/18 19:50 07/22/18 19:50 Recent Labs: Laboratory Last Values WBC 6.6 Th/cmm (4.8-10.8) 07/22/18 19:50 RBC 4.24 Mil/cmm (3.80-5.80) 07/22/18 19:50 Hgb 12.8 gm/dL (12-16) 07/22/18 19:50 Hct 38.9 % (41.0-60) L 07/22/18 19:50 MCV 91.8 fl (80-99) 07/22/18 19:50 MCH 30.2 pg (27.0-31.0) 07/22/18 19:50 MCHC Differential 33.0 pg (28.0-36.0) 07/22/18 19:50 RDW 12.9 % (11.5-20.0) 07/22/18 19:50 Plt Count 420 Th/cmm (150-400) H 07/22/18 19:50 MPV 6.5 fl 07/22/18 19:50 Neutrophils % 61.2 % (40.0-80.0) 07/22/18 19:50 Lymphocytes % 21.2 % (20.0-50.0) 07/22/18 19:50 Monocytes % 12.6 % (2.0-10.0) H 07/22/18 19:50 Eosinophils % 3.7 % (0.0-5.0) 07/22/18 19:50 Basophils % 1.3 % (0.0-2.0) 07/22/18 19:50 Sodium 135 mEq/L (136-145) L 07/22/18 19:50 Potassium 3.8 mEq/L (3.5-5.1) 07/22/18 19:50 Chloride 98 mEq/L (98-107) 07/22/18 19:50 Carbon Dioxide 26.4 mEq/L (21.0-31.0) 07/22/18 19:50 Anion Gap 14.4 (7.0-16.0) 07/22/18 19:50 BUN 16 mg/dL (7-25) 07/22/18 19:50 Creatinine 1.1 mg/dL (0.7-1.3) 07/22/18 19:50 Est GFR ( Amer) TNP 07/22/18 19:50 Est GFR (Non-Af Amer) TNP 07/22/18 19:50 BUN/Creatinine Ratio 14.5 07/22/18 19:50 Glucose 106 mg/dL (70-105) H 07/22/18 19:50 Calcium 9.2 mg/dL (8.6-10.3) 07/22/18 19:50 Total Bilirubin 0.4 mg/dL (0.3-1.0) 07/22/18 19:50 AST 24 U/L (13-39) 07/22/18 19:50 ALT 17 U/L (7-52) 07/22/18 19:50 Alkaline Phosphatase 91 U/L (34-104) 07/22/18 19:50 Total Protein 7.1 gm/dL (6.0-8.3) 07/22/18 19:50 Albumin 4.1 gm/dL (4.2-5.5) L 07/22/18 19:50 Globulin 3.0 gm/dL 07/22/18 19:50 Albumin/Globulin Ratio 1.4 (1.0-1.8) 07/22/18 19:50 Triglycerides 134 mg/dL (<150) 07/22/18 19:50 Cholesterol 167 mg/dL (<200) 07/22/18 19:50 LDL Cholesterol Direct 105 mg/dL (75-193) 07/22/18 19:50 HDL Cholesterol 62 mg/dL (23-92) 07/22/18 19:50 Urine Source CLEAN C 07/22/18 19:30 Urine Color YELLOW 07/22/18 19:30 Urine Clarity HAZY (CLEAR) 07/22/18 19:30 Urine pH 7.0 (4.6 - 8.0) 07/22/18 19:30 Ur Specific [place] 1.010 (1.005-1.030) 07/22/18 19:30 Urine Protein NEGATIVE mg/dL (NEGATIVE) 07/22/18 19:30 Urine Glucose (UA) NEGATIVE mg/dL (NEGATIVE) 07/22/18 19:30 Urine Ketones NEGATIVE mg/dL (NEGATIVE) 07/22/18 19:30 Urine Blood SMALL (NEGATIVE) H 07/22/18 19:30 Urine Nitrate NEGATIVE (NEGATIVE) 07/22/18 19:30 Urine Bilirubin NEGATIVE (NEGATIVE) 07/22/18 19:30 Urine Urobilinogen 0.2 E.U./dL (0.2 - 1.0) 07/22/18 19:30 Ur Leukocyte Esterase LARGE (NEGATIVE) H 07/22/18 19:30 Urine RBC 0-2 /hpf (0-5) H 07/22/18 19:30 Urine WBC 6-10 /hpf (0-5) 07/22/18 19:30 Ur Epithelial Cells NONE SEEN /lpf (FEW) 07/22/18 19:30 Urine Bacteria FEW /hpf (NONE SEEN) 07/22/18 19:30 - Physical Exam Vitals and I&O: Vital Signs Temp 98 F 07/29/18 06:25 Pulse 78 07/29/18 09:29 Resp 16 07/29/18 08:04 BP 134/73 07/29/18 09:29 Pulse Ox 97 07/29/18 06:25 Intake & Output 07/28/18 07/29/18 07/29/18 18:59 06:59 18:59 Intake Total 240 Balance 240 Intake: Oral 240 Other: # Voids 1 Stool Characteristics Formed Brown Active Medications: Current Medications Acetaminophen (Tylenol) 650 mg PO Q4HR PRN PRN Reason: Mild Pain / Temp above 101 Stop: 09/20/18 23:25 Acetaminophen (Tylenol Extra Strength) 500 mg PO Q4HR PRN PRN Reason: MOD/SEVERE PAIN Stop: 09/20/18 23:25 Al Hydrox/Mg Hydrox/Simethicone (Maalox) 30 ml PO Q4H PRN PRN Reason: GI DISTRESS Stop: 09/21/18 09:24 Amlodipine Besylate (Norvasc) 10 mg PO DAILY [facility] Stop: 09/21/18 08:59 Last Admin: 07/29/18 09:29 Dose: 10 mg Docusate Sodium (Colace) 100 mg PO BID [facility] Stop: 09/21/18 08:59 Last Admin: 07/29/18 09:30 Dose: 100 mg Donepezil HCl (Aricept) 10 mg PO DAILY [facility] Stop: 09/21/18 08:59 Last Admin: 07/29/18 09:29 Dose: 10 mg Levofloxacin (Levaquin) 500 mg PO DAILY [facility] Stop: 09/22/18 08:59 Last Admin: 07/29/18 09:29 Dose: 500 mg Lorazepam (Ativan) 0.5 mg PO Q4HR PRN; Protocol PRN Reason: Anxiety Stop: 08/21/18 23:26 Last Admin: 07/29/18 01:16 Dose: 0.5 mg Magnesium Hydroxide (Milk Of Magnesia) 30 ml PO HS PRN PRN Reason: Constipation Stop: 09/20/18 23:25 Memantine (Namenda) 5 mg PO DAILY [facility] Stop: 09/22/18 08:59 Last Admin: 07/29/18 09:29 Dose: 5 mg Mirtazapine (Remeron) 15 mg PO HS [facility]; Protocol Stop: 09/21/18 20:59 Last Admin: 07/28/18 20:56 Dose: 15 mg Quetiapine Fumarate 100 mg/ (Quetiapine Fumarate 75 mg) 175 mg PO BID [facility] Stop: 09/23/18 08:59 Last Admin: 07/29/18 09:28 Dose: 175 mg Zolpidem Tartrate (Ambien) 5 mg PO HS PRN PRN Reason: Insomnia Stop: 09/20/18 23:26 Last Admin: 07/29/18 01:15 Dose: 5 mg General: alert HEENT: NC/AT Neck: Supple Cardiovascular: RRR, Normal S1, Normal S2 Abdomen: soft, non-tender Extremities: excoriation Internal Medicine Assmt/Plan - Assessment Assessment: Agitation, hypertension, dementia and acute urinary tract infection. - Plan Plan: cont po levaquin fall precautions cpm Nutritional Asmnt/Malnutr-PDOC - Dietary Evaluation Malnutrition Findings (Please click <Entered> for more info): Nutritional Asmnt/Malnutrition Start: 07/24/18 11: 48 Text: Status: Complete Freq: Protocol: Document 07/27/18 11:31 MMRASHAD (Rec: 07/27/18 11:44 MMRASHAD CHAMBERS- [email or web address]) Nutritional Asmnt/Malnutrition Patient General Information Nutritional Screening Low Risk Diagnosis Psychosis Pertinent Medical Hx/Surgical Hx Hypertension, psychosis Subjective Information Patient was admitted from half-way. Tolerating current diet order without difficulty. Current Diet Order/ Nutrition Support Regular (low fat milk every meal) Patient / S.O Not Indicated Pertinent Medications maalox, colace, MOM Pertinent Labs WNL Nutritional Hx/Data Height 5 ft 1 in Height (Calculated Centimeters) 154.9 Current Weight (lbs) 135 lb Weight (Calculated Kilograms) 61.2 Weight (Calculated Grams) 51563.0 [place] Body Weight 112 % [place] Body Weight 120 Body Mass Index (BMI) 25.4 Recent Weight Change No Weight Status Overweight GI Symptoms GI Symptoms None Last BM 2 x 1 Difficult in: None Food Allergies No Cultural/Ethnic/Zoroastrianism Belief none indicated Usual diet at home unknown Skin Integrity/Comment: yamilex 20, intact Current %PO Good (75-100%) Estimated Nutritional Goals BEE in Kcals: Using Current wt Calories/Kcals/Kg 25-30 kcal/kg using CBW 61.3 Kcals Calculated ~6695-5178 kcal/day Protein: Using Current wt Protein g/kgm/kg Protein Calculated ~60gm/day Fluid: ml ~5066-5645 ml/day Nutritional Problem 1. Problem Problem No nutrition diagnosis at this time Intervention/Recommendation Comments Continue current diet order as tolerated by patient. Expected Outcomes/Goals Expected Outcomes/Goals Weight stable, nutrition related labs WNL, oral intake >75% of meals. F/U LR 08/03
--- NOTE | 2018-07-30 02:35 | Progress Notes ---
DATE: 07/29/2018 SUBJECTIVE: The patient is currently in the hospital, remains forgetful, delusional, does not know why he is in the hospital, states he can leave anytime. 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 ASSESSMENT: The patient is somewhat unkempt, but calm at this time. Ongoing symptoms of confusion, grandiosities, seems to be tolerant of current dosages of Aricept, Namenda, Seroquel dosing. We will continue to monitor, titrate and adjust medications. [facility]# [id number]
[2018-07-30] MEDS: Multivitamin w/ Minerals Tab PO SCH (09:18)
[2018-07-30] MEDS: QUEtiapine Fumarate 100 MG, QUEtiapine Fumarate 75 MG PO SCH ×2 (09:18→17:51)
--- NOTE | 2018-07-30 14:42 | Internal Medicine Prog Note ---
Internal Medicine Subjective - Subjective Service Date: 07/30/18 Patient is:: awake, verbal Per staff patient has:: tolerating meds Internal Medicine Objective - Results Result Diagrams: 07/22/18 19:50 07/22/18 19:50 Recent Labs: Laboratory Last Values WBC 6.6 Th/cmm (4.8-10.8) 07/22/18 19:50 RBC 4.24 Mil/cmm (3.80-5.80) 07/22/18 19:50 Hgb 12.8 gm/dL (12-16) 07/22/18 19:50 Hct 38.9 % (41.0-60) L 07/22/18 19:50 MCV 91.8 fl (80-99) 07/22/18 19:50 MCH 30.2 pg (27.0-31.0) 07/22/18 19:50 MCHC Differential 33.0 pg (28.0-36.0) 07/22/18 19:50 RDW 12.9 % (11.5-20.0) 07/22/18 19:50 Plt Count 420 Th/cmm (150-400) H 07/22/18 19:50 MPV 6.5 fl 07/22/18 19:50 Neutrophils % 61.2 % (40.0-80.0) 07/22/18 19:50 Lymphocytes % 21.2 % (20.0-50.0) 07/22/18 19:50 Monocytes % 12.6 % (2.0-10.0) H 07/22/18 19:50 Eosinophils % 3.7 % (0.0-5.0) 07/22/18 19:50 Basophils % 1.3 % (0.0-2.0) 07/22/18 19:50 Sodium 135 mEq/L (136-145) L 07/22/18 19:50 Potassium 3.8 mEq/L (3.5-5.1) 07/22/18 19:50 Chloride 98 mEq/L (98-107) 07/22/18 19:50 Carbon Dioxide 26.4 mEq/L (21.0-31.0) 07/22/18 19:50 Anion Gap 14.4 (7.0-16.0) 07/22/18 19:50 BUN 16 mg/dL (7-25) 07/22/18 19:50 Creatinine 1.1 mg/dL (0.7-1.3) 07/22/18 19:50 Est GFR ( Amer) TNP 07/22/18 19:50 Est GFR (Non-Af Amer) TNP 07/22/18 19:50 BUN/Creatinine Ratio 14.5 07/22/18 19:50 Glucose 106 mg/dL (70-105) H 07/22/18 19:50 Calcium 9.2 mg/dL (8.6-10.3) 07/22/18 19:50 Total Bilirubin 0.4 mg/dL (0.3-1.0) 07/22/18 19:50 AST 24 U/L (13-39) 07/22/18 19:50 ALT 17 U/L (7-52) 07/22/18 19:50 Alkaline Phosphatase 91 U/L (34-104) 07/22/18 19:50 Total Protein 7.1 gm/dL (6.0-8.3) 07/22/18 19:50 Albumin 4.1 gm/dL (4.2-5.5) L 07/22/18 19:50 Globulin 3.0 gm/dL 07/22/18 19:50 Albumin/Globulin Ratio 1.4 (1.0-1.8) 07/22/18 19:50 Triglycerides 134 mg/dL (<150) 07/22/18 19:50 Cholesterol 167 mg/dL (<200) 07/22/18 19:50 LDL Cholesterol Direct 105 mg/dL (75-193) 07/22/18 19:50 HDL Cholesterol 62 mg/dL (23-92) 07/22/18 19:50 Urine Source CLEAN C 07/22/18 19:30 Urine Color YELLOW 07/22/18 19:30 Urine Clarity HAZY (CLEAR) 07/22/18 19:30 Urine pH 7.0 (4.6 - 8.0) 07/22/18 19:30 Ur Specific [place] 1.010 (1.005-1.030) 07/22/18 19:30 Urine Protein NEGATIVE mg/dL (NEGATIVE) 07/22/18 19:30 Urine Glucose (UA) NEGATIVE mg/dL (NEGATIVE) 07/22/18 19:30 Urine Ketones NEGATIVE mg/dL (NEGATIVE) 07/22/18 19:30 Urine Blood SMALL (NEGATIVE) H 07/22/18 19:30 Urine Nitrate NEGATIVE (NEGATIVE) 07/22/18 19:30 Urine Bilirubin NEGATIVE (NEGATIVE) 07/22/18 19:30 Urine Urobilinogen 0.2 E.U./dL (0.2 - 1.0) 07/22/18 19:30 Ur Leukocyte Esterase LARGE (NEGATIVE) H 07/22/18 19:30 Urine RBC 0-2 /hpf (0-5) H 07/22/18 19:30 Urine WBC 6-10 /hpf (0-5) 07/22/18 19:30 Ur Epithelial Cells NONE SEEN /lpf (FEW) 07/22/18 19:30 Urine Bacteria FEW /hpf (NONE SEEN) 07/22/18 19:30 - Physical Exam Vitals and I&O: Vital Signs Temp 98.3 F 07/30/18 04:44 Pulse 81 07/30/18 09:18 Resp 18 07/30/18 11:32 BP 110/68 07/30/18 09:18 Pulse Ox 94 07/30/18 04:44 Intake & Output 07/29/18 07/30/18 07/30/18 18:59 06:59 18:59 Intake Total 480 Balance 480 Intake: Oral 480 Other: # Voids 2 # Bowel Movements 1 Stool Characteristics Formed Formed Brown Brown Active Medications: Current Medications Acetaminophen (Tylenol) 650 mg PO Q4HR PRN PRN Reason: Mild Pain / Temp above 101 Stop: 09/20/18 23:25 Acetaminophen (Tylenol Extra Strength) 500 mg PO Q4HR PRN PRN Reason: MOD/SEVERE PAIN Stop: 09/20/18 23:25 Al Hydrox/Mg Hydrox/Simethicone (Maalox) 30 ml PO Q4H PRN PRN Reason: GI DISTRESS Stop: 09/21/18 09:24 Amlodipine Besylate (Norvasc) 10 mg PO DAILY [facility] Stop: 09/21/18 08:59 Last Admin: 07/30/18 09:18 Dose: 10 mg Docusate Sodium (Colace) 100 mg PO BID [facility] Stop: 09/21/18 08:59 Last Admin: 07/30/18 09:18 Dose: Not Given Donepezil HCl (Aricept) 10 mg PO DAILY [facility] Stop: 09/21/18 08:59 Last Admin: 07/30/18 09:18 Dose: 10 mg Lorazepam (Ativan) 0.5 mg PO Q4HR PRN; Protocol PRN Reason: Anxiety Stop: 08/21/18 23:26 Last Admin: 07/29/18 01:16 Dose: 0.5 mg Magnesium Hydroxide (Milk Of Magnesia) 30 ml PO HS PRN PRN Reason: Constipation Stop: 09/20/18 23:25 Memantine (Namenda) 5 mg PO DAILY [facility] Stop: 09/22/18 08:59 Last Admin: 07/30/18 09:18 Dose: 5 mg Mirtazapine (Remeron) 15 mg PO HS [facility]; Protocol Stop: 09/21/18 20:59 Last Admin: 07/29/18 20:23 Dose: 15 mg Quetiapine Fumarate 100 mg/ (Quetiapine Fumarate 75 mg) 175 mg PO BID [facility] Stop: 09/23/18 08:59 Last Admin: 07/30/18 09:18 Dose: 175 mg Zolpidem Tartrate (Ambien) 5 mg PO HS PRN PRN Reason: Insomnia Stop: 09/20/18 23:26 Last Admin: 07/30/18 00:37 Dose: 5 mg General: alert HEENT: NC/AT Neck: Supple Cardiovascular: RRR, Normal S1, Normal S2 Abdomen: soft, non-tender Extremities: excoriation Internal Medicine Assmt/Plan - Assessment Assessment: Agitation, hypertension, dementia and acute urinary tract infection. - Plan Plan: cont po levaquin fall precautions cpm Nutritional Asmnt/Malnutr-PDOC - Dietary Evaluation Malnutrition Findings (Please click <Entered> for more info): Nutritional Asmnt/Malnutrition Start: 07/24/18 11: 48 Text: Status: Complete Freq: Protocol: Document 07/27/18 11:31 MMRASHAD (Rec: 07/27/18 11:44 MMRASHAD [email or web address]) Nutritional Asmnt/Malnutrition Patient General Information Nutritional Screening Low Risk Diagnosis Psychosis Pertinent Medical Hx/Surgical Hx Hypertension, psychosis Subjective Information Patient was admitted from halfway. Tolerating current diet order without difficulty. Current Diet Order/ Nutrition Support Regular (low fat milk every meal) Patient / S.O Not Indicated Pertinent Medications maalox, colace, MOM Pertinent Labs WNL Nutritional Hx/Data Height 5 ft 1 in Height (Calculated Centimeters) 154.9 Current Weight (lbs) 135 lb Weight (Calculated Kilograms) 61.2 Weight (Calculated Grams) 80442.0 [place] Body Weight 112 % [place] Body Weight 120 Body Mass Index (BMI) 25.4 Recent Weight Change No Weight Status Overweight GI Symptoms GI Symptoms None Last BM 2/ x 1 Difficult in: None Food Allergies No Cultural/Ethnic/Restorationist Belief none indicated Usual diet at home unknown Skin Integrity/Comment: yamilex 20, intact Current %PO Good (75-100%) Estimated Nutritional Goals BEE in Kcals: Using Current wt Calories/Kcals/Kg 25-30 kcal/kg using CBW 61.3 Kcals Calculated ~9744-5977 kcal/day Protein: Using Current wt Protein g/kgm/kg Protein Calculated ~60gm/day Fluid: ml ~1555-5935 ml/day Nutritional Problem 1. Problem Problem No nutrition diagnosis at this time Intervention/Recommendation Comments Continue current diet order as tolerated by patient. Expected Outcomes/Goals Expected Outcomes/Goals Weight stable, nutrition related labs WNL, oral intake >75% of meals. F/U LR 08/03
--- NOTE | 2018-07-30 22:49 | Discharge Summary ---
DATE OF DISCHARGE: 07/30/2018 HISTORY OF PRESENT ILLNESS: A 78-year-old male known to this clinician, noted to be disoriented, disengaged, grandiose, believing he owns the hospital, stating he can leave here at any time and just came here to visit friends, noted to be agitated, forgetful, withdrawn, impulsive. PAST PSYCHIATRIC HISTORY: Dementia, history of hospitalizations in the past. FAMILY HISTORY: Noncontributory. SOCIAL HISTORY: Coming in from a long-term. PROVISIONAL DIAGNOSES: Dementia, dementia with behaviors; mood, unspecified; psychosis, unspecified; anxiety, unspecified. Under medical, please see full H and P. HOSPITAL COURSE: After initial assessment, the patient was admitted to the hospital. Medications were adjusted and titrated mirtazapine, Seroquel was increased, restarted on Aricept and also Namenda. Over the course of the hospitalization, mood improved, affect improved, calmer, more cooperative, approaching his baseline. No agitation, no escalation of behaviors, remained delusional, confused. CONDITION UPON DISCHARGE: Improved, allowing ADLs. Mood "okay." Affect flat. Thought processes were confused. No SI, no HI. No auditory or visual hallucinations. Remained grandiose, delusional, believing he own on the hospital; however, no dangerousness noted, not acting out on any of his impulses. DISCHARGE DIAGNOSES: Dementia, dementia with behaviors; psychosis, unspecified; mood, unspecified; anxiety, unspecified. Under medical, please see full H and P. PROGNOSIS: The patient follows up with outpatient mental health services and remains compliant with treatment. Prognosis will improve, otherwise guarded. [facility]# [id number]
== END 2018-07-30 19:50 | DRG 884 ==
LOC: ER 18:38 → GERO2 21:37
PROVIDERS: ADMIT Psychiatry & Neurology Psychiatry; ATTEND Psychiatry & Neurology Psychiatry
DX: F03.91 Unspecified dementia, unspecified severity, with behavioral disturbance (principal); N39.0 Urinary tract infection, site not specified; F29 Unspecified psychosis not due to a substance or known physiological condition; I10 Essential (primary) hypertension; F41.9 Anxiety disorder, unspecified; R45.1 Restlessness and agitation; F39 Unspecified mood [affective] disorder
CPT/HCPCS: 36415-UA; 80053-TC; 80061-TC; 81001-TC; 83036-90; 85025-TC; 90899; G0410; Z7610

== ENCOUNTER 2019-02-16 16:00 | Inpatient (IN) | payer MEDICARE, MEDICAID ==
--- NOTE | 2019-02-16 16:07 | ED Physician Chart ---
ED Chief Complaint/HPI - Patient Information Date Seen:: 02/16/19 Time Seen:: 16:04 Chief Complaint:: agitation History of Present Illness:: 78 yr old for geropsych eval and agitation and very aggressive not cooperating with staff per paramedics pt awake alert active somewhat cooperative Allergies:: Allergies Allergy/AdvReac Type Severity Reaction Status Date / Time No Known Allergies Allergy Verified 01/09/17 14:23 ED Review of Systems - Review of Systems General/Constitutional: No fever, No chills, No weight loss, No weakness, No diaphoresis, No edema, No loss of appetite Skin: No skin lesions, No rash, No bruising Head: No headache, No light-headedness Eyes: No loss of vision, No pain, No diplopia ENT: No earache, No nasal drainage, No sore throat, No tinnitus Neck: No neck pain, No swelling, No thyromegaly, No stiffness, No mass noted Cardio Vascular: No chest pain, No palpitations, No PND, No orthopnea, No edema Pulmonary: No SOB, No cough, No sputum, No wheezing GI: No nausea, No vomiting, No diarrhea, No pain, No melena, No hematochezia, No constipation, No hematemesis G/U: No dysuria, No frequency, No hematuria Musculoskeletal: No bone or joint pain, No back pain, No muscle pain Endocrine: No polyuria, No polydipsia Psychiatric: No prior psych history, No depression, No anxiety, No suicidal ideation Hematopoietic: No bruising, No lymphadenopathy Allergic/Immuno: No urticaria, No angioedema Neurological: No syncope, No focal symptoms, No weakness, No paresthesia, No headache, No seizure, No dizziness, No confusion, No vertigo ED Past Medical History - Past Medical History Past Medical History: Other (see nurses notes) Family Medical History - Family Member Mother History Unknown: Yes Ethnicity: Unknown Living Status: Unknown Hx Family Cancer: (unknown) Hx Family Coronary Artery Disease: (unknown) Hx Family Congestive Heart Failure: (unknown) Hx Family Hypertension: (unknown) Hx Family Stroke: (unknown) Hx Family Diabetes: (unknown) Hx Family Seizures: (unknown) Hx Family Dementia: (unknown) Hx Family AIDS: (unknown) Hx Family COPD: (unknown) Hx Family Hepatitis: (unknown) Hx Family Psychiatric Problems: (unknown) Hx Family Tuberculosis: (unknown) family History Unknown: Yes Ethnicity: Unknown Living Status: Unknown Hx Family Cancer: (unknown) Hx Family Coronary Artery Disease: (unknown) Hx Family Congestive Heart Failure: (unknown) Hx Family Hypertension: (unknown) Hx Family Stroke: (unknown) Hx Family Diabetes: (unknown) Hx Family Seizures: (unknown) Hx Family Dementia: (unknown) Hx Family AIDS: (unknown) Hx Family COPD: (unknown) Hx Family Hepatitis: (unknown) Hx Family Psychiatric Problems: (unknown) Hx Family Tuberculosis: (unknown) ED Physical Exam - Physical Examination General/Constitutional: Awake, Well-developed, well-nourished, Alert, No distress, GCS 15, Non-toxic appearing, Ambulatory Head: Atraumatic Eyes: Lids, conjuctiva normal, PERRL, EOMI Skin: Nl inspection, No rash, No skin lesions, No ecchymosis, Well hydrated, No lymphadenopathy ENMT: External ears, nose nl, Nasal exam nl, Lips, teeth, gums nl Neck: Nontender, Full ROM w/o pain, No JVD, No nuchal rigidity, No bruit, No mass, No stridor Respiratory: Nl effort/Exclusion, Clear to Auscultation, No Wheeze/Rhonchi/Rales Cardio Vascular: RRR, No murmur, gallop, rubs, NL S1 S2 GI: No tenderness/rebounding/guarding, No organomegaly, No hernia, Normal BS's, Nondistended, No mass/bruits, No McBurney tenderness : No CVA tenderness Extremities: No tenderness or effusion, Full ROM, normal strength in all extremities, No edema, Normal digits & nails Neuro/Psych: Alert/oriented, DTR's symmetric, Normal sensory exam, Normal motor strength, Judgement/insight normal, Mood normal, Normal gait, No focal deficits Misc: Normal back, No paraspinal tenderness ED Assessment - Assessment General Assessment: agitation ED Septic Shock - . Is Septic Shock (SBP<90, OR Lactate>4 mmol\L) present?: No ED Reassessment (Disposition) - Reassessment Reassessment:: agitation geropsych eval - Diagnosis Diagnosis:: as above - Patient Disposition Discharge/Transfer:: Acute Care w/in this hosp Admitted to:: [facility] Condition at Disposition:: Stable
[2019-02-16 16:21] LABS: URINE SOURCE CLEAN C
[2019-02-16 16:23] LABS: URINE BILIRUBIN NEGATIVE (NEGATIVE); URINE BLOOD NEGATIVE (NEGATIVE); URINE GLUCOSE (UA) NEGATIVE (NEGATIVE); URINE KETONE NEGATIVE (NEGATIVE); URINE LEUKOCYTE ESTERASE TRACE (NEGATIVE); URINE MICROSCOPIC INDICATED? YES; URINE NITRATE NEGATIVE (NEGATIVE); URINE PH 6.5 (4.6 - 8.0); URINE PROTEIN NEGATIVE (NEGATIVE); URINE UROBILINOGEN 0.2 E.U./dL (0.2 - 1.0)
[2019-02-16 16:24] LABS: % BASOPHILS 0.7 % (0.0-2.0); % EOSINOPHILS 8.4 % (0.0-5.0); % MONOCYTES 10.7 % (2.0-10.0); % NEUTROPHILS 56.2 % (40.0-80.0); BASOPHILE ABSOLUTE 0.1 Th/cumm (0-0.2); EOSINOPHILE ABSOLUTE 0.7 Th/cmm (0.1-0.4); HEMATOCRIT 38.6 % (41.0-60); MEAN CELL VOLUME 92.5 fl (80-99); MEAN CORPUSCULAR HEMOGLOBIN 31.1 pg (27.0-31.0); MEAN CORPUSCULAR HGB CONC 33.6 pg (28.0-36.0); MONOCYTE ABSOLUTE 0.9 Th/cmm (0.3-1.0); NEUTROPHILE ABSOLUTE 4.5 Th/cmm (1.8-8.0); PLATELET COUNT 396 Th/cmm (150-400); RED BLOOD COUNT 4.17 Mil/cmm (3.80-5.80); RED CELL DISTRIBUTION WIDTH 12.7 % (11.5-20.0); WHITE BLOOD COUNT 8.2 Th/cmm (4.8-10.8)
[2019-02-16 16:40] LABS: ALB/GLOB RATIO 1.5 (1.0-1.8); ALBUMIN 4.3 gm/dL (4.2-5.5); ALKALINE PHOSPHATASE 67 U/L (34-104); ANION GAP 12.8 (7.0-16.0); BILIRUBIN,TOTAL 0.5 mg/dL (0.3-1.0); BUN - UREA NITROGEN 19 mg/dL (7-25); CALCIUM SERUM 9.2 mg/dL (8.6-10.3); CARBON DIOXIDE 24.3 mEq/L (21.0-31.0); CHLORIDE 100 mEq/L (98-107); CREATININE - SERUM 1.2 mg/dL (0.7-1.3); GLUCOSE 93 mg/dL (70-105); POTASSIUM SERUM 4.1 mEq/L (3.5-5.1); SGOT 26 U/L (13-39); SGPT/ALT 19 U/L (7-52); SODIUM SERUM 133 mEq/L (136-145); TOTAL PROTEIN,SERUM 7.1 gm/dL (6.0-8.3)
[2019-02-16 17:18] LABS: URINE CLARITY CLEAR (CLEAR); URINE COLOR YELLOW
[2019-02-16 17:29] LABS: URINE BACTERIA FEW /hpf (NONE SEEN); URINE EPITHELIAL CELLS FEW /lpf (FEW); URINE RBC NONE SEEN /hpf (0-5)
[2019-02-16] MEDS ORDERED: Maalox 30 mL Cup PO PRN (19:11)
[2019-02-16 19:46] VITALS: BP 164/91
[2019-02-16] MEDS ORDERED: Acetaminophen 500 MG TAB PO PRN (19:56)
[2019-02-17] MEDS ORDERED: Multivitamin Tab PO SCH (09:00)
[2019-02-17] MEDS ORDERED: Non-Formulary Item 1 EA (Cranberry Fruit Concentrate [Cranberry] 450 MG) PO SCH (09:00)
[2019-02-17] MEDS: Multivitamin w/ Minerals Tab PO SCH (09:01)
--- NOTE | 2019-02-17 10:40 | History and Physical ---
History of Present Illness - HPI Chief Complaint: 78 y/o male patient was brought into ER due to Agitation. HPI: 78 y/o male patient was admitted to [facility] for evaluation due to Agitation. Patient has history of Hypertension and Psychosis. Patient had an ER assessment and a complete workup was done. Patient was diagnosed with Acute Psychosis and Hypertension. Patient will have a Psych evaluation and I will follow, treat and monitor patient. Patient will continue current treatment plan as ordered. Vital Signs: Last Vital Signs Temp 97.8 F 02/17/19 04:29 Pulse 60 02/17/19 09:00 Resp 19 02/17/19 04:29 BP 151/64 02/17/19 09:00 Pulse Ox 97 02/17/19 04:29 Past Medical History Cardiovascular: Report: HTN Pulmonary: Report: No Pertinent Hx SHIP WASHER: Report: No Pertinent Hx GI: Report: No Pertinent Hx Psych: Report: Psychosis, Other (Agitation.) Musculoskeletal: Report: No Pertinent Hx Rheumatologic: Report: No pertinent Hx Infectious Disease: Report: No Pertinent Hx Renal/: Report: No Pertinent Hx Endocrine: Report: No Pertinent Hx Dermatology: Report: No Pertinent Hx - Past Surgical History Past Surgical History: No pertinent Hx Family Medical History - Family Member Mother History Unknown: Yes Ethnicity: Unknown Living Status: Unknown Hx Family Cancer: (unknown) Hx Family Coronary Artery Disease: (unknown) Hx Family Congestive Heart Failure: (unknown) Hx Family Hypertension: (unknown) Hx Family Stroke: (unknown) Hx Family Diabetes: (unknown) Hx Family Seizures: (unknown) Hx Family Dementia: (unknown) Hx Family AIDS: (unknown) Hx Family COPD: (unknown) Hx Family Hepatitis: (unknown) Hx Family Psychiatric Problems: (unknown) Hx Family Tuberculosis: (unknown) family History Unknown: Yes Ethnicity: Unknown Living Status: Unknown Hx Family Cancer: (unknown) Hx Family Coronary Artery Disease: (unknown) Hx Family Congestive Heart Failure: (unknown) Hx Family Hypertension: (unknown) Hx Family Stroke: (unknown) Hx Family Diabetes: (unknown) Hx Family Seizures: (unknown) Hx Family Dementia: (unknown) Hx Family AIDS: (unknown) Hx Family COPD: (unknown) Hx Family Hepatitis: (unknown) Hx Family Psychiatric Problems: (unknown) Hx Family Tuberculosis: (unknown) Social History Smoke: No Alcohol: None Drugs: None Lives: Senior Living Domestic Violence: Negative Health Maintenance Health Maintenance: Other (see chart.) - Medications Home Medications: Home Medication Medication Instructions Recorded Type Acetaminophen [Tylenol] 650 mg PO Q4HR PRN tab 07/30/18 Rx Al Hyd/Mg Hyd/Simethicone [Maalox] 30 ml PO Q4H PRN udc 07/30/18 Rx Docusate Sodium [Colace] 100 mg PO BID cap 07/30/18 Rx Donepezil Hcl [Aricept] 10 mg PO DAILY tab 07/30/18 Rx Magnesium Hydroxide [Milk of 30 ml PO HS PRN udc 07/30/18 Rx Magnesia] Multivitamin w/ Minerals 1 tab PO DAILY tab 07/30/18 Rx [Theragran M] QUEtiapine Fumarate [SEROquel] 175 mg PO BID tab 07/30/18 Rx amLODIPine Besylate [Norvasc*] 10 mg PO DAILY tab 07/30/18 Rx Acetaminophen [Tylenol Extra 1,000 mg PO Q4HR PRN 02/16/19 History Strength] Cranberry Fruit Concentrate 450 mg PO DAILY 02/16/19 History [Cranberry] Memantine [Namenda] 10 mg PO BID 02/16/19 History Other Medications: Please see medication reconciliation sheet. - Allergies Allergies/Adverse Reactions: Allergies Allergy/AdvReac Type Severity Reaction Status Date / Time No Known Allergies Allergy Verified 01/09/17 14:23 Review of Systems - Review of Systems Review of Systems: Patient has been very agitated striking out behavior. Constitutional: Report: No Significant Eyes: Report: No Significant ENT: Report: No Significant Respiratory: Report: No Significant Cardiovascular: Report: No Significant Gastrointestinal: Report: No Significant Genitourinary: Report: No Significant Musculoskeletal: Report: No Significant Skin: Report: No Significant Neurological: Report: No Significant Physical Exam - Physical Exam HEENT: Report: Ears Nose Throat within normal limits Neck: Report: Within normal limits Cardiovascular Systems: Report: +s1/s2 noted Respiratory: Report: Breath Sounds are within normal limits Abdomen: Report: Non-tender to palpation Back: Report: Inspection of back is within normal limits. Extremities: Report: Non-tender to palpation. Skin: Report: Color of skin is within normal limits Neuro/Psych: Report: Other (Agitated.) - Lab Results All Lab Results last 24 hours: Laboratory Results - last 24 hr 02/16/19 02/16/19 02/16/19 16:00 16:15 16:15 WBC 8.2 RBC 4.17 Hgb 13.0 Hct 38.6 L MCV 92.5 MCH 31.1 H MCHC Differential 33.6 RDW 12.7 Plt Count 396 MPV 6.5 Neutrophils % 56.2 Lymphocytes % 24.0 Monocytes % 10.7 H Eosinophils % 8.4 H Basophils % 0.7 Sodium 133 L Potassium 4.1 Chloride 100 Carbon Dioxide 24.3 Anion Gap 12.8 BUN 19 Creatinine 1.2 Est GFR ( Amer) TNP Est GFR (Non-Af Amer) TNP BUN/Creatinine Ratio 15.8 Glucose 93 Calcium 9.2 Total Bilirubin 0.5 AST 26 ALT 19 Alkaline Phosphatase 67 Troponin I Total Protein 7.1 Albumin 4.3 Globulin 2.8 Albumin/Globulin Ratio 1.5 Urine Source CLEAN C Urine Color YELLOW Urine Clarity CLEAR Urine pH 6.5 Ur Specific [employer] [place] <= 1.005 Urine Protein NEGATIVE Urine Glucose (UA) NEGATIVE Urine Ketones NEGATIVE Urine Blood NEGATIVE Urine Nitrate NEGATIVE Urine Bilirubin NEGATIVE Urine Urobilinogen 0.2 Ur Leukocyte Esterase TRACE H Urine RBC NONE SEEN Urine WBC 2-5 Ur Epithelial Cells FEW Urine Bacteria FEW 02/16/19 16:15 WBC RBC Hgb Hct MCV MCH MCHC Differential RDW Plt Count MPV Neutrophils % Lymphocytes % Monocytes % Eosinophils % Basophils % Sodium Potassium Chloride Carbon Dioxide Anion Gap BUN Creatinine Est GFR ( Amer) Est GFR (Non-Af Amer) BUN/Creatinine Ratio Glucose Calcium Total Bilirubin AST ALT Alkaline Phosphatase Troponin I 0.01 Total Protein Albumin Globulin Albumin/Globulin Ratio Urine Source Urine Color Urine Clarity Urine pH Ur Specific [employer] Urine Protein Urine Glucose (UA) Urine Ketones Urine Blood Urine Nitrate Urine Bilirubin Urine Urobilinogen Ur Leukocyte Esterase Urine RBC Urine WBC Ur Epithelial Cells Urine Bacteria - Assessment Assessment: Acute Psychosis. Hypertension. Current Active Problems Problem Status Onset AGITATION AND STRIKING OUT BEHAVIOR Acute - Plan Plan: Continuation of care. Monitor Labs. Continue present meds as directed. Monitor vitals, Continue BP meds as directed. Monitor Diet/Nutritional support. Psych management per Psych. Physical therapy/Occupational therapy prn. Fall precaution, frequent nursing rounds, and as needed restraints to prevent fall. Safety precaution. Supportive care. Continue collaborating with consulting specialists, case management and nursing team. Will Monitor patient and continue current treatment plan as ordered.
[2019-02-18] MEDS: Multivitamin w/ Minerals Tab PO SCH (08:03)
--- NOTE | 2019-02-18 09:36 | Psychiatric Evaluation ---
DATE OF SERVICE: 02/17/2019 JUSTIFICATION FOR HOSPITALIZATION: Agitation and aggression. HISTORY OF PRESENT ILLNESS: A 78-year-old male, here for agitation, very aggressive, not cooperating, confused. 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 Mumbling, very impulsive, unpredictable. PAST PSYCHIATRIC HISTORY: Admissions in the past. MEDICAL HISTORY: Please see full H and P. SOCIAL HISTORY: Difficult to assess. The patient mumbling, not making any sense. He has an address in [place] at a [facility], seems he is long-term care there. Staff noting that he has come to the hospital many times in the past. MEDICATIONS: Noted. MENTAL STATUS EXAMINATION: Stated age. Fair eye contact. Kyphotic gait, bent over. Mumbling, disorganized, disoriented. No SI, no HI, delusional, grandiose. 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 PROVISIONAL DIAGNOSES: Dementia, dementia with behaviors; psychosis, unspecified. MEDICAL: Please see full H and P. ESTIMATED LENGTH OF STAY: 7-10 days. ASSESSMENT: The patient requiring hospitalization, agitated, aggressive, unruly. TREATMENT PLAN: Includes group as well as milieu therapy, adjustment of medications. CONDITIONS FOR DISCHARGE: Improved mood, improved affect, better control of any agitation. JOB# [id number]
--- NOTE | 2019-02-18 17:27 | Internal Medicine Prog Note ---
Internal Medicine Subjective - Subjective Service Date: 02/18/19 Patient seen and examined:: with staff Patient is:: awake Per staff patient has:: tolerating meds Internal Medicine Objective - Results Result Diagrams: 02/16/19 16:15 02/16/19 16:15 Recent Labs: Laboratory Last Values WBC 8.2 Th/cmm (4.8-10.8) 02/16/19 16:15 RBC 4.17 Mil/cmm (3.80-5.80) 02/16/19 16:15 Hgb 13.0 gm/dL (12-16) 02/16/19 16:15 Hct 38.6 % (41.0-60) L 02/16/19 16:15 MCV 92.5 fl (80-99) 02/16/19 16:15 MCH 31.1 pg (27.0-31.0) H 02/16/19 16:15 MCHC Differential 33.6 pg (28.0-36.0) 02/16/19 16:15 RDW 12.7 % (11.5-20.0) 02/16/19 16:15 Plt Count 396 Th/cmm (150-400) 02/16/19 16:15 MPV 6.5 fl 02/16/19 16:15 Neutrophils % 56.2 % (40.0-80.0) 02/16/19 16:15 Lymphocytes % 24.0 % (20.0-50.0) 02/16/19 16:15 Monocytes % 10.7 % (2.0-10.0) H 02/16/19 16:15 Eosinophils % 8.4 % (0.0-5.0) H 02/16/19 16:15 Basophils % 0.7 % (0.0-2.0) 02/16/19 16:15 Sodium 133 mEq/L (136-145) L 02/16/19 16:15 Potassium 4.1 mEq/L (3.5-5.1) 02/16/19 16:15 Chloride 100 mEq/L (98-107) 02/16/19 16:15 Carbon Dioxide 24.3 mEq/L (21.0-31.0) 02/16/19 16:15 Anion Gap 12.8 (7.0-16.0) 02/16/19 16:15 BUN 19 mg/dL (7-25) 02/16/19 16:15 Creatinine 1.2 mg/dL (0.7-1.3) 02/16/19 16:15 Est GFR ( Amer) TNP 02/16/19 16:15 Est GFR (Non-Af Amer) TNP 02/16/19 16:15 BUN/Creatinine Ratio 15.8 02/16/19 16:15 Glucose 93 mg/dL (70-105) 02/16/19 16:15 Calcium 9.2 mg/dL (8.6-10.3) 02/16/19 16:15 Total Bilirubin 0.5 mg/dL (0.3-1.0) 02/16/19 16:15 AST 26 U/L (13-39) 02/16/19 16:15 ALT 19 U/L (7-52) 02/16/19 16:15 Alkaline Phosphatase 67 U/L (34-104) 02/16/19 16:15 Troponin I 0.01 ng/mL (0.01-0.05) 02/16/19 16:15 Total Protein 7.1 gm/dL (6.0-8.3) 02/16/19 16:15 Albumin 4.3 gm/dL (4.2-5.5) 02/16/19 16:15 Globulin 2.8 gm/dL 02/16/19 16:15 Albumin/Globulin Ratio 1.5 (1.0-1.8) 02/16/19 16:15 Urine Source CLEAN C 02/16/19 16:00 Urine Color YELLOW 02/16/19 16:00 Urine Clarity CLEAR (CLEAR) 02/16/19 16:00 Urine pH 6.5 (4.6 - 8.0) 02/16/19 16:00 Ur Specific [place] <= 1.005 (1.005-1.030) 02/16/19 16:00 Urine Protein NEGATIVE mg/dL (NEGATIVE) 02/16/19 16:00 Urine Glucose (UA) NEGATIVE mg/dL (NEGATIVE) 02/16/19 16:00 Urine Ketones NEGATIVE mg/dL (NEGATIVE) 02/16/19 16:00 Urine Blood NEGATIVE (NEGATIVE) 02/16/19 16:00 Urine Nitrate NEGATIVE (NEGATIVE) 02/16/19 16:00 Urine Bilirubin NEGATIVE (NEGATIVE) 02/16/19 16:00 Urine Urobilinogen 0.2 E.U./dL (0.2 - 1.0) 02/16/19 16:00 Ur Leukocyte Esterase TRACE (NEGATIVE) H 02/16/19 16:00 Urine RBC NONE SEEN /hpf (0-5) 02/16/19 16:00 Urine WBC 2-5 /hpf (0-5) 02/16/19 16:00 Ur Epithelial Cells FEW /lpf (FEW) 02/16/19 16:00 Urine Bacteria FEW /hpf (NONE SEEN) 02/16/19 16:00 - Physical Exam Vitals and I&O: Vital Signs Temp 97.8 F 02/18/19 14:00 Pulse 85 02/18/19 14:00 Resp 17 02/18/19 14:00 BP 130/77 02/18/19 14:00 Pulse Ox 96 02/18/19 14:00 Intake & Output 02/17/19 02/18/19 02/18/19 18:59 06:59 18:59 Intake Total 900 Balance 900 Intake: Oral 900 Other: # Voids 7 # Bowel Movements 1 2 Active Medications: Current Medications Acetaminophen (Tylenol) 650 mg PO Q4HR PRN PRN Reason: Mild Pain / Temp above 100 Stop: 04/17/19 19:10 Acetaminophen (Tylenol Extra Strength) 1,000 mg PO Q4HR PRN PRN Reason: MODERATE PAIN Stop: 04/17/19 19:55 Al Hydrox/Mg Hydrox/Simethicone (Maalox) 30 ml PO Q4HR PRN PRN Reason: GI DISTRESS Stop: 04/17/19 19:10 Amlodipine Besylate (Norvasc) 10 mg PO DAILY [facility] Stop: 04/18/19 08:59 Last Admin: 02/18/19 08:01 Dose: 10 mg Docusate Sodium (Colace) 100 mg PO BID [facility] Stop: 04/18/19 08:59 Last Admin: 02/18/19 17:09 Dose: 100 mg Donepezil HCl (Aricept) 10 mg PO DAILY [facility] Stop: 04/18/19 08:59 Last Admin: 02/18/19 08:03 Dose: 10 mg Lorazepam (Ativan) 0.5 mg PO Q4HR PRN; Protocol PRN Reason: Anxiety Stop: 03/18/19 19:10 Last Admin: 02/18/19 08:03 Dose: 0.5 mg Memantine (Namenda) 10 mg PO BID [facility] Stop: 04/18/19 08:59 Last Admin: 02/18/19 17:08 Dose: 10 mg Quetiapine Fumarate 100 mg/Quetiapine Fumarate 50 mg/Quetiapine Fumarate 25 mg 175 mg PO BID [facility] Stop: 04/18/19 16:59 Last Admin: 02/18/19 17:09 Dose: 175 mg Zolpidem Tartrate (Ambien) 5 mg PO HS PRN PRN Reason: Insomnia Stop: 04/17/19 19:10 Last Admin: 02/17/19 22:00 Dose: 5 mg General: alert HEENT: NC/AT, PERRLA Neck: Supple Lungs: CTAB Cardiovascular: RRR Abdomen: soft, non-tender, non-distended Extremities: excoriation Neurological: alert Internal Medicine Assmt/Plan - Assessment Assessment: Acute Psychosis. Hypertension. - Plan Plan: Continuation of care. Monitor Labs. Continue present meds as directed. Monitor vitals, Continue BP meds as directed. Monitor Diet/Nutritional support. Psych management per Psych. Physical therapy/Occupational therapy prn. Fall precaution, frequent nursing rounds, and as needed restraints to prevent fall. Safety precaution. Supportive care. Continue collaborating with consulting specialists, case management and nursing team. Will Monitor patient and continue current treatment plan as ordered.
--- NOTE | 2019-02-19 01:31 | Progress Notes ---
DATE: 02/18/2019 SUBJECTIVE: A 78-year-old male, here for agitation and aggressive behaviors. The patient is very confused, disoriented, grandiose, still making statements to me that he owns the hospital. He knows where he is. He knows his name. He remains agitated, delusional, believes he is to Jermaine ____ daughter. Claims he has to leave. States that he does not need to be here anymore in the ____ hospital and can leave at any time, not really sleeping very well, restless, ongoing psychotic symptoms. PLAN: Continue dosing of Seroquel, Aricept and Namenda. We will continue to monitor. He may need dose adjustments to his medications. JOB# [id number]
[2019-02-19] MEDS: Multivitamin w/ Minerals Tab PO SCH (08:16)
--- NOTE | 2019-02-19 13:55 | Internal Medicine Prog Note ---
Internal Medicine Subjective - Subjective Service Date: 02/19/19 Patient seen and examined:: with staff Patient is:: awake, verbal, agitated Patient Complaints of:: other (very confused.) Per staff patient has:: no adverse event, no episodes of fall, tolerating meds Internal Medicine Objective - Results Result Diagrams: 02/16/19 16:15 02/16/19 16:15 Recent Labs: Laboratory Last Values WBC 8.2 Th/cmm (4.8-10.8) 02/16/19 16:15 RBC 4.17 Mil/cmm (3.80-5.80) 02/16/19 16:15 Hgb 13.0 gm/dL (12-16) 02/16/19 16:15 Hct 38.6 % (41.0-60) L 02/16/19 16:15 MCV 92.5 fl (80-99) 02/16/19 16:15 MCH 31.1 pg (27.0-31.0) H 02/16/19 16:15 MCHC Differential 33.6 pg (28.0-36.0) 02/16/19 16:15 RDW 12.7 % (11.5-20.0) 02/16/19 16:15 Plt Count 396 Th/cmm (150-400) 02/16/19 16:15 MPV 6.5 fl 02/16/19 16:15 Neutrophils % 56.2 % (40.0-80.0) 02/16/19 16:15 Lymphocytes % 24.0 % (20.0-50.0) 02/16/19 16:15 Monocytes % 10.7 % (2.0-10.0) H 02/16/19 16:15 Eosinophils % 8.4 % (0.0-5.0) H 02/16/19 16:15 Basophils % 0.7 % (0.0-2.0) 02/16/19 16:15 Sodium 133 mEq/L (136-145) L 02/16/19 16:15 Potassium 4.1 mEq/L (3.5-5.1) 02/16/19 16:15 Chloride 100 mEq/L (98-107) 02/16/19 16:15 Carbon Dioxide 24.3 mEq/L (21.0-31.0) 02/16/19 16:15 Anion Gap 12.8 (7.0-16.0) 02/16/19 16:15 BUN 19 mg/dL (7-25) 02/16/19 16:15 Creatinine 1.2 mg/dL (0.7-1.3) 02/16/19 16:15 Est GFR ( Amer) TNP 02/16/19 16:15 Est GFR (Non-Af Amer) TNP 02/16/19 16:15 BUN/Creatinine Ratio 15.8 02/16/19 16:15 Glucose 93 mg/dL (70-105) 02/16/19 16:15 Calcium 9.2 mg/dL (8.6-10.3) 02/16/19 16:15 Total Bilirubin 0.5 mg/dL (0.3-1.0) 02/16/19 16:15 AST 26 U/L (13-39) 02/16/19 16:15 ALT 19 U/L (7-52) 02/16/19 16:15 Alkaline Phosphatase 67 U/L (34-104) 02/16/19 16:15 Troponin I 0.01 ng/mL (0.01-0.05) 02/16/19 16:15 Total Protein 7.1 gm/dL (6.0-8.3) 02/16/19 16:15 Albumin 4.3 gm/dL (4.2-5.5) 02/16/19 16:15 Globulin 2.8 gm/dL 02/16/19 16:15 Albumin/Globulin Ratio 1.5 (1.0-1.8) 02/16/19 16:15 Urine Source CLEAN C 02/16/19 16:00 Urine Color YELLOW 02/16/19 16:00 Urine Clarity CLEAR (CLEAR) 02/16/19 16:00 Urine pH 6.5 (4.6 - 8.0) 02/16/19 16:00 Ur Specific [place] <= 1.005 (1.005-1.030) 02/16/19 16:00 Urine Protein NEGATIVE mg/dL (NEGATIVE) 02/16/19 16:00 Urine Glucose (UA) NEGATIVE mg/dL (NEGATIVE) 02/16/19 16:00 Urine Ketones NEGATIVE mg/dL (NEGATIVE) 02/16/19 16:00 Urine Blood NEGATIVE (NEGATIVE) 02/16/19 16:00 Urine Nitrate NEGATIVE (NEGATIVE) 02/16/19 16:00 Urine Bilirubin NEGATIVE (NEGATIVE) 02/16/19 16:00 Urine Urobilinogen 0.2 E.U./dL (0.2 - 1.0) 02/16/19 16:00 Ur Leukocyte Esterase TRACE (NEGATIVE) H 02/16/19 16:00 Urine RBC NONE SEEN /hpf (0-5) 02/16/19 16:00 Urine WBC 2-5 /hpf (0-5) 02/16/19 16:00 Ur Epithelial Cells FEW /lpf (FEW) 02/16/19 16:00 Urine Bacteria FEW /hpf (NONE SEEN) 02/16/19 16:00 - Physical Exam Vitals and I&O: Vital Signs Temp 97.5 F 02/19/19 07:00 Pulse 62 02/19/19 08:18 Resp 19 02/19/19 07:00 BP 133/57 02/19/19 08:18 Pulse Ox 93 02/19/19 07:00 Intake & Output 02/18/19 02/19/19 02/19/19 18:59 06:59 18:59 Intake Total 1350 Balance 1350 Intake: Oral 1350 Other: # Bowel Movements 2 Active Medications: Current Medications Acetaminophen (Tylenol) 650 mg PO Q4HR PRN PRN Reason: Mild Pain / Temp above 100 Stop: 04/17/19 19:10 Acetaminophen (Tylenol Extra Strength) 1,000 mg PO Q4HR PRN PRN Reason: MODERATE PAIN Stop: 04/17/19 19:55 Al Hydrox/Mg Hydrox/Simethicone (Maalox) 30 ml PO Q4HR PRN PRN Reason: GI DISTRESS Stop: 04/17/19 19:10 Amlodipine Besylate (Norvasc) 10 mg PO DAILY [facility] Stop: 04/18/19 08:59 Last Admin: 02/19/19 08:18 Dose: 10 mg Docusate Sodium (Colace) 100 mg PO BID [facility] Stop: 04/18/19 08:59 Last Admin: 02/19/19 09:02 Dose: Not Given Donepezil HCl (Aricept) 10 mg PO DAILY [facility] Stop: 04/18/19 08:59 Last Admin: 02/19/19 08:17 Dose: 10 mg Lorazepam (Ativan) 0.5 mg PO Q4HR PRN; Protocol PRN Reason: Anxiety Stop: 03/18/19 19:10 Last Admin: 02/18/19 21:01 Dose: 0.5 mg Memantine (Namenda) 10 mg PO BID [facility] Stop: 04/18/19 08:59 Last Admin: 02/19/19 08:17 Dose: 10 mg Mupirocin (Bactroban Oint) 1 appl NS BID [facility] Stop: 02/23/19 17:01 Last Admin: 02/19/19 09:42 Dose: 1 appl Quetiapine Fumarate 100 mg/Quetiapine Fumarate 50 mg/Quetiapine Fumarate 25 mg 175 mg PO BID [facility] Stop: 04/18/19 16:59 Last Admin: 02/19/19 08:17 Dose: 175 mg Zolpidem Tartrate (Ambien) 5 mg PO HS PRN PRN Reason: Insomnia Stop: 04/17/19 19:10 Last Admin: 02/18/19 22:01 Dose: 5 mg Physical Exam: Patient remains very dis-oriented. General: alert HEENT: NC/AT, PERRLA Neck: Supple Lungs: CTAB Cardiovascular: RRR Abdomen: soft, non-tender, non-distended Extremities: excoriation Neurological: no change Internal Medicine Assmt/Plan - Assessment Assessment: Dementia. Acute Psychosis. Hypertension. Current Active Problems Problem Status Onset AGITATION AND STRIKING OUT BEHAVIOR Acute - Plan Plan: Continuation of care. Monitor Labs. Continue present meds as directed. Monitor vitals, Continue BP meds as directed. Monitor Diet/Nutritional support. Psych management per Psych. Physical therapy/Occupational therapy prn. Fall precaution, frequent nursing rounds, and as needed restraints to prevent fall. Safety precaution. Supportive care. Continue collaborating with consulting specialists, case management and nursing team. Will Monitor patient and continue present care management. Nutritional Asmnt/Malnutr-PDOC - Dietary Evaluation Malnutrition Findings (Please click <Entered> for more info): see orders.
--- NOTE | 2019-02-19 21:30 | Progress Notes ---
DATE: 02/19/2019 SUBJECTIVE: The patient remains very confused, disoriented, nonsensical. Believes he owns the hospital. The patient waiting for the police to come pick him up, able to bathroom on his own coming from [facility], still agitated, delusional, grandiose, still talking about Segundo Serna. PLAN: We will continue to monitor. I will be titrating his dosing of Seroquel to 200 mg twice daily to target ongoing psychosis. JOB# [id number]
[2019-02-20] MEDS: Multivitamin w/ Minerals Tab PO SCH (08:46)
--- NOTE | 2019-02-20 11:31 | Internal Medicine Prog Note ---
Internal Medicine Subjective - Subjective Service Date: 02/20/19 Patient is:: awake, verbal, agitated Patient Complaints of:: other (very confused.) Per staff patient has:: no adverse event, no episodes of fall, tolerating meds Internal Medicine Objective - Results Result Diagrams: 02/16/19 16:15 02/16/19 16:15 Recent Labs: Laboratory Last Values WBC 8.2 Th/cmm (4.8-10.8) 02/16/19 16:15 RBC 4.17 Mil/cmm (3.80-5.80) 02/16/19 16:15 Hgb 13.0 gm/dL (12-16) 02/16/19 16:15 Hct 38.6 % (41.0-60) L 02/16/19 16:15 MCV 92.5 fl (80-99) 02/16/19 16:15 MCH 31.1 pg (27.0-31.0) H 02/16/19 16:15 MCHC Differential 33.6 pg (28.0-36.0) 02/16/19 16:15 RDW 12.7 % (11.5-20.0) 02/16/19 16:15 Plt Count 396 Th/cmm (150-400) 02/16/19 16:15 MPV 6.5 fl 02/16/19 16:15 Neutrophils % 56.2 % (40.0-80.0) 02/16/19 16:15 Lymphocytes % 24.0 % (20.0-50.0) 02/16/19 16:15 Monocytes % 10.7 % (2.0-10.0) H 02/16/19 16:15 Eosinophils % 8.4 % (0.0-5.0) H 02/16/19 16:15 Basophils % 0.7 % (0.0-2.0) 02/16/19 16:15 Sodium 133 mEq/L (136-145) L 02/16/19 16:15 Potassium 4.1 mEq/L (3.5-5.1) 02/16/19 16:15 Chloride 100 mEq/L (98-107) 02/16/19 16:15 Carbon Dioxide 24.3 mEq/L (21.0-31.0) 02/16/19 16:15 Anion Gap 12.8 (7.0-16.0) 02/16/19 16:15 BUN 19 mg/dL (7-25) 02/16/19 16:15 Creatinine 1.2 mg/dL (0.7-1.3) 02/16/19 16:15 Est GFR ( Amer) TNP 02/16/19 16:15 Est GFR (Non-Af Amer) TNP 02/16/19 16:15 BUN/Creatinine Ratio 15.8 02/16/19 16:15 Glucose 93 mg/dL (70-105) 02/16/19 16:15 Calcium 9.2 mg/dL (8.6-10.3) 02/16/19 16:15 Total Bilirubin 0.5 mg/dL (0.3-1.0) 02/16/19 16:15 AST 26 U/L (13-39) 02/16/19 16:15 ALT 19 U/L (7-52) 02/16/19 16:15 Alkaline Phosphatase 67 U/L (34-104) 02/16/19 16:15 Troponin I 0.01 ng/mL (0.01-0.05) 02/16/19 16:15 Total Protein 7.1 gm/dL (6.0-8.3) 02/16/19 16:15 Albumin 4.3 gm/dL (4.2-5.5) 02/16/19 16:15 Globulin 2.8 gm/dL 02/16/19 16:15 Albumin/Globulin Ratio 1.5 (1.0-1.8) 02/16/19 16:15 Urine Source CLEAN C 02/16/19 16:00 Urine Color YELLOW 02/16/19 16:00 Urine Clarity CLEAR (CLEAR) 02/16/19 16:00 Urine pH 6.5 (4.6 - 8.0) 02/16/19 16:00 Ur Specific [place] <= 1.005 (1.005-1.030) 02/16/19 16:00 Urine Protein NEGATIVE mg/dL (NEGATIVE) 02/16/19 16:00 Urine Glucose (UA) NEGATIVE mg/dL (NEGATIVE) 02/16/19 16:00 Urine Ketones NEGATIVE mg/dL (NEGATIVE) 02/16/19 16:00 Urine Blood NEGATIVE (NEGATIVE) 02/16/19 16:00 Urine Nitrate NEGATIVE (NEGATIVE) 02/16/19 16:00 Urine Bilirubin NEGATIVE (NEGATIVE) 02/16/19 16:00 Urine Urobilinogen 0.2 E.U./dL (0.2 - 1.0) 02/16/19 16:00 Ur Leukocyte Esterase TRACE (NEGATIVE) H 02/16/19 16:00 Urine RBC NONE SEEN /hpf (0-5) 02/16/19 16:00 Urine WBC 2-5 /hpf (0-5) 02/16/19 16:00 Ur Epithelial Cells FEW /lpf (FEW) 02/16/19 16:00 Urine Bacteria FEW /hpf (NONE SEEN) 02/16/19 16:00 - Physical Exam Vitals and I&O: Vital Signs Temp 98.7 F 02/20/19 06:48 Pulse 77 02/20/19 08:46 Resp 20 02/20/19 06:48 BP 121/81 02/20/19 08:46 Pulse Ox 97 02/20/19 06:48 Intake & Output 02/19/19 02/20/19 02/20/19 18:59 06:59 18:59 Intake Total 1350 360 Balance 1350 360 Intake: Oral 1350 360 Other: # Voids 2 # Bowel Movements 0 Active Medications: Current Medications Acetaminophen (Tylenol) 650 mg PO Q4HR PRN PRN Reason: Mild Pain / Temp above 100 Stop: 04/17/19 19:10 Acetaminophen (Tylenol Extra Strength) 1,000 mg PO Q4HR PRN PRN Reason: MODERATE PAIN Stop: 04/17/19 19:55 Al Hydrox/Mg Hydrox/Simethicone (Maalox) 30 ml PO Q4HR PRN PRN Reason: GI DISTRESS Stop: 04/17/19 19:10 Amlodipine Besylate (Norvasc) 10 mg PO DAILY [facility] Stop: 04/18/19 08:59 Last Admin: 02/20/19 08:46 Dose: 10 mg Docusate Sodium (Colace) 100 mg PO BID [facility] Stop: 04/18/19 08:59 Last Admin: 02/20/19 08:46 Dose: 100 mg Donepezil HCl (Aricept) 10 mg PO DAILY [facility] Stop: 04/18/19 08:59 Last Admin: 02/20/19 08:47 Dose: 10 mg Lorazepam (Ativan) 0.5 mg PO Q4HR PRN; Protocol PRN Reason: Anxiety Stop: 03/18/19 19:10 Last Admin: 02/19/19 20:00 Dose: 0.5 mg Memantine (Namenda) 10 mg PO BID [facility] Stop: 04/18/19 08:59 Last Admin: 02/20/19 08:46 Dose: 10 mg Mupirocin (Bactroban Oint) 1 appl NS BID [facility] Stop: 02/23/19 17:01 Last Admin: 02/20/19 08:47 Dose: 1 appl Quetiapine Fumarate (Seroquel) 200 mg PO BID [facility] Stop: 04/20/19 16:59 Last Admin: 02/20/19 08:46 Dose: 200 mg Zolpidem Tartrate (Ambien) 5 mg PO HS PRN PRN Reason: Insomnia Stop: 04/17/19 19:10 Last Admin: 02/19/19 21:08 Dose: 5 mg General: alert HEENT: NC/AT, PERRLA Neck: Supple Lungs: CTAB Cardiovascular: RRR Abdomen: soft, non-tender, non-distended Extremities: excoriation Neurological: no change Internal Medicine Assmt/Plan - Assessment Assessment: Acute Psychosis. Hypertension. - Plan Plan: Continuation of care. Monitor Labs. Continue present meds as directed. Monitor vitals, Continue BP meds as directed. Monitor Diet/Nutritional support. Psych management per Psych. Physical therapy/Occupational therapy prn. Fall precaution, frequent nursing rounds, and as needed restraints to prevent fall. Safety precaution. Supportive care. Continue collaborating with consulting specialists, case management and nursing team. Will Monitor patient and continue current treatment plan as ordered.
--- NOTE | 2019-02-20 22:31 | Progress Notes ---
DATE: 02/20/2019 SUBJECTIVE: The patient is still very confused, disoriented, grandiose, making claims he owns the hospital, easily agitated, depressed, mostly withdrawn. At this time, he is somewhat more interactive, playing bingo, but staff noting he is extremely confused, anxious, still making statements that he is waiting for his to pick him up. Medications were noted. Symptoms ongoing. PLAN: We will continue to monitor. Continue dosing of Seroquel and Namenda. I recently increased dose of Seroquel. Pending studies today. JOB# [id number]
[2019-02-21] MEDS: Multivitamin w/ Minerals Tab PO SCH (09:18)
--- NOTE | 2019-02-21 12:25 | Internal Medicine Prog Note ---
Internal Medicine Subjective - Subjective Service Date: 02/21/19 Patient seen and examined:: with staff Patient is:: awake, verbal, agitated, confused Patient Complaints of:: other (very confused.) Per staff patient has:: no adverse event, no episodes of fall, tolerating meds Internal Medicine Objective - Results Result Diagrams: 02/16/19 16:15 02/16/19 16:15 Recent Labs: Laboratory Last Values WBC 8.2 Th/cmm (4.8-10.8) 02/16/19 16:15 RBC 4.17 Mil/cmm (3.80-5.80) 02/16/19 16:15 Hgb 13.0 gm/dL (12-16) 02/16/19 16:15 Hct 38.6 % (41.0-60) L 02/16/19 16:15 MCV 92.5 fl (80-99) 02/16/19 16:15 MCH 31.1 pg (27.0-31.0) H 02/16/19 16:15 MCHC Differential 33.6 pg (28.0-36.0) 02/16/19 16:15 RDW 12.7 % (11.5-20.0) 02/16/19 16:15 Plt Count 396 Th/cmm (150-400) 02/16/19 16:15 MPV 6.5 fl 02/16/19 16:15 Neutrophils % 56.2 % (40.0-80.0) 02/16/19 16:15 Lymphocytes % 24.0 % (20.0-50.0) 02/16/19 16:15 Monocytes % 10.7 % (2.0-10.0) H 02/16/19 16:15 Eosinophils % 8.4 % (0.0-5.0) H 02/16/19 16:15 Basophils % 0.7 % (0.0-2.0) 02/16/19 16:15 Sodium 133 mEq/L (136-145) L 02/16/19 16:15 Potassium 4.1 mEq/L (3.5-5.1) 02/16/19 16:15 Chloride 100 mEq/L (98-107) 02/16/19 16:15 Carbon Dioxide 24.3 mEq/L (21.0-31.0) 02/16/19 16:15 Anion Gap 12.8 (7.0-16.0) 02/16/19 16:15 BUN 19 mg/dL (7-25) 02/16/19 16:15 Creatinine 1.2 mg/dL (0.7-1.3) 02/16/19 16:15 Est GFR ( Amer) TNP 02/16/19 16:15 Est GFR (Non-Af Amer) TNP 02/16/19 16:15 BUN/Creatinine Ratio 15.8 02/16/19 16:15 Glucose 93 mg/dL (70-105) 02/16/19 16:15 Calcium 9.2 mg/dL (8.6-10.3) 02/16/19 16:15 Total Bilirubin 0.5 mg/dL (0.3-1.0) 02/16/19 16:15 AST 26 U/L (13-39) 02/16/19 16:15 ALT 19 U/L (7-52) 02/16/19 16:15 Alkaline Phosphatase 67 U/L (34-104) 02/16/19 16:15 Troponin I 0.01 ng/mL (0.01-0.05) 02/16/19 16:15 Total Protein 7.1 gm/dL (6.0-8.3) 02/16/19 16:15 Albumin 4.3 gm/dL (4.2-5.5) 02/16/19 16:15 Globulin 2.8 gm/dL 02/16/19 16:15 Albumin/Globulin Ratio 1.5 (1.0-1.8) 02/16/19 16:15 Urine Source CLEAN C 02/16/19 16:00 Urine Color YELLOW 02/16/19 16:00 Urine Clarity CLEAR (CLEAR) 02/16/19 16:00 Urine pH 6.5 (4.6 - 8.0) 02/16/19 16:00 Ur Specific [place] <= 1.005 (1.005-1.030) 02/16/19 16:00 Urine Protein NEGATIVE mg/dL (NEGATIVE) 02/16/19 16:00 Urine Glucose (UA) NEGATIVE mg/dL (NEGATIVE) 02/16/19 16:00 Urine Ketones NEGATIVE mg/dL (NEGATIVE) 02/16/19 16:00 Urine Blood NEGATIVE (NEGATIVE) 02/16/19 16:00 Urine Nitrate NEGATIVE (NEGATIVE) 02/16/19 16:00 Urine Bilirubin NEGATIVE (NEGATIVE) 02/16/19 16:00 Urine Urobilinogen 0.2 E.U./dL (0.2 - 1.0) 02/16/19 16:00 Ur Leukocyte Esterase TRACE (NEGATIVE) H 02/16/19 16:00 Urine RBC NONE SEEN /hpf (0-5) 02/16/19 16:00 Urine WBC 2-5 /hpf (0-5) 02/16/19 16:00 Ur Epithelial Cells FEW /lpf (FEW) 02/16/19 16:00 Urine Bacteria FEW /hpf (NONE SEEN) 02/16/19 16:00 - Physical Exam Vitals and I&O: Vital Signs Temp 98.3 F 02/21/19 06:39 Pulse 98 02/21/19 09:14 Resp 20 02/21/19 06:39 BP 149/82 02/21/19 09:14 Pulse Ox 98 02/21/19 06:39 Intake & Output 02/20/19 02/21/19 02/21/19 18:59 06:59 18:59 Intake Total 960 120 Balance 960 120 Intake: Oral 960 120 Other: # Voids 3 3 # Bowel Movements 1 Active Medications: Current Medications Acetaminophen (Tylenol) 650 mg PO Q4HR PRN PRN Reason: Mild Pain / Temp above 100 Stop: 04/17/19 19:10 Acetaminophen (Tylenol Extra Strength) 1,000 mg PO Q4HR PRN PRN Reason: MODERATE PAIN Stop: 04/17/19 19:55 Al Hydrox/Mg Hydrox/Simethicone (Maalox) 30 ml PO Q4HR PRN PRN Reason: GI DISTRESS Stop: 04/17/19 19:10 Amlodipine Besylate (Norvasc) 10 mg PO DAILY [facility] Stop: 04/18/19 08:59 Last Admin: 02/21/19 09:14 Dose: 10 mg Docusate Sodium (Colace) 100 mg PO BID [facility] Stop: 04/18/19 08:59 Last Admin: 02/21/19 09:12 Dose: 100 mg Donepezil HCl (Aricept) 10 mg PO DAILY [facility] Stop: 04/18/19 08:59 Last Admin: 02/21/19 09:13 Dose: 10 mg Lorazepam (Ativan) 0.5 mg PO Q4HR PRN; Protocol PRN Reason: Anxiety Stop: 03/18/19 19:10 Last Admin: 02/19/19 20:00 Dose: 0.5 mg Memantine (Namenda) 10 mg PO BID [facility] Stop: 04/18/19 08:59 Last Admin: 02/21/19 09:19 Dose: 10 mg Mupirocin (Bactroban Oint) 1 appl NS BID [facility] Stop: 02/23/19 17:01 Last Admin: 02/21/19 09:18 Dose: 1 appl Quetiapine Fumarate (Seroquel) 200 mg PO BID [facility] Stop: 04/20/19 16:59 Last Admin: 02/21/19 09:13 Dose: 200 mg Zolpidem Tartrate (Ambien) 5 mg PO HS PRN PRN Reason: Insomnia Stop: 04/17/19 19:10 Last Admin: 02/20/19 20:33 Dose: 5 mg Physical Exam: Patient remains very confused, agitated, withdrawn stating he is waiting for his to pick him up. General: alert HEENT: NC/AT, PERRLA Neck: Supple Lungs: CTAB Cardiovascular: RRR Abdomen: soft, non-tender, non-distended Extremities: excoriation Neurological: no change Internal Medicine Assmt/Plan - Assessment Assessment: Dementia. Acute Psychosis. Hypertension. Current Active Problems Problem Status Onset AGITATION AND STRIKING OUT BEHAVIOR Acute - Plan Plan: Continuation of care. Monitor Labs. Continue present meds as directed. Monitor vitals, Continue BP meds as directed. Monitor Diet/Nutritional support. Psych management per Psych. Physical therapy/Occupational therapy prn. Fall precaution, frequent nursing rounds, and as needed restraints to prevent fall. Safety precaution. Supportive care. Continue collaborating with consulting specialists, case management and nursing team. Will Monitor patient and continue present care management. Nutritional Asmnt/Malnutr-PDOC - Dietary Evaluation Malnutrition Findings (Please click <Entered> for more info): see orders.
--- NOTE | 2019-02-21 22:59 | Progress Notes ---
DATE: 02/21/2019 SUBJECTIVE: The patient in the hospital, confused, disoriented, but calm, still delusional, stating that he owns the hospital and has some vested interest in stock in the hospital; that he can leave at any time. The patient impulsive, still angry, sometimes has struck out in the past. The patient sometimes demands to leave, wants to be called "Kyle." History of dementia, extreme confusion. ASSESSMENT: The patient remains symptomatic, grandiose, ongoing delusions and psychotic symptoms. MEDICATIONS: Noted. PLAN: We will continue to monitor. JOB# [id number]
[2019-02-22] MEDS: Multivitamin w/ Minerals Tab PO SCH (08:11)
--- NOTE | 2019-02-22 19:15 | Progress Notes ---
DATE: 02/22/2019 SUBJECTIVE: The patient in the hospital, confused, easily agitated, delusional, grandiose personality, stating he owns the hospital, has stock in the hospital, can leave at any time, pacing the unit, mumbling to self, ongoing psychotic symptoms, irritable, highly impulsive, can get really upset, lash out, strike out. He has been generally calmer. Currently on dosing of Seroquel, Namenda and Aricept. We will continue to monitor. Monitor for any ongoing behavioral disturbances. JOB# [id number]
--- NOTE | 2019-02-22 19:51 | Progress Notes ---
DATE: 02/22/2019 SUBJECTIVE: The patient was seen in the dining area. The patient appears to be calm and comfortable, but easily gets frustrated, easily gets agitated, poor impulse control, has labile mood. Otherwise, the patient appears to be in no acute distress. OBJECTIVE: VITAL SIGNS: Temperature 98.1, heart rate 96, blood pressure 138/79, respirations 20, 97% on room air. HEENT: Head is atraumatic and normocephalic. Eyes: Bilateral conjunctivae are clear. Bilateral pupils equal, round, reactive. NECK: Supple. No JVD. CARDIOVASCULAR: S1 and S2, without murmur. PULMONARY: Clear to auscultation. GASTROINTESTINAL: Soft and nontender without guarding. Positive bowel sounds. MUSCULOSKELETAL: No clubbing. No cyanosis noted. ASSESSMENT: 1. Dementia. 2. Hypertension. 3. Osteoarthritis. PLAN: We will keep the patient to inpatient Psychiatric Unit. We will follow up with a psychiatrist to monitor the patient's condition and behavior. Treatment plans were discussed with the patient's nurse. Treatment plans were discussed with Dr. Avery. JOB# [id number]
[2019-02-23] MEDS: Multivitamin w/ Minerals Tab PO SCH (08:55)
--- NOTE | 2019-02-23 10:37 | Internal Medicine Prog Note ---
Internal Medicine Subjective - Subjective Patient seen and examined:: with staff Patient is:: awake, verbal, agitated, confused Patient Complaints of:: other (very confused.) Per staff patient has:: no adverse event, no episodes of fall, tolerating meds Internal Medicine Objective - Results Result Diagrams: 02/16/19 16:15 02/16/19 16:15 Recent Labs: Laboratory Last Values WBC 8.2 Th/cmm (4.8-10.8) 02/16/19 16:15 RBC 4.17 Mil/cmm (3.80-5.80) 02/16/19 16:15 Hgb 13.0 gm/dL (12-16) 02/16/19 16:15 Hct 38.6 % (41.0-60) L 02/16/19 16:15 MCV 92.5 fl (80-99) 02/16/19 16:15 MCH 31.1 pg (27.0-31.0) H 02/16/19 16:15 MCHC Differential 33.6 pg (28.0-36.0) 02/16/19 16:15 RDW 12.7 % (11.5-20.0) 02/16/19 16:15 Plt Count 396 Th/cmm (150-400) 02/16/19 16:15 MPV 6.5 fl 02/16/19 16:15 Neutrophils % 56.2 % (40.0-80.0) 02/16/19 16:15 Lymphocytes % 24.0 % (20.0-50.0) 02/16/19 16:15 Monocytes % 10.7 % (2.0-10.0) H 02/16/19 16:15 Eosinophils % 8.4 % (0.0-5.0) H 02/16/19 16:15 Basophils % 0.7 % (0.0-2.0) 02/16/19 16:15 Sodium 133 mEq/L (136-145) L 02/16/19 16:15 Potassium 4.1 mEq/L (3.5-5.1) 02/16/19 16:15 Chloride 100 mEq/L (98-107) 02/16/19 16:15 Carbon Dioxide 24.3 mEq/L (21.0-31.0) 02/16/19 16:15 Anion Gap 12.8 (7.0-16.0) 02/16/19 16:15 BUN 19 mg/dL (7-25) 02/16/19 16:15 Creatinine 1.2 mg/dL (0.7-1.3) 02/16/19 16:15 Est GFR ( Amer) TNP 02/16/19 16:15 Est GFR (Non-Af Amer) TNP 02/16/19 16:15 BUN/Creatinine Ratio 15.8 02/16/19 16:15 Glucose 93 mg/dL (70-105) 02/16/19 16:15 Calcium 9.2 mg/dL (8.6-10.3) 02/16/19 16:15 Total Bilirubin 0.5 mg/dL (0.3-1.0) 02/16/19 16:15 AST 26 U/L (13-39) 02/16/19 16:15 ALT 19 U/L (7-52) 02/16/19 16:15 Alkaline Phosphatase 67 U/L (34-104) 02/16/19 16:15 Troponin I 0.01 ng/mL (0.01-0.05) 02/16/19 16:15 Total Protein 7.1 gm/dL (6.0-8.3) 02/16/19 16:15 Albumin 4.3 gm/dL (4.2-5.5) 02/16/19 16:15 Globulin 2.8 gm/dL 02/16/19 16:15 Albumin/Globulin Ratio 1.5 (1.0-1.8) 02/16/19 16:15 Urine Source CLEAN C 02/16/19 16:00 Urine Color YELLOW 02/16/19 16:00 Urine Clarity CLEAR (CLEAR) 02/16/19 16:00 Urine pH 6.5 (4.6 - 8.0) 02/16/19 16:00 Ur Specific [place] <= 1.005 (1.005-1.030) 02/16/19 16:00 Urine Protein NEGATIVE mg/dL (NEGATIVE) 02/16/19 16:00 Urine Glucose (UA) NEGATIVE mg/dL (NEGATIVE) 02/16/19 16:00 Urine Ketones NEGATIVE mg/dL (NEGATIVE) 02/16/19 16:00 Urine Blood NEGATIVE (NEGATIVE) 02/16/19 16:00 Urine Nitrate NEGATIVE (NEGATIVE) 02/16/19 16:00 Urine Bilirubin NEGATIVE (NEGATIVE) 02/16/19 16:00 Urine Urobilinogen 0.2 E.U./dL (0.2 - 1.0) 02/16/19 16:00 Ur Leukocyte Esterase TRACE (NEGATIVE) H 02/16/19 16:00 Urine RBC NONE SEEN /hpf (0-5) 02/16/19 16:00 Urine WBC 2-5 /hpf (0-5) 02/16/19 16:00 Ur Epithelial Cells FEW /lpf (FEW) 02/16/19 16:00 Urine Bacteria FEW /hpf (NONE SEEN) 02/16/19 16:00 - Physical Exam Vitals and I&O: Vital Signs Temp 98.1 F 02/23/19 06:27 Pulse 71 02/23/19 08:55 Resp 20 02/23/19 06:27 BP 138/70 02/23/19 08:55 Pulse Ox 97 02/23/19 06:27 Intake & Output 02/22/19 02/23/19 02/23/19 18:59 06:59 18:59 Intake Total 1200 1440 Balance 1200 1440 Intake: Oral 1200 1440 Other: # Voids 6 1 # Bowel Movements 1 Active Medications: Current Medications Acetaminophen (Tylenol) 650 mg PO Q4HR PRN PRN Reason: Mild Pain / Temp above 100 Stop: 04/17/19 19:10 Acetaminophen (Tylenol Extra Strength) 1,000 mg PO Q4HR PRN PRN Reason: MODERATE PAIN Stop: 04/17/19 19:55 Al Hydrox/Mg Hydrox/Simethicone (Maalox) 30 ml PO Q4HR PRN PRN Reason: GI DISTRESS Stop: 04/17/19 19:10 Amlodipine Besylate (Norvasc) 10 mg PO DAILY [facility] Stop: 04/18/19 08:59 Last Admin: 02/23/19 08:55 Dose: 10 mg Docusate Sodium (Colace) 100 mg PO BID [facility] Stop: 04/18/19 08:59 Last Admin: 02/23/19 08:55 Dose: 100 mg Donepezil HCl (Aricept) 10 mg PO DAILY [facility] Stop: 04/18/19 08:59 Last Admin: 02/23/19 08:55 Dose: 10 mg Lorazepam (Ativan) 0.5 mg PO Q4HR PRN; Protocol PRN Reason: Anxiety Stop: 03/18/19 19:10 Last Admin: 02/22/19 08:12 Dose: 0.5 mg Memantine (Namenda) 10 mg PO BID [facility] Stop: 04/18/19 08:59 Last Admin: 02/23/19 08:55 Dose: 10 mg Mupirocin (Bactroban Oint) 1 appl NS BID [facility] Stop: 02/23/19 17:01 Last Admin: 02/22/19 16:33 Dose: 1 appl Quetiapine Fumarate (Seroquel) 200 mg PO BID [facility] Stop: 04/20/19 16:59 Last Admin: 02/23/19 08:55 Dose: 200 mg Zolpidem Tartrate (Ambien) 5 mg PO HS PRN PRN Reason: Insomnia Stop: 04/17/19 19:10 Last Admin: 02/22/19 20:32 Dose: 5 mg General: alert, NAD HEENT: NC/AT, PERRLA Neck: Supple Lungs: CTAB Cardiovascular: RRR, Normal S1, Normal S2 Abdomen: soft, non-tender, non-distended Extremities: excoriation Neurological: no change Internal Medicine Assmt/Plan - Assessment Assessment: Dementia HTN OA - Plan Plan: Continue current treatment plan. Monitor Labs.Continue current medications Continue to monitor VS Monitor Diet/Nutritional support. Psych management per Psychiatry. Pain Management. PT/OT prn Safety precaution, Fall precaution, frequent nursing round. Supportive care. Continue collaborating with consulting specialists, case management and nursing team. Nutritional Asmnt/Malnutr-PDOC - Dietary Evaluation Malnutrition Findings (Please click <Entered> for more info): Nutritional Asmnt/Malnutrition Start: 02/21/19 12: 35 Text: Status: Complete Freq: Protocol: Document 02/21/19 12:35 DEV (Rec: 02/21/19 12:38 DEV [email or web address]) Nutritional Asmnt/Malnutrition Patient General Information Nutritional Screening Low Risk Diagnosis Psychosis Pertinent Medical Hx/Surgical Hx HTN, Psychosis Subjective Information Pt is a 78-year-old male admitted on 02/16 c/o agitation . Pt is eating well, 75-100% meals regularly, adequate to meet estimated nutritional needs. HT: 56 WT: 195 LB (7388.64 kg) ADJ BW: 73.74 kg BMI: 31.47 (Obese) GI: WNL, Soft, Non-Tender BM: 02/21 x1 I/O: 1080/Not Noted Skin: WNL, Intact Perez: 17 Diet Order: Cardiac, Chopped Estimated Energy Needs: (Obese , ADJ BW) 3475-7468 kcals (20-25 kcals/ kg) 59-66g Pro (0.8-0.9 g/kg) 8673-2894 ml (25-30 ml/kg) Pt is eating 100% of meals x 3 days Per Meal/Nutrition Activity Record. Dietary is currently providing an estimated 2338 kcals and 93 gm Pro to meet 100% kcal and 100 +% Pro needs. Current Diet Order/ Nutrition Support Cardiac, Chopped Pertinent Medications Maalox (PRN), Colace Pertinent Labs 02/16: Hgb/Hct 13.0/38.6, Na 133 Nutritional Hx/Data Height 5 ft 6 in Height (Calculated Centimeters) 167.6 Current Weight (lbs) 195 lb Weight (Calculated Kilograms) 88.5 Weight (Calculated Grams) 06389.5 [place] Body Weight 63.8 kg % [place] Body Weight 139 Body Mass Index (BMI) 31.4 Weight Status Obese GI Symptoms GI Symptoms None Last BM 02/21 x1 Skin Integrity/Comment: WNL, Intact Perez: 17 Current %PO Good (75-100%) Estimated Nutritional Goals BEE in Kcals: Adj wt of IBW Calories/Kcals/Kg 20-25 Kcals Calculated 8099-7345 Protein: Adj wt of IBW Protein g/k.8-0.9 Protein Calculated 59-66 Fluid: ml 0545-2006 ml (25-30 ml/kg) Nutritional Problem No current Nutrition Prob Problem No nutrition diagnosis at this time Etiology N/A Signs/Symptoms: N/A Malnutrition Related to Morbid Obesity Malnutrition related to morbid obesity No Intervention/Recommendation Comments 1.Continue with Cardiac, chopped soft diet as ordered. Expected Outcomes/Goals Expected Outcomes/Goals 1.PO intake to continue to meet >75% of nutritional needs . 2.Monitor PO intake, wt, nutrition related labs, and skin integrity. 3.F/U as low risk in 7 days,
--- NOTE | 2019-02-23 23:50 | Progress Notes ---
DATE: 02/23/2019 SUBJECTIVE: The patient is currently in the hospital, slept for about 7 hours. Poorly oriented, confused, delusional, impulsive, grandiose, believes that he owns the hospital, mostly calm at this time, but easily irritated, gets upset when I tried to question him. He slept for about 4-1/2 hours, mostly awakens early mornings. ASSESSMENT: The patient with ongoing symptoms, grandiosities, generally calmer, but still irritated at times with staff easily upset. PLAN: We will continue dosing of Seroquel. Vitals were noted. JOB# [id number]
[2019-02-24] MEDS: Multivitamin w/ Minerals Tab PO SCH (08:12)
--- NOTE | 2019-02-24 13:12 | Internal Medicine Prog Note ---
Internal Medicine Subjective - Subjective Service Date: 02/24/19 Patient seen and examined:: with staff Patient is:: awake, verbal, agitated, confused Patient Complaints of:: other (very confused.) Per staff patient has:: no adverse event, no episodes of fall, tolerating meds Internal Medicine Objective - Results Result Diagrams: 02/16/19 16:15 02/16/19 16:15 Recent Labs: Laboratory Last Values WBC 8.2 Th/cmm (4.8-10.8) 02/16/19 16:15 RBC 4.17 Mil/cmm (3.80-5.80) 02/16/19 16:15 Hgb 13.0 gm/dL (12-16) 02/16/19 16:15 Hct 38.6 % (41.0-60) L 02/16/19 16:15 MCV 92.5 fl (80-99) 02/16/19 16:15 MCH 31.1 pg (27.0-31.0) H 02/16/19 16:15 MCHC Differential 33.6 pg (28.0-36.0) 02/16/19 16:15 RDW 12.7 % (11.5-20.0) 02/16/19 16:15 Plt Count 396 Th/cmm (150-400) 02/16/19 16:15 MPV 6.5 fl 02/16/19 16:15 Neutrophils % 56.2 % (40.0-80.0) 02/16/19 16:15 Lymphocytes % 24.0 % (20.0-50.0) 02/16/19 16:15 Monocytes % 10.7 % (2.0-10.0) H 02/16/19 16:15 Eosinophils % 8.4 % (0.0-5.0) H 02/16/19 16:15 Basophils % 0.7 % (0.0-2.0) 02/16/19 16:15 Sodium 133 mEq/L (136-145) L 02/16/19 16:15 Potassium 4.1 mEq/L (3.5-5.1) 02/16/19 16:15 Chloride 100 mEq/L (98-107) 02/16/19 16:15 Carbon Dioxide 24.3 mEq/L (21.0-31.0) 02/16/19 16:15 Anion Gap 12.8 (7.0-16.0) 02/16/19 16:15 BUN 19 mg/dL (7-25) 02/16/19 16:15 Creatinine 1.2 mg/dL (0.7-1.3) 02/16/19 16:15 Est GFR ( Amer) TNP 02/16/19 16:15 Est GFR (Non-Af Amer) TNP 02/16/19 16:15 BUN/Creatinine Ratio 15.8 02/16/19 16:15 Glucose 93 mg/dL (70-105) 02/16/19 16:15 Calcium 9.2 mg/dL (8.6-10.3) 02/16/19 16:15 Total Bilirubin 0.5 mg/dL (0.3-1.0) 02/16/19 16:15 AST 26 U/L (13-39) 02/16/19 16:15 ALT 19 U/L (7-52) 02/16/19 16:15 Alkaline Phosphatase 67 U/L (34-104) 02/16/19 16:15 Troponin I 0.01 ng/mL (0.01-0.05) 02/16/19 16:15 Total Protein 7.1 gm/dL (6.0-8.3) 02/16/19 16:15 Albumin 4.3 gm/dL (4.2-5.5) 02/16/19 16:15 Globulin 2.8 gm/dL 02/16/19 16:15 Albumin/Globulin Ratio 1.5 (1.0-1.8) 02/16/19 16:15 Urine Source CLEAN C 02/16/19 16:00 Urine Color YELLOW 02/16/19 16:00 Urine Clarity CLEAR (CLEAR) 02/16/19 16:00 Urine pH 6.5 (4.6 - 8.0) 02/16/19 16:00 Ur Specific [place] <= 1.005 (1.005-1.030) 02/16/19 16:00 Urine Protein NEGATIVE mg/dL (NEGATIVE) 02/16/19 16:00 Urine Glucose (UA) NEGATIVE mg/dL (NEGATIVE) 02/16/19 16:00 Urine Ketones NEGATIVE mg/dL (NEGATIVE) 02/16/19 16:00 Urine Blood NEGATIVE (NEGATIVE) 02/16/19 16:00 Urine Nitrate NEGATIVE (NEGATIVE) 02/16/19 16:00 Urine Bilirubin NEGATIVE (NEGATIVE) 02/16/19 16:00 Urine Urobilinogen 0.2 E.U./dL (0.2 - 1.0) 02/16/19 16:00 Ur Leukocyte Esterase TRACE (NEGATIVE) H 02/16/19 16:00 Urine RBC NONE SEEN /hpf (0-5) 02/16/19 16:00 Urine WBC 2-5 /hpf (0-5) 02/16/19 16:00 Ur Epithelial Cells FEW /lpf (FEW) 02/16/19 16:00 Urine Bacteria FEW /hpf (NONE SEEN) 02/16/19 16:00 - Physical Exam Vitals and I&O: Vital Signs Temp 98.1 F 02/24/19 06:13 Pulse 70 02/24/19 08:11 Resp 19 02/24/19 06:13 BP 125/78 02/24/19 08:11 Pulse Ox 96 02/24/19 06:13 Intake & Output 02/23/19 02/24/19 02/24/19 18:59 06:59 18:59 Intake Total 1000 720 Balance 1000 720 Intake: Oral 1000 720 Other: # Voids 4 2 # Bowel Movements 1 Active Medications: Current Medications Acetaminophen (Tylenol) 650 mg PO Q4HR PRN PRN Reason: Mild Pain / Temp above 100 Stop: 04/17/19 19:10 Acetaminophen (Tylenol Extra Strength) 1,000 mg PO Q4HR PRN PRN Reason: MODERATE PAIN Stop: 04/17/19 19:55 Al Hydrox/Mg Hydrox/Simethicone (Maalox) 30 ml PO Q4HR PRN PRN Reason: GI DISTRESS Stop: 04/17/19 19:10 Amlodipine Besylate (Norvasc) 10 mg PO DAILY ON LICENSE OF [facility] Stop: 04/18/19 08:59 Last Admin: 02/24/19 08:11 Dose: 10 mg Docusate Sodium (Colace) 100 mg PO BID [facility] Stop: 04/18/19 08:59 Last Admin: 02/24/19 08:12 Dose: 100 mg Donepezil HCl (Aricept) 10 mg PO DAILY ON LICENSE OF [facility] Stop: 04/18/19 08:59 Last Admin: 02/24/19 08:12 Dose: 10 mg Lorazepam (Ativan) 0.5 mg PO Q4HR PRN; Protocol PRN Reason: Anxiety Stop: 03/18/19 19:10 Last Admin: 02/22/19 08:12 Dose: 0.5 mg Memantine (Namenda) 10 mg PO BID ON LICENSE OF [facility] Stop: 04/18/19 08:59 Last Admin: 02/24/19 08:12 Dose: 10 mg Quetiapine Fumarate 200 mg/ (Quetiapine Fumarate 25 mg) 225 mg PO BID ON LICENSE OF [facility] Stop: 04/25/19 16:59 Zolpidem Tartrate (Ambien) 5 mg PO HS PRN PRN Reason: Insomnia Stop: 04/17/19 19:10 Last Admin: 02/23/19 21:02 Dose: 5 mg Physical Exam: Patient remains dis-oriented, easily agitated, isolates himself. General: alert, NAD HEENT: NC/AT, PERRLA Neck: Supple Lungs: CTAB Cardiovascular: RRR, Normal S1, Normal S2 Abdomen: soft, non-tender, non-distended Extremities: excoriation Neurological: no change Internal Medicine Assmt/Plan - Assessment Assessment: Dementia. Acute Psychosis. Hypertension. Current Active Problems Problem Status Onset AGITATION AND STRIKING OUT BEHAVIOR Acute - Plan Plan: Continuation of care. Monitor Labs. Continue present meds as directed. Monitor vitals, Continue BP meds as directed. Monitor Diet/Nutritional support. Psych management per Psych. Physical therapy/Occupational therapy prn. Fall precaution, frequent nursing rounds, and as needed restraints to prevent fall. Safety precaution. Supportive care. Continue collaborating with consulting specialists, case management and nursing team. Will Monitor patient and continue present care management. Nutritional Asmnt/Malnutr-PDOC - Dietary Evaluation Malnutrition Findings (Please click <Entered> for more info): Nutritional Asmnt/Malnutrition Start: 02/21/19 12: 35 Text: Status: Complete Freq: Protocol: Document 02/21/19 12:35 EDV (Rec: 02/21/19 12:38 DEV [email or web address]) Nutritional Asmnt/Malnutrition Patient General Information Nutritional Screening Low Risk Diagnosis Psychosis Pertinent Medical Hx/Surgical Hx HTN, Psychosis Subjective Information Pt is a 78-year-old male admitted on 02/16 c/o agitation . Pt is eating well, 75-100% meals regularly, adequate to meet estimated nutritional needs. HT: 56 WT: 195 LB (7388.64 kg) ADJ BW: 73.74 kg BMI: 31.47 (Obese) GI: WNL, Soft, Non-Tender BM: 02/21 x1 I/O: 1080/Not Noted Skin: WNL, Intact Perez: 17 Diet Order: Cardiac, Chopped Estimated Energy Needs: (Obese , ADJ BW) 1636-1658 kcals (20-25 kcals/ kg) 59-66g Pro (0.8-0.9 g/kg) 4293-0511 ml (25-30 ml/kg) Pt is eating 100% of meals x 3 days Per Meal/Nutrition Activity Record. Dietary is currently providing an estimated 2338 kcals and 93 gm Pro to meet 100% kcal and 100 +% Pro needs. Current Diet Order/ Nutrition Support Cardiac, Chopped Pertinent Medications Maalox (PRN), Colace Pertinent Labs 02/16: Hgb/Hct 13.0/38.6, Na 133 Nutritional Hx/Data Height 1.68 m Height (Calculated Centimeters) 167.6 Current Weight (lbs) 88.451 kg Weight (Calculated Kilograms) 88.5 Weight (Calculated Grams) 89720.5 [place] Body Weight 63.8 kg % [place] Body Weight 139 Body Mass Index (BMI) 31.4 Weight Status Obese GI Symptoms GI Symptoms None Last BM 02/21 x1 Skin Integrity/Comment: WNL, Intact Perez: 17 Current %PO Good (75-100%) Estimated Nutritional Goals BEE in Kcals: Adj wt of IBW Calories/Kcals/Kg 20-25 Kcals Calculated 7463-5858 Protein: Adj wt of IBW Protein g/k.8-0.9 Protein Calculated 59-66 Fluid: ml 9526-3387 ml (25-30 ml/kg) Nutritional Problem No current Nutrition Prob Problem No nutrition diagnosis at this time Etiology N/A Signs/Symptoms: N/A Malnutrition Related to Morbid Obesity Malnutrition related to morbid obesity No Intervention/Recommendation Comments 1.Continue with Cardiac, chopped soft diet as ordered. Expected Outcomes/Goals Expected Outcomes/Goals 1.PO intake to continue to meet >75% of nutritional needs . 2.Monitor PO intake, wt, nutrition related labs, and skin integrity. 3.F/U as low risk in 7 days,
--- NOTE | 2019-02-24 16:31 | Progress Notes ---
DATE: 02/24/2019 SUBJECTIVE: The patient is currently in the hospital, slept in the chair for the whole night about 4-5 hours, remains with episodes that this is his own house and he is waiting for the kitchen people for his breakfast. At 6:00 a.m. when I go to talk to him, he is still stating that he owns the place, owns the building, easily agitated and irritable. Apparently threw his chips, throwing bingo when he was not winning, poor impulse control, agitated, delusional. ASSESSMENT: The patient remains symptomatic, ongoing delusions, grandiosities. PLAN: We will continue to monitor. I will be slowly increasing his dosing of antipsychotic medications to further stabilize his mood given ongoing behaviors. JOB# [id number]
[2019-02-25] MEDS: Multivitamin w/ Minerals Tab PO SCH (09:28)
--- NOTE | 2019-02-25 17:39 | Internal Medicine Prog Note ---
Internal Medicine Subjective - Subjective Service Date: 02/25/19 Patient is:: awake, verbal, agitated, confused Patient Complaints of:: other (very confused.) Per staff patient has:: no adverse event, no episodes of fall, tolerating meds Internal Medicine Objective - Results Result Diagrams: 02/16/19 16:15 02/16/19 16:15 Recent Labs: Laboratory Last Values WBC 8.2 Th/cmm (4.8-10.8) 02/16/19 16:15 RBC 4.17 Mil/cmm (3.80-5.80) 02/16/19 16:15 Hgb 13.0 gm/dL (12-16) 02/16/19 16:15 Hct 38.6 % (41.0-60) L 02/16/19 16:15 MCV 92.5 fl (80-99) 02/16/19 16:15 MCH 31.1 pg (27.0-31.0) H 02/16/19 16:15 MCHC Differential 33.6 pg (28.0-36.0) 02/16/19 16:15 RDW 12.7 % (11.5-20.0) 02/16/19 16:15 Plt Count 396 Th/cmm (150-400) 02/16/19 16:15 MPV 6.5 fl 02/16/19 16:15 Neutrophils % 56.2 % (40.0-80.0) 02/16/19 16:15 Lymphocytes % 24.0 % (20.0-50.0) 02/16/19 16:15 Monocytes % 10.7 % (2.0-10.0) H 02/16/19 16:15 Eosinophils % 8.4 % (0.0-5.0) H 02/16/19 16:15 Basophils % 0.7 % (0.0-2.0) 02/16/19 16:15 Sodium 133 mEq/L (136-145) L 02/16/19 16:15 Potassium 4.1 mEq/L (3.5-5.1) 02/16/19 16:15 Chloride 100 mEq/L (98-107) 02/16/19 16:15 Carbon Dioxide 24.3 mEq/L (21.0-31.0) 02/16/19 16:15 Anion Gap 12.8 (7.0-16.0) 02/16/19 16:15 BUN 19 mg/dL (7-25) 02/16/19 16:15 Creatinine 1.2 mg/dL (0.7-1.3) 02/16/19 16:15 Est GFR ( Amer) TNP 02/16/19 16:15 Est GFR (Non-Af Amer) TNP 02/16/19 16:15 BUN/Creatinine Ratio 15.8 02/16/19 16:15 Glucose 93 mg/dL (70-105) 02/16/19 16:15 Calcium 9.2 mg/dL (8.6-10.3) 02/16/19 16:15 Total Bilirubin 0.5 mg/dL (0.3-1.0) 02/16/19 16:15 AST 26 U/L (13-39) 02/16/19 16:15 ALT 19 U/L (7-52) 02/16/19 16:15 Alkaline Phosphatase 67 U/L (34-104) 02/16/19 16:15 Troponin I 0.01 ng/mL (0.01-0.05) 02/16/19 16:15 Total Protein 7.1 gm/dL (6.0-8.3) 02/16/19 16:15 Albumin 4.3 gm/dL (4.2-5.5) 02/16/19 16:15 Globulin 2.8 gm/dL 02/16/19 16:15 Albumin/Globulin Ratio 1.5 (1.0-1.8) 02/16/19 16:15 Urine Source CLEAN C 02/16/19 16:00 Urine Color YELLOW 02/16/19 16:00 Urine Clarity CLEAR (CLEAR) 02/16/19 16:00 Urine pH 6.5 (4.6 - 8.0) 02/16/19 16:[address] <= 1.005 (1.005-1.030) 02/16/19 16:00 Urine Protein NEGATIVE mg/dL (NEGATIVE) 02/16/19 16:00 Urine Glucose (UA) NEGATIVE mg/dL (NEGATIVE) 02/16/19 16:00 Urine Ketones NEGATIVE mg/dL (NEGATIVE) 02/16/19 16:00 Urine Blood NEGATIVE (NEGATIVE) 02/16/19 16:00 Urine Nitrate NEGATIVE (NEGATIVE) 02/16/19 16:00 Urine Bilirubin NEGATIVE (NEGATIVE) 02/16/19 16:00 Urine Urobilinogen 0.2 E.U./dL (0.2 - 1.0) 02/16/19 16:00 Ur Leukocyte Esterase TRACE (NEGATIVE) H 02/16/19 16:00 Urine RBC NONE SEEN /hpf (0-5) 02/16/19 16:00 Urine WBC 2-5 /hpf (0-5) 02/16/19 16:00 Ur Epithelial Cells FEW /lpf (FEW) 02/16/19 16:00 Urine Bacteria FEW /hpf (NONE SEEN) 02/16/19 16:00 - Physical Exam Vitals and I&O: Vital Signs Temp 98.5 F 02/25/19 15:11 Pulse 93 02/25/19 15:11 Resp 20 02/25/19 15:11 BP 142/77 02/25/19 15:11 Pulse Ox 96 02/25/19 15:11 Intake & Output 02/24/19 02/25/19 02/25/19 18:59 06:59 18:59 Intake Total 1000 300 Balance 1000 300 Intake: Oral 1000 300 Other: # Voids 4 2 # Bowel Movements 1 0 Active Medications: Current Medications Acetaminophen (Tylenol) 650 mg PO Q4HR PRN PRN Reason: Mild Pain / Temp above 100 Stop: 04/17/19 19:10 Acetaminophen (Tylenol Extra Strength) 1,000 mg PO Q4HR PRN PRN Reason: MODERATE PAIN Stop: 04/17/19 19:55 Al Hydrox/Mg Hydrox/Simethicone (Maalox) 30 ml PO Q4HR PRN PRN Reason: GI DISTRESS Stop: 04/17/19 19:10 Amlodipine Besylate (Norvasc) 10 mg PO DAILY [facility] Stop: 04/18/19 08:59 Last Admin: 02/25/19 09:26 Dose: 10 mg Docusate Sodium (Colace) 100 mg PO BID [facility] Stop: 04/18/19 08:59 Last Admin: 02/25/19 16:28 Dose: 100 mg Donepezil HCl (Aricept) 10 mg PO DAILY [facility] Stop: 04/18/19 08:59 Last Admin: 02/25/19 09:28 Dose: 10 mg Lorazepam (Ativan) 0.5 mg PO Q4HR PRN; Protocol PRN Reason: Anxiety Stop: 03/18/19 19:10 Last Admin: 02/25/19 00:44 Dose: 0.5 mg Memantine (Namenda) 10 mg PO BID [facility] Stop: 04/18/19 08:59 Last Admin: 02/25/19 16:28 Dose: 10 mg Quetiapine Fumarate 200 mg/ (Quetiapine Fumarate 25 mg) 225 mg PO BID [facility] Stop: 04/25/19 16:59 Last Admin: 02/25/19 16:28 Dose: 225 mg Zolpidem Tartrate (Ambien) 5 mg PO HS PRN PRN Reason: Insomnia Stop: 04/17/19 19:10 Last Admin: 02/24/19 20:56 Dose: 5 mg General: alert, NAD HEENT: NC/AT, PERRLA Neck: Supple Lungs: CTAB Cardiovascular: RRR, Normal S1, Normal S2 Abdomen: soft, non-tender, non-distended Extremities: excoriation Neurological: no change Internal Medicine Assmt/Plan - Assessment Assessment: Acute Psychosis. Hypertension. - Plan Plan: Continuation of care. Monitor Labs. Continue present meds as directed. Monitor vitals, Continue BP meds as directed. Monitor Diet/Nutritional support. Psych management per Psych. Physical therapy/Occupational therapy prn. Fall precaution, frequent nursing rounds, and as needed restraints to prevent fall. Safety precaution. Supportive care. Continue collaborating with consulting specialists, case management and nursing team. Will Monitor patient and continue current treatment plan as ordered. Nutritional Asmnt/Malnutr-PDOC - Dietary Evaluation Malnutrition Findings (Please click <Entered> for more info): Nutritional Asmnt/Malnutrition Start: 02/21/19 12: 35 Text: Status: Complete Freq: Protocol: Document 02/21/19 12:35 DEV (Rec: 02/21/19 12:38 DEV [email or web address]) Nutritional Asmnt/Malnutrition Patient General Information Nutritional Screening Low Risk Diagnosis Psychosis Pertinent Medical Hx/Surgical Hx HTN, Psychosis Subjective Information Pt is a 78-year-old male admitted on 02/16 c/o agitation . Pt is eating well, 75-100% meals regularly, adequate to meet estimated nutritional needs. HT: 56 WT: 195 LB (7388.64 kg) ADJ BW: 73.74 kg BMI: 31.47 (Obese) GI: WNL, Soft, Non-Tender BM: 02/21 x1 I/O: 1080/Not Noted Skin: WNL, Intact Perez: 17 Diet Order: Cardiac, Chopped Estimated Energy Needs: (Obese , ADJ BW) 3527-6780 kcals (20-25 kcals/ kg) 59-66g Pro (0.8-0.9 g/kg) 6806-0619 ml (25-30 ml/kg) Pt is eating 100% of meals x 3 days Per Meal/Nutrition Activity Record. Dietary is currently providing an estimated 2338 kcals and 93 gm Pro to meet 100% kcal and 100 +% Pro needs. Current Diet Order/ Nutrition Support Cardiac, Chopped Pertinent Medications Maalox (PRN), Colace Pertinent Labs 02/16: Hgb/Hct 13.0/38.6, Na 133 Nutritional Hx/Data Height 5 ft 6 in Height (Calculated Centimeters) 167.6 Current Weight (lbs) 195 lb Weight (Calculated Kilograms) 88.5 Weight (Calculated Grams) 64111.5 [place] Body Weight 63.8 kg % [place] Body Weight 139 Body Mass Index (BMI) 31.4 Weight Status Obese GI Symptoms GI Symptoms None Last BM 02/21 x1 Skin Integrity/Comment: WNL, Intact Perez: 17 Current %PO Good (75-100%) Estimated Nutritional Goals BEE in Kcals: Adj wt of IBW Calories/Kcals/Kg 20-25 Kcals Calculated 5340-3093 Protein: Adj wt of IBW Protein g/k.8-0.9 Protein Calculated 59-66 Fluid: ml 1773-1159 ml (25-30 ml/kg) Nutritional Problem No current Nutrition Prob Problem No nutrition diagnosis at this time Etiology N/A Signs/Symptoms: N/A Malnutrition Related to Morbid Obesity Malnutrition related to morbid obesity No Intervention/Recommendation Comments 1.Continue with Cardiac, chopped soft diet as ordered. Expected Outcomes/Goals Expected Outcomes/Goals 1.PO intake to continue to meet >75% of nutritional needs . 2.Monitor PO intake, wt, nutrition related labs, and skin integrity. 3.F/U as low risk in 7 days,
--- NOTE | 2019-02-25 22:24 | Progress Notes ---
DATE: 02/25/2019 SUBJECTIVE: The patient slept for about 4 hours, is shifting the chair inside the dining room, the patient is up and down on the chair. The patient still believes he owns the hospital, still bizarre, making bizarre comments, confused, very unpredictable, agitated, believes he can leave at any time, not really making much sense. He is resting comfortably. His confusion is pretty intense and severe, ongoing delusions. Recent dose adjustments of medications. PLAN: We will continue to monitor. JOB# [id number]
[2019-02-26] MEDS: Multivitamin w/ Minerals Tab PO SCH (09:57)
--- NOTE | 2019-02-26 13:51 | Internal Medicine Prog Note ---
Internal Medicine Subjective - Subjective Service Date: 02/26/19 Patient seen and examined:: with staff Patient is:: awake, verbal, agitated, confused Patient Complaints of:: other (very demented.) Per staff patient has:: no adverse event, no episodes of fall, tolerating meds Internal Medicine Objective - Results Result Diagrams: 02/16/19 16:15 02/16/19 16:15 Recent Labs: Laboratory Last Values WBC 8.2 Th/cmm (4.8-10.8) 02/16/19 16:15 RBC 4.17 Mil/cmm (3.80-5.80) 02/16/19 16:15 Hgb 13.0 gm/dL (12-16) 02/16/19 16:15 Hct 38.6 % (41.0-60) L 02/16/19 16:15 MCV 92.5 fl (80-99) 02/16/19 16:15 MCH 31.1 pg (27.0-31.0) H 02/16/19 16:15 MCHC Differential 33.6 pg (28.0-36.0) 02/16/19 16:15 RDW 12.7 % (11.5-20.0) 02/16/19 16:15 Plt Count 396 Th/cmm (150-400) 02/16/19 16:15 MPV 6.5 fl 02/16/19 16:15 Neutrophils % 56.2 % (40.0-80.0) 02/16/19 16:15 Lymphocytes % 24.0 % (20.0-50.0) 02/16/19 16:15 Monocytes % 10.7 % (2.0-10.0) H 02/16/19 16:15 Eosinophils % 8.4 % (0.0-5.0) H 02/16/19 16:15 Basophils % 0.7 % (0.0-2.0) 02/16/19 16:15 Sodium 133 mEq/L (136-145) L 02/16/19 16:15 Potassium 4.1 mEq/L (3.5-5.1) 02/16/19 16:15 Chloride 100 mEq/L (98-107) 02/16/19 16:15 Carbon Dioxide 24.3 mEq/L (21.0-31.0) 02/16/19 16:15 Anion Gap 12.8 (7.0-16.0) 02/16/19 16:15 BUN 19 mg/dL (7-25) 02/16/19 16:15 Creatinine 1.2 mg/dL (0.7-1.3) 02/16/19 16:15 Est GFR ( Amer) TNP 02/16/19 16:15 Est GFR (Non-Af Amer) TNP 02/16/19 16:15 BUN/Creatinine Ratio 15.8 02/16/19 16:15 Glucose 93 mg/dL (70-105) 02/16/19 16:15 Calcium 9.2 mg/dL (8.6-10.3) 02/16/19 16:15 Total Bilirubin 0.5 mg/dL (0.3-1.0) 02/16/19 16:15 AST 26 U/L (13-39) 02/16/19 16:15 ALT 19 U/L (7-52) 02/16/19 16:15 Alkaline Phosphatase 67 U/L (34-104) 02/16/19 16:15 Troponin I 0.01 ng/mL (0.01-0.05) 02/16/19 16:15 Total Protein 7.1 gm/dL (6.0-8.3) 02/16/19 16:15 Albumin 4.3 gm/dL (4.2-5.5) 02/16/19 16:15 Globulin 2.8 gm/dL 02/16/19 16:15 Albumin/Globulin Ratio 1.5 (1.0-1.8) 02/16/19 16:15 Urine Source CLEAN C 02/16/19 16:00 Urine Color YELLOW 02/16/19 16:00 Urine Clarity CLEAR (CLEAR) 02/16/19 16:00 Urine pH 6.5 (4.6 - 8.0) 02/16/19 16:00 Ur Specific [place] <= 1.005 (1.005-1.030) 02/16/19 16:00 Urine Protein NEGATIVE mg/dL (NEGATIVE) 02/16/19 16:00 Urine Glucose (UA) NEGATIVE mg/dL (NEGATIVE) 02/16/19 16:00 Urine Ketones NEGATIVE mg/dL (NEGATIVE) 02/16/19 16:00 Urine Blood NEGATIVE (NEGATIVE) 02/16/19 16:00 Urine Nitrate NEGATIVE (NEGATIVE) 02/16/19 16:00 Urine Bilirubin NEGATIVE (NEGATIVE) 02/16/19 16:00 Urine Urobilinogen 0.2 E.U./dL (0.2 - 1.0) 02/16/19 16:00 Ur Leukocyte Esterase TRACE (NEGATIVE) H 02/16/19 16:00 Urine RBC NONE SEEN /hpf (0-5) 02/16/19 16:00 Urine WBC 2-5 /hpf (0-5) 02/16/19 16:00 Ur Epithelial Cells FEW /lpf (FEW) 02/16/19 16:00 Urine Bacteria FEW /hpf (NONE SEEN) 02/16/19 16:00 - Physical Exam Vitals and I&O: Vital Signs Temp 97.7 F 02/26/19 06:40 Pulse 64 02/26/19 09:56 Resp 20 02/26/19 06:40 BP 131/73 02/26/19 09:56 Pulse Ox 94 02/26/19 06:40 Intake & Output 02/25/19 02/26/19 02/26/19 18:59 06:59 18:59 Intake Total 120 Balance 120 Intake: Oral 120 Other: # Voids 3 # Bowel Movements 0 Active Medications: Current Medications Acetaminophen (Tylenol) 650 mg PO Q4HR PRN PRN Reason: Mild Pain / Temp above 100 Stop: 04/17/19 19:10 Acetaminophen (Tylenol Extra Strength) 1,000 mg PO Q4HR PRN PRN Reason: MODERATE PAIN Stop: 04/17/19 19:55 Al Hydrox/Mg Hydrox/Simethicone (Maalox) 30 ml PO Q4HR PRN PRN Reason: GI DISTRESS Stop: 04/17/19 19:10 Amlodipine Besylate (Norvasc) 10 mg PO DAILY [facility] Stop: 04/18/19 08:59 Last Admin: 02/26/19 09:56 Dose: 10 mg Docusate Sodium (Colace) 100 mg PO BID [facility] Stop: 04/18/19 08:59 Last Admin: 02/26/19 09:57 Dose: 100 mg Donepezil HCl (Aricept) 10 mg PO DAILY [facility] Stop: 04/18/19 08:59 Last Admin: 02/26/19 09:57 Dose: 10 mg Lorazepam (Ativan) 0.5 mg PO Q4HR PRN; Protocol PRN Reason: Anxiety Stop: 03/18/19 19:10 Last Admin: 02/25/19 21:46 Dose: 0.5 mg Memantine (Namenda) 10 mg PO BID [facility] Stop: 04/18/19 08:59 Last Admin: 02/26/19 09:57 Dose: 10 mg Quetiapine Fumarate 200 mg/ (Quetiapine Fumarate 25 mg) 225 mg PO BID [facility] Stop: 04/25/19 16:59 Last Admin: 02/26/19 09:57 Dose: 225 mg Zolpidem Tartrate (Ambien) 5 mg PO HS PRN PRN Reason: Insomnia Stop: 04/17/19 19:10 Last Admin: 02/25/19 20:40 Dose: 5 mg Physical Exam: Patient is very demented, continues to be agitated. General: alert, NAD HEENT: NC/AT, PERRLA Neck: Supple Lungs: CTAB Cardiovascular: RRR, Normal S1, Normal S2 Abdomen: soft, non-tender, non-distended Extremities: excoriation Neurological: no change Internal Medicine Assmt/Plan - Assessment Assessment: Dementia. Acute Psychosis. Hypertension. Current Active Problems Problem Status Onset AGITATION AND STRIKING OUT BEHAVIOR Acute - Plan Plan: Continuation of care. Monitor Labs. Continue present meds as directed. Monitor vitals, Continue BP meds as directed. Monitor Diet/Nutritional support. Psych management per Psych. Physical therapy/Occupational therapy prn. Fall precaution, frequent nursing rounds, and as needed restraints to prevent fall. Safety precaution. Supportive care. Continue collaborating with consulting specialists, case management and nursing team. Will Monitor patient and continue present care management. Nutritional Asmnt/Malnutr-PDOC - Dietary Evaluation Malnutrition Findings (Please click <Entered> for more info): Nutritional Asmnt/Malnutrition Start: 02/21/19 12: 35 Text: Status: Complete Freq: Protocol: Document 02/21/19 12:35 DEV (Rec: 02/21/19 12:38 [email or web address]) Nutritional Asmnt/Malnutrition Patient General Information Nutritional Screening Low Risk Diagnosis Psychosis Pertinent Medical Hx/Surgical Hx HTN, Psychosis Subjective Information Pt is a 78-year-old male admitted on 02/16 c/o agitation . Pt is eating well, 75-100% meals regularly, adequate to meet estimated nutritional needs. HT: 56 WT: 195 LB (7388.64 kg) ADJ BW: 73.74 kg BMI: 31.47 (Obese) GI: WNL, Soft, Non-Tender BM: 02/21 x1 I/O: 1080/Not Noted Skin: WNL, Intact Perez: 17 Diet Order: Cardiac, Chopped Estimated Energy Needs: (Obese , ADJ BW) 6292-5075 kcals (20-25 kcals/ kg) 59-66g Pro (0.8-0.9 g/kg) 5277-9775 ml (25-30 ml/kg) Pt is eating 100% of meals x 3 days Per Meal/Nutrition Activity Record. Dietary is currently providing an estimated 2338 kcals and 93 gm Pro to meet 100% kcal and 100 +% Pro needs. Current Diet Order/ Nutrition Support Cardiac, Chopped Pertinent Medications Maalox (PRN), Colace Pertinent Labs 02/16: Hgb/Hct 13.0/38.6, Na 133 Nutritional Hx/Data Height 1.68 m Height (Calculated Centimeters) 167.6 Current Weight (lbs) 88.451 kg Weight (Calculated Kilograms) 88.5 Weight (Calculated Grams) 61907.5 [place] Body Weight 63.8 kg % [place] Body Weight 139 Body Mass Index (BMI) 31.4 Weight Status Obese GI Symptoms GI Symptoms None Last BM 02/21 x1 Skin Integrity/Comment: WNL, Intact [place]: 17 Current %PO Good (75-100%) Estimated Nutritional Goals BEE in Kcals: Adj wt of IBW Calories/Kcals/Kg 20-25 Kcals Calculated 7841-6164 Protein: Adj wt of IBW Protein g/k.8-0.9 Protein Calculated 59-66 Fluid: ml 7137-9591 ml (25-30 ml/kg) Nutritional Problem No current Nutrition Prob Problem No nutrition diagnosis at this time Etiology N/A Signs/Symptoms: N/A Malnutrition Related to Morbid Obesity Malnutrition related to morbid obesity No Intervention/Recommendation Comments 1.Continue with Cardiac, chopped soft diet as ordered. Expected Outcomes/Goals Expected Outcomes/Goals 1.PO intake to continue to meet >75% of nutritional needs . 2.Monitor PO intake, wt, nutrition related labs, and skin integrity. 3.F/U as low risk in 7 days,
--- NOTE | 2019-02-26 23:30 | Progress Notes ---
DATE: 02/26/2019 SUBJECTIVE: The patient is currently in the hospital, still delusional, believing he owns the hospital, still stating that he is waiting for his friend to come pick him up. When I talked to him, he still is claiming that he can leave at any time and he is noted by staff to be pacing and mumbling to self, grandiose is noted, still irritable, agitated, states that the hospital belongs to him. Currently on somewhat higher dosing of Seroquel, generally seems to be improving, tolerant of the Seroquel. Staff noting he is withdrawn, depressed, easily agitated. Medications were noted. PLAN: We will continue to monitor. Per social insurance specialist note, the patient has been accepted at a halfway. JOB# [id number]
[2019-02-27] MEDS: Multivitamin w/ Minerals Tab PO SCH (09:03)
--- NOTE | 2019-02-27 12:01 | Internal Medicine Prog Note ---
Internal Medicine Subjective - Subjective Service Date: 02/27/19 Patient is:: awake, verbal, agitated, confused Patient Complaints of:: other (very demented.) Per staff patient has:: no adverse event, no episodes of fall, tolerating meds Internal Medicine Objective - Results Result Diagrams: 02/16/19 16:15 02/16/19 16:15 Recent Labs: Laboratory Last Values WBC 8.2 Th/cmm (4.8-10.8) 02/16/19 16:15 RBC 4.17 Mil/cmm (3.80-5.80) 02/16/19 16:15 Hgb 13.0 gm/dL (12-16) 02/16/19 16:15 Hct 38.6 % (41.0-60) L 02/16/19 16:15 MCV 92.5 fl (80-99) 02/16/19 16:15 MCH 31.1 pg (27.0-31.0) H 02/16/19 16:15 MCHC Differential 33.6 pg (28.0-36.0) 02/16/19 16:15 RDW 12.7 % (11.5-20.0) 02/16/19 16:15 Plt Count 396 Th/cmm (150-400) 02/16/19 16:15 MPV 6.5 fl 02/16/19 16:15 Neutrophils % 56.2 % (40.0-80.0) 02/16/19 16:15 Lymphocytes % 24.0 % (20.0-50.0) 02/16/19 16:15 Monocytes % 10.7 % (2.0-10.0) H 02/16/19 16:15 Eosinophils % 8.4 % (0.0-5.0) H 02/16/19 16:15 Basophils % 0.7 % (0.0-2.0) 02/16/19 16:15 Sodium 133 mEq/L (136-145) L 02/16/19 16:15 Potassium 4.1 mEq/L (3.5-5.1) 02/16/19 16:15 Chloride 100 mEq/L (98-107) 02/16/19 16:15 Carbon Dioxide 24.3 mEq/L (21.0-31.0) 02/16/19 16:15 Anion Gap 12.8 (7.0-16.0) 02/16/19 16:15 BUN 19 mg/dL (7-25) 02/16/19 16:15 Creatinine 1.2 mg/dL (0.7-1.3) 02/16/19 16:15 Est GFR ( Amer) TNP 02/16/19 16:15 Est GFR (Non-Af Amer) TNP 02/16/19 16:15 BUN/Creatinine Ratio 15.8 02/16/19 16:15 Glucose 93 mg/dL (70-105) 02/16/19 16:15 Calcium 9.2 mg/dL (8.6-10.3) 02/16/19 16:15 Total Bilirubin 0.5 mg/dL (0.3-1.0) 02/16/19 16:15 AST 26 U/L (13-39) 02/16/19 16:15 ALT 19 U/L (7-52) 02/16/19 16:15 Alkaline Phosphatase 67 U/L (34-104) 02/16/19 16:15 Troponin I 0.01 ng/mL (0.01-0.05) 02/16/19 16:15 Total Protein 7.1 gm/dL (6.0-8.3) 02/16/19 16:15 Albumin 4.3 gm/dL (4.2-5.5) 02/16/19 16:15 Globulin 2.8 gm/dL 02/16/19 16:15 Albumin/Globulin Ratio 1.5 (1.0-1.8) 02/16/19 16:15 Urine Source CLEAN C 02/16/19 16:00 Urine Color YELLOW 02/16/19 16:00 Urine Clarity CLEAR (CLEAR) 02/16/19 16:00 Urine pH 6.5 (4.6 - 8.0) 02/16/19 16:00 Ur Specific [place] <= 1.005 (1.005-1.030) 02/16/19 16:00 Urine Protein NEGATIVE mg/dL (NEGATIVE) 02/16/19 16:00 Urine Glucose (UA) NEGATIVE mg/dL (NEGATIVE) 02/16/19 16:00 Urine Ketones NEGATIVE mg/dL (NEGATIVE) 02/16/19 16:00 Urine Blood NEGATIVE (NEGATIVE) 02/16/19 16:00 Urine Nitrate NEGATIVE (NEGATIVE) 02/16/19 16:00 Urine Bilirubin NEGATIVE (NEGATIVE) 02/16/19 16:00 Urine Urobilinogen 0.2 E.U./dL (0.2 - 1.0) 02/16/19 16:00 Ur Leukocyte Esterase TRACE (NEGATIVE) H 02/16/19 16:00 Urine RBC NONE SEEN /hpf (0-5) 02/16/19 16:00 Urine WBC 2-5 /hpf (0-5) 02/16/19 16:00 Ur Epithelial Cells FEW /lpf (FEW) 02/16/19 16:00 Urine Bacteria FEW /hpf (NONE SEEN) 02/16/19 16:00 - Physical Exam Vitals and I&O: Vital Signs Temp 97.4 F 02/27/19 06:29 Pulse 70 02/27/19 09:01 Resp 20 02/27/19 06:29 BP 131/78 02/27/19 09:01 Pulse Ox 98 02/27/19 06:29 Intake & Output 02/26/19 02/27/19 02/27/19 18:59 06:59 18:59 Intake Total 1200 240 Balance 1200 240 Intake: Oral 1200 240 Other: # Voids 2 # Bowel Movements 1 0 Active Medications: Current Medications Acetaminophen (Tylenol) 650 mg PO Q4HR PRN PRN Reason: Mild Pain / Temp above 100 Stop: 04/17/19 19:10 Acetaminophen (Tylenol Extra Strength) 1,000 mg PO Q4HR PRN PRN Reason: MODERATE PAIN Stop: 04/17/19 19:55 Al Hydrox/Mg Hydrox/Simethicone (Maalox) 30 ml PO Q4HR PRN PRN Reason: GI DISTRESS Stop: 04/17/19 19:10 Amlodipine Besylate (Norvasc) 10 mg PO DAILY [facility] Stop: 04/18/19 08:59 Last Admin: 02/27/19 09:01 Dose: 10 mg Docusate Sodium (Colace) 100 mg PO BID [facility] Stop: 04/18/19 08:59 Last Admin: 02/27/19 09:03 Dose: 100 mg Donepezil HCl (Aricept) 10 mg PO DAILY [facility] Stop: 04/18/19 08:59 Last Admin: 02/27/19 09:02 Dose: 10 mg Lorazepam (Ativan) 0.5 mg PO Q4HR PRN; Protocol PRN Reason: Anxiety Stop: 03/18/19 19:10 Last Admin: 02/26/19 20:47 Dose: 0.5 mg Memantine (Namenda) 10 mg PO BID [facility] Stop: 04/18/19 08:59 Last Admin: 02/27/19 09:03 Dose: 10 mg Quetiapine Fumarate 200 mg/ (Quetiapine Fumarate 25 mg) 225 mg PO BID [facility] Stop: 04/25/19 16:59 Last Admin: 02/27/19 09:03 Dose: 225 mg General: alert, NAD HEENT: NC/AT, PERRLA Neck: Supple Lungs: CTAB Cardiovascular: RRR, Normal S1, Normal S2 Abdomen: soft, non-tender, non-distended Extremities: excoriation Neurological: no change Internal Medicine Assmt/Plan - Assessment Assessment: Acute Psychosis. Hypertension. - Plan Plan: Continuation of care. Monitor Labs. Continue present meds as directed. Monitor vitals, Continue BP meds as directed. Monitor Diet/Nutritional support. Psych management per Psych. Physical therapy/Occupational therapy prn. Fall precaution, frequent nursing rounds, and as needed restraints to prevent fall. Safety precaution. Supportive care. Continue collaborating with consulting specialists, case management and nursing team. Will Monitor patient and continue current treatment plan as ordered. Nutritional Asmnt/Malnutr-PDOC - Dietary Evaluation Malnutrition Findings (Please click <Entered> for more info): Nutritional Asmnt/Malnutrition Start: 02/21/19 12: 35 Text: Status: Complete Freq: Protocol: Document 02/21/19 12:35 DEV (Rec: 02/21/19 12:38 DEV [email or web address]) Nutritional Asmnt/Malnutrition Patient General Information Nutritional Screening Low Risk Diagnosis Psychosis Pertinent Medical Hx/Surgical Hx HTN, Psychosis Subjective Information Pt is a 78-year-old male admitted on 02/16 c/o agitation . Pt is eating well, 75-100% meals regularly, adequate to meet estimated nutritional needs. HT: 56 WT: 195 LB (7388.64 kg) ADJ BW: 73.74 kg BMI: 31.47 (Obese) GI: WNL, Soft, Non-Tender BM: 02/21 x1 I/O: 1080/Not Noted Skin: WNL, Intact Perez: 17 Diet Order: Cardiac, Chopped Estimated Energy Needs: (Obese , ADJ BW) 1304-5992 kcals (20-25 kcals/ kg) 59-66g Pro (0.8-0.9 g/kg) 0101-2676 ml (25-30 ml/kg) Pt is eating 100% of meals x 3 days Per Meal/Nutrition Activity Record. Dietary is currently providing an estimated 2338 kcals and 93 gm Pro to meet 100% kcal and 100 +% Pro needs. Current Diet Order/ Nutrition Support Cardiac, Chopped Pertinent Medications Maalox (PRN), Colace Pertinent Labs 02/16: Hgb/Hct 13.0/38.6, Na 133 Nutritional Hx/Data Height 5 ft 6 in Height (Calculated Centimeters) 167.6 Current Weight (lbs) 195 lb Weight (Calculated Kilograms) 88.5 Weight (Calculated Grams) 30879.5 [place] Body Weight 63.8 kg % [place] Body Weight 139 Body Mass Index (BMI) 31.4 Weight Status Obese GI Symptoms GI Symptoms None Last BM 02/21 x1 Skin Integrity/Comment: WNL, Intact Perez: 17 Current %PO Good (75-100%) Estimated Nutritional Goals BEE in Kcals: Adj wt of IBW Calories/Kcals/Kg 20-25 Kcals Calculated 7341-6772 Protein: Adj wt of IBW Protein g/k.8-0.9 Protein Calculated 59-66 Fluid: ml 4418-4193 ml (25-30 ml/kg) Nutritional Problem No current Nutrition Prob Problem No nutrition diagnosis at this time Etiology N/A Signs/Symptoms: N/A Malnutrition Related to Morbid Obesity Malnutrition related to morbid obesity No Intervention/Recommendation Comments 1.Continue with Cardiac, chopped soft diet as ordered. Expected Outcomes/Goals Expected Outcomes/Goals 1.PO intake to continue to meet >75% of nutritional needs . 2.Monitor PO intake, wt, nutrition related labs, and skin integrity. 3.F/U as low risk in 7 days,
--- NOTE | 2019-02-27 21:11 | Progress Notes ---
DATE: 02/27/2019 SUBJECTIVE: The patient in the hospital, still believes he owns the hospital, grandiose, episodes of him being very forgetful, otherwise calm, generally cooperative. The patient with erratic sleep, still noted to be unruly, gets angry, upset at times. ASSESSMENT: The patient remains delusional and grandiose. I will be adjusting his sleeping medications. PLAN: We will continue to monitor closely, although he does seem to be approaching his baseline certainly had been calmer since admission. JOB# [id number]
[2019-02-28] MEDS: Multivitamin w/ Minerals Tab PO SCH (08:34)
--- NOTE | 2019-02-28 09:25 | Internal Medicine Prog Note ---
Internal Medicine Subjective - Subjective Service Date: 02/28/19 Patient seen and examined:: with staff Patient is:: awake, verbal, agitated, confused Patient Complaints of:: other (very demented.) Per staff patient has:: no adverse event, no episodes of fall, tolerating meds Internal Medicine Objective - Results Result Diagrams: 02/16/19 16:15 02/16/19 16:15 Recent Labs: Laboratory Last Values WBC 8.2 Th/cmm (4.8-10.8) 02/16/19 16:15 RBC 4.17 Mil/cmm (3.80-5.80) 02/16/19 16:15 Hgb 13.0 gm/dL (12-16) 02/16/19 16:15 Hct 38.6 % (41.0-60) L 02/16/19 16:15 MCV 92.5 fl (80-99) 02/16/19 16:15 MCH 31.1 pg (27.0-31.0) H 02/16/19 16:15 MCHC Differential 33.6 pg (28.0-36.0) 02/16/19 16:15 RDW 12.7 % (11.5-20.0) 02/16/19 16:15 Plt Count 396 Th/cmm (150-400) 02/16/19 16:15 MPV 6.5 fl 02/16/19 16:15 Neutrophils % 56.2 % (40.0-80.0) 02/16/19 16:15 Lymphocytes % 24.0 % (20.0-50.0) 02/16/19 16:15 Monocytes % 10.7 % (2.0-10.0) H 02/16/19 16:15 Eosinophils % 8.4 % (0.0-5.0) H 02/16/19 16:15 Basophils % 0.7 % (0.0-2.0) 02/16/19 16:15 Sodium 133 mEq/L (136-145) L 02/16/19 16:15 Potassium 4.1 mEq/L (3.5-5.1) 02/16/19 16:15 Chloride 100 mEq/L (98-107) 02/16/19 16:15 Carbon Dioxide 24.3 mEq/L (21.0-31.0) 02/16/19 16:15 Anion Gap 12.8 (7.0-16.0) 02/16/19 16:15 BUN 19 mg/dL (7-25) 02/16/19 16:15 Creatinine 1.2 mg/dL (0.7-1.3) 02/16/19 16:15 Est GFR ( Amer) TNP 02/16/19 16:15 Est GFR (Non-Af Amer) TNP 02/16/19 16:15 BUN/Creatinine Ratio 15.8 02/16/19 16:15 Glucose 93 mg/dL (70-105) 02/16/19 16:15 Calcium 9.2 mg/dL (8.6-10.3) 02/16/19 16:15 Total Bilirubin 0.5 mg/dL (0.3-1.0) 02/16/19 16:15 AST 26 U/L (13-39) 02/16/19 16:15 ALT 19 U/L (7-52) 02/16/19 16:15 Alkaline Phosphatase 67 U/L (34-104) 02/16/19 16:15 Troponin I 0.01 ng/mL (0.01-0.05) 02/16/19 16:15 Total Protein 7.1 gm/dL (6.0-8.3) 02/16/19 16:15 Albumin 4.3 gm/dL (4.2-5.5) 02/16/19 16:15 Globulin 2.8 gm/dL 02/16/19 16:15 Albumin/Globulin Ratio 1.5 (1.0-1.8) 02/16/19 16:15 Urine Source CLEAN C 02/16/19 16:00 Urine Color YELLOW 02/16/19 16:00 Urine Clarity CLEAR (CLEAR) 02/16/19 16:00 Urine pH 6.5 (4.6 - 8.0) 02/16/19 16:00 Ur Specific [place] <= 1.005 (1.005-1.030) 02/16/19 16:00 Urine Protein NEGATIVE mg/dL (NEGATIVE) 02/16/19 16:00 Urine Glucose (UA) NEGATIVE mg/dL (NEGATIVE) 02/16/19 16:00 Urine Ketones NEGATIVE mg/dL (NEGATIVE) 02/16/19 16:00 Urine Blood NEGATIVE (NEGATIVE) 02/16/19 16:00 Urine Nitrate NEGATIVE (NEGATIVE) 02/16/19 16:00 Urine Bilirubin NEGATIVE (NEGATIVE) 02/16/19 16:00 Urine Urobilinogen 0.2 E.U./dL (0.2 - 1.0) 02/16/19 16:00 Ur Leukocyte Esterase TRACE (NEGATIVE) H 02/16/19 16:00 Urine RBC NONE SEEN /hpf (0-5) 02/16/19 16:00 Urine WBC 2-5 /hpf (0-5) 02/16/19 16:00 Ur Epithelial Cells FEW /lpf (FEW) 02/16/19 16:00 Urine Bacteria FEW /hpf (NONE SEEN) 02/16/19 16:00 - Physical Exam Vitals and I&O: Vital Signs Temp 97.8 F 02/27/19 14:00 Pulse 82 02/28/19 08:34 Resp 20 02/27/19 14:00 BP 134/77 02/28/19 08:34 Pulse Ox 96 02/27/19 14:00 Intake & Output 02/27/19 02/28/19 02/28/19 18:59 06:59 18:59 Intake Total 1000 Balance 1000 Intake: Oral 1000 Other: # Voids 4 # Bowel Movements 1 Active Medications: Current Medications Acetaminophen (Tylenol) 650 mg PO Q4HR PRN PRN Reason: Mild Pain / Temp above 100 Stop: 04/17/19 19:10 Acetaminophen (Tylenol Extra Strength) 1,000 mg PO Q4HR PRN PRN Reason: MODERATE PAIN Stop: 04/17/19 19:55 Al Hydrox/Mg Hydrox/Simethicone (Maalox) 30 ml PO Q4HR PRN PRN Reason: GI DISTRESS Stop: 04/17/19 19:10 Amlodipine Besylate (Norvasc) 10 mg PO DAILY [facility] Stop: 04/18/19 08:59 Last Admin: 02/28/19 08:34 Dose: 10 mg Docusate Sodium (Colace) 100 mg PO BID [facility] Stop: 04/18/19 08:59 Last Admin: 02/28/19 08:35 Dose: 100 mg Donepezil HCl (Aricept) 10 mg PO DAILY [facility] Stop: 04/18/19 08:59 Last Admin: 02/28/19 08:35 Dose: 10 mg Lorazepam (Ativan) 0.5 mg PO Q4HR PRN; Protocol PRN Reason: Anxiety Stop: 03/18/19 19:10 Last Admin: 02/27/19 18:24 Dose: 0.5 mg Memantine (Namenda) 10 mg PO BID [facility] Stop: 04/18/19 08:59 Last Admin: 02/28/19 08:34 Dose: 10 mg Quetiapine Fumarate 200 mg/ (Quetiapine Fumarate 25 mg) 225 mg PO BID [facility] Stop: 04/25/19 16:59 Last Admin: 02/28/19 08:35 Dose: 225 mg Physical Exam: Patient is very confused, agitated, very dis-oriented. General: alert, NAD HEENT: NC/AT, PERRLA Neck: Supple Lungs: CTAB Cardiovascular: RRR, Normal S1, Normal S2 Abdomen: soft, non-tender, non-distended Extremities: excoriation Neurological: no change Internal Medicine Assmt/Plan - Assessment Assessment: Dementia. Acute Psychosis. Hypertension. Current Active Problems Problem Status Onset AGITATION AND STRIKING OUT BEHAVIOR Acute - Plan Plan: Continuation of care. Monitor Labs. Continue present meds as directed. Monitor vitals, Continue BP meds as directed. Monitor Diet/Nutritional support. Psych management per Psych. Physical therapy/Occupational therapy prn. Fall precaution, frequent nursing rounds, and as needed restraints to prevent fall. Safety precaution. Supportive care. Continue collaborating with consulting specialists, case management and nursing team. Will Monitor patient and continue present care management. Nutritional Asmnt/Malnutr-PDOC - Dietary Evaluation Malnutrition Findings (Please click <Entered> for more info): Nutritional Asmnt/Malnutrition Start: 02/21/19 12: 35 Text: Status: Complete Freq: Protocol: Document 02/21/19 12:35 DEV (Rec: 02/21/19 12:38 DEV [email or web address]) Nutritional Asmnt/Malnutrition Patient General Information Nutritional Screening Low Risk Diagnosis Psychosis Pertinent Medical Hx/Surgical Hx HTN, Psychosis Subjective Information Pt is a 78-year-old male admitted on 02/16 c/o agitation . Pt is eating well, 75-100% meals regularly, adequate to meet estimated nutritional needs. HT: 56 WT: 195 LB (7388.64 kg) ADJ BW: 73.74 kg BMI: 31.47 (Obese) GI: WNL, Soft, Non-Tender BM: 02/21 x1 I/O: 1080/Not Noted Skin: WNL, Intact Perez: 17 Diet Order: Cardiac, Chopped Estimated Energy Needs: (Obese , ADJ BW) 2246-1128 kcals (20-25 kcals/ kg) 59-66g Pro (0.8-0.9 g/kg) 9435-7266 ml (25-30 ml/kg) Pt is eating 100% of meals x 3 days Per Meal/Nutrition Activity Record. Dietary is currently providing an estimated 2338 kcals and 93 gm Pro to meet 100% kcal and 100 +% Pro needs. Current Diet Order/ Nutrition Support Cardiac, Chopped Pertinent Medications Maalox (PRN), Colace Pertinent Labs 02/16: Hgb/Hct 13.0/38.6, Na 133 Nutritional Hx/Data Height 1.68 m Height (Calculated Centimeters) 167.6 Current Weight (lbs) 88.451 kg Weight (Calculated Kilograms) 88.5 Weight (Calculated Grams) 59328.5 [place] Body Weight 63.8 kg % [place] Body Weight 139 Body Mass Index (BMI) 31.4 Weight Status Obese GI Symptoms GI Symptoms None Last BM 02/21 x1 Skin Integrity/Comment: WNL, Intact Perez: 17 Current %PO Good (75-100%) Estimated Nutritional Goals BEE in Kcals: Adj wt of IBW Calories/Kcals/Kg 20-25 Kcals Calculated 1503-5368 Protein: Adj wt of IBW Protein g/k.8-0.9 Protein Calculated 59-66 Fluid: ml 7250-5128 ml (25-30 ml/kg) Nutritional Problem No current Nutrition Prob Problem No nutrition diagnosis at this time Etiology N/A Signs/Symptoms: N/A Malnutrition Related to Morbid Obesity Malnutrition related to morbid obesity No Intervention/Recommendation Comments 1.Continue with Cardiac, chopped soft diet as ordered. Expected Outcomes/Goals Expected Outcomes/Goals 1.PO intake to continue to meet >75% of nutritional needs . 2.Monitor PO intake, wt, nutrition related labs, and skin integrity. 3.F/U as low risk in 7 days,
--- NOTE | 2019-03-01 02:02 | Progress Notes ---
DATE: 02/28/2019 SUBJECTIVE: The patient in the hospital, still grandiose, talking about owning the hospital. He is calmer in general, but he still lashes out, impulsive, unpredictable, easily agitated, mostly watching TV, very confused, has no idea where he is. 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 Fair sleep, fair appetite. 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 PLAN: We will continue to monitor, improvement noted. He is mildly calmer. JOB# [id number]
[2019-03-01] MEDS: Multivitamin w/ Minerals Tab PO SCH (09:09)
--- NOTE | 2019-03-01 20:55 | Progress Notes ---
DATE: 03/01/2019 Case was discussed with staff of the patient, reviewed records. The patient is a 78-year-old male who was admitted on 02/16/2019 because of aggressive behavior, uncooperative, confused, grandiose, unable to make sense, diagnosed with dementia with behavior problems and psychosis. The patient continues to be unpredictable, impulsive, confused, unable to make safe plan for self-care and he has been on Aricept 10 mg at bedtime, Namenda 10 mg twice a day, Seroquel that was increased to 225 mg twice a day with no side effects, no sedation or nausea. Continues to have episodes of agitation, irritability. No side effects with the medication, no sedation, no nausea, no extrapyramidal symptoms. We will continue to work with the patient in group therapy, milieu therapy, and adjust medications as needed. JOB# [id number]
--- NOTE | 2019-03-01 23:30 | Progress Notes ---
DATE: 03/01/2019 SUBJECTIVE: The patient was seen at the dining area. The patient appears to be guarded, easily gets frustrated. The patient has poor impulse control and unpredictable behavior, otherwise the patient is in no acute distress. OBJECTIVE: VITAL SIGNS: Temperature 98, heart rate 62, blood pressure 132/65, respirations 20, 98% on room air. HEENT: Head is atraumatic and normocephalic. Eyes, bilateral conjunctivae are clear. Bilateral pupils equal, round, reactive. NECK: Supple. No JVD. CARDIOVASCULAR: S1 and S2, without murmur. PULMONARY: Clear to auscultation. GASTROINTESTINAL: Soft. MUSCULOSKELETAL: No clubbing, no cyanosis noted. ASSESSMENT: 1. Dementia. 2. Hypertension. 3. Osteoarthritis. PLAN: We will continue to keep the patient in inpatient Psychiatric Unit. We will follow up with a psychiatrist to monitor the patient's condition and behavior. Treatment plans were discussed with the patient's nurse. Treatment plans were discussed with Dr. Avery. JOB# [id number]
[2019-03-02] MEDS: Multivitamin w/ Minerals Tab PO SCH (08:44)
--- NOTE | 2019-03-02 09:32 | Internal Medicine Prog Note ---
Internal Medicine Subjective - Subjective Patient is:: awake, verbal, agitated, confused Patient Complaints of:: other (very demented.) Per staff patient has:: no adverse event, no episodes of fall, tolerating meds Internal Medicine Objective - Results Result Diagrams: 02/16/19 16:15 02/16/19 16:15 Recent Labs: Laboratory Last Values WBC 8.2 Th/cmm (4.8-10.8) 02/16/19 16:15 RBC 4.17 Mil/cmm (3.80-5.80) 02/16/19 16:15 Hgb 13.0 gm/dL (12-16) 02/16/19 16:15 Hct 38.6 % (41.0-60) L 02/16/19 16:15 MCV 92.5 fl (80-99) 02/16/19 16:15 MCH 31.1 pg (27.0-31.0) H 02/16/19 16:15 MCHC Differential 33.6 pg (28.0-36.0) 02/16/19 16:15 RDW 12.7 % (11.5-20.0) 02/16/19 16:15 Plt Count 396 Th/cmm (150-400) 02/16/19 16:15 MPV 6.5 fl 02/16/19 16:15 Neutrophils % 56.2 % (40.0-80.0) 02/16/19 16:15 Lymphocytes % 24.0 % (20.0-50.0) 02/16/19 16:15 Monocytes % 10.7 % (2.0-10.0) H 02/16/19 16:15 Eosinophils % 8.4 % (0.0-5.0) H 02/16/19 16:15 Basophils % 0.7 % (0.0-2.0) 02/16/19 16:15 Sodium 133 mEq/L (136-145) L 02/16/19 16:15 Potassium 4.1 mEq/L (3.5-5.1) 02/16/19 16:15 Chloride 100 mEq/L (98-107) 02/16/19 16:15 Carbon Dioxide 24.3 mEq/L (21.0-31.0) 02/16/19 16:15 Anion Gap 12.8 (7.0-16.0) 02/16/19 16:15 BUN 19 mg/dL (7-25) 02/16/19 16:15 Creatinine 1.2 mg/dL (0.7-1.3) 02/16/19 16:15 Est GFR ( Amer) TNP 02/16/19 16:15 Est GFR (Non-Af Amer) TNP 02/16/19 16:15 BUN/Creatinine Ratio 15.8 02/16/19 16:15 Glucose 93 mg/dL (70-105) 02/16/19 16:15 Calcium 9.2 mg/dL (8.6-10.3) 02/16/19 16:15 Total Bilirubin 0.5 mg/dL (0.3-1.0) 02/16/19 16:15 AST 26 U/L (13-39) 02/16/19 16:15 ALT 19 U/L (7-52) 02/16/19 16:15 Alkaline Phosphatase 67 U/L (34-104) 02/16/19 16:15 Troponin I 0.01 ng/mL (0.01-0.05) 02/16/19 16:15 Total Protein 7.1 gm/dL (6.0-8.3) 02/16/19 16:15 Albumin 4.3 gm/dL (4.2-5.5) 02/16/19 16:15 Globulin 2.8 gm/dL 02/16/19 16:15 Albumin/Globulin Ratio 1.5 (1.0-1.8) 02/16/19 16:15 Urine Source CLEAN C 02/16/19 16:00 Urine Color YELLOW 02/16/19 16:00 Urine Clarity CLEAR (CLEAR) 02/16/19 16:00 Urine pH 6.5 (4.6 - 8.0) 02/16/19 16:00 Ur Specific [place] <= 1.005 (1.005-1.030) 02/16/19 16:00 Urine Protein NEGATIVE mg/dL (NEGATIVE) 02/16/19 16:00 Urine Glucose (UA) NEGATIVE mg/dL (NEGATIVE) 02/16/19 16:00 Urine Ketones NEGATIVE mg/dL (NEGATIVE) 02/16/19 16:00 Urine Blood NEGATIVE (NEGATIVE) 02/16/19 16:00 Urine Nitrate NEGATIVE (NEGATIVE) 02/16/19 16:00 Urine Bilirubin NEGATIVE (NEGATIVE) 02/16/19 16:00 Urine Urobilinogen 0.2 E.U./dL (0.2 - 1.0) 02/16/19 16:00 Ur Leukocyte Esterase TRACE (NEGATIVE) H 02/16/19 16:00 Urine RBC NONE SEEN /hpf (0-5) 02/16/19 16:00 Urine WBC 2-5 /hpf (0-5) 02/16/19 16:00 Ur Epithelial Cells FEW /lpf (FEW) 02/16/19 16:00 Urine Bacteria FEW /hpf (NONE SEEN) 02/16/19 16:00 - Physical Exam Vitals and I&O: Vital Signs Temp 98 F 03/02/19 06:25 Pulse 87 03/02/19 08:44 Resp 18 03/02/19 06:25 BP 133/78 03/02/19 08:44 Pulse Ox 97 03/02/19 06:25 Intake & Output 03/01/19 03/02/19 03/02/19 18:59 06:59 18:59 Intake Total 1500 120 Balance 1500 120 Intake: Oral 1500 120 Other: # Voids 4 3 # Bowel Movements 0 Active Medications: Current Medications Acetaminophen (Tylenol) 650 mg PO Q4HR PRN PRN Reason: Mild Pain / Temp above 100 Stop: 04/17/19 19:10 Acetaminophen (Tylenol Extra Strength) 1,000 mg PO Q4HR PRN PRN Reason: MODERATE PAIN Stop: 04/17/19 19:55 Al Hydrox/Mg Hydrox/Simethicone (Maalox) 30 ml PO Q4HR PRN PRN Reason: GI DISTRESS Stop: 04/17/19 19:10 Amlodipine Besylate (Norvasc) 10 mg PO DAILY [facility] Stop: 04/18/19 08:59 Last Admin: 03/02/19 08:44 Dose: 10 mg Docusate Sodium (Colace) 100 mg PO BID [facility] Stop: 04/18/19 08:59 Last Admin: 03/02/19 08:43 Dose: 100 mg Donepezil HCl (Aricept) 10 mg PO DAILY [facility] Stop: 04/18/19 08:59 Last Admin: 03/02/19 08:43 Dose: 10 mg Memantine (Namenda) 10 mg PO BID [facility] Stop: 04/18/19 08:59 Last Admin: 03/02/19 08:43 Dose: 10 mg Quetiapine Fumarate 200 mg/ (Quetiapine Fumarate 25 mg) 225 mg PO BID [facility] Stop: 04/25/19 16:59 Last Admin: 03/02/19 08:43 Dose: 225 mg General: alert, NAD HEENT: NC/AT, PERRLA Neck: Supple, No JVD Lungs: CTAB Cardiovascular: RRR, Normal S1, Normal S2 Abdomen: soft, non-tender, non-distended Extremities: excoriation Neurological: no change Internal Medicine Assmt/Plan - Assessment Assessment: Dementia HTN OA - Plan Plan: Continue current treatment plan. Monitor Labs.Continue current medications Continue to monitor VS Monitor Diet/Nutritional support. Psych management per Psychiatry. Pain Management. PT/OT prn Safety precaution, Fall precaution, frequent nursing round. Supportive care. Continue collaborating with consulting specialists, case management and nursing team. Nutritional Asmnt/Malnutr-PDOC - Dietary Evaluation Malnutrition Findings (Please click <Entered> for more info): Nutritional Asmnt/Malnutrition Start: 02/21/19 12: 35 Text: Status: Complete Freq: Protocol: Document 02/21/19 12:35 DEV (Rec: 02/21/19 12:38 DEV [email or web address]) Nutritional Asmnt/Malnutrition Patient General Information Nutritional Screening Low Risk Diagnosis Psychosis Pertinent Medical Hx/Surgical Hx HTN, Psychosis Subjective Information Pt is a 78-year-old male admitted on 02/16 c/o agitation . Pt is eating well, 75-100% meals regularly, adequate to meet estimated nutritional needs. HT: 56 WT: 195 LB (7388.64 kg) ADJ BW: 73.74 kg BMI: 31.47 (Obese) GI: WNL, Soft, Non-Tender BM: 02/21 x1 I/O: 1080/Not Noted Skin: WNL, Intact Perez: 17 Diet Order: Cardiac, Chopped Estimated Energy Needs: (Obese , ADJ BW) 6247-4605 kcals (20-25 kcals/ kg) 59-66g Pro (0.8-0.9 g/kg) 8246-3924 ml (25-30 ml/kg) Pt is eating 100% of meals x 3 days Per Meal/Nutrition Activity Record. Dietary is currently providing an estimated 2338 kcals and 93 gm Pro to meet 100% kcal and 100 +% Pro needs. Current Diet Order/ Nutrition Support Cardiac, Chopped Pertinent Medications Maalox (PRN), Colace Pertinent Labs 02/16: Hgb/Hct 13.0/38.6, Na 133 Nutritional Hx/Data Height 5 ft 6 in Height (Calculated Centimeters) 167.6 Current Weight (lbs) 195 lb Weight (Calculated Kilograms) 88.5 Weight (Calculated Grams) 89175.5 [place] Body Weight 63.8 kg % [place] Body Weight 139 Body Mass Index (BMI) 31.4 Weight Status Obese GI Symptoms GI Symptoms None Last BM 02/21 x1 Skin Integrity/Comment: WNL, Intact Perez: 17 Current %PO Good (75-100%) Estimated Nutritional Goals BEE in Kcals: Adj wt of IBW Calories/Kcals/Kg 20-25 Kcals Calculated 7980-4835 Protein: Adj wt of IBW Protein g/k.8-0.9 Protein Calculated 59-66 Fluid: ml 4733-0038 ml (25-30 ml/kg) Nutritional Problem No current Nutrition Prob Problem No nutrition diagnosis at this time Etiology N/A Signs/Symptoms: N/A Malnutrition Related to Morbid Obesity Malnutrition related to morbid obesity No Intervention/Recommendation Comments 1.Continue with Cardiac, chopped soft diet as ordered. Expected Outcomes/Goals Expected Outcomes/Goals 1.PO intake to continue to meet >75% of nutritional needs . 2.Monitor PO intake, wt, nutrition related labs, and skin integrity. 3.F/U as low risk in 7 days,
--- NOTE | 2019-03-02 22:24 | Progress Notes ---
DATE: 03/02/2019 Case was discussed with staff of the patient, reviewed records. The patient continues to be unpredictable, impulsive, confused, grandiose, unable to make sense, demented with some behavioral issues. She is sleeping better, eating better. No side effects with the medication, no sedation, no nausea, no extrapyramidal symptoms. We will continue to work with the patient in group therapy, milieu therapy, and adjust the medication as needed. JOB# [id number]
[2019-03-03] MEDS: Multivitamin w/ Minerals Tab PO SCH (08:55)
--- NOTE | 2019-03-03 10:10 | Internal Medicine Prog Note ---
Internal Medicine Subjective - Subjective Service Date: 03/03/19 Patient seen and examined:: with staff, chart reviewed Patient is:: awake, verbal, agitated, confused Patient Complaints of:: other (very demented.) Per staff patient has:: no adverse event, no episodes of fall, tolerating meds Internal Medicine Objective - Results Result Diagrams: 02/16/19 16:15 02/16/19 16:15 Recent Labs: Laboratory Last Values WBC 8.2 Th/cmm (4.8-10.8) 02/16/19 16:15 RBC 4.17 Mil/cmm (3.80-5.80) 02/16/19 16:15 Hgb 13.0 gm/dL (12-16) 02/16/19 16:15 Hct 38.6 % (41.0-60) L 02/16/19 16:15 MCV 92.5 fl (80-99) 02/16/19 16:15 MCH 31.1 pg (27.0-31.0) H 02/16/19 16:15 MCHC Differential 33.6 pg (28.0-36.0) 02/16/19 16:15 RDW 12.7 % (11.5-20.0) 02/16/19 16:15 Plt Count 396 Th/cmm (150-400) 02/16/19 16:15 MPV 6.5 fl 02/16/19 16:15 Neutrophils % 56.2 % (40.0-80.0) 02/16/19 16:15 Lymphocytes % 24.0 % (20.0-50.0) 02/16/19 16:15 Monocytes % 10.7 % (2.0-10.0) H 02/16/19 16:15 Eosinophils % 8.4 % (0.0-5.0) H 02/16/19 16:15 Basophils % 0.7 % (0.0-2.0) 02/16/19 16:15 Sodium 133 mEq/L (136-145) L 02/16/19 16:15 Potassium 4.1 mEq/L (3.5-5.1) 02/16/19 16:15 Chloride 100 mEq/L (98-107) 02/16/19 16:15 Carbon Dioxide 24.3 mEq/L (21.0-31.0) 02/16/19 16:15 Anion Gap 12.8 (7.0-16.0) 02/16/19 16:15 BUN 19 mg/dL (7-25) 02/16/19 16:15 Creatinine 1.2 mg/dL (0.7-1.3) 02/16/19 16:15 Est GFR ( Amer) TNP 02/16/19 16:15 Est GFR (Non-Af Amer) TNP 02/16/19 16:15 BUN/Creatinine Ratio 15.8 02/16/19 16:15 Glucose 93 mg/dL (70-105) 02/16/19 16:15 Calcium 9.2 mg/dL (8.6-10.3) 02/16/19 16:15 Total Bilirubin 0.5 mg/dL (0.3-1.0) 02/16/19 16:15 AST 26 U/L (13-39) 02/16/19 16:15 ALT 19 U/L (7-52) 02/16/19 16:15 Alkaline Phosphatase 67 U/L (34-104) 02/16/19 16:15 Troponin I 0.01 ng/mL (0.01-0.05) 02/16/19 16:15 Total Protein 7.1 gm/dL (6.0-8.3) 02/16/19 16:15 Albumin 4.3 gm/dL (4.2-5.5) 02/16/19 16:15 Globulin 2.8 gm/dL 02/16/19 16:15 Albumin/Globulin Ratio 1.5 (1.0-1.8) 02/16/19 16:15 Urine Source CLEAN C 02/16/19 16:00 Urine Color YELLOW 02/16/19 16:00 Urine Clarity CLEAR (CLEAR) 02/16/19 16:00 Urine pH 6.5 (4.6 - 8.0) 02/16/19 16:00 Ur Specific [place] <= 1.005 (1.005-1.030) 02/16/19 16:00 Urine Protein NEGATIVE mg/dL (NEGATIVE) 02/16/19 16:00 Urine Glucose (UA) NEGATIVE mg/dL (NEGATIVE) 02/16/19 16:00 Urine Ketones NEGATIVE mg/dL (NEGATIVE) 02/16/19 16:00 Urine Blood NEGATIVE (NEGATIVE) 02/16/19 16:00 Urine Nitrate NEGATIVE (NEGATIVE) 02/16/19 16:00 Urine Bilirubin NEGATIVE (NEGATIVE) 02/16/19 16:00 Urine Urobilinogen 0.2 E.U./dL (0.2 - 1.0) 02/16/19 16:00 Ur Leukocyte Esterase TRACE (NEGATIVE) H 02/16/19 16:00 Urine RBC NONE SEEN /hpf (0-5) 02/16/19 16:00 Urine WBC 2-5 /hpf (0-5) 02/16/19 16:00 Ur Epithelial Cells FEW /lpf (FEW) 02/16/19 16:00 Urine Bacteria FEW /hpf (NONE SEEN) 02/16/19 16:00 - Physical Exam Vitals and I&O: Vital Signs Temp 98.1 F 03/03/19 05:23 Pulse 70 03/03/19 08:54 Resp 19 03/03/19 05:23 BP 138/76 03/03/19 08:54 Pulse Ox 97 03/03/19 05:23 Intake & Output 03/02/19 03/03/19 03/03/19 18:59 06:59 18:59 Intake Total 1400 480 Balance 1400 480 Intake: Oral 1400 480 Other: # Voids 4 2 # Bowel Movements 1 Active Medications: Current Medications Acetaminophen (Tylenol) 650 mg PO Q4HR PRN PRN Reason: Mild Pain / Temp above 100 Stop: 04/17/19 19:10 Acetaminophen (Tylenol Extra Strength) 1,000 mg PO Q4HR PRN PRN Reason: MODERATE PAIN Stop: 04/17/19 19:55 Al Hydrox/Mg Hydrox/Simethicone (Maalox) 30 ml PO Q4HR PRN PRN Reason: GI DISTRESS Stop: 04/17/19 19:10 Amlodipine Besylate (Norvasc) 10 mg PO DAILY [facility] Stop: 04/18/19 08:59 Last Admin: 03/03/19 08:54 Dose: 10 mg Docusate Sodium (Colace) 100 mg PO BID [facility] Stop: 04/18/19 08:59 Last Admin: 03/03/19 08:55 Dose: Not Given Donepezil HCl (Aricept) 10 mg PO DAILY [facility] Stop: 04/18/19 08:59 Last Admin: 03/03/19 08:55 Dose: 10 mg Memantine (Namenda) 10 mg PO BID [facility] Stop: 04/18/19 08:59 Last Admin: 03/03/19 08:55 Dose: 10 mg Quetiapine Fumarate 200 mg/ (Quetiapine Fumarate 25 mg) 225 mg PO BID [facility] Stop: 04/25/19 16:59 Last Admin: 03/03/19 08:54 Dose: 225 mg Physical Exam: Patient remains very impulsive, dis-oriented, and unpredictable. General: alert, NAD HEENT: NC/AT, PERRLA Neck: Supple, No JVD Lungs: CTAB Cardiovascular: RRR, Normal S1, Normal S2 Abdomen: soft, non-tender, non-distended Extremities: excoriation Neurological: no change Internal Medicine Assmt/Plan - Assessment Assessment: Dementia. Acute Psychosis. Hypertension. Current Active Problems Problem Status Onset AGITATION AND STRIKING OUT BEHAVIOR Acute - Plan Plan: Continuation of care. Monitor Labs. Continue present meds as directed. Monitor vitals, Continue BP meds as directed. Monitor Diet/Nutritional support. Psych management per Psych. Physical therapy/Occupational therapy prn. Fall precaution, frequent nursing rounds, and as needed restraints to prevent fall. Safety precaution. Supportive care. Continue collaborating with consulting specialists, case management and nursing team. Will Monitor patient and continue present care management. Nutritional Asmnt/Malnutr-PDOC - Dietary Evaluation Malnutrition Findings (Please click <Entered> for more info): Nutritional Asmnt/Malnutrition Start: 02/21/19 12: 35 Text: Status: Complete Freq: Protocol: Document 02/21/19 12:35 DEV (Rec: 02/21/19 12:38 EDV [email or web address]) Nutritional Asmnt/Malnutrition Patient General Information Nutritional Screening Low Risk Diagnosis Psychosis Pertinent Medical Hx/Surgical Hx HTN, Psychosis Subjective Information Pt is a 78-year-old male admitted on 02/16 c/o agitation . Pt is eating well, 75-100% meals regularly, adequate to meet estimated nutritional needs. HT: 56 WT: 195 LB (7388.64 kg) ADJ BW: 73.74 kg BMI: 31.47 (Obese) GI: WNL, Soft, Non-Tender BM: 02/21 x1 I/O: 1080/Not Noted Skin: WNL, Intact Perez: 17 Diet Order: Cardiac, Chopped Estimated Energy Needs: (Obese , ADJ BW) 6411-1395 kcals (20-25 kcals/ kg) 59-66g Pro (0.8-0.9 g/kg) 1665-6461 ml (25-30 ml/kg) Pt is eating 100% of meals x 3 days Per Meal/Nutrition Activity Record. Dietary is currently providing an estimated 2338 kcals and 93 gm Pro to meet 100% kcal and 100 +% Pro needs. Current Diet Order/ Nutrition Support Cardiac, Chopped Pertinent Medications Maalox (PRN), Colace Pertinent Labs 02/16: Hgb/Hct 13.0/38.6, Na 133 Nutritional Hx/Data Height 1.68 m Height (Calculated Centimeters) 167.6 Current Weight (lbs) 88.451 kg Weight (Calculated Kilograms) 88.5 Weight (Calculated Grams) 99468.5 [place] Body Weight 63.8 kg % [place] Body Weight 139 Body Mass Index (BMI) 31.4 Weight Status Obese GI Symptoms GI Symptoms None Last BM 02/21 x1 Skin Integrity/Comment: WNL, Intact Perez: 17 Current %PO Good (75-100%) Estimated Nutritional Goals BEE in Kcals: Adj wt of IBW Calories/Kcals/Kg 20-25 Kcals Calculated 1167-1212 Protein: Adj wt of IBW Protein g/k.8-0.9 Protein Calculated 59-66 Fluid: ml 4866-2440 ml (25-30 ml/kg) Nutritional Problem No current Nutrition Prob Problem No nutrition diagnosis at this time Etiology N/A Signs/Symptoms: N/A Malnutrition Related to Morbid Obesity Malnutrition related to morbid obesity No Intervention/Recommendation Comments 1.Continue with Cardiac, chopped soft diet as ordered. Expected Outcomes/Goals Expected Outcomes/Goals 1.PO intake to continue to meet >75% of nutritional needs . 2.Monitor PO intake, wt, nutrition related labs, and skin integrity. 3.F/U as low risk in 7 days,
--- NOTE | 2019-03-03 22:47 | Progress Notes ---
DATE: 03/03/2019 SUBJECTIVE: The patient in the hospital, highly impulsive, unpredictable, grandiose. The patient with ongoing symptoms, although he seems to be calmer, likely approaching his baseline. He is not as agitated, not as irritable, mostly withdrawn, keeps to self. 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 ASSESSMENT: The patient likely approaching his baseline. PLAN: We will err on the side of caution, monitor for further 24 hours. JOB# [id number]
[2019-03-04] MEDS: Multivitamin w/ Minerals Tab PO SCH (08:47)
--- NOTE | 2019-03-04 22:43 | Discharge Summary ---
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 PAST PSYCHIATRIC HISTORY: Noted. SOCIAL HISTORY: Noted. MENTAL STATUS EXAMINATION: Please see full psych eval for details. PROVISIONAL DIAGNOSES: Dementia, dementia with behaviors; psychosis, unspecified. MEDICAL: Please see full H and P. HOSPITAL COURSE: After initial assessment, the patient was started on medications, Seroquel, Aricept and Namenda. Over the course of hospitalization, he remained extremely confused, disoriented, delusional, but he was calmer, more redirectable, less agitated, still argumentative at times, but has not been able to distract him or redirect him. His hospital course progressed, he approached his baseline. CONDITION ON DISCHARGE: Improved. Confused, disoriented. No SI, no HI, redirectable. No ongoing delusions. No perceptual disturbances such as hallucinations; however, better impulse control. DISCHARGE DIAGNOSES: Dementia, dementia with behaviors; psychosis, unspecified; mood, unspecified; anxiety, unspecified. PROGNOSIS: The patient follows up with outpatient mental health services and remains compliant with treatment. Prognosis will improve, otherwise guarded. JOB# [id number]
== END 2019-03-04 15:00 | DRG 885 ==
LOC: ER 16:00 → GERO2 17:24 → GERO 02-19 17:14
PROVIDERS: ADMIT Psychiatry & Neurology Psychiatry; ATTEND Psychiatry & Neurology Psychiatry
DX: F23 Brief psychotic disorder (principal); F03.91 Unspecified dementia, unspecified severity, with behavioral disturbance; I10 Essential (primary) hypertension; M19.90 Unspecified osteoarthritis, unspecified site; F39 Unspecified mood [affective] disorder; F41.9 Anxiety disorder, unspecified
CPT/HCPCS: 36415-UA; 80053-TC; 81001-TC; 84484-TC; 85025-TC; 90899; 93005; G0410; Z7610

== ENCOUNTER 2019-08-28 17:47 | Inpatient (IN) | payer MEDICARE, MEDICAID ==
[2019-08-28 19:48] VITALS: BP 137/83
[2019-08-28] MEDS ORDERED: Acetaminophen 500 MG TAB PO PRN (21:48)
[2019-08-28] MEDS ORDERED: Fleet Enema 135 mL RC PRN (21:48)
--- NOTE | 2019-08-29 11:39 | History and Physical ---
History of Present Illness - HPI Chief Complaint: 79 y/o male patient was brought to [facility] for evaluation due to acting out behavior and striking out towards staff of SNF. HPI: 79 y/o male patient was admitted to [facility] for evaluation due to agitation, acting out behavior and danger to self and others. Patient has history of Depression, Psychosis, Hypertension and Gerd. Patient had an ER assessment and a workup was done. Patient was diagnosed with Psychosis, Depression, Danger to self/others, History of Gerd and History of Hypertension. Patient will have a Psych evaluation. I will follow, treat and monitor patient. Patient will continue current treatment plan as ordered. Vital Signs: Last Vital Signs Temp 98.3 F 08/29/19 05:46 Pulse 64 08/29/19 08:44 Resp 20 08/29/19 05:46 BP 135/81 08/29/19 08:44 Pulse Ox 96 08/29/19 05:46 Past Medical History Cardiovascular: Report: HTN Pulmonary: Report: No Pertinent Hx LEGAL ADVISOR: Report: No Pertinent Hx GI: Report: GERD Psych: Report: Depression, Psychosis Musculoskeletal: Report: No Pertinent Hx Rheumatologic: Report: No pertinent Hx Infectious Disease: Report: No Pertinent Hx Renal/: Report: No Pertinent Hx Endocrine: Report: No Pertinent Hx Dermatology: Report: No Pertinent Hx - Past Surgical History Past Surgical History: No pertinent Hx Family Medical History - Family Member Mother History Unknown: Yes Ethnicity: Unknown Living Status: Unknown Hx Family Cancer: (unknown) Hx Family Coronary Artery Disease: (unknown) Hx Family Congestive Heart Failure: (unknown) Hx Family Hypertension: (unknown) Hx Family Stroke: (unknown) Hx Family Diabetes: (unknown) Hx Family Seizures: (unknown) Hx Family Dementia: (unknown) Hx Family AIDS: (unknown) Hx Family COPD: (unknown) Hx Family Hepatitis: (unknown) Hx Family Psychiatric Problems: (unknown) Hx Family Tuberculosis: (unknown) family History Unknown: Yes Ethnicity: Unknown Living Status: Unknown Hx Family Cancer: (unknown) Hx Family Coronary Artery Disease: (unknown) Hx Family Congestive Heart Failure: (unknown) Hx Family Hypertension: (unknown) Hx Family Stroke: (unknown) Hx Family Diabetes: (unknown) Hx Family Seizures: (unknown) Hx Family Dementia: (unknown) Hx Family AIDS: (unknown) Hx Family COPD: (unknown) Hx Family Hepatitis: (unknown) Hx Family Psychiatric Problems: (unknown) Hx Family Tuberculosis: (unknown) Social History Smoke: No Alcohol: None Drugs: None Lives: [place] Domestic Violence: Negative Health Maintenance Health Maintenance: Other (Please see chart.) - Medications Home Medications: Home Medication Medication Instructions Recorded Type Acetaminophen [Acetaminophen Extra 2 tab PO Q4H PRN 08/28/19 History Strength] Acetaminophen [Tylenol] 650 mg PO Q4H PRN 08/28/19 History Acetaminophen [Tylenol] 650 mg PO Q4HR PRN 08/28/19 History Bisacodyl [Dulcolax 10 Mg Supp] 10 mg RC DAILY PRN 08/28/19 History Donepezil Hcl [Aricept] 10 mg PO DAILY 08/28/19 History Fleet Enema 1 unit RC Q2D PRN 08/28/19 History Magnesium Hydroxide [Milk of 30 ml PO HS 08/28/19 History Magnesia] Memantine [Namenda] 10 mg PO BID 08/28/19 History QUEtiapine Fumarate [SEROquel] 225 mg PO BID 08/28/19 History amLODIPine Besylate [Norvasc*] 10 mg PO DAILY 08/28/19 History Other Medications: Please see Medication reconciliation sheet. - Allergies Allergies/Adverse Reactions: Allergies Allergy/AdvReac Type Severity Reaction Status Date / Time No Known Allergies Allergy Verified 01/09/17 14:23 Review of Systems - Review of Systems Review of Systems: Patient will be monitored closely, danger to self and others, very agitated. Constitutional: Report: No Significant Eyes: Report: No Significant ENT: Report: No Significant Respiratory: Report: No Significant Cardiovascular: Report: No Significant Gastrointestinal: Report: No Significant Genitourinary: Report: No Significant Musculoskeletal: Report: No Significant Skin: Report: No Significant Neurological: Report: Confusion Physical Exam - Physical Exam HEENT: Report: Ears Nose Throat within normal limits Neck: Report: Within normal limits Cardiovascular Systems: Report: +s1/s2 noted, Regular, Rate and Rhythm Respiratory: Report: Breath Sounds are within normal limits Abdomen: Report: Non-tender to palpation - Lab Results All Lab Results last 24 hours: Please see labs ordered. - Assessment Assessment: Psychosis, Depression, Danger to self/others, History of Gerd and History of Hypertension. - Plan Plan: Continuation of care. Monitor vitals and labs. Psych management as per Psych. Fall precaution. Continue present meds as directed. Monitor diet/nutritional support. Continue current treatment plan as ordered.
--- NOTE | 2019-08-29 16:48 | Psychiatric Evaluation ---
DATE OF SERVICE: 08/29/2019 HISTORY OF PRESENT ILLNESS: A 79-year-old male coming from [facility] with increased agitation, striking out, refusing care, delusional, believing he owns the hospital, irritable, agitated, very disoriented, has no idea where he is or what is going on. PAST PSYCHIATRIC HISTORY: Admissions in the past, advanced dementia, delusional disorder. MEDICAL: Please see full H and P. MEDICATIONS: Reviewed. SOCIAL HISTORY: Coming from [facility], stating he was born in [place], stating he has a and "a couple of kids". MENTAL STATUS EXAMINATION: Stated age, calm, confused, disoriented, impulsive, unpredictable, delusional, believing he owns the hospital. No SI. No HI. Poor impulse control. PROVISIONAL DIAGNOSES: Mood, unspecified; anxiety, unspecified; dementia, dementia with behaviors, delusional disorder. ESTIMATED LENGTH OF STAY: 7-10 days. ASSESSMENT: The patient requiring hospitalization, agitated, aggressive, cannot be cared for at a lower level. PLAN: Treatment plan includes group as well as milieu therapy. Titration of medications involvement of family, confirmation of a safe place to go. CONDITIONS FOR DISCHARGE: Improved mood, improved affect, better control of any agitation. [facility]# [id number]
[2019-08-29] MEDS: Magnesium Hydroxide (MOM) 30 mL UDC PO SCH (20:58)
--- NOTE | 2019-08-30 17:20 | Progress Notes ---
DATE: 08/30/2019 SUBJECTIVE: The patient was seen in the dining area. The patient appears to be guarded, easily gets frustrated, has poor impulse control and needs a lot of redirection. Otherwise, the patient appears to be in no acute distress. OBJECTIVE: VITAL SIGNS: Temperature 97.9, heart rate 78, blood pressure 127/71, respirations 20, 98% on room air. HEENT: Head is atraumatic and normocephalic. Eyes: Bilateral conjunctivae are clear. Bilateral pupils are equally round and reactive. NECK: Supple. No JVD. CARDIOVASCULAR: S1 and S2, without murmur. PULMONARY: Clear to auscultation. GASTROINTESTINAL: Soft and nontender without guarding. Positive bowel sounds. MUSCULOSKELETAL: No clubbing. No cyanosis noted. ASSESSMENT: 1. Mood disorder. 2. Dementia. 3. Hypertension. 4. Osteoarthritis. PLAN: We will continue to keep the patient to inpatient Psychiatric Unit. We will follow up with the psychiatrist to monitor the patient's condition and behavior. We will put the patient on fall precautions. Treatment plans were discussed with the patient's nurse. Treatment plans were discussed with Dr. Avery. JOB# [id number]
--- NOTE | 2019-08-30 20:13 | Progress Notes ---
DATE: 08/30/[address] Pierre. The patient today on [id number] evaluation reported that he owns the hospital. He owns this place. MENTAL STATUS EXAMINATION: Disorganized, delusional, believing that he owns this place. ASSESSMENT AND PLAN: A 79-year-old male with a history of schizoaffective disorder who presented agitated, irritable, who continues to believe he owns the place. We will continue with current medication regimen. Reconciliation reviewed, which includes Aricept, Eugenio Cano. JOB# [id number]
[2019-08-30] MEDS: Magnesium Hydroxide (MOM) 30 mL UDC PO SCH (20:54)
--- NOTE | 2019-08-31 13:51 | Internal Medicine Prog Note ---
Internal Medicine Subjective - Subjective Patient is:: awake, verbal Per staff patient has:: no adverse event, no episodes of fall Internal Medicine Objective - Physical Exam Vitals and I&O: Vital Signs Temp 98.1 F 08/31/19 05:53 Pulse 89 08/31/19 08:21 Resp 18 08/31/19 05:53 BP 149/77 08/31/19 08:21 Pulse Ox 95 08/31/19 05:53 Intake & Output 08/30/19 08/31/19 08/31/19 17:59 06:59 18:59 Intake Total Balance Intake: Oral Other: # Voids # Bowel Movements Active Medications: Current Medications Acetaminophen (Tylenol Extra Strength) 1,000 mg PO Q4H PRN PRN Reason: moderate to severe pain (4-10) Stop: 10/27/19 21:47 Acetaminophen (Tylenol) 650 mg PO Q4HR PRN PRN Reason: Pain (Mild 1-3) Stop: 10/27/19 21:47 Acetaminophen (Tylenol) 650 mg PO Q4H PRN PRN Reason: for temp >101F Stop: 10/27/19 21:47 Amlodipine Besylate (Norvasc) 10 mg PO DAILY [facility] Stop: 10/28/19 08:59 Last Admin: 08/31/19 08:21 Dose: 10 mg Bisacodyl (Dulcolax 10 Mg Supp) 10 mg RC DAILY PRN PRN Reason: Constipation Stop: 10/27/19 21:47 Donepezil HCl (Aricept) 10 mg PO DAILY [facility] Stop: 10/28/19 08:59 Last Admin: 08/31/19 08:21 Dose: 10 mg Lorazepam (Ativan) 0.5 mg PO Q4HR PRN; Protocol PRN Reason: anxiety/agitation Stop: 09/27/19 21:43 Magnesium Hydroxide (Milk Of Magnesia) 30 ml PO HS [facility] Stop: 10/28/19 20:59 Last Admin: 08/30/19 20:54 Dose: Not Given Memantine (Namenda) 10 mg PO BID [facility] Stop: 10/28/19 08:59 Last Admin: 08/31/19 08:21 Dose: 10 mg Quetiapine Fumarate 200 mg/ (Quetiapine Fumarate 25 mg) 225 mg PO BID [facility] Stop: 10/28/19 16:59 Last Admin: 08/31/19 08:20 Dose: 225 mg Sodium Phosphate (Fleet Enema) 135 ml RC Q2D PRN PRN Reason: Constipation Stop: 10/27/19 21:47 Zolpidem Tartrate (Ambien) 5 mg PO HS PRN PRN Reason: Insomnia Stop: 10/27/19 21:43 Last Admin: 08/30/19 20:54 Dose: 5 mg General: weak, demented, NAD HEENT: NC/AT, PERRLA Neck: Supple, No JVD Lungs: CTAB Cardiovascular: RRR Abdomen: soft, non-tender, non-distended Extremities: clear Neurological: disorganized Internal Medicine Assmt/Plan - Assessment Assessment: Mood disorder Dementia HTN OA - Plan Plan: Continue current managements Monitor VS Monitor Labs Psych management per Psych Pain managment as needed. Monitor nutritional needs. Fall Precaution Continue collaboration with interdisciplinary team.
--- NOTE | 2019-08-31 18:25 | Progress Notes ---
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 MENTAL STATUS EXAMINATION: Disorganized, delusional. ASSESSMENT AND PLAN: History of schizoaffective disorder, continues to present with grandiose delusions. We will continue with primary psychiatrist's treatment plan and goal. He continues to stabilize with the current medication regimen. JOB# [id number]
[2019-08-31] MEDS: Magnesium Hydroxide (MOM) 30 mL UDC PO SCH (20:40)
--- NOTE | 2019-09-01 12:34 | Progress Notes ---
DATE: 09/01/2019 SUBJECTIVE: A 79-year-old male, currently in the hospital, believes that he has "an interest" in the hospital that he owns the hospital, very delusional, bizarre, ongoing symptoms. Argumentative at times, labile, quiet withdrawn, preoccupied, easily irritated, agitated, still not safe for a lower level of care. Currently on dosing of Seroquel and Aricept. Medications were reviewed. Time was spent speaking with the nursing staff, reviewing vitals, medications. PLAN: We will continue to monitor. Review medications, make appropriate adjustments. JOB# [id number]
--- NOTE | 2019-09-01 17:15 | Internal Medicine Prog Note ---
Internal Medicine Subjective - Subjective Service Date: 09/01/19 Patient is:: awake, verbal Per staff patient has:: no adverse event, no episodes of fall Internal Medicine Objective - Physical Exam Vitals and I&O: Vital Signs Temp 98.1 F 09/01/19 14:00 Pulse 73 09/01/19 14:00 Resp 20 09/01/19 14:00 BP 139/76 09/01/19 14:00 Pulse Ox 96 09/01/19 14:00 Intake & Output 08/31/19 09/01/19 09/01/19 18:59 06:59 18:59 Intake Total 1100 240 Balance 1100 240 Intake: Oral 1100 240 Other: # Voids 3 # Bowel Movements 1 0 Active Medications: Current Medications Acetaminophen (Tylenol Extra Strength) 1,000 mg PO Q4H PRN PRN Reason: moderate to severe pain (4-10) Stop: 10/27/19 21:47 Acetaminophen (Tylenol) 650 mg PO Q4HR PRN PRN Reason: Pain (Mild 1-3) Stop: 10/27/19 21:47 Acetaminophen (Tylenol) 650 mg PO Q4H PRN PRN Reason: for temp >101F Stop: 10/27/19 21:47 Amlodipine Besylate (Norvasc) 10 mg PO DAILY [facility] Stop: 10/28/19 08:59 Last Admin: 09/01/19 08:53 Dose: 10 mg Bisacodyl (Dulcolax 10 Mg Supp) 10 mg RC DAILY PRN PRN Reason: Constipation Stop: 10/27/19 21:47 Donepezil HCl (Aricept) 10 mg PO DAILY [facility] Stop: 10/28/19 08:59 Last Admin: 09/01/19 08:53 Dose: 10 mg Lorazepam (Ativan) 0.5 mg PO Q4HR PRN; Protocol PRN Reason: anxiety/agitation Stop: 09/27/19 21:43 Magnesium Hydroxide (Milk Of Magnesia) 30 ml PO HS [facility] Stop: 10/28/19 20:59 Last Admin: 08/31/19 20:40 Dose: Not Given Memantine (Namenda) 10 mg PO BID [facility] Stop: 10/28/19 08:59 Last Admin: 09/01/19 16:13 Dose: 10 mg Quetiapine Fumarate 200 mg/ (Quetiapine Fumarate 25 mg) 225 mg PO BID [facility] Stop: 10/28/19 16:59 Last Admin: 09/01/19 16:12 Dose: 225 mg Sodium Phosphate (Fleet Enema) 135 ml RC Q2D PRN PRN Reason: Constipation Stop: 10/27/19 21:47 Zolpidem Tartrate (Ambien) 5 mg PO HS PRN PRN Reason: Insomnia Stop: 10/27/19 21:43 Last Admin: 08/31/19 20:40 Dose: 5 mg General: weak, demented, NAD HEENT: NC/AT, PERRLA Neck: Supple, No JVD Lungs: CTAB Cardiovascular: RRR Abdomen: soft, non-tender, non-distended Extremities: clear Neurological: disorganized
[2019-09-01] MEDS: Magnesium Hydroxide (MOM) 30 mL UDC PO SCH (20:55)
--- NOTE | 2019-09-02 16:07 | Internal Medicine Prog Note ---
Internal Medicine Subjective - Subjective Service Date: 09/02/19 Patient is:: awake, verbal Per staff patient has:: no adverse event, no episodes of fall Internal Medicine Objective - Physical Exam Vitals and I&O: Vital Signs Temp 97.9 F 09/02/19 14:00 Pulse 88 09/02/19 14:00 Resp 18 09/02/19 14:00 BP 125/79 09/02/19 14:00 Pulse Ox 95 09/02/19 14:00 Intake & Output 09/01/19 09/02/19 09/02/19 18:59 06:59 18:59 Intake Total 90543 360 Balance 79415 360 Intake: Oral 30649 360 Other: # Voids 4 2 # Bowel Movements 0 0 Active Medications: Current Medications Acetaminophen (Tylenol Extra Strength) 1,000 mg PO Q4H PRN PRN Reason: moderate to severe pain (4-10) Stop: 10/27/19 21:47 Acetaminophen (Tylenol) 650 mg PO Q4HR PRN PRN Reason: Pain (Mild 1-3) Stop: 10/27/19 21:47 Acetaminophen (Tylenol) 650 mg PO Q4H PRN PRN Reason: for temp >101F Stop: 10/27/19 21:47 Amlodipine Besylate (Norvasc) 10 mg PO DAILY [facility] Stop: 10/28/19 08:59 Last Admin: 09/02/19 08:25 Dose: 10 mg Bisacodyl (Dulcolax 10 Mg Supp) 10 mg RC DAILY PRN PRN Reason: Constipation Stop: 10/27/19 21:47 Divalproex Sodium (Depakote Dr) 125 mg PO Q12HR [facility]; Protocol Stop: 11/01/19 20:59 Donepezil HCl (Aricept) 10 mg PO DAILY [facility] Stop: 10/28/19 08:59 Last Admin: 09/02/19 08:25 Dose: 10 mg Lorazepam (Ativan) 0.5 mg PO Q4HR PRN; Protocol PRN Reason: anxiety/agitation Stop: 09/27/19 21:43 Magnesium Hydroxide (Milk Of Magnesia) 30 ml PO HS [facility] Stop: 10/28/19 20:59 Last Admin: 09/01/19 20:55 Dose: Not Given Memantine (Namenda) 10 mg PO BID [facility] Stop: 10/28/19 08:59 Last Admin: 09/02/19 08:25 Dose: 10 mg Quetiapine Fumarate 200 mg/ (Quetiapine Fumarate 25 mg) 225 mg PO BID [facility] Stop: 10/28/19 16:59 Last Admin: 09/02/19 08:25 Dose: 225 mg Sodium Phosphate (Fleet Enema) 135 ml RC Q2D PRN PRN Reason: Constipation Stop: 10/27/19 21:47 Zolpidem Tartrate (Ambien) 5 mg PO HS PRN PRN Reason: Insomnia Stop: 10/27/19 21:43 Last Admin: 09/01/19 20:55 Dose: 5 mg General: weak, demented, NAD HEENT: NC/AT, PERRLA Neck: Supple, No JVD Lungs: CTAB Cardiovascular: RRR Abdomen: soft, non-tender, non-distended Extremities: clear Neurological: disorganized Internal Medicine Assmt/Plan - Assessment Assessment: Mood disorder Dementia HTN OA - Plan Plan: Continue current managements Monitor VS Monitor Labs Psych management per Psych Pain managment as needed. Monitor nutritional needs. Fall Precaution Continue collaboration with interdisciplinary team.
--- NOTE | 2019-09-02 19:29 | Progress Notes ---
DATE: 09/02/2019 SUBJECTIVE: The patient slept about 3 hours, very confused, still argumentative, claiming he owns the hospital. Time was spent trying to convince the patient he does own the hospital, but he has a fixed false belief, delusional, grandiose delusions, confused, restless, ongoing symptoms. Time was spent speaking with the patient and nursing staff. Medications were noted. Vitals also reviewed. I also reviewed nursing notes. PLAN: We will continue to monitor, poor sleep. The patient remains restless, currently on a p.r.n. dosing of Ativan. We will continue to monitor. We will consider dose adjustments of medications. JOB# [id number]
[2019-09-02] MEDS: Magnesium Hydroxide (MOM) 30 mL UDC PO SCH (21:12)
--- NOTE | 2019-09-03 13:42 | Internal Medicine Prog Note ---
Internal Medicine Subjective - Subjective Service Date: 09/03/19 Patient is:: awake, verbal Per staff patient has:: no adverse event, no episodes of fall Internal Medicine Objective - Physical Exam Vitals and I&O: Vital Signs Temp 97.8 F 09/03/19 05:58 Pulse 63 09/03/19 08:27 Resp 16 09/03/19 08:00 BP 150/80 09/03/19 08:27 Pulse Ox 96 09/03/19 05:58 Intake & Output 09/02/19 09/03/19 09/03/19 18:59 06:59 18:59 Intake Total 1000 120 Balance 1000 120 Intake: Oral 1000 120 Other: # Voids 5 3 # Bowel Movements 1 0 Active Medications: Current Medications Acetaminophen (Tylenol Extra Strength) 1,000 mg PO Q4H PRN PRN Reason: moderate to severe pain (4-10) Stop: 10/27/19 21:47 Acetaminophen (Tylenol) 650 mg PO Q4HR PRN PRN Reason: Pain (Mild 1-3) Stop: 10/27/19 21:47 Acetaminophen (Tylenol) 650 mg PO Q4H PRN PRN Reason: for temp >101F Stop: 10/27/19 21:47 Amlodipine Besylate (Norvasc) 10 mg PO DAILY [facility] Stop: 10/28/19 08:59 Last Admin: 09/03/19 08:27 Dose: 10 mg Bisacodyl (Dulcolax 10 Mg Supp) 10 mg RC DAILY PRN PRN Reason: Constipation Stop: 10/27/19 21:47 Divalproex Sodium (Depakote Dr) 125 mg PO Q12HR [facility]; Protocol Stop: 11/01/19 20:59 Last Admin: 09/03/19 08:28 Dose: 125 mg Donepezil HCl (Aricept) 10 mg PO DAILY [facility] Stop: 10/28/19 08:59 Last Admin: 09/03/19 08:28 Dose: 10 mg Lorazepam (Ativan) 0.5 mg PO Q4HR PRN; Protocol PRN Reason: anxiety/agitation Stop: 09/27/19 21:43 Magnesium Hydroxide (Milk Of Magnesia) 30 ml PO HS [facility] Stop: 10/28/19 20:59 Last Admin: 09/02/19 21:12 Dose: Not Given Memantine (Namenda) 10 mg PO BID [facility] Stop: 10/28/19 08:59 Last Admin: 09/03/19 08:28 Dose: 10 mg Quetiapine Fumarate 200 mg/ (Quetiapine Fumarate 25 mg) 225 mg PO BID [facility] Stop: 10/28/19 16:59 Last Admin: 09/03/19 08:28 Dose: 225 mg Sodium Phosphate (Fleet Enema) 135 ml RC Q2D PRN PRN Reason: Constipation Stop: 10/27/19 21:47 Zolpidem Tartrate (Ambien) 5 mg PO HS PRN PRN Reason: Insomnia Stop: 10/27/19 21:43 Last Admin: 09/02/19 21:12 Dose: 5 mg General: weak, demented, NAD HEENT: NC/AT, PERRLA Neck: Supple, No JVD Lungs: CTAB Cardiovascular: RRR Abdomen: soft, non-tender, non-distended Extremities: clear Neurological: disorganized Internal Medicine Assmt/Plan - Assessment Assessment: Mood disorder Dementia HTN OA - Plan Plan: Continue current managements Monitor VS Monitor Labs Psych management per Psych Pain managment as needed. Monitor nutritional needs. Fall Precaution Continue collaboration with interdisciplinary team. Nutritional Asmnt/Malnutr-PDOC - Dietary Evaluation Malnutrition Findings (Please click <Entered> for more info): Nutritional Asmnt/Malnutrition Start: 09/02/19 11: 44 Text: Status: Complete Freq: Protocol: Document 09/02/19 16:06 DEV (Rec: 09/02/19 16:12 DEV [email or web address]) Nutritional Asmnt/Malnutrition Patient General Information Nutritional Screening Low Risk Diagnosis Psychosis Pertinent Medical Hx/Surgical Hx Depression, Psychosis, HTN, Gerd Subjective Information Pt is a 79-year-old male admitted on 08/27 d/t acting out behavior and striking out towards staff. Pt is eating an estimated 100% of meals Per Meal/Nutrition Activity Record . Dietary is currently providing an estimated 2500 kcals and 120 gm Pro, per Pt PO intake this is providing an estimated 2500 kcals and 120gm Pro to meet 100+% kcal and 100+% Pro needs- adequate. Pt. sitting in community room at time of visit. Anthropometrics HT: 56 WT: 195 LB (88.63 kg) BMI: 31.47 (Obese, Class I) GI/ Skin Integrity GI: WNL, Large Round BM: 08/30 x1 I/O: 71085/Not Noted Skin: WNL, None/Intact Perez: 19 Diet Order: Cardiac, DAGOBERTO Estimated Energy Needs: (Obese , CBW) 7819-8007 kcals (20-25 kcals/ kg) 70-88g Pro (0.8-1.0 g/kg) 9245-0010 ml (20-25 ml/kg) Current Diet Order/ Nutrition Support Cardiac, DAGOBERTO Pertinent Medications Dulcolax (PRN), MOM, Fleet Enema Pertinent Labs 08/27: G 119, A1C 6.1%, TG 195 Nutritional Hx/Data Height 5 ft 6 in Height (Calculated Centimeters) 167.6 Current Weight (lbs) 195 lb Weight (Calculated Kilograms) 88.5 Weight (Calculated Grams) 55261.5 [place] Body Weight 142 % [place] Body Weight 137 Body Mass Index (BMI) 31.4 Weight Status Obese GI Symptoms GI Symptoms None Last BM 08/30 Skin Integrity/Comment: Skin: WNL, None/Intact Perez: 19 Current %PO Good (75-100%) Estimated Nutritional Goals BEE in Kcals: Using Current wt Calories/Kcals/Kg 20-25 Kcals Calculated 5626-9016 Protein: Using Current wt Protein g/k-88 Protein Calculated 0.8 - 1.0 Fluid: ml 5023-0842 ml (20-25 ml/kg) Nutritional Problem 1. Problem Problem Obese Etiology r/t consistent energy overconsumption Signs/Symptoms: aeb BMI>30 (31.47) Malnutrition Related to Morbid Obesity Malnutrition related to morbid obesity No Intervention/Recommendation Comments 1. Continue Cardiac, DAGOBERTO diet as tolerated. Expected Outcomes/Goals Expected Outcomes/Goals 1.PO intake to continue to meet >75% of estimated nutritional needs. 2.Gradual weight loss, 0.5-1 LB/week, trending towards IBW. 3.Monitor PO intake, wt, nutrition related labs to trend WNL. 4.F/U as low risk in 7-10 days , 09/09-09/12
--- NOTE | 2019-09-03 20:47 | Progress Notes ---
DATE: SUBJECTIVE: The patient seen, chart reviewed, discussed with staff. The patient is still delusional, grandiose, believes he owns the hospital, making nonsensical statements now, but very impulsive, unpredictable, ongoing symptoms, concerns about acting out behaviors. Medications were reviewed. I will continue dosing of Seroquel. Time spent speaking with the patient and discussion with staff. Medications were reviewed. Patient's vitals were reviewed. [facility]# [id number]
[2019-09-03] MEDS: Magnesium Hydroxide (MOM) 30 mL UDC PO SCH (20:59)
[2019-09-04] MEDS: Magnesium Hydroxide (MOM) 30 mL UDC PO SCH (20:32)
--- NOTE | 2019-09-05 00:28 | Progress Notes ---
DATE: 09/04/2019 The patient still with ongoing delusions, believes he owns the hospital, has "interest" in the hospital, still with ongoing tantrums, still gets agitated at times, but staff noting he has been somewhat more redirectable, currently on dosing of Depakote and Seroquel, seems to be tolerating medications well. Fair sleep and appetite, calm right now, but impulsive, unpredictable, labile. Time was spent speaking with the patient, also nursing staff review. Nursing notes were reviewed. Medications were reviewed. Vitals also reviewed. We will continue to monitor. The patient seems calmer. JOB# [id number]
--- NOTE | 2019-09-05 14:13 | Internal Medicine Prog Note ---
Internal Medicine Subjective - Subjective Service Date: 09/05/19 Patient is:: awake, verbal Per staff patient has:: no adverse event, no episodes of fall Internal Medicine Objective - Physical Exam Vitals and I&O: Vital Signs Temp 98.0 F 09/05/19 05:49 Pulse 76 09/05/19 09:34 Resp 20 09/05/19 08:00 BP 142/70 09/05/19 09:34 Pulse Ox 98 09/05/19 08:00 Intake & Output 09/04/19 09/05/19 09/05/19 18:59 06:59 18:59 Intake Total 240 Balance 240 Intake: Oral 240 Other: # Voids 4 2 # Bowel Movements 1 0 Active Medications: Current Medications Acetaminophen (Tylenol Extra Strength) 1,000 mg PO Q4H PRN PRN Reason: moderate to severe pain (4-10) Stop: 10/27/19 21:47 Acetaminophen (Tylenol) 650 mg PO Q4HR PRN PRN Reason: Pain (Mild 1-3) Stop: 10/27/19 21:47 Acetaminophen (Tylenol) 650 mg PO Q4H PRN PRN Reason: for temp >101F Stop: 10/27/19 21:47 Amlodipine Besylate (Norvasc) 10 mg PO DAILY [facility] Stop: 10/28/19 08:59 Last Admin: 09/05/19 09:34 Dose: 10 mg Bisacodyl (Dulcolax 10 Mg Supp) 10 mg RC DAILY PRN PRN Reason: Constipation Stop: 10/27/19 21:47 Divalproex Sodium (Depakote Dr) 125 mg PO Q12HR [facility]; Protocol Stop: 11/01/19 20:59 Last Admin: 09/05/19 09:33 Dose: 125 mg Donepezil HCl (Aricept) 10 mg PO DAILY [facility] Stop: 10/28/19 08:59 Last Admin: 09/05/19 09:34 Dose: 10 mg Lorazepam (Ativan) 0.5 mg PO Q4HR PRN; Protocol PRN Reason: anxiety/agitation Stop: 09/27/19 21:43 Magnesium Hydroxide (Milk Of Magnesia) 30 ml PO HS [facility] Stop: 10/28/19 20:59 Last Admin: 09/04/19 20:32 Dose: Not Given Memantine (Namenda) 10 mg PO BID [facility] Stop: 10/28/19 08:59 Last Admin: 09/05/19 09:34 Dose: 10 mg Quetiapine Fumarate 200 mg/ (Quetiapine Fumarate 25 mg) 225 mg PO BID [facility] Stop: 10/28/19 16:59 Last Admin: 09/05/19 09:34 Dose: 225 mg Sodium Phosphate (Fleet Enema) 135 ml RC Q2D PRN PRN Reason: Constipation Stop: 10/27/19 21:47 Zolpidem Tartrate (Ambien) 5 mg PO HS PRN PRN Reason: Insomnia Stop: 10/27/19 21:43 Last Admin: 09/04/19 20:31 Dose: 5 mg General: weak, demented, NAD HEENT: NC/AT, PERRLA Neck: Supple, No JVD Lungs: CTAB Cardiovascular: RRR Abdomen: soft, non-tender, non-distended Extremities: clear Neurological: disorganized Internal Medicine Assmt/Plan - Assessment Assessment: Mood disorder Dementia HTN OA - Plan Plan: Continue current managements Monitor VS Monitor Labs Psych management per Psych Pain managment as needed. Monitor nutritional needs. Fall Precaution Continue collaboration with interdisciplinary team. Nutritional Asmnt/Malnutr-PDOC - Dietary Evaluation Malnutrition Findings (Please click <Entered> for more info): Nutritional Asmnt/Malnutrition Start: 09/02/19 11: 44 Text: Status: Complete Freq: Protocol: Document 09/02/19 16:06 DEV (Rec: 09/02/19 16:12 DEV [email or web address]) Nutritional Asmnt/Malnutrition Patient General Information Nutritional Screening Low Risk Diagnosis Psychosis Pertinent Medical Hx/Surgical Hx Depression, Psychosis, HTN, Gerd Subjective Information Pt is a 79-year-old male admitted on 08/27 d/t acting out behavior and striking out towards staff. Pt is eating an estimated 100% of meals Per Meal/Nutrition Activity Record . Dietary is currently providing an estimated 2500 kcals and 120 gm Pro, per Pt PO intake this is providing an estimated 2500 kcals and 120gm Pro to meet 100+% kcal and 100+% Pro needs- adequate. Pt. sitting in community room at time of visit. Anthropometrics HT: 56 WT: 195 LB (88.63 kg) BMI: 31.47 (Obese, Class I) GI/ Skin Integrity GI: WNL, Large Round BM: 08/30 x1 I/O: 20354/Not Noted Skin: WNL, None/Intact Perez: 19 Diet Order: Cardiac, DAGOBERTO Estimated Energy Needs: (Obese , CBW) 4774-0224 kcals (20-25 kcals/ kg) 70-88g Pro (0.8-1.0 g/kg) 0729-5459 ml (20-25 ml/kg) Current Diet Order/ Nutrition Support Cardiac, DAGOBERTO Pertinent Medications Dulcolax (PRN), MOM, Fleet Enema Pertinent Labs 08/27: G 119, A1C 6.1%, TG 195 Nutritional Hx/Data Height 5 ft 6 in Height (Calculated Centimeters) 167.6 Current Weight (lbs) 195 lb Weight (Calculated Kilograms) 88.5 Weight (Calculated Grams) 01648.5 [place] Body Weight 142 % [place] Body Weight 137 Body Mass Index (BMI) 31.4 Weight Status Obese GI Symptoms GI Symptoms None Last BM 08/30 Skin Integrity/Comment: Skin: WNL, None/Intact Perez: 19 Current %PO Good (75-100%) Estimated Nutritional Goals BEE in Kcals: Using Current wt Calories/Kcals/Kg 20-25 Kcals Calculated 9631-5528 Protein: Using Current wt Protein g/k-88 Protein Calculated 0.8 - 1.0 Fluid: ml 3034-0501 ml (20-25 ml/kg) Nutritional Problem 1. Problem Problem Obese Etiology r/t consistent energy overconsumption Signs/Symptoms: aeb BMI>30 (31.47) Malnutrition Related to Morbid Obesity Malnutrition related to morbid obesity No Intervention/Recommendation Comments 1. Continue Cardiac, DAGOBERTO diet as tolerated. Expected Outcomes/Goals Expected Outcomes/Goals 1.PO intake to continue to meet >75% of estimated nutritional needs. 2.Gradual weight loss, 0.5-1 LB/week, trending towards IBW. 3.Monitor PO intake, wt, nutrition related labs to trend WNL. 4.F/U as low risk in 7-10 days , 09/09-09/12
--- NOTE | 2019-09-05 15:45 | Progress Notes ---
DATE: SUBJECTIVE: The patient seen, chart reviewed, discussed with staff. The patient remains symptomatic, ongoing delusions, becomes agitated, unruly when staff asked some questions, comes around him, hard to redirect at times, postures toward staff, states that he owns the hospital, believes that he owns the hospital. Fair sleep. Appetite seems to be somewhat calmer, tolerant of treatment thus far. Medications were reviewed. Labs reviewed. Staff discussion took place. Time was spent speaking with staff, review of the chart. We will continue to redirect the patient and monitor for any overt side effects. JOB# [id number]
[2019-09-05] MEDS: Magnesium Hydroxide (MOM) 30 mL UDC PO SCH (21:06)
--- NOTE | 2019-09-06 07:12 | Progress Notes ---
DATE: 09/06/2019 SUBJECTIVE: The patient in the hospital, slept for about 5 hours, delusional, still believing he owns the hospital, isolative, confused, believing that and a few girls are going to come pick him up, making some nonsensical statements. Staff noting he has been more redirectable, generally calmer, sometimes gets unruly. He seems to be tolerating the Depakote. Time was spent speaking with the patient, review of chart, labs were reviewed, medications were reviewed, any recent vitals were reviewed. PLAN: We will continue to monitor closely. JOB# [id number]
--- NOTE | 2019-09-06 07:24 | Progress Notes ---
DATE: 09/06/2019 SUBJECTIVE: The patient was seen in the dining area. The patient appears to be guarded, easily gets frustrated, poor impulse control and needs a lot of redirection, argumentative, still has ongoing delusion and needs a lot of redirection. Otherwise, the patient appears to be in no acute distress. OBJECTIVE: VITAL SIGNS: Temperature 98.8, heart rate 70, blood pressure 125/64, respirations 18, 97% on room air. HEENT: Head is atraumatic and normocephalic. Eyes: Bilateral conjunctivae are clear. Bilateral pupils are equally round and reactive. NECK: Supple. No JVD. CARDIOVASCULAR: S1 and S2, without murmur. PULMONARY: Clear to auscultation. GASTROINTESTINAL: Soft and nontender without guarding. Positive bowel sounds. MUSCULOSKELETAL: No clubbing. No cyanosis noted. ASSESSMENT: 1. Mood disorder. 2. Dementia. 3. Hypertension. 4. Osteoarthritis. PLAN: We will continue to keep the patient inpatient to Psychiatric Unit. We will follow up with the psychiatrist to monitor the patient's condition and behavior. We will put the patient on fall precautions. Treatment plans were discussed with the patient's nurse. Treatment plans were discussed with Dr. Avery. JOB# [id number]
[2019-09-06] MEDS: Magnesium Hydroxide (MOM) 30 mL UDC PO SCH (21:21)
--- NOTE | 2019-09-07 15:04 | Internal Medicine Prog Note ---
Internal Medicine Subjective - Subjective Patient is:: awake, verbal Per staff patient has:: no adverse event, no episodes of fall Internal Medicine Objective - Physical Exam Vitals and I&O: Vital Signs Temp 98.0 F 09/07/19 14:00 Pulse 75 09/07/19 14:00 Resp 20 09/07/19 14:00 BP 136/76 09/07/19 14:00 Pulse Ox 94 09/07/19 14:00 Intake & Output 09/06/19 09/07/19 09/07/19 18:59 06:59 18:59 Intake Total 1200 240 550 Balance 1200 240 550 Intake: Oral 1200 240 550 Other: # Voids 2 # Bowel Movements 1 0 1 Active Medications: Current Medications Acetaminophen (Tylenol Extra Strength) 1,000 mg PO Q4H PRN PRN Reason: moderate to severe pain (4-10) Stop: 10/27/19 21:47 Acetaminophen (Tylenol) 650 mg PO Q4HR PRN PRN Reason: Pain (Mild 1-3) Stop: 10/27/19 21:47 Acetaminophen (Tylenol) 650 mg PO Q4H PRN PRN Reason: for temp >101F Stop: 10/27/19 21:47 Amlodipine Besylate (Norvasc) 10 mg PO DAILY [facility] Stop: 10/28/19 08:59 Last Admin: 09/07/19 08:24 Dose: 10 mg Bisacodyl (Dulcolax 10 Mg Supp) 10 mg RC DAILY PRN PRN Reason: Constipation Stop: 10/27/19 21:47 Divalproex Sodium (Depakote Dr) 125 mg PO Q12HR [facility]; Protocol Stop: 11/01/19 20:59 Last Admin: 09/07/19 08:24 Dose: 125 mg Donepezil HCl (Aricept) 10 mg PO DAILY [facility] Stop: 10/28/19 08:59 Last Admin: 09/07/19 08:24 Dose: 10 mg Lorazepam (Ativan) 0.5 mg PO Q4HR PRN; Protocol PRN Reason: anxiety/agitation Stop: 09/27/19 21:43 Magnesium Hydroxide (Milk Of Magnesia) 30 ml PO HS [facility] Stop: 10/28/19 20:59 Last Admin: 09/06/19 21:21 Dose: Not Given Memantine (Namenda) 10 mg PO BID [facility] Stop: 10/28/19 08:59 Last Admin: 09/07/19 08:24 Dose: 10 mg Quetiapine Fumarate 200 mg/ (Quetiapine Fumarate 25 mg) 225 mg PO BID [facility] Stop: 10/28/19 16:59 Last Admin: 09/07/19 08:24 Dose: 225 mg Sodium Phosphate (Fleet Enema) 135 ml RC Q2D PRN PRN Reason: Constipation Stop: 10/27/19 21:47 Zolpidem Tartrate (Ambien) 5 mg PO HS PRN PRN Reason: Insomnia Stop: 10/27/19 21:43 Last Admin: 09/06/19 21:20 Dose: 5 mg General: weak, demented, NAD HEENT: NC/AT, PERRLA Neck: Supple, No JVD Lungs: CTAB Cardiovascular: RRR Abdomen: soft, non-tender, non-distended Extremities: clear Neurological: disorganized Internal Medicine Assmt/Plan - Assessment Assessment: Mood disorder Dementia HTN OA - Plan Plan: Continue current managements Monitor VS Monitor Labs Psych management per Psych Pain managment as needed. Monitor nutritional needs. Fall Precaution Continue collaboration with interdisciplinary team. Nutritional Asmnt/Malnutr-PDOC - Dietary Evaluation Malnutrition Findings (Please click <Entered> for more info): Nutritional Asmnt/Malnutrition Start: 09/02/19 11: 44 Text: Status: Complete Freq: Protocol: Document 09/02/19 16:06 DEV (Rec: 09/02/19 16:12 DEV [email or web address]) Nutritional Asmnt/Malnutrition Patient General Information Nutritional Screening Low Risk Diagnosis Psychosis Pertinent Medical Hx/Surgical Hx Depression, Psychosis, HTN, Gerd Subjective Information Pt is a 79-year-old male admitted on 08/27 d/t acting out behavior and striking out towards staff. Pt is eating an estimated 100% of meals Per Meal/Nutrition Activity Record . Dietary is currently providing an estimated 2500 kcals and 120 gm Pro, per Pt PO intake this is providing an estimated 2500 kcals and 120gm Pro to meet 100+% kcal and 100+% Pro needs- adequate. Pt. sitting in community room at time of visit. Anthropometrics HT: 56 WT: 195 LB (88.63 kg) BMI: 31.47 (Obese, Class I) GI/ Skin Integrity GI: WNL, Large Round BM: 08/30 x1 I/O: 04905/Not Noted Skin: WNL, None/Intact Perez: 19 Diet Order: Cardiac, DAGOBERTO Estimated Energy Needs: (Obese , CBW) 2741-8478 kcals (20-25 kcals/ kg) 70-88g Pro (0.8-1.0 g/kg) 3914-9302 ml (20-25 ml/kg) Current Diet Order/ Nutrition Support Cardiac, DAGOBERTO Pertinent Medications Dulcolax (PRN), MOM, Fleet Enema Pertinent Labs 08/27: G 119, A1C 6.1%, TG 195 Nutritional Hx/Data Height 5 ft 6 in Height (Calculated Centimeters) 167.6 Current Weight (lbs) 195 lb Weight (Calculated Kilograms) 88.5 Weight (Calculated Grams) 96412.5 [place] Body Weight 142 % [place] Body Weight 137 Body Mass Index (BMI) 31.4 Weight Status Obese GI Symptoms GI Symptoms None Last BM 08/30 Skin Integrity/Comment: Skin: WNL, None/Intact Perez: 19 Current %PO Good (75-100%) Estimated Nutritional Goals BEE in Kcals: Using Current wt Calories/Kcals/Kg 20-25 Kcals Calculated 8331-6601 Protein: Using Current wt Protein g/k-88 Protein Calculated 0.8 - 1.0 Fluid: ml 5968-4426 ml (20-25 ml/kg) Nutritional Problem 1. Problem Problem Obese Etiology r/t consistent energy overconsumption Signs/Symptoms: aeb BMI>30 (31.47) Malnutrition Related to Morbid Obesity Malnutrition related to morbid obesity No Intervention/Recommendation Comments 1. Continue Cardiac, DAGOBERTO diet as tolerated. Expected Outcomes/Goals Expected Outcomes/Goals 1.PO intake to continue to meet >75% of estimated nutritional needs. 2.Gradual weight loss, 0.5-1 LB/week, trending towards IBW. 3.Monitor PO intake, wt, nutrition related labs to trend WNL. 4.F/U as low risk in 7-10 days , 09/09-09/12
[2019-09-07] MEDS: Magnesium Hydroxide (MOM) 30 mL UDC PO SCH (21:30)
--- NOTE | 2019-09-07 22:50 | Progress Notes ---
DATE: 09/07/2019 PHYSICIAN: Dr. Lowery. COVERING FOR: Dr. Fadi Harper SUBJECTIVE: The patient was interviewed. Case was discussed with staff. Chart and records were reviewed. Per the staff, the patient continues to refuse to change his clothes. The patient has been isolated. The patient continues to be labile and delusional, believing that he has a and a couple of girls coming to pick him up from the hospital. The patient also made mention that he owns the hospital. The patient was interviewed this morning in the dayroom. The patient is withdrawn, isolated, but also quite irritable. He has no plan for self-care at this time. He continues to have delusions that he owns the hospital and that people are coming to pick him up. MENTAL STATUS EXAMINATION: The patient is an elderly male sitting in a chair. Limited cooperation, irritable, labile. Thought process is concrete. Unable to assess for suicidal or homicidal thoughts. Unable to assess for hallucinations, but appears to be internally preoccupied and also paranoid and delusional. Alert and oriented to person only. Insight, judgment and impulse control appear to be poor at this time. PLAN: We will continue the patient's acute hospitalization. We will encourage the patient to verbalize his needs. We will continue the patient's current medication as prescribed. We will also encourage the patient to participate in group and milieu therapy. JOB# [id number]
[2019-09-08] MEDS: Magnesium Hydroxide (MOM) 30 mL UDC PO SCH ×2 (20:56)
--- NOTE | 2019-09-08 23:35 | Progress Notes ---
DATE: 09/08/2019 SUBJECTIVE: A 79-year-old male, currently in the hospital, still isolative, delusional, believing that the family is going to come and pick him up, that he owns the hospital, mostly withdrawn, keeps to self in the dayroom, may be approaching his baseline. Poor orientation. No distress noted right now. Able to make simple commands now. Delusions persist. Seems to be doing better on dosing of Depakote and Seroquel. Time was spent. Attempted to speak with the patient, although he is pretty confused, reviewed with the nursing notes and labs were reviewed, medications were reviewed, vitals were reviewed. We will continue to monitor. We will confirm a safe disposition plan with social service. JOB# [id number]
--- NOTE | 2019-09-09 13:38 | Progress Notes ---
DATE: 09/09/2019 SUBJECTIVE: The patient in the hospital, remains symptomatic, still delusional, believing family will pick him up, believing he has some ownership of the hospital, making demands. Noted to be irritable at times, unruly, however, seems to be approaching his baseline, still paranoid, symptomatic, redirectable, however, currently on dosing of Seroquel, doing better with the Depakote. Sleeping well, eating well, calm right now. ASSESSMENT: The patient still with some symptoms, but improvement noted. Time was spent speaking with the patient, discussion with staff. Nursing notes were also reviewed. Medications were reviewed. Labs were reviewed. PLAN: We will err on the side of caution, monitor for further 24 hours. JOB# [id number]
[2019-09-09] MEDS: Magnesium Hydroxide (MOM) 30 mL UDC PO SCH (21:30)
--- NOTE | 2019-09-10 11:21 | Internal Medicine Prog Note ---
Internal Medicine Subjective - Subjective Service Date: 09/10/19 Patient is:: awake, verbal Per staff patient has:: no adverse event, no episodes of fall Internal Medicine Objective - Physical Exam Vitals and I&O: Vital Signs Temp 97.8 F 09/10/19 10:37 Pulse 71 09/10/19 10:37 Resp 17 09/10/19 10:37 BP 135/81 09/10/19 10:37 Pulse Ox 94 09/10/19 10:37 Intake & Output 09/09/19 09/10/19 09/10/19 18:59 06:59 18:59 Intake Total 950 Balance 950 Intake: Oral 950 Other: # Voids 3 # Bowel Movements 1 0 Active Medications: Current Medications Acetaminophen (Tylenol Extra Strength) 1,000 mg PO Q4H PRN PRN Reason: moderate to severe pain (4-10) Stop: 10/27/19 21:47 Acetaminophen (Tylenol) 650 mg PO Q4HR PRN PRN Reason: Pain (Mild 1-3) Stop: 10/27/19 21:47 Acetaminophen (Tylenol) 650 mg PO Q4H PRN PRN Reason: for temp >101F Stop: 10/27/19 21:47 Amlodipine Besylate (Norvasc) 10 mg PO DAILY [facility] Stop: 10/28/19 08:59 Last Admin: 09/10/19 08:22 Dose: 10 mg Bisacodyl (Dulcolax 10 Mg Supp) 10 mg RC DAILY PRN PRN Reason: Constipation Stop: 10/27/19 21:47 Divalproex Sodium (Depakote Dr) 125 mg PO Q12HR BINTA; Protocol Stop: 11/01/19 20:59 Last Admin: 09/10/19 08:22 Dose: 125 mg Donepezil HCl (Aricept) 10 mg PO DAILY [facility] Stop: 10/28/19 08:59 Last Admin: 09/10/19 08:22 Dose: 10 mg Lorazepam (Ativan) 0.5 mg PO Q4HR PRN; Protocol PRN Reason: anxiety/agitation Stop: 09/27/19 21:43 Magnesium Hydroxide (Milk Of Magnesia) 30 ml PO HS [facility] Stop: 10/28/19 20:59 Last Admin: 09/09/19 21:30 Dose: 30 ml Memantine (Namenda) 10 mg PO BID [facility] Stop: 10/28/19 08:59 Last Admin: 09/10/19 08:22 Dose: 10 mg Quetiapine Fumarate 200 mg/ (Quetiapine Fumarate 25 mg) 225 mg PO BID [facility] Stop: 10/28/19 16:59 Last Admin: 09/10/19 08:22 Dose: 225 mg Sodium Phosphate (Fleet Enema) 135 ml RC Q2D PRN PRN Reason: IF DULCOLAX IS INEFFECTIVE Stop: 10/27/19 21:47 Zolpidem Tartrate (Ambien) 5 mg PO HS PRN PRN Reason: Insomnia Stop: 10/27/19 21:43 Last Admin: 09/09/19 21:30 Dose: 5 mg General: weak, demented, NAD HEENT: NC/AT, PERRLA Neck: Supple, No JVD Lungs: CTAB Cardiovascular: RRR Abdomen: soft, non-tender, non-distended Extremities: clear Neurological: disorganized Internal Medicine Assmt/Plan - Assessment Assessment: Mood disorder Dementia HTN OA - Plan Plan: patient is medically stable and cleared if discharged Continue current managements Monitor VS Monitor Labs Psych management per Psych Pain managment as needed. Monitor nutritional needs. Fall Precaution Continue collaboration with interdisciplinary team. Nutritional Asmnt/Malnutr-PDOC - Dietary Evaluation Malnutrition Findings (Please click <Entered> for more info): Nutritional Asmnt/Malnutrition Start: 09/02/19 11: 44 Text: Status: Complete Freq: Protocol: Document 09/02/19 16:06 DEV (Rec: 09/02/19 16:12 DEV [email or web address]) Nutritional Asmnt/Malnutrition Patient General Information Nutritional Screening Low Risk Diagnosis Psychosis Pertinent Medical Hx/Surgical Hx Depression, Psychosis, HTN, Gerd Subjective Information Pt is a 79-year-old male admitted on 08/27 d/t acting out behavior and striking out towards staff. Pt is eating an estimated 100% of meals Per Meal/Nutrition Activity Record . Dietary is currently providing an estimated 2500 kcals and 120 gm Pro, per Pt PO intake this is providing an estimated 2500 kcals and 120gm Pro to meet 100+% kcal and 100+% Pro needs- adequate. Pt. sitting in community room at time of visit. Anthropometrics HT: 56 WT: 195 LB (88.63 kg) BMI: 31.47 (Obese, Class I) GI/ Skin Integrity GI: WNL, Large Round BM: 08/30 x1 I/O: 48580/Not Noted Skin: WNL, None/Intact Perez: 19 Diet Order: Cardiac, DAGOBERTO Estimated Energy Needs: (Obese , CBW) 8775-2275 kcals (20-25 kcals/ kg) 70-88g Pro (0.8-1.0 g/kg) 8714-6181 ml (20-25 ml/kg) Current Diet Order/ Nutrition Support Cardiac, DAGOBERTO Pertinent Medications Dulcolax (PRN), MOM, Fleet Enema Pertinent Labs 08/27: G 119, A1C 6.1%, TG 195 Nutritional Hx/Data Height 5 ft 6 in Height (Calculated Centimeters) 167.6 Current Weight (lbs) 195 lb Weight (Calculated Kilograms) 88.5 Weight (Calculated Grams) 40423.5 [place] Body Weight 142 % [place] Body Weight 137 Body Mass Index (BMI) 31.4 Weight Status Obese GI Symptoms GI Symptoms None Last BM 08/30 Skin Integrity/Comment: Skin: WNL, None/Intact Perez: 19 Current %PO Good (75-100%) Estimated Nutritional Goals BEE in Kcals: Using Current wt Calories/Kcals/Kg 20-25 Kcals Calculated 6259-8690 Protein: Using Current wt Protein g/k-88 Protein Calculated 0.8 - 1.0 Fluid: ml 2511-2015 ml (20-25 ml/kg) Nutritional Problem 1. Problem Problem Obese Etiology r/t consistent energy overconsumption Signs/Symptoms: aeb BMI>30 (31.47) Malnutrition Related to Morbid Obesity Malnutrition related to morbid obesity No Intervention/Recommendation Comments 1. Continue Cardiac, DAGOBERTO diet as tolerated. Expected Outcomes/Goals Expected Outcomes/Goals 1.PO intake to continue to meet >75% of estimated nutritional needs. 2.Gradual weight loss, 0.5-1 LB/week, trending towards IBW. 3.Monitor PO intake, wt, nutrition related labs to trend WNL. 4.F/U as low risk in 7-10 days , 09/09-09/12
--- NOTE | 2019-09-10 12:46 | Discharge Summary ---
DATE OF DISCHARGE: 09/10/2019 HISTORY OF PRESENT ILLNESS: A 79-year-old male coming in due to increased agitation, striking out, refusing care, delusional, grandiose, believing he is owning the hospital, irritable, disengaged, confusion noted. PAST PSYCHIATRIC HISTORY: Admissions in the past. MEDICATIONS: Noted. SOCIAL HISTORY: [facility] in [facility] DIAGNOSES: Mood, unspecified; anxiety, unspecified; dementia, dementia with behaviors, delusional disorder. PAST MEDICAL HISTORY: Please see full H and P. HOSPITAL COURSE: After initial assessment, the patient was restarted on Seroquel. Medications were adjusted, titrated initially on a small dose of Depakote to control his impulse control, aggressive behaviors. Over the course of hospitalization, mood improved, affect improved, calmer, remained delusional, confused, but no longer striking out. No overt combative behaviors, redirectable, better sleep and appetite, tolerant of medications. No overt side effects. CONDITION UPON DISCHARGE: Improved, calm, confused. No SI, no HI, ongoing delusions. No perceptual disturbances like hallucinations. Better impulse control. Staff noting improvement, more engaged, sociable. DISCHARGE DIAGNOSES: Mood, unspecified; anxiety, unspecified; dementia, dementia with behaviors, delusional disorder. MEDICAL: Please see full H and P. PROGNOSIS: The patient follows up with [facility] and remains compliant with treatment. Prognosis will improve, otherwise guarded. [facility]# [id number]
--- NOTE | 2019-09-10 17:13 | Progress Notes ---
DATE: 09/10/2019 SUBJECTIVE: A 79-year-old male still symptomatic. Ongoing delusions, confusional state. Otherwise, calmer, more cooperative, likely approaching his baseline. We are still trying to confirm a safe disposition. Coordinated care with the nursing, social security benefits interviewer. Per nursing, more redirectable, but confused, disoriented, fair sleep and appetite, tolerant to medications, doing well with Depakote, Seroquel combination. Attempted to speak with the patient, but he is very confused, still believes he owns the hospital. Ongoing delusions. PLAN: We will continue inpatient monitoring, err on the side of caution, monitor for further 24 hours. JOB# [id number]
[2019-09-10] MEDS: Magnesium Hydroxide (MOM) 30 mL UDC PO SCH (20:39)
== END 2019-09-11 14:30 | DRG 885 ==
LOC: GERO 19:02
PROVIDERS: ADMIT Psychiatry & Neurology Psychiatry; ATTEND Psychiatry & Neurology Psychiatry
DX: F39 Unspecified mood [affective] disorder (principal); F03.91 Unspecified dementia, unspecified severity, with behavioral disturbance; F32.9 Major depressive disorder, single episode, unspecified; M19.90 Unspecified osteoarthritis, unspecified site; F25.9 Schizoaffective disorder, unspecified; F41.9 Anxiety disorder, unspecified; F22 Delusional disorders; I10 Essential (primary) hypertension; K21.9 Gastro-esophageal reflux disease without esophagitis; Z79.899 Other long term (current) drug therapy
CPT/HCPCS: 83036-90; 90899; G0410; Z7610

== ENCOUNTER 2020-02-20 13:16 | Inpatient (IN) | payer MEDICARE, MEDICAID ==
[2020-02-20 21:25] VITALS: BP 136/81
[2020-02-20] MEDS ORDERED: Acetaminophen 500 MG TAB PO PRN (21:27)
[2020-02-20] MEDS ORDERED: Magnesium Hydroxide (MOM) 30 mL UDC PO PRN (21:27)
[2020-02-20] MEDS ORDERED: Fleet Enema 135 mL RC PRN (21:38)
[2020-02-21] MEDS: Potassium Chloride 20 mEq ER Tab PO SCH (08:50)
--- NOTE | 2020-02-21 11:09 | History and Physical ---
History of Present Illness - HPI Chief Complaint: 79 y/o male patient was brought into [facility] for evaluation due to aggressive behavior. HPI: 79 y/o male patient was admitted to [facility] for evaluation due to aggressive behavior and danger to self and others. Patient was brought by [facility] staff due to complaints of aggressive behavior and striking out towards staff. Patient has history of Psychosis, Depression, Hypertension and Gerd. Patient had an ER assessment and a workup was done. Patient was diagnosed with Acute Psychosis, Depression, Danger to self/others, History of Gerd and History of Hypertension. Patient will have a Psych evaluation. I will follow, treat and monitor patient. Patient will continue current treatment plan as ordered. Vital Signs: Last Vital Signs Temp 98.5 F 02/21/20 06:09 Pulse 75 02/21/20 08:50 Resp 20 02/21/20 06:09 BP 154/89 02/21/20 08:50 Pulse Ox 92 02/21/20 06:09 Past Medical History Cardiovascular: Report: HTN Pulmonary: Report: No Pertinent Hx D[employer]IC: Report: No Pertinent Hx GI: Report: GERD Musculoskeletal: Report: No Pertinent Hx Rheumatologic: Report: No pertinent Hx Infectious Disease: Report: No Pertinent Hx Renal/: Report: No Pertinent Hx Endocrine: Report: No Pertinent Hx Dermatology: Report: No Pertinent Hx - Past Surgical History Past Surgical History: No pertinent Hx Family Medical History - Family Member Mother History Unknown: Yes Ethnicity: Unknown Living Status: Unknown Hx Family Cancer: (unknown) Hx Family Coronary Artery Disease: (unknown) Hx Family Congestive Heart Failure: (unknown) Hx Family Hypertension: (unknown) Hx Family Stroke: (unknown) Hx Family Diabetes: (unknown) Hx Family Seizures: (unknown) Hx Family Dementia: (unknown) Hx Family AIDS: (unknown) Hx Family COPD: (unknown) Hx Family Hepatitis: (unknown) Hx Family Psychiatric Problems: (unknown) Hx Family Tuberculosis: (unknown) family History Unknown: Yes Ethnicity: Unknown Living Status: Unknown Hx Family Cancer: (unknown) Hx Family Coronary Artery Disease: (unknown) Hx Family Congestive Heart Failure: (unknown) Hx Family Hypertension: (unknown) Hx Family Stroke: (unknown) Hx Family Diabetes: (unknown) Hx Family Seizures: (unknown) Hx Family Dementia: (unknown) Hx Family AIDS: (unknown) Hx Family COPD: (unknown) Hx Family Hepatitis: (unknown) Hx Family Psychiatric Problems: (unknown) Hx Family Tuberculosis: (unknown) Social History Smoke: No Alcohol: None Drugs: None Lives: Long-Term Domestic Violence: Negative Health Maintenance Health Maintenance: Other (Please see chart.) - Medications Home Medications: Home Medication Medication Instructions Recorded Type Acetaminophen [Tylenol Extra 1,000 mg PO Q4H PRN tab 09/10/19 Rx Strength] Acetaminophen [Tylenol] 650 mg PO Q4H PRN tab 09/10/19 Rx Acetaminophen [Tylenol] 650 mg PO Q4HR PRN tab 09/10/19 Rx Bisacodyl [Dulcolax 10 Mg Supp] 10 mg RC DAILY PRN sup 09/10/[address] [Depakote DR] 125 mg PO Q12HR tcp 09/10/19 Rx Donepezil Hcl [Aricept] 10 mg PO DAILY tab 09/10/19 Rx Fleet Enema 135 ml RC Q2D PRN btl 09/10/19 Rx Lorazepam [Ativan] 0.5 mg PO Q4HR PRN tab 09/10/19 Rx Magnesium Hydroxide [Milk of 30 ml PO HS udc 09/10/19 Rx Magnesia] Memantine [Namenda] 10 mg PO BID tab 09/10/19 Rx QUEtiapine Fumarate [SEROquel] 225 mg PO BID tab 09/10/19 Rx QUEtiapine Fumarate [SEROquel] 225 mg PO BID tab 09/10/19 Rx Zolpidem Tartrate [Ambien] 5 mg PO HS PRN tab 09/10/19 Rx amLODIPine Besylate [Norvasc*] 10 mg PO DAILY tab 09/10/19 Rx Other Medications: Please see medication reconciliation sheet. - Allergies Allergies/Adverse Reactions: Allergies Allergy/AdvReac Type Severity Reaction Status Date / Time No Known Allergies Allergy Verified 01/09/17 14:23 Review of Systems - Review of Systems Review of Systems: Patient is very agitated and aggressive, needs to be monitored closely. Constitutional: Report: No Significant Eyes: Report: No Significant ENT: Report: No Significant Respiratory: Report: No Significant Cardiovascular: Report: No Significant Gastrointestinal: Report: No Significant Genitourinary: Report: No Significant Musculoskeletal: Report: No Significant Skin: Report: No Significant Neurological: Report: Other (Irritable and agitated.) Physical Exam - Physical Exam HEENT: Report: Ears Nose Throat within normal limits Neck: Report: Within normal limits Cardiovascular Systems: Report: +s1/s2 noted, Regular, Rate and Rhythm Respiratory: Report: Breath Sounds are within normal limits Abdomen: Report: Non-tender to palpation Back: Report: Inspection of back is within normal limits. Extremities: Report: Non-tender to palpation. Skin: Report: Color of skin is within normal limits Neuro/Psych: Report: Other (Agitated and Aggressive behavior.) - Lab Results All Lab Results last 24 hours: Laboratory Results - last 24 hr 02/20/20 19:52 POC Glucose 131 H - Assessment Assessment: Acute Psychosis. Depression. Danger to self/others. History of Gerd. History of Hypertension. - Plan Plan: Psych management as per Psych. Monitor vitals, labs, Low sodium diet. Continue present meds as directed. Supportive care. Safety precaution/Fall precaution. Continue current treatment plan as ordered. Cranial Nerve Assessment - CRANIAL NERVES alcohol swab:: Yes Distinguishes movements in peripheral field.:: Yes up, down, sideways:: Yes on forehead, cheeks and chin, chews symmetrically:: Yes FACIAL VII: upper: Frowns Symmetrically:: Yes FACIAL VII: Lower: Smiles Symmetrically:: Yes both ears:: Yes GLOSS-PHARYNGEAL IX: Has gag reflex:: Yes VAGUS X: Can make guttural sounds:: Yes ACCESSORY XI: Shrugs shoulders symmetrically:: Yes tremors or fasciculation's:: Yes - MOTOR spasticity, cogwheel, atrophy, tremor, asterixis, other: Yes - COORDINATION Finger to nose, heel to crowley, KIARRA, gait, Romberg: Yes - SENSORY signs, Brudzinski, Kernig, neck rigidity:: Yes - REFLEXES Brachioradials Right:: Yes Brachioradials Left:: Yes Biceps Right:: Yes Biceps Left:: Yes Triceps Right:: Yes Triceps Left:: Yes Knee Right:: Yes Knee Left:: Yes Ankle Right:: Yes Ankle Left:: Yes Babinski Right:: Yes Babinski Left:: Yes
--- NOTE | 2020-02-21 13:07 | Psychiatric Evaluation ---
DATE OF SERVICE: 02/21/2020 HISTORY OF PRESENT ILLNESS: A 79-year-old male coming in from 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 Does not know his birthday. 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 Gets irritable, upset, highly delusional. Staff at his facility could not handle him given that he was somewhat agitated, verbally aggressive. It seems that his delusions were worsening. PAST PSYCHIATRIC HISTORY: Multiple and many admissions here in the past. FAMILY HISTORY: Unclear. SOCIAL HISTORY: Coming from a facility, [facility]. Unclear of family support system. FAMILY HISTORY: Unclear. MEDICATIONS: Noted. MENTAL STATUS EXAMINATION: Stated age, fair eye contact. Speech within normal limits. Mood "okay." Affect flat. Thought processes were confused. No overt SI or HI. Delusions as noted, grandiose, poor insight. DIAGNOSES: Dementia, dementia with behaviors, possible schizophrenia. MEDICAL: Please see full H and P. ESTIMATED LENGTH OF STAY: 7-10 days. ASSESSMENT: The patient requiring hospitalization, unruly, delusional. TREATMENT PLAN: Includes group as well as milieu therapy. CONDITIONS FOR DISCHARGE: Improved mood, improved affect, and better control of his psychotic symptoms. JOB# [id number]
[2020-02-21 14:20] LABS: CHOLESTEROL 124 mg/dL (<200); TRIGLYCERIDES 67 mg/dL (30-150)
[2020-02-21 14:21] LABS: LDL CHOLESTEROL 67 mg/dL (0-129)
[2020-02-22 07:19] LABS: A1C 5.9 % (4.8-5.6)
[2020-02-22] MEDS: Potassium Chloride 20 mEq ER Tab PO SCH (08:52)
--- NOTE | 2020-02-22 09:37 | Progress Notes ---
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 I know him well. 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 No events this morning. Medications reviewed. Labs reviewed. Vitals were reviewed. ASSESSMENT: The patient with ongoing confusion and delusions, still acting out, irritable, loud. We will continue inpatient monitoring, titrate medications as well. JOB# [id number]
[2020-02-23] MEDS: Potassium Chloride 20 mEq ER Tab PO SCH (08:09)
--- NOTE | 2020-02-24 00:35 | Progress Notes ---
DATE: 02/23/2020 SUBJECTIVE: The patient remains symptomatic, ongoing delusions, still talking about owning the hospital, grandiosity as being a famous ____, currently on dosing of Seroquel, generally calm and cooperative right now, but some periods of agitation and irritability. Slept about 5 hours, poor orientation, bossing people around believing he owns the hospital and he is the boss. Medications were reviewed. Labs were reviewed. Vitals were reviewed. ASSESSMENT: A 79-year-old male in the hospital with ongoing symptoms, delusions, outbursts, still remains unstable, not safe for a lower level of care. JOB# [id number]
[2020-02-24] MEDS: Potassium Chloride 20 mEq ER Tab PO SCH (08:35)
--- NOTE | 2020-02-24 13:38 | Internal Medicine Prog Note ---
Internal Medicine Subjective - Subjective Service Date: 02/24/20 Patient seen and examined:: without staff (no complaints) Patient is:: awake Per staff patient has:: no adverse event, no episodes of fall Internal Medicine Objective - Results Recent Labs: Laboratory Last Values POC Glucose 131 MG/DL (70 - 105) H 02/20/20 19:52 Hemoglobin A1c 5.9 % (4.8-5.6) H 02/21/20 11:00 Triglycerides 67 mg/dL (30-150) 02/21/20 10:45 Cholesterol 124 mg/dL (<200) 02/21/20 10:45 LDL Cholesterol 67 mg/dL (0-129) 02/21/20 10:45 HDL Cholesterol 52 mg/dL (>45) 02/21/20 10:45 - Physical Exam Vitals and I&O: Vital Signs Temp 97.7 F 02/24/20 05:48 Pulse 64 02/24/20 08:35 Resp 18 02/24/20 08:00 BP 134/77 02/24/20 08:35 Pulse Ox 95 02/24/20 05:48 Intake & Output 02/23/20 02/24/20 02/24/20 18:59 06:59 18:59 Intake Total 240 Balance 240 Intake: Oral 240 Other: # Voids 3 # Bowel Movements 0 Active Medications: Current Medications Acetaminophen (Tylenol Extra Strength) 1,000 mg PO Q4H PRN PRN Reason: Moderate pain(5-7) Stop: 04/20/20 21:26 Acetaminophen (Tylenol) 650 mg PO Q4H PRN PRN Reason: Mild Pain(1-4) Stop: 04/20/20 21:26 Bisacodyl (Dulcolax 10 Mg Supp) 10 mg RC DAILY PRN PRN Reason: Constipation Stop: 04/20/20 21:37 Divalproex Sodium (Depakote Dr) 125 mg PO Q12HR [facility]; Protocol Stop: 04/21/20 08:59 Last Admin: 02/24/20 08:35 Dose: 125 mg Donepezil HCl (Aricept) 10 mg PO DAILY [facility] Stop: 04/21/20 08:59 Last Admin: 02/24/20 08:33 Dose: 10 mg Furosemide (Lasix) 20 mg PO DAILY [facility] Stop: 04/21/20 08:59 Last Admin: 02/24/20 08:33 Dose: 20 mg Hydralazine HCl (Apresoline) 25 mg PO TID [facility] Stop: 04/21/20 08:59 Last Admin: 02/24/20 08:35 Dose: 25 mg Lorazepam (Ativan) 0.5 mg PO Q4HR PRN; Protocol PRN Reason: Anxiety Stop: 03/21/20 21:26 Magnesium Hydroxide (Milk Of Magnesia) 30 ml PO HS PRN PRN Reason: Constipation Memantine (Namenda) 10 mg PO BID [facility] Stop: 04/21/20 08:59 Last Admin: 02/24/20 08:35 Dose: 10 mg Potassium Chloride (Klor-Con) 40 meq PO DAILY [facility] Stop: 04/21/20 08:59 Last Admin: 02/24/20 08:35 Dose: 40 meq Quetiapine Fumarate (Seroquel) 300 mg PO HS [facility]; Protocol Stop: 04/21/20 20:59 Last Admin: 02/23/20 20:59 Dose: 300 mg Quetiapine Fumarate (Seroquel) 200 mg PO DAILY [facility]; Protocol Stop: 04/21/20 08:59 Last Admin: 02/24/20 08:33 Dose: 200 mg Sodium Phosphate (Fleet Enema) 135 ml RC Q2D PRN PRN Reason: IF DULCOLAX IS INEFFECTIVE Stop: 04/20/20 21:37 Zolpidem Tartrate (Ambien) 5 mg PO HS PRN PRN Reason: Insomnia Stop: 04/20/20 21:26 Last Admin: 02/23/20 21:00 Dose: 5 mg General: weak HEENT: NC/AT, PERRLA Neck: Supple Lungs: CTAB Cardiovascular: RRR, Normal S1, Normal S2 Abdomen: soft, non-tender Extremities: clear Internal Medicine Assmt/Plan - Assessment Assessment: 1. HTN 2. Dementia - Plan Plan: continue hydralazine continue supportive care d/w r.n. reviewed complete medical records Nutritional Asmnt/Malnutr-PDOC - Dietary Evaluation Malnutrition Findings (Please click <Entered> for more info): Nutritional Asmnt/Malnutrition Start: 02/24/20 10: 07 Text: Status: Complete Freq: Protocol: Document 02/24/20 10:07 DEV (Rec: 02/24/20 10:11 DEV [email or web address] [id number]) Nutritional Asmnt/Malnutrition Patient General Information Nutritional Screening Moderate Risk Diagnosis Acute Psychosis Pertinent Medical Hx/Surgical Hx Psychosis, Depression, HTN, GERD Subjective Information Pt is a 79-year-old male admitted on 02/19 d/t aggressive behavior with striking out. Pt is eating an 100% of meals sine admit date (x3 days) Per Meal/Nutrition Activity Record. Dietary is currently providing an estimated 1800 kcals and 100 gm Pro to meet 100+% kcal and 100+% Pro needs. Recommend adding CCHO to current diet Rx d/t impaired nutrient utilization r/t endocrine dysfunction aeb () POC Glucose 131, A1c 5.9%. Anthropometrics HT: 53 WT: 183 LB (83.18 kg) ABW: 140 LB (63.07 kg) BMI: 32.41 (Obese, class I) GI/ Skin Integrity GI: WNL, Soft, Non-tender BM: 02/21 x1 I/O: 240/Not Noted Skin: WNL, Intact Perez: 20 Diet Order: Cardiac, DAGOBERTO Estimated Energy Needs: (Obese , ABW) 5466-1140 kcals (20-25 kcals/ kg) 50-65g Pro (0.8-1.0 g/kg) 9831-6059 ml (20-25 ml/kg) Current Diet Order/ Nutrition Support ardiac, DAGOBERTO Pertinent Medications Dulcolax (PRN), Lasix, MOM ( PRN), Klor-con, Fleet Enema ( PRN) Pertinent Labs 02/19: POC Glucose 131, A1c 5.9 % Nutritional Hx/Data Height 1.6 m Height (Calculated Centimeters) 160.0 Current Weight (lbs) 83.007 kg Weight (Calculated Kilograms) 83.0 Weight (Calculated Grams) 87632.4 [place] Body Weight 124 LB (56.36 kg) % [place] Body Weight 148 Body Mass Index (BMI) 32.4 Weight Status Obese GI Symptoms Last BM 02/21 x1 Skin Integrity/Comment: Skin: WNL, Intact Perez: 20 Current %PO Good (75-100%) Estimated Nutritional Goals BEE in Kcals: Adj wt of IBW Calories/Kcals/Kg 20-25 Kcals Calculated 2330-3590 Protein: Adj wt of IBW Protein g/k.8-1.0 Protein Calculated 50-65 Fluid: ml 4317-1993 ml (20-25 ml/kg) Nutritional Problem 2. Problem Problem Obese, class I Etiology r/t consistent energy overconsumption Signs/Symptoms: overconsumption aeb BMI >30 ( 32.42). 1. Problem Problem Impaired nutrient utilization Etiology r/t endocrine dysfunction Signs/Symptoms: aeb (02/19) POC Glucose 131, A1c 5.9%. Malnutrition Related to Morbid Obesity Malnutrition related to morbid obesity No Intervention/Recommendation Comments Recommend adding CCHO to current diet Rx. Expected Outcomes/Goals Expected Outcomes/Goals 1.PO intake to continue to meet >75% of estimated nutritional needs. 2.Gradual weight loss (0.5-1.0 LB/week) trending toward IBW. 3.Monitor PO intake, wt, skin integrity, and nutrition related labs to trend WNL. 4.F/U as low risk in 7-10 days , 03/02-03/05.
--- NOTE | 2020-02-24 20:40 | Progress Notes ---
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 Otherwise, calm when I go see him, redirectable, not particularly agitated or combative, somewhat more redirectable. Fair sleep and appetite, taking his medications. No overt side effects. ASSESSMENT: The patient is symptomatic, ongoing delusions, grandiosities, still with some outbursts. Medications were reviewed. Labs reviewed. Vitals were reviewed. PLAN: We will continue to monitor on an inpatient basis, titrate and adjust his medications. Extensive time spent with the patient attempting to further explore his delusional state. JOB# [id number]
[2020-02-25] MEDS: Potassium Chloride 20 mEq ER Tab PO SCH (09:31)
--- NOTE | 2020-02-25 09:45 | Internal Medicine Prog Note ---
Internal Medicine Subjective - Subjective Service Date: 02/25/20 Patient seen and examined:: with staff, chart reviewed Patient is:: awake, verbal, confused Patient Complaints of:: other (Hx of Htn.) Per staff patient has:: no adverse event, no episodes of fall Internal Medicine Objective - Results Recent Labs: Laboratory Last Values POC Glucose 131 MG/DL (70 - 105) H 02/20/20 19:52 Hemoglobin A1c 5.9 % (4.8-5.6) H 02/21/20 11:00 Triglycerides 67 mg/dL (30-150) 02/21/20 10:45 Cholesterol 124 mg/dL (<200) 02/21/20 10:45 LDL Cholesterol 67 mg/dL (0-129) 02/21/20 10:45 HDL Cholesterol 52 mg/dL (>45) 02/21/20 10:45 - Physical Exam Vitals and I&O: Vital Signs Temp 98.1 F 02/25/20 06:39 Pulse 67 02/25/20 09:32 Resp 18 02/25/20 06:39 BP 132/71 02/25/20 09:32 Pulse Ox 97 02/25/20 06:39 Intake & Output 02/24/20 02/25/20 02/25/20 18:59 06:59 18:59 Intake Total 1400 120 Balance 1400 120 Intake: Oral 1400 120 Other: # Voids 4 3 # Bowel Movements 1 Active Medications: Current Medications Acetaminophen (Tylenol Extra Strength) 1,000 mg PO Q4H PRN PRN Reason: Moderate pain(5-7) Stop: 04/20/20 21:26 Acetaminophen (Tylenol) 650 mg PO Q4H PRN PRN Reason: Mild Pain(1-4) Stop: 04/20/20 21:26 Bisacodyl (Dulcolax 10 Mg Supp) 10 mg RC DAILY PRN PRN Reason: Constipation Stop: 04/20/20 21:37 Divalproex Sodium (Depakote Dr) 125 mg PO Q12HR [facility]; Protocol Stop: 04/21/20 08:59 Last Admin: 02/25/20 09:32 Dose: 125 mg Donepezil HCl (Aricept) 10 mg PO DAILY [facility] Stop: 04/21/20 08:59 Last Admin: 02/25/20 09:33 Dose: 10 mg Furosemide (Lasix) 20 mg PO DAILY [facility] Stop: 04/21/20 08:59 Last Admin: 02/25/20 09:32 Dose: 20 mg Hydralazine HCl (Apresoline) 25 mg PO TID [facility] Stop: 04/21/20 08:59 Last Admin: 02/25/20 09:32 Dose: 25 mg Lorazepam (Ativan) 0.5 mg PO Q4HR PRN; Protocol PRN Reason: Anxiety Stop: 03/21/20 21:26 Magnesium Hydroxide (Milk Of Magnesia) 30 ml PO HS PRN PRN Reason: Constipation Memantine (Namenda) 10 mg PO BID [facility] Stop: 04/21/20 08:59 Last Admin: 02/25/20 09:32 Dose: 10 mg Potassium Chloride (Klor-Con) 40 meq PO DAILY [facility] Stop: 04/21/20 08:59 Last Admin: 02/25/20 09:31 Dose: 40 meq Quetiapine Fumarate (Seroquel) 300 mg PO HS [facility]; Protocol Stop: 04/21/20 20:59 Last Admin: 02/24/20 20:22 Dose: 300 mg Quetiapine Fumarate (Seroquel) 200 mg PO DAILY [facility]; Protocol Stop: 04/21/20 08:59 Last Admin: 02/25/20 09:31 Dose: 200 mg Sodium Phosphate (Fleet Enema) 135 ml RC Q2D PRN PRN Reason: IF DULCOLAX IS INEFFECTIVE Stop: 04/20/20 21:37 Zolpidem Tartrate (Ambien) 5 mg PO HS PRN PRN Reason: Insomnia Stop: 04/20/20 21:26 Last Admin: 02/24/20 21:15 Dose: 5 mg Physical Exam: Patient is confused, easily frustrated and agitated, remains very weak, will be monitored closely. General: weak HEENT: NC/AT, PERRLA Neck: Supple Lungs: CTAB Cardiovascular: RRR, Normal S1, Normal S2 Abdomen: soft, non-tender Extremities: clear Neurological: no change, disorganized, other (Easily frustrated.) Internal Medicine Assmt/Plan - Assessment Assessment: Acute Psychosis. Depression. Danger to self/others. History of Gerd. History of Hypertension. - Plan Plan: Psych management as per Psych. Monitor vitals, labs, Low sodium diet. Continue present meds as directed. Supportive care. Safety precaution/Fall precaution. Continue current treatment plan as ordered. Nutritional Asmnt/Malnutr-PDOC - Dietary Evaluation Malnutrition Findings (Please click <Entered> for more info): Nutritional Asmnt/Malnutrition Start: 02/24/20 10: 07 Text: Status: Complete Freq: Protocol: Document 02/24/20 10:07 JAREDVINICIUS (Rec: 02/24/20 10:11 DEV [email or web address]) Nutritional Asmnt/Malnutrition Patient General Information Nutritional Screening Moderate Risk Diagnosis Acute Psychosis Pertinent Medical Hx/Surgical Hx Psychosis, Depression, HTN, GERD Subjective Information Pt is a 79-year-old male admitted on 02/19 d/t aggressive behavior with striking out. Pt is eating an 100% of meals sine admit date (x3 days) Per Meal/Nutrition Activity Record. Dietary is currently providing an estimated 1800 kcals and 100 gm Pro to meet 100+% kcal and 100+% Pro needs. Recommend adding CCHO to current diet Rx d/t impaired nutrient utilization r/t endocrine dysfunction aeb () POC Glucose 131, A1c 5.9%. Anthropometrics HT: 53 WT: 183 LB (83.18 kg) ABW: 140 LB (63.07 kg) BMI: 32.41 (Obese, class I) GI/ Skin Integrity GI: WNL, Soft, Non-tender BM: 02/21 x1 I/O: 240/Not Noted Skin: WNL, Intact Perez: 20 Diet Order: Cardiac, DAGOBERTO Estimated Energy Needs: (Obese , ABW) 6113-0516 kcals (20-25 kcals/ kg) 50-65g Pro (0.8-1.0 g/kg) 2166-5602 ml (20-25 ml/kg) Current Diet Order/ Nutrition Support ardiac, DAGOBERTO Pertinent Medications Dulcolax (PRN), Lasix, MOM ( PRN), Klor-con, Fleet Enema ( PRN) Pertinent Labs 02/19: POC Glucose 131, A1c 5.9 % Nutritional Hx/Data Height 1.6 m Height (Calculated Centimeters) 160.0 Current Weight (lbs) 83.007 kg Weight (Calculated Kilograms) 83.0 Weight (Calculated Grams) 80446.4 [place] Body Weight 124 LB (56.36 kg) % [place] Body Weight 148 Body Mass Index (BMI) 32.4 Weight Status Obese GI Symptoms Last BM 02/21 x1 Skin Integrity/Comment: Skin: WNL, Intact Perez: 20 Current %PO Good (75-100%) Estimated Nutritional Goals BEE in Kcals: Adj wt of IBW Calories/Kcals/Kg 20-25 Kcals Calculated 1629-5624 Protein: Adj wt of IBW Protein g/k.8-1.0 Protein Calculated 50-65 Fluid: ml 2052-1260 ml (20-25 ml/kg) Nutritional Problem 2. Problem Problem Obese, class I Etiology r/t consistent energy overconsumption Signs/Symptoms: overconsumption aeb BMI >30 ( 32.42). 1. Problem Problem Impaired nutrient utilization Etiology r/t endocrine dysfunction Signs/Symptoms: aeb (02/19) POC Glucose 131, A1c 5.9%. Malnutrition Related to Morbid Obesity Malnutrition related to morbid obesity No Intervention/Recommendation Comments Recommend adding CCHO to current diet Rx. Expected Outcomes/Goals Expected Outcomes/Goals 1.PO intake to continue to meet >75% of estimated nutritional needs. 2.Gradual weight loss (0.5-1.0 LB/week) trending toward IBW. 3.Monitor PO intake, wt, skin integrity, and nutrition related labs to trend WNL. 4.F/U as low risk in 7-10 days , 03/02-03/05.
[2020-02-26] MEDS: Potassium Chloride 20 mEq ER Tab PO SCH (08:24)
--- NOTE | 2020-02-26 10:27 | Internal Medicine Prog Note ---
Internal Medicine Subjective - Subjective Service Date: 02/26/20 Patient is:: awake, verbal, agitated Patient Complaints of:: other (Hx of Htn.) Per staff patient has:: no adverse event, no episodes of fall Internal Medicine Objective - Results Recent Labs: Laboratory Last Values POC Glucose 131 MG/DL (70 - 105) H 02/20/20 19:52 Hemoglobin A1c 5.9 % (4.8-5.6) H 02/21/20 11:00 Triglycerides 67 mg/dL (30-150) 02/21/20 10:45 Cholesterol 124 mg/dL (<200) 02/21/20 10:45 LDL Cholesterol 67 mg/dL (0-129) 02/21/20 10:45 HDL Cholesterol 52 mg/dL (>45) 02/21/20 10:45 - Physical Exam Vitals and I&O: Vital Signs Temp 97.6 F 02/26/20 05:48 Pulse 79 02/26/20 08:24 Resp 20 02/26/20 08:00 BP 147/77 02/26/20 08:24 Pulse Ox 90 02/26/20 05:48 Intake & Output 02/25/20 02/26/20 02/26/20 18:59 06:59 18:59 Intake Total 240 Balance 240 Intake: Oral 240 Other: # Voids 2 Active Medications: Current Medications Acetaminophen (Tylenol Extra Strength) 1,000 mg PO Q4H PRN PRN Reason: Moderate pain(5-7) Stop: 04/20/20 21:26 Acetaminophen (Tylenol) 650 mg PO Q4H PRN PRN Reason: Mild Pain(1-4) Stop: 04/20/20 21:26 Bisacodyl (Dulcolax 10 Mg Supp) 10 mg RC DAILY PRN PRN Reason: Constipation Stop: 04/20/20 21:37 Divalproex Sodium (Depakote Dr) 125 mg PO Q12HR [facility]; Protocol Stop: 04/21/20 08:59 Last Admin: 02/26/20 08:24 Dose: 125 mg Donepezil HCl (Aricept) 10 mg PO DAILY [facility] Stop: 04/21/20 08:59 Last Admin: 02/26/20 08:23 Dose: 10 mg Furosemide (Lasix) 20 mg PO DAILY [facility] Stop: 04/21/20 08:59 Last Admin: 02/26/20 08:23 Dose: 20 mg Hydralazine HCl (Apresoline) 25 mg PO TID [facility] Stop: 04/21/20 08:59 Last Admin: 02/26/20 08:24 Dose: 25 mg Lorazepam (Ativan) 0.5 mg PO Q4HR PRN; Protocol PRN Reason: Anxiety Stop: 03/21/20 21:26 Magnesium Hydroxide (Milk Of Magnesia) 30 ml PO HS PRN PRN Reason: Constipation Memantine (Namenda) 10 mg PO BID [facility] Stop: 04/21/20 08:59 Last Admin: 02/26/20 08:24 Dose: 10 mg Potassium Chloride (Klor-Con) 40 meq PO DAILY [facility] Stop: 04/21/20 08:59 Last Admin: 02/26/20 08:24 Dose: 40 meq Quetiapine Fumarate (Seroquel) 300 mg PO HS [facility]; Protocol Stop: 04/21/20 20:59 Last Admin: 02/25/20 20:43 Dose: 300 mg Quetiapine Fumarate (Seroquel) 200 mg PO DAILY [facility]; Protocol Stop: 04/21/20 08:59 Last Admin: 02/26/20 08:24 Dose: 200 mg Sodium Phosphate (Fleet Enema) 135 ml RC Q2D PRN PRN Reason: IF DULCOLAX IS INEFFECTIVE Stop: 04/20/20 21:37 Zolpidem Tartrate (Ambien) 5 mg PO HS PRN PRN Reason: Insomnia Stop: 04/20/20 21:26 Last Admin: 02/25/20 20:45 Dose: 5 mg Physical Exam: Patient is dis-oriented and irritable, still very weak, will be monitored closely. General: weak HEENT: NC/AT, PERRLA Neck: Supple Lungs: CTAB Cardiovascular: RRR, Normal S1, Normal S2 Abdomen: soft, non-tender Extremities: clear Neurological: no change, disorganized, other (Easily frustrated.) Internal Medicine Assmt/Plan - Assessment Assessment: Acute Psychosis. Depression. Danger to self/others. History of Gerd. History of Hypertension. - Plan Plan: Psych management as per Psych. Monitor vitals, labs, Low sodium diet. Continue present meds as directed. Supportive care. Safety precaution/Fall precaution. Continue current treatment plan as ordered. Nutritional Asmnt/Malnutr-PDOC - Dietary Evaluation Malnutrition Findings (Please click <Entered> for more info): Nutritional Asmnt/Malnutrition Start: 02/24/20 10: 07 Text: Status: Complete Freq: Protocol: Document 02/24/20 10:07 JAREDVINICIUS (Rec: 02/24/20 10:11 DEV [id number]) Nutritional Asmnt/Malnutrition Patient General Information Nutritional Screening Moderate Risk Diagnosis Acute Psychosis Pertinent Medical Hx/Surgical Hx Psychosis, Depression, HTN, GERD Subjective Information Pt is a 79-year-old male admitted on 02/19 d/t aggressive behavior with striking out. Pt is eating an 100% of meals sine admit date (x3 days) Per Meal/Nutrition Activity Record. Dietary is currently providing an estimated 1800 kcals and 100 gm Pro to meet 100+% kcal and 100+% Pro needs. Recommend adding CCHO to current diet Rx d/t impaired nutrient utilization r/t endocrine dysfunction aeb () POC Glucose 131, A1c 5.9%. Anthropometrics HT: 53 WT: 183 LB (83.18 kg) ABW: 140 LB (63.07 kg) BMI: 32.41 (Obese, class I) GI/ Skin Integrity GI: WNL, Soft, Non-tender BM: 02/21 x1 I/O: 240/Not Noted Skin: WNL, Intact Perez: 20 Diet Order: Cardiac, DAGOBERTO Estimated Energy Needs: (Obese , ABW) 7236-1789 kcals (20-25 kcals/ kg) 50-65g Pro (0.8-1.0 g/kg) 5578-0279 ml (20-25 ml/kg) Current Diet Order/ Nutrition Support ardiac, DAGOBERTO Pertinent Medications Dulcolax (PRN), Lasix, MOM ( PRN), Klor-con, Fleet Enema ( PRN) Pertinent Labs 02/19: POC Glucose 131, A1c 5.9 % Nutritional Hx/Data Height 1.6 m Height (Calculated Centimeters) 160.0 Current Weight (lbs) 83.007 kg Weight (Calculated Kilograms) 83.0 Weight (Calculated Grams) 81641.4 [place] Body Weight 124 LB (56.36 kg) % [place] Body Weight 148 Body Mass Index (BMI) 32.4 Weight Status Obese GI Symptoms Last BM 02/21 x1 Skin Integrity/Comment: Skin: WNL, Intact Perez: 20 Current %PO Good (75-100%) Estimated Nutritional Goals BEE in Kcals: Adj wt of IBW Calories/Kcals/Kg 20-25 Kcals Calculated 7862-3517 Protein: Adj wt of IBW Protein g/k.8-1.0 Protein Calculated 50-65 Fluid: ml 1910-0808 ml (20-25 ml/kg) Nutritional Problem 2. Problem Problem Obese, class I Etiology r/t consistent energy overconsumption Signs/Symptoms: overconsumption aeb BMI >30 ( 32.42). 1. Problem Problem Impaired nutrient utilization Etiology r/t endocrine dysfunction Signs/Symptoms: aeb (02/19) POC Glucose 131, A1c 5.9%. Malnutrition Related to Morbid Obesity Malnutrition related to morbid obesity No Intervention/Recommendation Comments Recommend adding CCHO to current diet Rx. Expected Outcomes/Goals Expected Outcomes/Goals 1.PO intake to continue to meet >75% of estimated nutritional needs. 2.Gradual weight loss (0.5-1.0 LB/week) trending toward IBW. 3.Monitor PO intake, wt, skin integrity, and nutrition related labs to trend WNL. 4.F/U as low risk in 7-10 days , 03/02-03/05.
--- NOTE | 2020-02-26 12:40 | Progress Notes ---
DATE: 02/25/2020 SUBJECTIVE: This is a 79-year-old male, currently in the hospital, ongoing psychotic symptoms, delusions, perceptual disturbances, at times can be loud, demanding towards staff, believing that he owns the hospital and trying to tell the staff what to do, calm when I go to see him, but he does remain somewhat impulsive, unpredictable. Fair sleep and appetite. He is taking his medications. He is generally calmer since admission. Medications were reviewed. Labs reviewed. Vitals reviewed. ASSESSMENT: The patient is still symptomatic, impulsive, ongoing delusions, psychotic symptoms. PLAN: We will continue inpatient monitoring. Discussed with staff and notes that he still does require some redirection. [facility]# [id number]
--- NOTE | 2020-02-26 14:40 | Progress Notes ---
DATE: 02/26/2020 SUBJECTIVE: A 79-year-old male, currently in the hospital, ongoing psychotic symptoms, delusions, perceptual disturbances, can be demanding towards staff. Mood "okay." More sociable, more engaged, noted to be playing bingo, poor orientation, still sometimes intrusive, tells staff what to do because he believes he owns the hospital, believes he is a famous bowler, continues to believe that he has a huge stake in the ownership of this particular hospital and facility __, labile, can be agitated. Medications were reviewed. Labs reviewed. Vitals were reviewed. ASSESSMENT: The patient remains symptomatic, still delusional. PLAN: We will continue dosing of Seroquel. Continue dose titration. JOB# [id number]
[2020-02-27] MEDS: Potassium Chloride 20 mEq ER Tab PO SCH (08:36)
--- NOTE | 2020-02-27 10:43 | Internal Medicine Prog Note ---
Internal Medicine Subjective - Subjective Service Date: 02/27/20 Patient seen and examined:: with staff Patient is:: awake, verbal, agitated Patient Complaints of:: other (Hx of Htn.) Per staff patient has:: no adverse event, no episodes of fall Internal Medicine Objective - Results Recent Labs: Laboratory Last Values POC Glucose 131 MG/DL (70 - 105) H 02/20/20 19:52 Hemoglobin A1c 5.9 % (4.8-5.6) H 02/21/20 11:00 Triglycerides 67 mg/dL (30-150) 02/21/20 10:45 Cholesterol 124 mg/dL (<200) 02/21/20 10:45 LDL Cholesterol 67 mg/dL (0-129) 02/21/20 10:45 HDL Cholesterol 52 mg/dL (>45) 02/21/20 10:45 - Physical Exam Vitals and I&O: Vital Signs Temp 98 F 02/27/20 05:53 Pulse 71 02/27/20 08:37 Resp 20 02/27/20 07:45 BP 127/71 02/27/20 08:39 Pulse Ox 95 02/27/20 05:53 Intake & Output 02/26/20 02/27/20 02/27/20 18:59 06:59 18:59 Intake Total 1200 240 Output Total 1 Balance 1200 239 Intake: Oral 1200 240 Output: Stool 1 Other: # Voids 6 1 # Bowel Movements 0 1 Active Medications: Current Medications Acetaminophen (Tylenol Extra Strength) 1,000 mg PO Q4H PRN PRN Reason: Moderate pain(5-7) Stop: 04/20/20 21:26 Acetaminophen (Tylenol) 650 mg PO Q4H PRN PRN Reason: Mild Pain(1-4) Stop: 04/20/20 21:26 Bisacodyl (Dulcolax 10 Mg Supp) 10 mg RC DAILY PRN PRN Reason: Constipation Stop: 04/20/20 21:37 Divalproex Sodium (Depakote Dr) 125 mg PO Q12HR [facility]; Protocol Stop: 04/21/20 08:59 Last Admin: 02/27/20 08:37 Dose: 125 mg Donepezil HCl (Aricept) 10 mg PO DAILY [facility] Stop: 04/21/20 08:59 Last Admin: 02/27/20 08:37 Dose: 10 mg Furosemide (Lasix) 20 mg PO DAILY [facility] Stop: 04/21/20 08:59 Last Admin: 02/27/20 08:39 Dose: 20 mg Hydralazine HCl (Apresoline) 25 mg PO TID [facility] Stop: 04/21/20 08:59 Last Admin: 02/27/20 08:37 Dose: 25 mg Lorazepam (Ativan) 0.5 mg PO Q4HR PRN; Protocol PRN Reason: Anxiety Stop: 03/21/20 21:26 Magnesium Hydroxide (Milk Of Magnesia) 30 ml PO HS PRN PRN Reason: Constipation Memantine (Namenda) 10 mg PO BID [facility] Stop: 04/21/20 08:59 Last Admin: 02/27/20 08:37 Dose: 10 mg Potassium Chloride (Klor-Con) 40 meq PO DAILY [facility] Stop: 04/21/20 08:59 Last Admin: 02/27/20 08:36 Dose: 40 meq Quetiapine Fumarate (Seroquel) 300 mg PO HS [facility]; Protocol Stop: 04/21/20 20:59 Last Admin: 02/26/20 20:47 Dose: 300 mg Quetiapine Fumarate (Seroquel) 200 mg PO DAILY [facility]; Protocol Stop: 04/21/20 08:59 Last Admin: 02/27/20 08:39 Dose: 200 mg Sodium Phosphate (Fleet Enema) 135 ml RC Q2D PRN PRN Reason: IF DULCOLAX IS INEFFECTIVE Stop: 04/20/20 21:37 Zolpidem Tartrate (Ambien) 5 mg PO HS PRN PRN Reason: Insomnia Stop: 04/20/20 21:26 Last Admin: 02/26/20 20:47 Dose: 5 mg Physical Exam: Patient is more interactive, less agitated, will be monitored closely. General: weak HEENT: NC/AT, PERRLA Neck: Supple Lungs: CTAB Cardiovascular: RRR, Normal S1, Normal S2 Abdomen: soft, non-tender Extremities: clear Neurological: no change, disorganized, other (Easily frustrated.) Internal Medicine Assmt/Plan - Assessment Assessment: Acute Psychosis. Depression. Danger to self/others. History of Gerd. History of Hypertension. - Plan Plan: Psych management as per Psych. Monitor vitals, labs, Low sodium diet. Continue present meds as directed. Supportive care. Safety precaution/Fall precaution. Continue current treatment plan as ordered. Nutritional Asmnt/Malnutr-PDOC - Dietary Evaluation Malnutrition Findings (Please click <Entered> for more info): Nutritional Asmnt/Malnutrition Start: 02/24/20 10: 07 Text: Status: Complete Freq: Protocol: Document 02/24/20 10:07 JAREDVINICIUS (Rec: 02/24/20 10:11 DEV [id number] [id number]) Nutritional Asmnt/Malnutrition Patient General Information Nutritional Screening Moderate Risk Diagnosis Acute Psychosis Pertinent Medical Hx/Surgical Hx Psychosis, Depression, HTN, GERD Subjective Information Pt is a 79-year-old male admitted on 02/19 d/t aggressive behavior with striking out. Pt is eating an 100% of meals sine admit date (x3 days) Per Meal/Nutrition Activity Record. Dietary is currently providing an estimated 1800 kcals and 100 gm Pro to meet 100+% kcal and 100+% Pro needs. Recommend adding CCHO to current diet Rx d/t impaired nutrient utilization r/t endocrine dysfunction aeb () POC Glucose 131, A1c 5.9%. Anthropometrics HT: 53 WT: 183 LB (83.18 kg) ABW: 140 LB (63.07 kg) BMI: 32.41 (Obese, class I) GI/ Skin Integrity GI: WNL, Soft, Non-tender BM: 02/21 x1 I/O: 240/Not Noted Skin: WNL, Intact Perez: 20 Diet Order: Cardiac, DAGOBERTO Estimated Energy Needs: (Obese , ABW) 8464-6230 kcals (20-25 kcals/ kg) 50-65g Pro (0.8-1.0 g/kg) 1615-8089 ml (20-25 ml/kg) Current Diet Order/ Nutrition Support ardiac, DAGOBERTO Pertinent Medications Dulcolax (PRN), Lasix, MOM ( PRN), Klor-con, Fleet Enema ( PRN) Pertinent Labs 02/19: POC Glucose 131, A1c 5.9 % Nutritional Hx/Data Height 1.6 m Height (Calculated Centimeters) 160.0 Current Weight (lbs) 83.007 kg Weight (Calculated Kilograms) 83.0 Weight (Calculated Grams) 12614.4 [place] Body Weight 124 LB (56.36 kg) % [place] Body Weight 148 Body Mass Index (BMI) 32.4 Weight Status Obese GI Symptoms Last BM 02/21 x1 Skin Integrity/Comment: Skin: WNL, Intact Perez: 20 Current %PO Good (75-100%) Estimated Nutritional Goals BEE in Kcals: Adj wt of IBW Calories/Kcals/Kg 20-25 Kcals Calculated 8645-7255 Protein: Adj wt of IBW Protein g/k.8-1.0 Protein Calculated 50-65 Fluid: ml 1273-4434 ml (20-25 ml/kg) Nutritional Problem 2. Problem Problem Obese, class I Etiology r/t consistent energy overconsumption Signs/Symptoms: overconsumption aeb BMI >30 ( 32.42). 1. Problem Problem Impaired nutrient utilization Etiology r/t endocrine dysfunction Signs/Symptoms: aeb (02/19) POC Glucose 131, A1c 5.9%. Malnutrition Related to Morbid Obesity Malnutrition related to morbid obesity No Intervention/Recommendation Comments Recommend adding CCHO to current diet Rx. Expected Outcomes/Goals Expected Outcomes/Goals 1.PO intake to continue to meet >75% of estimated nutritional needs. 2.Gradual weight loss (0.5-1.0 LB/week) trending toward IBW. 3.Monitor PO intake, wt, skin integrity, and nutrition related labs to trend WNL. 4.F/U as low risk in 7-10 days , 03/02-03/05.
--- NOTE | 2020-02-27 15:57 | Progress Notes ---
DATE: 02/27/2020 SUBJECTIVE: This is a 79-year-old male, currently in the hospital, noted to be with ongoing symptoms, delusions, still believes that he owns the hospital, telling people what to do and irritable and upset and gets really upset at times; history of dementia, easily irritable, poor orientation, very unpredictable, ideations of grandeur, still will act out and scream out at times. Medications were reviewed. Labs reviewed. Vitals were reviewed. ASSESSMENT: The patient in the hospital, ongoing symptoms, psychotic symptoms. Currently on high dose of Seroquel and Namenda. PLAN: We will continue inpatient monitoring. Consider dose titration of medications. I will be increasing his bedtime dose of Seroquel to try to target ongoing mood symptoms, psychotic symptoms, outbursts. JOB# [id number]
[2020-02-27] MEDS: QUEtiapine Fumarate 300 MG, QUEtiapine Fumarate 25 MG PO SCH (21:07)
[2020-02-28] MEDS: Potassium Chloride 20 mEq ER Tab PO SCH (08:38)
--- NOTE | 2020-02-28 10:17 | Progress Notes ---
DATE: 02/28/2020 SUBJECTIVE: The patient was seen in his room. The patient is asleep, poor historian, easily gets frustrated and agitated and disheveled, episodes of agitation. Otherwise, the patient appears to be comfortable, in no acute distress. OBJECTIVE: VITAL SIGNS: Temperature 98.2, heart rate 77, respirations 20, blood pressure 126/74. HEENT: Head is atraumatic and normocephalic. Eyes: Bilateral conjunctivae are clear. Bilateral pupils equally round, reactive. NECK: Supple. No JVD. CARDIOVASCULAR: S1 and S2, without murmur. PULMONARY: Clear to auscultation. GASTROINTESTINAL: Soft and nontender without guarding. Positive bowel sounds. MUSCULOSKELETAL: No clubbing. No cyanosis noted. ASSESSMENT: 1. Schizoaffective disorder. 2. Unsteady gait. 3. Hypertension. 4. Osteoarthritis. PLAN: We will continue to keep the patient inpatient at the [facility]. We will follow up with a psychiatrist to monitor the patient's condition. Treatment plans were discussed with the patient's nurse. Treatment plans were discussed with Dr. Avery. JOB# [id number]
--- NOTE | 2020-02-28 11:07 | Internal Medicine Prog Note ---
Internal Medicine Subjective - Subjective Service Date: 02/28/20 Patient is:: awake, verbal, agitated Patient Complaints of:: other (Hx of Htn.) Per staff patient has:: no adverse event, no episodes of fall Internal Medicine Objective - Results Recent Labs: Laboratory Last Values POC Glucose 131 MG/DL (70 - 105) H 02/20/20 19:52 Hemoglobin A1c 5.9 % (4.8-5.6) H 02/21/20 11:00 Triglycerides 67 mg/dL (30-150) 02/21/20 10:45 Cholesterol 124 mg/dL (<200) 02/21/20 10:45 LDL Cholesterol 67 mg/dL (0-129) 02/21/20 10:45 HDL Cholesterol 52 mg/dL (>45) 02/21/20 10:45 - Physical Exam Vitals and I&O: Vital Signs Temp 98.6 F 02/28/20 06:24 Pulse 95 02/28/20 08:38 Resp 20 02/28/20 06:24 BP 150/73 02/28/20 08:38 Pulse Ox 96 02/28/20 06:24 Intake & Output 02/27/20 02/28/20 02/28/20 18:59 06:59 18:59 Intake Total 1200 360 Balance 1200 360 Intake: Oral 1200 360 Other: # Voids 2 # Bowel Movements 1 1 Active Medications: Current Medications Acetaminophen (Tylenol Extra Strength) 1,000 mg PO Q4H PRN PRN Reason: Moderate pain(5-7) Stop: 04/20/20 21:26 Acetaminophen (Tylenol) 650 mg PO Q4H PRN PRN Reason: Mild Pain(1-4) Stop: 04/20/20 21:26 Bisacodyl (Dulcolax 10 Mg Supp) 10 mg RC DAILY PRN PRN Reason: Constipation Stop: 04/20/20 21:37 Divalproex Sodium (Depakote Dr) 125 mg PO Q12HR [facility]; Protocol Stop: 04/21/20 08:59 Last Admin: 02/28/20 08:37 Dose: 125 mg Donepezil HCl (Aricept) 10 mg PO DAILY [facility] Stop: 04/21/20 08:59 Last Admin: 02/28/20 08:37 Dose: 10 mg Furosemide (Lasix) 20 mg PO DAILY [facility] Stop: 04/21/20 08:59 Last Admin: 02/28/20 08:37 Dose: 20 mg Hydralazine HCl (Apresoline) 25 mg PO TID [facility] Stop: 04/21/20 08:59 Last Admin: 02/28/20 08:38 Dose: 25 mg Lorazepam (Ativan) 0.5 mg PO Q4HR PRN; Protocol PRN Reason: Anxiety Stop: 03/21/20 21:26 Magnesium Hydroxide (Milk Of Magnesia) 30 ml PO HS PRN PRN Reason: Constipation Memantine (Namenda) 10 mg PO BID [facility] Stop: 04/21/20 08:59 Last Admin: 02/28/20 08:37 Dose: 10 mg Potassium Chloride (Klor-Con) 40 meq PO DAILY [facility] Stop: 04/21/20 08:59 Last Admin: 02/28/20 08:38 Dose: 40 meq Quetiapine Fumarate (Seroquel) 200 mg PO DAILY [facility]; Protocol Stop: 04/21/20 08:59 Last Admin: 02/28/20 08:38 Dose: 200 mg Quetiapine Fumarate 300 mg/ (Quetiapine Fumarate 25 mg) 325 mg PO HS [facility] Stop: 04/27/20 20:59 Last Admin: 02/27/20 21:07 Dose: 325 mg Sodium Phosphate (Fleet Enema) 135 ml RC Q2D PRN PRN Reason: IF DULCOLAX IS INEFFECTIVE Stop: 04/20/20 21:37 Zolpidem Tartrate (Ambien) 5 mg PO HS PRN PRN Reason: Insomnia Stop: 04/20/20 21:26 Last Admin: 02/27/20 21:07 Dose: 5 mg Physical Exam: Patient is delusional, having episodes of angry outbursts, easily agitated, will be monitored closely. General: weak HEENT: NC/AT, PERRLA Neck: Supple Lungs: CTAB Cardiovascular: RRR, Normal S1, Normal S2 Abdomen: soft, non-tender Extremities: clear Neurological: no change, disorganized, other (Easily frustrated.) Internal Medicine Assmt/Plan - Assessment Assessment: Acute Psychosis. Depression. Danger to self/others. History of Gerd. History of Hypertension. - Plan Plan: Psych management as per Psych. Monitor vitals, labs, Low sodium diet. Continue present meds as directed. Supportive care. Safety precaution/Fall precaution. Continue current treatment plan as ordered. Nutritional Asmnt/Malnutr-PDOC - Dietary Evaluation Malnutrition Findings (Please click <Entered> for more info): Nutritional Asmnt/Malnutrition Start: 02/24/20 10: 07 Text: Status: Complete Freq: Protocol: Document 02/24/20 10:07 FAUSTINALOKIVINICIUS (Rec: 02/24/20 10:11 DEV [id number]) Nutritional Asmnt/Malnutrition Patient General Information Nutritional Screening Moderate Risk Diagnosis Acute Psychosis Pertinent Medical Hx/Surgical Hx Psychosis, Depression, HTN, GERD Subjective Information Pt is a 79-year-old male admitted on 02/19 d/t aggressive behavior with striking out. Pt is eating an 100% of meals sine admit date (x3 days) Per Meal/Nutrition Activity Record. Dietary is currently providing an estimated 1800 kcals and 100 gm Pro to meet 100+% kcal and 100+% Pro needs. Recommend adding CCHO to current diet Rx d/t impaired nutrient utilization r/t endocrine dysfunction aeb () POC Glucose 131, A1c 5.9%. Anthropometrics HT: 53 WT: 183 LB (83.18 kg) ABW: 140 LB (63.07 kg) BMI: 32.41 (Obese, class I) GI/ Skin Integrity GI: WNL, Soft, Non-tender BM: 02/21 x1 I/O: 240/Not Noted Skin: WNL, Intact Perez: 20 Diet Order: Cardiac, DAGOBERTO Estimated Energy Needs: (Obese , ABW) 9875-7576 kcals (20-25 kcals/ kg) 50-65g Pro (0.8-1.0 g/kg) 2143-0418 ml (20-25 ml/kg) Current Diet Order/ Nutrition Support ardiac, DAGOBERTO Pertinent Medications Dulcolax (PRN), Lasix, MOM ( PRN), Klor-con, Fleet Enema ( PRN) Pertinent Labs 02/19: POC Glucose 131, A1c 5.9 % Nutritional Hx/Data Height 1.6 m Height (Calculated Centimeters) 160.0 Current Weight (lbs) 83.007 kg Weight (Calculated Kilograms) 83.0 Weight (Calculated Grams) 49928.4 [place] Body Weight 124 LB (56.36 kg) % [place] Body Weight 148 Body Mass Index (BMI) 32.4 Weight Status Obese GI Symptoms Last BM 02/21 x1 Skin Integrity/Comment: Skin: WNL, Intact Perez: 20 Current %PO Good (75-100%) Estimated Nutritional Goals BEE in Kcals: Adj wt of IBW Calories/Kcals/Kg 20-25 Kcals Calculated 6776-7210 Protein: Adj wt of IBW Protein g/k.8-1.0 Protein Calculated 50-65 Fluid: ml 7668-5873 ml (20-25 ml/kg) Nutritional Problem 2. Problem Problem Obese, class I Etiology r/t consistent energy overconsumption Signs/Symptoms: overconsumption aeb BMI >30 ( 32.42). 1. Problem Problem Impaired nutrient utilization Etiology r/t endocrine dysfunction Signs/Symptoms: aeb (02/19) POC Glucose 131, A1c 5.9%. Malnutrition Related to Morbid Obesity Malnutrition related to morbid obesity No Intervention/Recommendation Comments Recommend adding CCHO to current diet Rx. Expected Outcomes/Goals Expected Outcomes/Goals 1.PO intake to continue to meet >75% of estimated nutritional needs. 2.Gradual weight loss (0.5-1.0 LB/week) trending toward IBW. 3.Monitor PO intake, wt, skin integrity, and nutrition related labs to trend WNL. 4.F/U as low risk in 7-10 days , 03/02-03/05.
--- NOTE | 2020-02-28 14:25 | Progress Notes ---
DATE: 02/28/2020 COVERING PHYSICIAN: Ellis Gutiérrez M.D. SUBJECTIVE: The patient was interviewed. Case was discussed with staff. Chart and records were reviewed. Per the staff, the patient has been disorganized and agitated and has been poorly cooperative. The patient was visited at bedside this afternoon. The patient is completely nude. The patient is not willing to put on his clothing. He is not making any sense. He is quite disorganized. He also appears to get increasingly angry when talking about having him put back on his clothing. He is not wearing anything at all including no underwear and appears to be overall easily agitated. MENTAL STATUS EXAMINATION: The patient is a nude male sitting at the edge of the bed, poor eye contact, poor cooperation, angry, labile. Thought process appears to be disorganized. Unable to assess otherwise due to his poor cooperation, but he is alert and oriented to person. His insight, judgment and impulse control appear to be poor. ASSESSMENT AND PLAN: We will continue the patient's acute psychiatric hospitalization. We will encourage the patient to remain adherent with ____ policy of the unit. We will also encourage the patient to verbalize his needs and participate in group and milieu therapy. JOB# [id number]
[2020-02-28] MEDS: QUEtiapine Fumarate 300 MG, QUEtiapine Fumarate 25 MG PO SCH (21:12)
[2020-02-29] MEDS: Potassium Chloride 20 mEq ER Tab PO SCH (08:47)
--- NOTE | 2020-02-29 10:37 | Internal Medicine Prog Note ---
Internal Medicine Subjective - Subjective Service Date: 02/29/20 Patient seen and examined:: with staff Patient is:: awake, verbal, agitated Patient Complaints of:: other (Hx of Htn.) Per staff patient has:: no adverse event, no episodes of fall Internal Medicine Objective - Results Recent Labs: Laboratory Last Values POC Glucose 131 MG/DL (70 - 105) H 02/20/20 19:52 Hemoglobin A1c 5.9 % (4.8-5.6) H 02/21/20 11:00 Triglycerides 67 mg/dL (30-150) 02/21/20 10:45 Cholesterol 124 mg/dL (<200) 02/21/20 10:45 LDL Cholesterol 67 mg/dL (0-129) 02/21/20 10:45 HDL Cholesterol 52 mg/dL (>45) 02/21/20 10:45 - Physical Exam Vitals and I&O: Vital Signs Temp 99.7 F 02/29/20 05:56 Pulse 78 02/29/20 08:47 Resp 20 02/29/20 05:56 BP 125/67 02/29/20 08:48 Pulse Ox 96 02/29/20 05:56 Intake & Output 02/28/20 02/29/20 02/29/20 18:59 06:59 18:59 Intake Total 1200 360 Balance 1200 360 Intake: Oral 1200 360 Other: # Voids 4 2 # Bowel Movements 1 0 Active Medications: Current Medications Acetaminophen (Tylenol Extra Strength) 1,000 mg PO Q4H PRN PRN Reason: Moderate pain(5-7) Stop: 04/20/20 21:26 Acetaminophen (Tylenol) 650 mg PO Q4H PRN PRN Reason: Mild Pain(1-4) Stop: 04/20/20 21:26 Bisacodyl (Dulcolax 10 Mg Supp) 10 mg RC DAILY PRN PRN Reason: Constipation Stop: 04/20/20 21:37 Divalproex Sodium (Depakote Dr) 125 mg PO Q12HR [facility]; Protocol Stop: 04/21/20 08:59 Last Admin: 02/29/20 08:47 Dose: 125 mg Donepezil HCl (Aricept) 10 mg PO DAILY [facility] Stop: 04/21/20 08:59 Last Admin: 02/29/20 08:48 Dose: 10 mg Furosemide (Lasix) 20 mg PO DAILY [facility] Stop: 04/21/20 08:59 Last Admin: 02/29/20 08:48 Dose: 20 mg Hydralazine HCl (Apresoline) 25 mg PO TID [facility] Stop: 04/21/20 08:59 Last Admin: 02/29/20 08:47 Dose: 25 mg Lorazepam (Ativan) 0.5 mg PO Q4HR PRN; Protocol PRN Reason: Anxiety Stop: 03/21/20 21:26 Magnesium Hydroxide (Milk Of Magnesia) 30 ml PO HS PRN PRN Reason: Constipation Memantine (Namenda) 10 mg PO BID [facility] Stop: 04/21/20 08:59 Last Admin: 02/29/20 08:48 Dose: 10 mg Potassium Chloride (Klor-Con) 40 meq PO DAILY [facility] Stop: 04/21/20 08:59 Last Admin: 02/29/20 08:47 Dose: 40 meq Quetiapine Fumarate (Seroquel) 200 mg PO DAILY [facility]; Protocol Stop: 04/21/20 08:59 Last Admin: 02/29/20 08:48 Dose: 200 mg Quetiapine Fumarate 300 mg/ (Quetiapine Fumarate 25 mg) 325 mg PO HS [facility] Stop: 04/27/20 20:59 Last Admin: 02/28/20 21:12 Dose: 325 mg Sodium Phosphate (Fleet Enema) 135 ml RC Q2D PRN PRN Reason: IF DULCOLAX IS INEFFECTIVE Stop: 04/20/20 21:37 Zolpidem Tartrate (Ambien) 5 mg PO HS PRN PRN Reason: Insomnia Stop: 04/20/20 21:26 Last Admin: 02/28/20 21:12 Dose: 5 mg Physical Exam: Patient is still having episodes of angry outbursts, screaming and yelling, uncooperative, will be monitored closely. General: weak HEENT: NC/AT, PERRLA Neck: Supple Lungs: CTAB Cardiovascular: RRR, Normal S1, Normal S2 Abdomen: soft, non-tender Extremities: clear Neurological: no change, disorganized, other (Easily frustrated.) Internal Medicine Assmt/Plan - Assessment Assessment: Acute Psychosis. Depression. Danger to self/others. History of Gerd. History of Hypertension. - Plan Plan: Psych management as per Psych. Monitor vitals, labs, Low sodium diet. Continue present meds as directed. Supportive care. Safety precaution/Fall precaution. Continue current treatment plan as ordered. Nutritional Asmnt/Malnutr-PDOC - Dietary Evaluation Malnutrition Findings (Please click <Entered> for more info): Nutritional Asmnt/Malnutrition Start: 02/24/20 10: 07 Text: Status: Complete Freq: Protocol: Document 02/24/20 10:07 FAUSTINALORENZO (Rec: 02/24/20 10:11 DEV [email or web address]) Nutritional Asmnt/Malnutrition Patient General Information Nutritional Screening Moderate Risk Diagnosis Acute Psychosis Pertinent Medical Hx/Surgical Hx Psychosis, Depression, HTN, GERD Subjective Information Pt is a 79-year-old male admitted on 02/19 d/t aggressive behavior with striking out. Pt is eating an 100% of meals sine admit date (x3 days) Per Meal/Nutrition Activity Record. Dietary is currently providing an estimated 1800 kcals and 100 gm Pro to meet 100+% kcal and 100+% Pro needs. Recommend adding CCHO to current diet Rx d/t impaired nutrient utilization r/t endocrine dysfunction aeb () POC Glucose 131, A1c 5.9%. Anthropometrics HT: 53 WT: 183 LB (83.18 kg) ABW: 140 LB (63.07 kg) BMI: 32.41 (Obese, class I) GI/ Skin Integrity GI: WNL, Soft, Non-tender BM: 02/21 x1 I/O: 240/Not Noted Skin: WNL, Intact Perez: 20 Diet Order: Cardiac, DAGOBERTO Estimated Energy Needs: (Obese , ABW) 2560-6788 kcals (20-25 kcals/ kg) 50-65g Pro (0.8-1.0 g/kg) 9739-1042 ml (20-25 ml/kg) Current Diet Order/ Nutrition Support ardiac, DAGOBERTO Pertinent Medications Dulcolax (PRN), Lasix, MOM ( PRN), Klor-con, Fleet Enema ( PRN) Pertinent Labs 02/19: POC Glucose 131, A1c 5.9 % Nutritional Hx/Data Height 1.6 m Height (Calculated Centimeters) 160.0 Current Weight (lbs) 83.007 kg Weight (Calculated Kilograms) 83.0 Weight (Calculated Grams) 04737.4 [place] Body Weight 124 LB (56.36 kg) % [place] Body Weight 148 Body Mass Index (BMI) 32.4 Weight Status Obese GI Symptoms Last BM 02/21 x1 Skin Integrity/Comment: Skin: WNL, Intact Perez: 20 Current %PO Good (75-100%) Estimated Nutritional Goals BEE in Kcals: Adj wt of IBW Calories/Kcals/Kg 20-25 Kcals Calculated 3459-6491 Protein: Adj wt of IBW Protein g/k.8-1.0 Protein Calculated 50-65 Fluid: ml 9047-9009 ml (20-25 ml/kg) Nutritional Problem 2. Problem Problem Obese, class I Etiology r/t consistent energy overconsumption Signs/Symptoms: overconsumption aeb BMI >30 ( 32.42). 1. Problem Problem Impaired nutrient utilization Etiology r/t endocrine dysfunction Signs/Symptoms: aeb (02/19) POC Glucose 131, A1c 5.9%. Malnutrition Related to Morbid Obesity Malnutrition related to morbid obesity No Intervention/Recommendation Comments Recommend adding CCHO to current diet Rx. Expected Outcomes/Goals Expected Outcomes/Goals 1.PO intake to continue to meet >75% of estimated nutritional needs. 2.Gradual weight loss (0.5-1.0 LB/week) trending toward IBW. 3.Monitor PO intake, wt, skin integrity, and nutrition related labs to trend WNL. 4.F/U as low risk in 7-10 days , 03/02-03/05.
[2020-02-29] MEDS: QUEtiapine Fumarate 300 MG, QUEtiapine Fumarate 25 MG PO SCH (20:45)
[2020-03-01] MEDS: Potassium Chloride 20 mEq ER Tab PO SCH (08:06)
--- NOTE | 2020-03-01 10:24 | Internal Medicine Prog Note ---
Internal Medicine Subjective - Subjective Service Date: 03/01/20 Patient seen and examined:: with staff Patient is:: awake, verbal, agitated Patient Complaints of:: other (Hx of Htn.) Per staff patient has:: no adverse event, no episodes of fall Internal Medicine Objective - Results Recent Labs: Laboratory Last Values POC Glucose 131 MG/DL (70 - 105) H 02/20/20 19:52 Hemoglobin A1c 5.9 % (4.8-5.6) H 02/21/20 11:00 Triglycerides 67 mg/dL (30-150) 02/21/20 10:45 Cholesterol 124 mg/dL (<200) 02/21/20 10:45 LDL Cholesterol 67 mg/dL (0-129) 02/21/20 10:45 HDL Cholesterol 52 mg/dL (>45) 02/21/20 10:45 - Physical Exam Vitals and I&O: Vital Signs Temp 97.2 F 03/01/20 05:52 Pulse 69 03/01/20 08:07 Resp 20 03/01/20 05:52 BP 126/67 03/01/20 08:08 Pulse Ox 98 03/01/20 05:52 Intake & Output 02/29/20 03/01/20 03/01/20 18:59 06:59 18:59 Intake Total 1600 240 Balance 1600 240 Intake: Oral 1600 240 Other: # Voids 5 2 # Bowel Movements 0 0 Active Medications: Current Medications Acetaminophen (Tylenol Extra Strength) 1,000 mg PO Q4H PRN PRN Reason: Moderate pain(5-7) Stop: 04/20/20 21:26 Acetaminophen (Tylenol) 650 mg PO Q4H PRN PRN Reason: Mild Pain(1-4) Stop: 04/20/20 21:26 Bisacodyl (Dulcolax 10 Mg Supp) 10 mg RC DAILY PRN PRN Reason: Constipation Stop: 04/20/20 21:37 Divalproex Sodium (Depakote Dr) 125 mg PO Q12HR [facility]; Protocol Stop: 04/21/20 08:59 Last Admin: 03/01/20 08:06 Dose: 125 mg Donepezil HCl (Aricept) 10 mg PO DAILY [facility] Stop: 04/21/20 08:59 Last Admin: 03/01/20 08:16 Dose: 10 mg Furosemide (Lasix) 20 mg PO DAILY [facility] Stop: 04/21/20 08:59 Last Admin: 03/01/20 08:08 Dose: 20 mg Hydralazine HCl (Apresoline) 25 mg PO TID [facility] Stop: 04/21/20 08:59 Last Admin: 03/01/20 08:07 Dose: 25 mg Lorazepam (Ativan) 0.5 mg PO Q4HR PRN; Protocol PRN Reason: Anxiety Stop: 03/21/20 21:26 Magnesium Hydroxide (Milk Of Magnesia) 30 ml PO HS PRN PRN Reason: Constipation Memantine (Namenda) 10 mg PO BID [facility] Stop: 04/21/20 08:59 Last Admin: 03/01/20 08:08 Dose: 10 mg Potassium Chloride (Klor-Con) 40 meq PO DAILY [facility] Stop: 04/21/20 08:59 Last Admin: 03/01/20 08:06 Dose: 40 meq Quetiapine Fumarate (Seroquel) 200 mg PO DAILY [facility]; Protocol Stop: 04/21/20 08:59 Last Admin: 03/01/20 08:07 Dose: 200 mg Quetiapine Fumarate 300 mg/ (Quetiapine Fumarate 25 mg) 325 mg PO HS [facility] Stop: 04/27/20 20:59 Last Admin: 02/29/20 20:45 Dose: 325 mg Sodium Phosphate (Fleet Enema) 135 ml RC Q2D PRN PRN Reason: IF DULCOLAX IS INEFFECTIVE Stop: 04/20/20 21:37 Zolpidem Tartrate (Ambien) 5 mg PO HS PRN PRN Reason: Insomnia Stop: 04/20/20 21:26 Last Admin: 02/29/20 20:45 Dose: 5 mg Physical Exam: Patient is nude, very agitated, upset, non-compliant. will be monitored closely. General: weak HEENT: NC/AT, PERRLA Neck: Supple Lungs: CTAB Cardiovascular: RRR, Normal S1, Normal S2 Abdomen: soft, non-tender Extremities: clear Neurological: no change, disorganized, other (Easily frustrated.) Internal Medicine Assmt/Plan - Assessment Assessment: Acute Psychosis. Depression. Danger to self/others. History of Gerd. History of Hypertension. - Plan Plan: Psych management as per Psych. Monitor vitals, labs, Low sodium diet. Continue present meds as directed. Supportive care. Safety precaution/Fall precaution. Continue current treatment plan as ordered. Nutritional Asmnt/Malnutr-PDOC - Dietary Evaluation Malnutrition Findings (Please click <Entered> for more info): Nutritional Asmnt/Malnutrition Start: 02/24/20 10: 07 Text: Status: Complete Freq: Protocol: Document 02/24/20 10:07 JAREDVINICIUS (Rec: 02/24/20 10:11 DEV [id number] [id number]) Nutritional Asmnt/Malnutrition Patient General Information Nutritional Screening Moderate Risk Diagnosis Acute Psychosis Pertinent Medical Hx/Surgical Hx Psychosis, Depression, HTN, GERD Subjective Information Pt is a 79-year-old male admitted on 02/19 d/t aggressive behavior with striking out. Pt is eating an 100% of meals sine admit date (x3 days) Per Meal/Nutrition Activity Record. Dietary is currently providing an estimated 1800 kcals and 100 gm Pro to meet 100+% kcal and 100+% Pro needs. Recommend adding CCHO to current diet Rx d/t impaired nutrient utilization r/t endocrine dysfunction aeb () POC Glucose 131, A1c 5.9%. Anthropometrics HT: 53 WT: 183 LB (83.18 kg) ABW: 140 LB (63.07 kg) BMI: 32.41 (Obese, class I) GI/ Skin Integrity GI: WNL, Soft, Non-tender BM: 02/21 x1 I/O: 240/Not Noted Skin: WNL, Intact Perez: 20 Diet Order: Cardiac, DAGOBERTO Estimated Energy Needs: (Obese , ABW) 8640-0596 kcals (20-25 kcals/ kg) 50-65g Pro (0.8-1.0 g/kg) 9091-4428 ml (20-25 ml/kg) Current Diet Order/ Nutrition Support ardiac, DAGOBERTO Pertinent Medications Dulcolax (PRN), Lasix, MOM ( PRN), Klor-con, Fleet Enema ( PRN) Pertinent Labs 02/19: POC Glucose 131, A1c 5.9 % Nutritional Hx/Data Height 1.6 m Height (Calculated Centimeters) 160.0 Current Weight (lbs) 83.007 kg Weight (Calculated Kilograms) 83.0 Weight (Calculated Grams) 88541.4 [place] Body Weight 124 LB (56.36 kg) % [place] Body Weight 148 Body Mass Index (BMI) 32.4 Weight Status Obese GI Symptoms Last BM 02/21 x1 Skin Integrity/Comment: Skin: WNL, Intact Perez: 20 Current %PO Good (75-100%) Estimated Nutritional Goals BEE in Kcals: Adj wt of IBW Calories/Kcals/Kg 20-25 Kcals Calculated 1264-7808 Protein: Adj wt of IBW Protein g/k.8-1.0 Protein Calculated 50-65 Fluid: ml 2231-6634 ml (20-25 ml/kg) Nutritional Problem 2. Problem Problem Obese, class I Etiology r/t consistent energy overconsumption Signs/Symptoms: overconsumption aeb BMI >30 ( 32.42). 1. Problem Problem Impaired nutrient utilization Etiology r/t endocrine dysfunction Signs/Symptoms: aeb (02/19) POC Glucose 131, A1c 5.9%. Malnutrition Related to Morbid Obesity Malnutrition related to morbid obesity No Intervention/Recommendation Comments Recommend adding CCHO to current diet Rx. Expected Outcomes/Goals Expected Outcomes/Goals 1.PO intake to continue to meet >75% of estimated nutritional needs. 2.Gradual weight loss (0.5-1.0 LB/week) trending toward IBW. 3.Monitor PO intake, wt, skin integrity, and nutrition related labs to trend WNL. 4.F/U as low risk in 7-10 days , 03/02-03/05.
[2020-03-01] MEDS: QUEtiapine Fumarate 300 MG, QUEtiapine Fumarate 25 MG PO SCH (20:51)
--- NOTE | 2020-03-02 06:19 | Psych Progress Note ---
Psych Progress Note - Intro Date of Progress Note: 02/29/20 - Assessment Assessment: patient remains disorganized, hypersexual, confused. he needs significant redirection by staff. he has no plan for self care. no med side effects. poor cooperation. - Vitals, I&O Vitals: Vital Signs - 24 hr 03/01/20 03/01/20 03/01/20 08:00 08:07 08:08 Temp HR 69 RR 18 BP 126/67 126/67 O2 Sat % 03/01/20 03/01/20 03/01/20 14:41 14:45 19:46 Temp 98.4 F HR 88 105 RR 20 20 BP 125/86 123/86 O2 Sat % 97 03/01/20 03/01/20 03/02/20 20:37 20:50 05:59 Temp 97.9 F 97.4 F HR 77 105 70 RR 20 20 BP 129/80 123/86 131/68 O2 Sat % 96 95 - Objective Psych General Appearance: Report: Little eye-contact Psych Behavior: Report: Uncooperative Psych Speech: Report: Soft Psych Mood: Report: Irritable Psych Affect: Report: Labile Psych Insight: Report: Impaired Psych Judgement: Report: Impaired - Plan Plan: cont meds - Review of Relevant Data Review of Relevant Data: I have reviewed the following items and time norm (where applicable) has been applied. - Medications Current Medications: Current Medications Acetaminophen (Tylenol Extra Strength) 1,000 mg PO Q4H PRN PRN Reason: Moderate pain(5-7) Stop: 04/20/20 21:26 Acetaminophen (Tylenol) 650 mg PO Q4H PRN PRN Reason: Mild Pain(1-4) Stop: 04/20/20 21:26 Bisacodyl (Dulcolax 10 Mg Supp) 10 mg RC DAILY PRN PRN Reason: Constipation Stop: 04/20/20 21:37 Divalproex Sodium (Depakote Dr) 125 mg PO Q12HR [facility]; Protocol Stop: 04/21/20 08:59 Last Admin: 03/01/20 20:50 Dose: 125 mg Donepezil HCl (Aricept) 10 mg PO DAILY [facility] Stop: 04/21/20 08:59 Last Admin: 03/01/20 08:16 Dose: 10 mg Furosemide (Lasix) 20 mg PO DAILY [facility] Stop: 04/21/20 08:59 Last Admin: 03/01/20 08:08 Dose: 20 mg Hydralazine HCl (Apresoline) 25 mg PO TID [facility] Stop: 04/21/20 08:59 Last Admin: 03/01/20 20:50 Dose: 25 mg Lorazepam (Ativan) 0.5 mg PO Q4HR PRN; Protocol PRN Reason: Anxiety Stop: 03/21/20 21:26 Magnesium Hydroxide (Milk Of Magnesia) 30 ml PO HS PRN PRN Reason: Constipation Memantine (Namenda) 10 mg PO BID [facility] Stop: 04/21/20 08:59 Last Admin: 03/01/20 17:08 Dose: 10 mg Potassium Chloride (Klor-Con) 40 meq PO DAILY [facility] Stop: 04/21/20 08:59 Last Admin: 03/01/20 08:06 Dose: 40 meq Quetiapine Fumarate (Seroquel) 200 mg PO DAILY [facility]; Protocol Stop: 04/21/20 08:59 Last Admin: 03/01/20 08:07 Dose: 200 mg Quetiapine Fumarate 300 mg/ (Quetiapine Fumarate 25 mg) 325 mg PO HS [facility] Stop: 04/27/20 20:59 Last Admin: 03/01/20 20:51 Dose: 325 mg Sodium Phosphate (Fleet Enema) 135 ml RC Q2D PRN PRN Reason: IF DULCOLAX IS INEFFECTIVE Stop: 04/20/20 21:37 Zolpidem Tartrate (Ambien) 5 mg PO HS PRN PRN Reason: Insomnia Stop: 04/20/20 21:26 Last Admin: 02/29/20 20:45 Dose: 5 mg
--- NOTE | 2020-03-02 06:20 | Psych Progress Note ---
Psych Progress Note - Intro Date of Progress Note: 03/01/20 - Assessment Assessment: patient remains disorganized, hypersexual, confused. he needs significant redirection by staff. he has no plan for self care. no med side effects. poor cooperation. - Vitals, I&O Vitals: Vital Signs - 24 hr 03/01/20 03/01/20 03/01/20 08:00 08:07 08:08 Temp HR 69 RR 18 BP 126/67 126/67 O2 Sat % 03/01/20 03/01/20 03/01/20 14:41 14:45 19:46 Temp 98.4 F HR 88 105 RR 20 20 BP 125/86 123/86 O2 Sat % 97 03/01/20 03/01/20 03/02/20 20:37 20:50 05:59 Temp 97.9 F 97.4 F HR 77 105 70 RR 20 20 BP 129/80 123/86 131/68 O2 Sat % 96 95 - Objective Psych General Appearance: Report: Little eye-contact Psych Behavior: Report: Uncooperative Psych Speech: Report: Soft Psych Mood: Report: Irritable Psych Affect: Report: Labile Psych Insight: Report: Impaired Psych Judgement: Report: Impaired - Plan Plan: cont meds - Review of Relevant Data Review of Relevant Data: I have reviewed the following items and time norm (where applicable) has been applied. - Medications Current Medications: Current Medications Acetaminophen (Tylenol Extra Strength) 1,000 mg PO Q4H PRN PRN Reason: Moderate pain(5-7) Stop: 04/20/20 21:26 Acetaminophen (Tylenol) 650 mg PO Q4H PRN PRN Reason: Mild Pain(1-4) Stop: 04/20/20 21:26 Bisacodyl (Dulcolax 10 Mg Supp) 10 mg RC DAILY PRN PRN Reason: Constipation Stop: 04/20/20 21:37 Divalproex Sodium (Depakote Dr) 125 mg PO Q12HR [facility]; Protocol Stop: 04/21/20 08:59 Last Admin: 03/01/20 20:50 Dose: 125 mg Donepezil HCl (Aricept) 10 mg PO DAILY [facility] Stop: 04/21/20 08:59 Last Admin: 03/01/20 08:16 Dose: 10 mg Furosemide (Lasix) 20 mg PO DAILY [facility] Stop: 04/21/20 08:59 Last Admin: 03/01/20 08:08 Dose: 20 mg Hydralazine HCl (Apresoline) 25 mg PO TID [facility] Stop: 04/21/20 08:59 Last Admin: 03/01/20 20:50 Dose: 25 mg Lorazepam (Ativan) 0.5 mg PO Q4HR PRN; Protocol PRN Reason: Anxiety Stop: 03/21/20 21:26 Magnesium Hydroxide (Milk Of Magnesia) 30 ml PO HS PRN PRN Reason: Constipation Memantine (Namenda) 10 mg PO BID [facility] Stop: 04/21/20 08:59 Last Admin: 03/01/20 17:08 Dose: 10 mg Potassium Chloride (Klor-Con) 40 meq PO DAILY [facility] Stop: 04/21/20 08:59 Last Admin: 03/01/20 08:06 Dose: 40 meq Quetiapine Fumarate (Seroquel) 200 mg PO DAILY [facility]; Protocol Stop: 04/21/20 08:59 Last Admin: 03/01/20 08:07 Dose: 200 mg Quetiapine Fumarate 300 mg/ (Quetiapine Fumarate 25 mg) 325 mg PO HS [facility] Stop: 04/27/20 20:59 Last Admin: 03/01/20 20:51 Dose: 325 mg Sodium Phosphate (Fleet Enema) 135 ml RC Q2D PRN PRN Reason: IF DULCOLAX IS INEFFECTIVE Stop: 04/20/20 21:37 Zolpidem Tartrate (Ambien) 5 mg PO HS PRN PRN Reason: Insomnia Stop: 04/20/20 21:26 Last Admin: 02/29/20 20:45 Dose: 5 mg
[2020-03-02] MEDS: Potassium Chloride 20 mEq ER Tab PO SCH (08:24)
[2020-03-02] MEDS: QUEtiapine Fumarate 300 MG, QUEtiapine Fumarate 25 MG PO SCH (20:53)
--- NOTE | 2020-03-02 21:45 | Progress Notes ---
DATE: 03/02/2020 SUBJECTIVE: A 79-year-old male still with outbursts, angry, still delusional, making statements that he owns the hospital, ongoing concerns about the safety of those around him. Fair sleep and appetite, socializing well, seems to be improving to some extent. Medications reviewed. Labs reviewed. Vitals reviewed. ASSESSMENT: The patient remains symptomatic, still with outbursts, but improving. PLAN: We will coordinate care with family welfare social work professor regarding a safe discharge plan. JOB# [id number]
[2020-03-03] MEDS: Potassium Chloride 20 mEq ER Tab PO SCH (09:52)
--- NOTE | 2020-03-03 10:43 | Internal Medicine Prog Note ---
Internal Medicine Subjective - Subjective Service Date: 03/03/20 Patient seen and examined:: with staff Patient is:: awake, verbal, agitated, other (still dellusional.) Patient Complaints of:: other (Hx of Htn.) Per staff patient has:: no adverse event, no episodes of fall Internal Medicine Objective - Results Recent Labs: Laboratory Last Values POC Glucose 131 MG/DL (70 - 105) H 02/20/20 19:52 Hemoglobin A1c 5.9 % (4.8-5.6) H 02/21/20 11:00 Triglycerides 67 mg/dL (30-150) 02/21/20 10:45 Cholesterol 124 mg/dL (<200) 02/21/20 10:45 LDL Cholesterol 67 mg/dL (0-129) 02/21/20 10:45 HDL Cholesterol 52 mg/dL (>45) 02/21/20 10:45 - Physical Exam Vitals and I&O: Vital Signs Temp 96.8 F 03/03/20 06:15 Pulse 77 03/03/20 09:53 Resp 20 03/03/20 06:15 BP 130/78 03/03/20 09:53 Pulse Ox 93 03/03/20 06:15 Intake & Output 03/02/20 03/03/20 03/03/20 18:59 06:59 18:59 Intake Total 240 Balance 240 Intake: Oral 240 Other: # Voids 2 Active Medications: Current Medications Acetaminophen (Tylenol Extra Strength) 1,000 mg PO Q4H PRN PRN Reason: Moderate pain(5-7) Stop: 04/20/20 21:26 Acetaminophen (Tylenol) 650 mg PO Q4H PRN PRN Reason: Mild Pain(1-4) Stop: 04/20/20 21:26 Bisacodyl (Dulcolax 10 Mg Supp) 10 mg RC DAILY PRN PRN Reason: Constipation Stop: 04/20/20 21:37 Divalproex Sodium (Depakote Dr) 125 mg PO Q12HR [facility]; Protocol Stop: 04/21/20 08:59 Last Admin: 03/03/20 09:50 Dose: 125 mg Donepezil HCl (Aricept) 10 mg PO DAILY [facility] Stop: 04/21/20 08:59 Last Admin: 03/03/20 09:51 Dose: 10 mg Furosemide (Lasix) 20 mg PO DAILY [facility] Stop: 04/21/20 08:59 Last Admin: 03/03/20 09:51 Dose: 20 mg Hydralazine HCl (Apresoline) 25 mg PO TID [facility] Stop: 04/21/20 08:59 Last Admin: 03/03/20 09:53 Dose: 25 mg Lorazepam (Ativan) 0.5 mg PO Q4HR PRN; Protocol PRN Reason: Anxiety Stop: 03/21/20 21:26 Magnesium Hydroxide (Milk Of Magnesia) 30 ml PO HS PRN PRN Reason: Constipation Memantine (Namenda) 10 mg PO BID [facility] Stop: 04/21/20 08:59 Last Admin: 03/03/20 09:51 Dose: 10 mg Potassium Chloride (Klor-Con) 40 meq PO DAILY [facility] Stop: 04/21/20 08:59 Last Admin: 03/03/20 09:52 Dose: 40 meq Quetiapine Fumarate (Seroquel) 200 mg PO DAILY [facility]; Protocol Stop: 04/21/20 08:59 Last Admin: 03/03/20 09:51 Dose: 200 mg Quetiapine Fumarate 300 mg/ (Quetiapine Fumarate 25 mg) 325 mg PO HS [facility] Stop: 04/27/20 20:59 Last Admin: 03/02/20 20:53 Dose: 325 mg Sodium Phosphate (Fleet Enema) 135 ml RC Q2D PRN PRN Reason: IF DULCOLAX IS INEFFECTIVE Stop: 04/20/20 21:37 Zolpidem Tartrate (Ambien) 5 mg PO HS PRN PRN Reason: Insomnia Stop: 04/20/20 21:26 Last Admin: 02/29/20 20:45 Dose: 5 mg Physical Exam: Patient continues to be delusional and still having outbursts, will be monitored closely. General: weak HEENT: NC/AT, PERRLA Neck: Supple Lungs: CTAB Cardiovascular: RRR, Normal S1, Normal S2 Abdomen: soft, non-tender Extremities: clear Neurological: no change, disorganized, other (Easily frustrated.) Internal Medicine Assmt/Plan - Assessment Assessment: Acute Psychosis. Depression. Danger to self/others. History of Gerd. History of Hypertension. - Plan Plan: Psych management as per Psych. Monitor vitals, labs, Low sodium diet. Continue present meds as directed. Supportive care. Safety precaution/Fall precaution. Continue current treatment plan as ordered. Nutritional Asmnt/Malnutr-PDOC - Dietary Evaluation Malnutrition Findings (Please click <Entered> for more info): Nutritional Asmnt/Malnutrition Start: 02/24/20 10: 07 Text: Status: Complete Freq: Protocol: Document 02/24/20 10:07 JAREDVINICIUS (Rec: 02/24/20 10:11 DEV [id number] [id number]) Nutritional Asmnt/Malnutrition Patient General Information Nutritional Screening Moderate Risk Diagnosis Acute Psychosis Pertinent Medical Hx/Surgical Hx Psychosis, Depression, HTN, GERD Subjective Information Pt is a 79-year-old male admitted on 02/19 d/t aggressive behavior with striking out. Pt is eating an 100% of meals sine admit date (x3 days) Per Meal/Nutrition Activity Record. Dietary is currently providing an estimated 1800 kcals and 100 gm Pro to meet 100+% kcal and 100+% Pro needs. Recommend adding CCHO to current diet Rx d/t impaired nutrient utilization r/t endocrine dysfunction aeb () POC Glucose 131, A1c 5.9%. Anthropometrics HT: 53 WT: 183 LB (83.18 kg) ABW: 140 LB (63.07 kg) BMI: 32.41 (Obese, class I) GI/ Skin Integrity GI: WNL, Soft, Non-tender BM: 02/21 x1 I/O: 240/Not Noted Skin: WNL, Intact Perez: 20 Diet Order: Cardiac, DAGOBERTO Estimated Energy Needs: (Obese , ABW) 5951-0913 kcals (20-25 kcals/ kg) 50-65g Pro (0.8-1.0 g/kg) 2746-4145 ml (20-25 ml/kg) Current Diet Order/ Nutrition Support ardiac, DAGOBERTO Pertinent Medications Dulcolax (PRN), Lasix, MOM ( PRN), Klor-con, Fleet Enema ( PRN) Pertinent Labs 02/19: POC Glucose 131, A1c 5.9 % Nutritional Hx/Data Height 1.6 m Height (Calculated Centimeters) 160.0 Current Weight (lbs) 83.007 kg Weight (Calculated Kilograms) 83.0 Weight (Calculated Grams) 97760.4 [place] Body Weight 124 LB (56.36 kg) % [place] Body Weight 148 Body Mass Index (BMI) 32.4 Weight Status Obese GI Symptoms Last BM 02/21 x1 Skin Integrity/Comment: Skin: WNL, Intact Perez: 20 Current %PO Good (75-100%) Estimated Nutritional Goals BEE in Kcals: Adj wt of IBW Calories/Kcals/Kg 20-25 Kcals Calculated 7349-7789 Protein: Adj wt of IBW Protein g/k.8-1.0 Protein Calculated 50-65 Fluid: ml 5806-9241 ml (20-25 ml/kg) Nutritional Problem 2. Problem Problem Obese, class I Etiology r/t consistent energy overconsumption Signs/Symptoms: overconsumption aeb BMI >30 ( 32.42). 1. Problem Problem Impaired nutrient utilization Etiology r/t endocrine dysfunction Signs/Symptoms: aeb (02/19) POC Glucose 131, A1c 5.9%. Malnutrition Related to Morbid Obesity Malnutrition related to morbid obesity No Intervention/Recommendation Comments Recommend adding CCHO to current diet Rx. Expected Outcomes/Goals Expected Outcomes/Goals 1.PO intake to continue to meet >75% of estimated nutritional needs. 2.Gradual weight loss (0.5-1.0 LB/week) trending toward IBW. 3.Monitor PO intake, wt, skin integrity, and nutrition related labs to trend WNL. 4.F/U as low risk in 7-10 days , 03/02-03/05.
--- NOTE | 2020-03-03 17:15 | Progress Notes ---
DATE: 03/03/2020 SUBJECTIVE: This is a 79-year-old male, currently in the hospital, seems to be calm, likely approaching his baseline. 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 Fair sleep and appetite, getting along with others. Socializing well. No outbursts, illness. Tolerant of treatment thus far, unable to care for his basic needs. He is pretty confused, disoriented, delusional. Medications reviewed. Labs reviewed. Vitals were reviewed. PLAN: We will continue to monitor inpatient. We will order COVID testing. senior living is requiring COVID testing. We will continue inpatient monitoring. JOB# [id number]
[2020-03-03] MEDS: QUEtiapine Fumarate 300 MG, QUEtiapine Fumarate 25 MG PO SCH (20:56)
[2020-03-04] MEDS: Potassium Chloride 20 mEq ER Tab PO SCH (08:30)
--- NOTE | 2020-03-04 13:15 | Progress Notes ---
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 We are trying to get him back to senior living home. He is likely at his baseline, some medication adjustments were made. He has been generally calm, cooperative, did not sleep very well last night, but at the same time did not want to take anything for sleep, still remains somewhat oppositional. Medications reviewed. Labs reviewed. Vitals were reviewed. ASSESSMENT: The patient mostly isolative, some interactions with others, irritable still. PLAN: We will continue inpatient monitoring. Adjust and titrate medications as needed. We are also coordinating ____ back to senior living. JOB# [id number]
[2020-03-04] MEDS: QUEtiapine Fumarate 300 MG, QUEtiapine Fumarate 25 MG PO SCH (20:23)
[2020-03-05] MEDS: Potassium Chloride 20 mEq ER Tab PO SCH (09:00)
--- NOTE | 2020-03-05 10:31 | Internal Medicine Prog Note ---
Internal Medicine Subjective - Subjective Service Date: 03/05/20 Patient seen and examined:: with staff Patient is:: awake, verbal, agitated, other (still dellusional.) Patient Complaints of:: other (Hx of Htn.) Per staff patient has:: no adverse event, no episodes of fall Internal Medicine Objective - Results Result Diagrams: 03/03/20 10:55 Recent Labs: Laboratory Last Values Potassium 4.3 mmol/L (3.5-5.1) 03/03/20 10:55 POC Glucose 131 MG/DL (70 - 105) H 02/20/20 19:52 Hemoglobin A1c 5.9 % (4.8-5.6) H 02/21/20 11:00 Triglycerides 67 mg/dL (30-150) 02/21/20 10:45 Cholesterol 124 mg/dL (<200) 02/21/20 10:45 LDL Cholesterol 67 mg/dL (0-129) 02/21/20 10:45 HDL Cholesterol 52 mg/dL (>45) 02/21/20 10:45 - Physical Exam Vitals and I&O: Vital Signs Temp 96.2 F 03/05/20 05:44 Pulse 76 03/05/20 05:44 Resp 20 03/05/20 08:00 BP 148/78 03/05/20 08:37 Pulse Ox 95 03/05/20 05:44 Intake & Output 03/04/20 03/05/20 03/05/20 18:59 06:59 18:59 Intake Total 1200 240 Balance 1200 240 Intake: Oral 1200 240 Other: # Voids 3 2 # Bowel Movements 0 Active Medications: Current Medications Acetaminophen (Tylenol Extra Strength) 1,000 mg PO Q4H PRN PRN Reason: Moderate pain(5-7) Stop: 04/20/20 21:26 Acetaminophen (Tylenol) 650 mg PO Q4H PRN PRN Reason: Mild Pain(1-4) Stop: 04/20/20 21:26 Bisacodyl (Dulcolax 10 Mg Supp) 10 mg RC DAILY PRN PRN Reason: Constipation Stop: 04/20/20 21:37 Divalproex Sodium (Depakote Dr) 125 mg PO Q12HR [facility]; Protocol Stop: 04/21/20 08:59 Last Admin: 03/05/20 08:37 Dose: 125 mg Donepezil HCl (Aricept) 10 mg PO DAILY [facility] Stop: 04/21/20 08:59 Last Admin: 03/05/20 08:37 Dose: 10 mg Furosemide (Lasix) 20 mg PO DAILY [facility] Stop: 04/21/20 08:59 Last Admin: 03/05/20 08:37 Dose: 20 mg Hydralazine HCl (Apresoline) 25 mg PO TID [facility] Stop: 04/21/20 08:59 Last Admin: 03/04/20 20:22 Dose: 25 mg Lorazepam (Ativan) 0.5 mg PO Q4HR PRN; Protocol PRN Reason: Anxiety Stop: 03/21/20 21:26 Magnesium Hydroxide (Milk Of Magnesia) 30 ml PO HS PRN PRN Reason: Constipation Memantine (Namenda) 10 mg PO BID [facility] Stop: 04/21/20 08:59 Last Admin: 03/04/20 16:17 Dose: 10 mg Potassium Chloride (Klor-Con) 40 meq PO DAILY [facility] Stop: 04/21/20 08:59 Last Admin: 03/04/20 08:30 Dose: 40 meq Quetiapine Fumarate (Seroquel) 200 mg PO DAILY [facility]; Protocol Stop: 04/21/20 08:59 Last Admin: 03/04/20 08:30 Dose: 200 mg Quetiapine Fumarate 300 mg/ (Quetiapine Fumarate 25 mg) 325 mg PO HS [facility] Stop: 04/27/20 20:59 Last Admin: 03/04/20 20:23 Dose: 325 mg Sodium Phosphate (Fleet Enema) 135 ml RC Q2D PRN PRN Reason: IF DULCOLAX IS INEFFECTIVE Stop: 04/20/20 21:37 Zolpidem Tartrate (Ambien) 5 mg PO HS PRN PRN Reason: Insomnia Stop: 04/20/20 21:26 Last Admin: 03/04/20 20:23 Dose: 5 mg Physical Exam: Patient is calmer today, very confused and delusional, will be monitored closely. General: weak HEENT: NC/AT, PERRLA Neck: Supple Lungs: CTAB Cardiovascular: RRR, Normal S1, Normal S2 Abdomen: soft, non-tender Extremities: clear Neurological: no change, disorganized, other (Easily frustrated.) Internal Medicine Assmt/Plan - Assessment Assessment: Acute Psychosis. Depression. Danger to self/others. History of Gerd. History of Hypertension. - Plan Plan: Psych management as per Psych. Monitor vitals, labs, Low sodium diet. Continue present meds as directed. Supportive care. Safety precaution/Fall precaution. Continue current treatment plan as ordered. Nutritional Asmnt/Malnutr-PDOC - Dietary Evaluation Malnutrition Findings (Please click <Entered> for more info): Nutritional Asmnt/Malnutrition Start: 02/24/20 10: 07 Text: Status: Complete Freq: Protocol: Document 02/24/20 10:07 DEV (Rec: 02/24/20 10:11 DEV [id number] [id number]) Nutritional Asmnt/Malnutrition Patient General Information Nutritional Screening Moderate Risk Diagnosis Acute Psychosis Pertinent Medical Hx/Surgical Hx Psychosis, Depression, HTN, GERD Subjective Information Pt is a 79-year-old male admitted on 02/19 d/t aggressive behavior with striking out. Pt is eating an 100% of meals sine admit date (x3 days) Per Meal/Nutrition Activity Record. Dietary is currently providing an estimated 1800 kcals and 100 gm Pro to meet 100+% kcal and 100+% Pro needs. Recommend adding CCHO to current diet Rx d/t impaired nutrient utilization r/t endocrine dysfunction aeb () POC Glucose 131, A1c 5.9%. Anthropometrics HT: 53 WT: 183 LB (83.18 kg) ABW: 140 LB (63.07 kg) BMI: 32.41 (Obese, class I) GI/ Skin Integrity GI: WNL, Soft, Non-tender BM: 02/21 x1 I/O: 240/Not Noted Skin: WNL, Intact Perez: 20 Diet Order: Cardiac, DAGOBERTO Estimated Energy Needs: (Obese , ABW) 8524-1717 kcals (20-25 kcals/ kg) 50-65g Pro (0.8-1.0 g/kg) 1653-7979 ml (20-25 ml/kg) Current Diet Order/ Nutrition Support ardiac, DAGOBERTO Pertinent Medications Dulcolax (PRN), Lasix, MOM ( PRN), Klor-con, Fleet Enema ( PRN) Pertinent Labs 02/19: POC Glucose 131, A1c 5.9 % Nutritional Hx/Data Height 1.6 m Height (Calculated Centimeters) 160.0 Current Weight (lbs) 83.007 kg Weight (Calculated Kilograms) 83.0 Weight (Calculated Grams) 44727.4 [place] Body Weight 124 LB (56.36 kg) % [place] Body Weight 148 Body Mass Index (BMI) 32.4 Weight Status Obese GI Symptoms Last BM 02/21 x1 Skin Integrity/Comment: Skin: WNL, Intact Perez: 20 Current %PO Good (75-100%) Estimated Nutritional Goals BEE in Kcals: Adj wt of IBW Calories/Kcals/Kg 20-25 Kcals Calculated 1505-0667 Protein: Adj wt of IBW Protein g/k.8-1.0 Protein Calculated 50-65 Fluid: ml 1554-3096 ml (20-25 ml/kg) Nutritional Problem 2. Problem Problem Obese, class I Etiology r/t consistent energy overconsumption Signs/Symptoms: overconsumption aeb BMI >30 ( 32.42). 1. Problem Problem Impaired nutrient utilization Etiology r/t endocrine dysfunction Signs/Symptoms: aeb (02/19) POC Glucose 131, A1c 5.9%. Malnutrition Related to Morbid Obesity Malnutrition related to morbid obesity No Intervention/Recommendation Comments Recommend adding CCHO to current diet Rx. Expected Outcomes/Goals Expected Outcomes/Goals 1.PO intake to continue to meet >75% of estimated nutritional needs. 2.Gradual weight loss (0.5-1.0 LB/week) trending toward IBW. 3.Monitor PO intake, wt, skin integrity, and nutrition related labs to trend WNL. 4.F/U as low risk in 7-10 days , 03/02-03/05.
[2020-03-05] MEDS: QUEtiapine Fumarate 300 MG, QUEtiapine Fumarate 25 MG PO SCH (21:33)
--- NOTE | 2020-03-06 00:25 | Progress Notes ---
DATE: 03/05/[address] Pierre. SUBJECTIVE: Case was discussed with staff of the patient, reviewed records. This is a 79-year-old male who was admitted on 02/20/2020. He came from ____. JOB# [id number]
--- NOTE | 2020-03-06 00:36 | Progress Notes ---
DATE: 03/05/2020 Case was discussed with staff of patient, reviewed records. This is a 79-year-old male with a well-known case for Dr. Pierre who was readmitted on 02/20/2020. 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 He was told that he did not know his birthday. 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 He was very irritated upset highly delusional. He has multiple prior hospitalizations. The patient continues to be delusional. Continues to be bizarre, acting strange. So far Dr. Pierre believe that he may be at his basic level of functioning, waiting for COVID-19 testing. So we are trying to get him back to retirement facility and no side effects with the medication, no sedation, no nausea, no extrapyramidal symptoms. He tend to isolate himself, unable to carry on a reasonable conversation because of his delusion. He is on Depakote 125 mg twice a day and Namenda 10 mg twice a day, Seroquel 200 mg daily and 325 mg at bedtime with no side effects, no sedation, no nausea, no extrapyramidal symptoms. We will continue outpatient group therapy, milieu therapy, adjust medication as needed. JOB# [id number] MTDD
--- NOTE | 2020-03-06 07:41 | Progress Notes ---
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 Currently pending COVID-19 testing. Sleeping, calm, generally cooperative. No overt agitation. PLAN: Once COVID-19 testing is sent over to the facility, we will attempt to discharge him back. JOB# [id number]
[2020-03-06] MEDS: Potassium Chloride 20 mEq ER Tab PO SCH (08:41)
--- NOTE | 2020-03-06 09:48 | Progress Notes ---
DATE: 03/06/2020 SUBJECTIVE: The patient was seen in the dining area. Per nurse report, the patient did not sleep well last night, appears to be guarded, easily gets frustrated, poor impulse control and agitated. Otherwise, the patient is in no acute distress. OBJECTIVE: VITAL SIGNS: Temperature 97.6, heart rate of 78, blood pressure 124/64. HEENT: Head is atraumatic and normocephalic. Eyes: Bilateral conjunctivae are clear. Bilateral pupils are equally round and reactive. NECK: Supple. No JVD. CARDIOVASCULAR: S1 and S2, without murmur. PULMONARY: Clear to auscultation. GASTROINTESTINAL: Soft and nontender without guarding. Positive bowel sounds. MUSCULOSKELETAL: No clubbing, no cyanosis noted. ASSESSMENT: 1. Schizoaffective disorder. 2. Hypertension. 3. Osteoarthritis. 4. Unsteady gait. PLAN: We will continue to keep the patient inpatient to Psychiatric Unit. We will follow up with a psychiatrist to monitor the patient's condition and behavior. We will put the patient on fall precautions. Treatment plans were discussed with the patient's nurse. Treatment plans were discussed with Dr. Avery. JOB# [id number]
[2020-03-06] MEDS: QUEtiapine Fumarate 300 MG, QUEtiapine Fumarate 25 MG PO SCH (20:42)
--- NOTE | 2020-03-07 07:23 | Progress Notes ---
DATE: 03/07/2020 SUBJECTIVE: This is a 79-year-old male, currently in the hospital, likely at his baseline, calm, confused, generally cooperative, still grandiose, believes he owns the hospital. Resting comfortably, no agitation or events. Currently pending COVID-19 testing with a scheduled discharge for tomorrow. JOB# [id number]
[2020-03-07] MEDS: Potassium Chloride 20 mEq ER Tab PO SCH (09:04)
--- NOTE | 2020-03-07 21:18 | Internal Medicine Prog Note ---
Internal Medicine Subjective - Subjective Patient is:: awake, verbal, agitated, other (still dellusional.) Patient Complaints of:: other (Hx of Htn.) Per staff patient has:: no adverse event, no episodes of fall Internal Medicine Objective - Results Result Diagrams: 03/03/20 10:55 Recent Labs: Laboratory Last Values Potassium 4.3 mmol/L (3.5-5.1) 03/03/20 10:55 POC Glucose 131 MG/DL (70 - 105) H 02/20/20 19:52 Hemoglobin A1c 5.9 % (4.8-5.6) H 02/21/20 11:00 Triglycerides 67 mg/dL (30-150) 02/21/20 10:45 Cholesterol 124 mg/dL (<200) 02/21/20 10:45 LDL Cholesterol 67 mg/dL (0-129) 02/21/20 10:45 HDL Cholesterol 52 mg/dL (>45) 02/21/20 10:45 - Physical Exam Vitals and I&O: Vital Signs Temp 96.7 F 03/07/20 20:12 Pulse 84 03/07/20 20:12 Resp 19 03/07/20 20:12 BP 139/81 03/07/20 20:12 Pulse Ox 95 03/07/20 20:12 Intake & Output 03/07/20 03/07/20 03/08/20 06:59 18:59 06:59 Intake Total 240 1200 180 Balance 240 1200 180 Intake: Oral 240 1200 180 Other: # Voids 2 8 2 # Bowel Movements 2 1 Active Medications: Current Medications Acetaminophen (Tylenol Extra Strength) 1,000 mg PO Q4H PRN PRN Reason: Moderate pain(5-7) Stop: 04/20/20 21:26 Acetaminophen (Tylenol) 650 mg PO Q4H PRN PRN Reason: Mild Pain(1-4) Stop: 04/20/20 21:26 Bisacodyl (Dulcolax 10 Mg Supp) 10 mg RC DAILY PRN PRN Reason: Constipation Stop: 04/20/20 21:37 Divalproex Sodium (Depakote Dr) 125 mg PO Q12HR [facility]; Protocol Stop: 04/21/20 08:59 Last Admin: 03/07/20 09:05 Dose: 125 mg Donepezil HCl (Aricept) 10 mg PO DAILY [facility] Stop: 04/21/20 08:59 Last Admin: 03/07/20 09:06 Dose: 10 mg Furosemide (Lasix) 20 mg PO DAILY [facility] Stop: 04/21/20 08:59 Last Admin: 03/07/20 09:05 Dose: 20 mg Hydralazine HCl (Apresoline) 25 mg PO TID [facility] Stop: 04/21/20 08:59 Last Admin: 03/07/20 14:46 Dose: Not Given Magnesium Hydroxide (Milk Of Magnesia) 30 ml PO HS PRN PRN Reason: Constipation Memantine (Namenda) 10 mg PO BID [facility] Stop: 04/21/20 08:59 Last Admin: 03/07/20 16:00 Dose: 10 mg Potassium Chloride (Klor-Con) 40 meq PO DAILY [facility] Stop: 04/21/20 08:59 Last Admin: 03/07/20 09:04 Dose: 40 meq Quetiapine Fumarate (Seroquel) 200 mg PO DAILY [facility]; Protocol Stop: 04/21/20 08:59 Last Admin: 03/07/20 09:05 Dose: 200 mg Quetiapine Fumarate 300 mg/ (Quetiapine Fumarate 25 mg) 325 mg PO HS [facility] Stop: 04/27/20 20:59 Last Admin: 03/06/20 20:42 Dose: 325 mg Sodium Phosphate (Fleet Enema) 135 ml RC Q2D PRN PRN Reason: IF DULCOLAX IS INEFFECTIVE Stop: 04/20/20 21:37 Zolpidem Tartrate (Ambien) 5 mg PO HS PRN PRN Reason: Insomnia Stop: 05/04/20 21:14 Last Admin: 03/05/20 21:33 Dose: 5 mg General: weak HEENT: NC/AT, PERRLA Neck: Supple Lungs: CTAB Cardiovascular: RRR, Normal S1, Normal S2 Abdomen: soft, non-tender Extremities: clear Neurological: no change, disorganized, other (Easily frustrated.) Internal Medicine Assmt/Plan - Assessment Assessment: Schizoaffective disorder HTN OA Unsteady gait - Plan Plan: Continue to monitor patient's condition and behavior. Continue to monitor VS Monitor diet/nutritional support Fall Precaution. Safety precaution. Psych per Psychiatry Dispo planning Nutritional Asmnt/Malnutr-PDOC - Dietary Evaluation Malnutrition Findings (Please click <Entered> for more info): Nutritional Asmnt/Malnutrition Start: 02/24/20 10: 07 Text: Status: Complete Freq: Protocol: Document 02/24/20 10:07 DEV (Rec: 02/24/20 10:11 [id number] [id number]) Nutritional Asmnt/Malnutrition Patient General Information Nutritional Screening Moderate Risk Diagnosis Acute Psychosis Pertinent Medical Hx/Surgical Hx Psychosis, Depression, HTN, GERD Subjective Information Pt is a 79-year-old male admitted on 02/19 d/t aggressive behavior with striking out. Pt is eating an 100% of meals sine admit date (x3 days) Per Meal/Nutrition Activity Record. Dietary is currently providing an estimated 1800 kcals and 100 gm Pro to meet 100+% kcal and 100+% Pro needs. Recommend adding CCHO to current diet Rx d/t impaired nutrient utilization r/t endocrine dysfunction aeb () POC Glucose 131, A1c 5.9%. Anthropometrics HT: 53 WT: 183 LB (83.18 kg) ABW: 140 LB (63.07 kg) BMI: 32.41 (Obese, class I) GI/ Skin Integrity GI: WNL, Soft, Non-tender BM: 02/21 x1 I/O: 240/Not Noted Skin: WNL, Intact Perez: 20 Diet Order: Cardiac, DAGOBERTO Estimated Energy Needs: (Obese , ABW) 7761-7592 kcals (20-25 kcals/ kg) 50-65g Pro (0.8-1.0 g/kg) 4592-2796 ml (20-25 ml/kg) Current Diet Order/ Nutrition Support ardiac, DAGOBERTO Pertinent Medications Dulcolax (PRN), Lasix, MOM ( PRN), Klor-con, Fleet Enema ( PRN) Pertinent Labs 02/19: POC Glucose 131, A1c 5.9 % Nutritional Hx/Data Height 5 ft 3 in Height (Calculated Centimeters) 160.0 Current Weight (lbs) 183 lb Weight (Calculated Kilograms) 83.0 Weight (Calculated Grams) [address]221.4 [place] Body Weight 124 LB (56.36 kg) % [place] Body Weight 148 Body Mass Index (BMI) 32.4 Weight Status Obese GI Symptoms Last BM 02/21 x1 Skin Integrity/Comment: Skin: WNL, Intact Perez: 20 Current %PO Good (75-100%) Estimated Nutritional Goals BEE in Kcals: Adj wt of IBW Calories/Kcals/Kg 20-25 Kcals Calculated 9589-8200 Protein: Adj wt of IBW Protein g/k.8-1.0 Protein Calculated 50-65 Fluid: ml 1666-4472 ml (20-25 ml/kg) Nutritional Problem 2. Problem Problem Obese, class I Etiology r/t consistent energy overconsumption Signs/Symptoms: overconsumption aeb BMI >30 ( 32.42). 1. Problem Problem Impaired nutrient utilization Etiology r/t endocrine dysfunction Signs/Symptoms: aeb (02/19) POC Glucose 131, A1c 5.9%. Malnutrition Related to Morbid Obesity Malnutrition related to morbid obesity No Intervention/Recommendation Comments Recommend adding CCHO to current diet Rx. Expected Outcomes/Goals Expected Outcomes/Goals 1.PO intake to continue to meet >75% of estimated nutritional needs. 2.Gradual weight loss (0.5-1.0 LB/week) trending toward IBW. 3.Monitor PO intake, wt, skin integrity, and nutrition related labs to trend WNL. 4.F/U as low risk in 7-10 days , 03/02-03/05.
[2020-03-07] MEDS: QUEtiapine Fumarate 300 MG, QUEtiapine Fumarate 25 MG PO SCH (21:19)
[2020-03-08] MEDS: Potassium Chloride 20 mEq ER Tab PO SCH (08:49)
--- NOTE | 2020-03-08 13:38 | Internal Medicine Prog Note ---
Internal Medicine Subjective - Subjective Service Date: 03/08/20 Patient seen and examined:: with staff Patient is:: awake, verbal, agitated, other (still dellusional.) Patient Complaints of:: other (Hx of Htn.) Per staff patient has:: no adverse event, no episodes of fall Internal Medicine Objective - Results Result Diagrams: 03/03/20 10:55 Recent Labs: Laboratory Last Values Potassium 4.3 mmol/L (3.5-5.1) 03/03/20 10:55 POC Glucose 131 MG/DL (70 - 105) H 02/20/20 19:52 Hemoglobin A1c 5.9 % (4.8-5.6) H 02/21/20 11:00 Triglycerides 67 mg/dL (30-150) 02/21/20 10:45 Cholesterol 124 mg/dL (<200) 02/21/20 10:45 LDL Cholesterol 67 mg/dL (0-129) 02/21/20 10:45 HDL Cholesterol 52 mg/dL (>45) 02/21/20 10:45 SARS Serology NEGATIVE (NEGATIVE) A* 03/08/20 02:45 - Physical Exam Vitals and I&O: Vital Signs Temp 96.5 F 03/08/20 06:45 Pulse 93 03/08/20 13:09 Resp 18 03/08/20 08:00 BP 139/77 03/08/20 13:09 Pulse Ox 97 03/08/20 06:45 Intake & Output 03/07/20 03/08/20 03/08/20 18:59 06:59 18:59 Intake Total 1200 180 Balance 1200 180 Intake: Oral 1200 180 Other: # Voids 8 2 # Bowel Movements 2 1 Active Medications: Current Medications Acetaminophen (Tylenol Extra Strength) 1,000 mg PO Q4H PRN PRN Reason: Moderate pain(5-7) Stop: 04/20/20 21:26 Acetaminophen (Tylenol) 650 mg PO Q4H PRN PRN Reason: Mild Pain(1-4) Stop: 04/20/20 21:26 Bisacodyl (Dulcolax 10 Mg Supp) 10 mg RC DAILY PRN PRN Reason: Constipation Stop: 04/20/20 21:37 Divalproex Sodium (Depakote Dr) 125 mg PO Q12HR [facility]; Protocol Stop: 04/21/20 08:59 Last Admin: 03/08/20 08:49 Dose: 125 mg Donepezil HCl (Aricept) 10 mg PO DAILY [facility] Stop: 04/21/20 08:59 Last Admin: 03/08/20 08:49 Dose: 10 mg Furosemide (Lasix) 20 mg PO DAILY [facility] Stop: 04/21/20 08:59 Last Admin: 03/08/20 08:49 Dose: 20 mg Hydralazine HCl (Apresoline) 25 mg PO TID [facility] Stop: 04/21/20 08:59 Last Admin: 03/08/20 13:09 Dose: 25 mg Magnesium Hydroxide (Milk Of Magnesia) 30 ml PO HS PRN PRN Reason: Constipation Memantine (Namenda) 10 mg PO BID [facility] Stop: 04/21/20 08:59 Last Admin: 03/08/20 08:49 Dose: 10 mg Potassium Chloride (Klor-Con) 40 meq PO DAILY [facility] Stop: 04/21/20 08:59 Last Admin: 03/08/20 08:49 Dose: 40 meq Quetiapine Fumarate (Seroquel) 200 mg PO DAILY [facility]; Protocol Stop: 04/21/20 08:59 Last Admin: 03/08/20 08:49 Dose: 200 mg Quetiapine Fumarate 300 mg/ (Quetiapine Fumarate 25 mg) 325 mg PO HS [facility] Stop: 04/27/20 20:59 Last Admin: 03/07/20 21:19 Dose: 325 mg Sodium Phosphate (Fleet Enema) 135 ml RC Q2D PRN PRN Reason: IF DULCOLAX IS INEFFECTIVE Stop: 04/20/20 21:37 Zolpidem Tartrate (Ambien) 5 mg PO HS PRN PRN Reason: Insomnia Stop: 05/04/20 21:14 Last Admin: 03/05/20 21:33 Dose: 5 mg Physical Exam: Patient is confused and very irritable, will be monitored closely. General: weak HEENT: NC/AT, PERRLA Neck: Supple Lungs: CTAB Cardiovascular: RRR, Normal S1, Normal S2 Abdomen: soft, non-tender Extremities: clear Neurological: no change, disorganized, other (Easily frustrated.) Internal Medicine Assmt/Plan - Assessment Assessment: Acute Psychosis. Depression. Danger to self/others. History of Gerd. History of Hypertension. - Plan Plan: Psych management as per Psych. Monitor vitals, labs, Low sodium diet. Continue present meds as directed. Supportive care. Safety precaution/Fall precaution. Continue current treatment plan as ordered. Nutritional Asmnt/Malnutr-PDOC - Dietary Evaluation Malnutrition Findings (Please click <Entered> for more info): Nutritional Asmnt/Malnutrition Start: 02/24/20 10: 07 Text: Status: Complete Freq: Protocol: Document 02/24/20 10:07 DEV (Rec: 02/24/20 10:11 DEV [id number]) Nutritional Asmnt/Malnutrition Patient General Information Nutritional Screening Moderate Risk Diagnosis Acute Psychosis Pertinent Medical Hx/Surgical Hx Psychosis, Depression, HTN, GERD Subjective Information Pt is a 79-year-old male admitted on 02/19 d/t aggressive behavior with striking out. Pt is eating an 100% of meals sine admit date (x3 days) Per Meal/Nutrition Activity Record. Dietary is currently providing an estimated 1800 kcals and 100 gm Pro to meet 100+% kcal and 100+% Pro needs. Recommend adding CCHO to current diet Rx d/t impaired nutrient utilization r/t endocrine dysfunction aeb () POC Glucose 131, A1c 5.9%. Anthropometrics HT: 53 WT: 183 LB (83.18 kg) ABW: 140 LB (63.07 kg) BMI: 32.41 (Obese, class I) GI/ Skin Integrity GI: WNL, Soft, Non-tender BM: 02/21 x1 I/O: 240/Not Noted Skin: WNL, Intact Perez: 20 Diet Order: Cardiac, DAGOBERTO Estimated Energy Needs: (Obese , ABW) 5637-9681 kcals (20-25 kcals/ kg) 50-65g Pro (0.8-1.0 g/kg) 5336-4027 ml (20-25 ml/kg) Current Diet Order/ Nutrition Support ardiac, DAGOBERTO Pertinent Medications Dulcolax (PRN), Lasix, MOM ( PRN), Klor-con, Fleet Enema ( PRN) Pertinent Labs 02/19: POC Glucose 131, A1c 5.9 % Nutritional Hx/Data Height 1.6 m Height (Calculated Centimeters) 160.0 Current Weight (lbs) 83.007 kg Weight (Calculated Kilograms) 83.0 Weight (Calculated Grams) 33662.4 [place] Body Weight 124 LB (56.36 kg) % [place] Body Weight 148 Body Mass Index (BMI) 32.4 Weight Status Obese GI Symptoms Last BM 02/21 x1 Skin Integrity/Comment: Skin: WNL, Intact Perez: 20 Current %PO Good (75-100%) Estimated Nutritional Goals BEE in Kcals: Adj wt of IBW Calories/Kcals/Kg 20-25 Kcals Calculated 1556-6015 Protein: Adj wt of IBW Protein g/k.8-1.0 Protein Calculated 50-65 Fluid: ml 8825-2293 ml (20-25 ml/kg) Nutritional Problem 2. Problem Problem Obese, class I Etiology r/t consistent energy overconsumption Signs/Symptoms: overconsumption aeb BMI >30 ( 32.42). 1. Problem Problem Impaired nutrient utilization Etiology r/t endocrine dysfunction Signs/Symptoms: aeb (02/19) POC Glucose 131, A1c 5.9%. Malnutrition Related to Morbid Obesity Malnutrition related to morbid obesity No Intervention/Recommendation Comments Recommend adding CCHO to current diet Rx. Expected Outcomes/Goals Expected Outcomes/Goals 1.PO intake to continue to meet >75% of estimated nutritional needs. 2.Gradual weight loss (0.5-1.0 LB/week) trending toward IBW. 3.Monitor PO intake, wt, skin integrity, and nutrition related labs to trend WNL. 4.F/U as low risk in 7-10 days , 03/02-03/05.
--- NOTE | 2020-03-08 17:00 | Discharge Summary ---
DATE OF DISCHARGE: 03/08/2020 HISTORY OF PRESENT ILLNESS: A 79-year-old male, currently in the hospital, coming from a alf, was aggressive, agitated, delusional, making bizarre comments. 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 PAST PSYCHIATRIC HISTORY: Admissions in the past. FAMILY HISTORY: Unclear. SOCIAL HISTORY: Needing high level of alf care. MEDICATIONS: Noted. MENTAL STATUS EXAMINATION: Please see full psych eval for details. DIAGNOSES: Dementia, dementia with behaviors; mood, unspecified; anxiety, unspecified; psychosis, unspecified; rule out schizophrenia. MEDICAL: Please see full H and P. HOSPITAL COURSE: After initial assessment, the patient was restarted on medications, which were adjusted, slowly titrated. Over the course of treatment, mood improved, affect improved, generally calmer, delusions persisted, but he was no longer agitated. No aggressive symptoms, no longer telling staff what to do, no posturing, redirectable, sleeping well, eating well, taking his medications. No overt side effects. CONDITION UPON DISCHARGE: Improved, allowing ADLs. No SI. No HI. Remains confused, disoriented, but calm. Currently, delusions persisted about owning the hospital, poor insight, better impulse control. DISCHARGE DIAGNOSES: Dementia, dementia with behaviors; mood, unspecified; anxiety, unspecified; psychosis, unspecified. PROGNOSIS: The patient follows up with outpatient mental health services and remains compliant with treatment. Prognosis will improve, otherwise guarded. [facility]# [id number]
--- NOTE | 2020-03-10 20:18 | Progress Notes ---
DATE: 03/05/2020 Case was discussed with staff of the patient, reviewed records. Covering for Dr. Pierre. This is a 79-year-old male who was admitted on 02/20/2020. The patient came from [facility]. The patient was delusional, believing he is a [employer]. He did not know his birthday. 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 He was very grandiose, delusional, had multiple prior admissions. The patient is starting to show progress, a little bit; however, he is still delusional. Continues to be grandiose. ____ initially believe may be his basic level of functioning, waiting on a COVID-19 test. The patient has been compliant with the medication with no side effects, no sedation, no nausea, no extrapyramidal symptoms. We will continue outpatient group therapy, milieu therapy, and adjust medication as needed. JOB# [id number]
== END 2020-03-08 14:15 | DRG 885 ==
LOC: GERO 18:22
PROVIDERS: ADMIT Psychiatry & Neurology Psychiatry; ATTEND Psychiatry & Neurology Psychiatry
DX: F25.9 Schizoaffective disorder, unspecified (principal); F03.91 Unspecified dementia, unspecified severity, with behavioral disturbance; Z20.828 Contact with and (suspected) exposure to other viral communicable diseases; F41.9 Anxiety disorder, unspecified; F29 Unspecified psychosis not due to a substance or known physiological condition; I10 Essential (primary) hypertension; M19.90 Unspecified osteoarthritis, unspecified site; K21.9 Gastro-esophageal reflux disease without esophagitis
CPT/HCPCS: 36415-UA; 80061-TC; 82948-90; 83036-90; 84132-TC; 90899; G0410; Z7610